=== PATIENT | female | born 1960 | race Caucasian/White ===

== ENCOUNTER 2018-04-10 08:56 | Outpatient (REF) | payer BC, SELFPAY ==
--- NOTE | 2018-04-10 08:45 | PAPFT_PTH ---
PATIENT: Maritza Matute LOC: [facility] U#:[id number] AGE/SX: 58/F ROOM: RE04/10/[address]: BACILIO Jackson : 1960 BED: DIS: 04/10/2018 SPEC #: [id number] RECD: 04/10/18 13:15 STATUS: MAGDY REQ #: [id number] SHARI: 04/10/18 08:[address]: Anat Lerner DEPT: [facility] Cytology RECD BY: Madelyn Dumont ENTERED: 04/10/18 13:16 SP TYPE: PAPFT OTHR DR: Diana Haas APRN Tissues: 1 - CX/ENDOCX FOR PAP SMEARS Procedures: PAP THIN PREP/UVM Screening HPV DNA PROBE Comments: [id number]
== END 2018-04-10 09:16 ==
LOC: LBN 08:56
PROVIDERS: Visit Provider Nurse Practitioner Family
DX: Z12.4 Encounter for screening for malignant neoplasm of cervix (principal); Z11.51 Encounter for screening for human papillomavirus (HPV)
CPT/HCPCS: 88142; 87624

== ENCOUNTER 2018-04-29 00:15 | Outpatient (CLI) | payer BC, SELFPAY ==
--- NOTE | 2018-04-29 16:30 | DI.MAMMO_ITS ---
SYMPTOM/DIAGNOSIS: SCREENING, Z12.31 MAMMOGRAMS: Mammograms were interpreted according to the usual protocol including computer analysis with CAD system, tomosynthesis and C view imaging. Comparison is made with prior examinations. Breast density, Category C. No suspicious masses or microcalcifications are seen. There is no definite evidence of malignancy. IMPRESSION: Negative mammogram. Routine screening is recommended. Category 1C. MQSA ASSESSMENT OF FINDINGS: Negative. Category 1. Patient will receive a letter notifying them of these results. Bi-RADS category C. The breasts are heterogeneously dense, which may obscure small masses.
== END 2018-04-29 00:35 ==
PROVIDERS: Visit Provider Nurse Practitioner Family
DX: Z12.31 Encounter for screening mammogram for malignant neoplasm of breast (principal)
CPT/HCPCS: 77063; 77067

== ENCOUNTER 2018-06-24 02:01 | Outpatient (CLI) | payer BC, SELFPAY ==
--- NOTE | 2018-06-24 07:22 | DI.US_ITS ---
SYMPTOM/DIAGNOSIS: CHRONIC PHLEBITIS, ? DVT RLL, I80.9 RIGHT LOWER EXTREMITY ULTRASOUND: There is no evidence of DVT. Note is made of varicosities in the mid and lower calf where color flow is identified with partial compression. The possibility of superficial thrombophlebitis could not be entirely excluded in this patient.
== END 2018-06-24 02:21 ==
DX: I80.3 Phlebitis and thrombophlebitis of lower extremities, unspecified (principal); I83.91 Asymptomatic varicose veins of right lower extremity
CPT/HCPCS: 93971

== ENCOUNTER 2018-11-19 02:10 | Outpatient (CLI) | payer BC, SELFPAY ==
[2018-11-19 08:53] LABS: ALT 25 U/L (12-78); AST 20 U/L (15-37); Albumin 3.1 g/dL (3.4-5.0); Alkaline Phosphatase 87 U/L (46-116); Anion Gap 8.9 mmol/L (3-11); BUN 20 mg/dL (7-18); Bilirubin, Total 0.6 mg/dL (0.2-1.0); CO2 27.1 mmol/L (21.0-32.0); CREATININE 0.66 mg/dL (0.55-1.02); Calcium 8.8 mg/dL (8.5-10.1); Chloride 106 mmol/L (98-107); Glucose 50 mg/dL (70-100); Potassium 4.1 mmol/L (3.5-5.1); Sodium 142 mmol/L (136-145); TSH (W/Ref FT4) 5.18 uIU/mL (0.36-3.74); Total Protein 6.2 g/dL (6.4-8.2)
== END 2018-11-19 02:30 ==
PROVIDERS: PCP Nurse Practitioner
DX: I10 Essential (primary) hypertension (principal); R79.89 Other specified abnormal findings of blood chemistry; G47.00 Insomnia, unspecified
CPT/HCPCS: 36415; 80053; 84439; 84443

== ENCOUNTER 2020-07-04 01:47 | Outpatient (CLI) | payer BC, SELFPAY ==
--- NOTE | 2020-07-04 08:25 | DI.MAMMO_ITS ---
EXAM: MG MAMMO SCREENING CLINICAL HISTORY: screening,z12.39 TECHNIQUE: Bilateral full field digital CC and MLO mammographic images were obtained with 3D tomosyn thesis and utilizing computer aided detection (CAD). COMPARISON: Available for comparison. FINDINGS: Masses/Architectural Distortion: There is an asymmetry in the inferior right breast seen on the MLO v iew. Microcalcifications: No suspicious pleomorphic-type are seen. Skin Thickening/Nipple Retraction: None. IMPRESSION: 1. Asymmetry in the inferior right breast on the MLO view 3 cm from the nipple. 2. This area should be further evaluated with spot compression view. Ultrasound may be indicated at that time. BI-RADS Category 0 - Assessment Incomplete: Need additional imaging evaluation Breast Density - Category C - Heterogeneously dense Breast density category C or D implies that the patient has dense breast tissue. Dense breast tissue is very common and is not abnormal but dense breast tissue can make it harder to find cancer on a ma mmogram. Also, dense breast tissue may increase their breast cancer risk. This information about the result of the mammogram report was provided to the patient to raise their awareness. Use this report when you speak with the patient about their risks for breast cancer, which includes their family hist ory. At that time, you may recommend for more screening tests (Ultrasound or MRI) as they might be us eful based on their risk. A negative radiographic report should not delay biopsy if a dominant or clinically suspicious mass is present. Up to ten percent of cancers are not identified on mammography. A negative report may reinforce clinical impression. Adenosis and dense breasts may obscure an underlying neoplasm. False positive reports average 6 to 10%. Patient will receive a letter notifying them of these results.
== END 2020-07-04 02:07 ==
PROVIDERS: PCP Nurse Practitioner; Visit Provider Nurse Practitioner
DX: Z12.31 Encounter for screening mammogram for malignant neoplasm of breast (principal); R92.8 Other abnormal and inconclusive findings on diagnostic imaging of breast
CPT/HCPCS: 77063; 77067

== ENCOUNTER 2020-07-04 03:42 | Outpatient (CLI) | payer BC, SELFPAY ==
[2020-07-04 09:11] LABS: Hemoglobin A1C 5.9 % (<5.7)
[2020-07-04 09:53] LABS: CREATININE 0.6 mg/dL (0.55-1.02); Calculated LDL 120 mg/dL (<100); Cholesterol 196 mg/dL (<200); HDL Cholesterol 62 mg/dL (40-60); Potassium 4.2 mmol/L (3.5-5.1); TSH (W/Ref FT4) 2.91 uIU/mL (0.36-3.74); Triglyceride 71 mg/dL (<150)
== END 2020-07-04 03:43 | disposition home or self-care (01) ==
LOC: LBO 03:42
PROVIDERS: PCP Nurse Practitioner; Visit Provider Nurse Practitioner
DX: I10 Essential (primary) hypertension (principal); R94.6 Abnormal results of thyroid function studies; R79.89 Other specified abnormal findings of blood chemistry; Z13.1 Encounter for screening for diabetes mellitus; Z13.6 Encounter for screening for cardiovascular disorders
CPT/HCPCS: 36415; 80061; 82565; 83036; 84132; 84443

== ENCOUNTER 2020-07-07 04:19 | Outpatient (CLI) | payer BC, SELFPAY ==
--- NOTE | 2020-07-07 | DI.US_ITS ---
EXAM: MG MAMMO SCREEN CALL BACK UNI CLINICAL HISTORY: F/U MAMMO, ASYMMETRY INFERIOR T BREAST TECHNIQUE: Mammograms were interpreted according to the usual protocol including computer analysis w ith CAD system, tomosynthesis and C-view imaging. COMPARISON: FINDINGS: Additional mammographic views of the right breast and right breast ultrasound are interpreted in conj unction. These examinations were obtained to evaluate questionable area of asymmetric density in the lower outer quadrant of the right breast seen on recent mammogram. Additional mammographic views fa il to show a discrete mass. Breast ultrasound shows no evidence of a mass or cyst. IMPRESSION: No specific evidence of malignancy at this time. Follow-up unilateral right breast mammogram recomme nded in 6 months. BI-RADS Category 3 - 6 month - Probably Benign Finding: Recommend follow-up mammography in 6 months Breast Density - Category C - Heterogeneously dense
== END 2020-07-07 04:39 ==
PROVIDERS: PCP Nurse Practitioner; Visit Provider Nurse Practitioner
DX: Z12.31 Encounter for screening mammogram for malignant neoplasm of breast (principal); R92.8 Other abnormal and inconclusive findings on diagnostic imaging of breast; N64.59 Other signs and symptoms in breast
CPT/HCPCS: 76642; 77063; 77067

== ENCOUNTER 2021-01-09 01:57 | Outpatient (CLI) | payer BC, SELFPAY ==
--- NOTE | 2021-01-09 13:41 | DI.MAMMO_ITS ---
Exam(s) MAMMO DIAGNOSTIC UNI EXAM: MAMMO DIAGNOSTIC UNI CLINICAL HISTORY: 3-6 MO F/U, ABNL MAMMO OF RIGHT BREAST, Z09, R92.8. TECHNIQUE: Craniocaudal and mediolateral oblique Full Field Digital Mammography views of the right b reast with Computer Aided Diagnosis followed by Tomosynthesis. COMPARISON: Comparison is made with prior examinations. FINDINGS: Mammography/Tomosynthesis: Masses/Architectural Distortion: None seen. Microcalcifictions: No suspicious pleomorphic-type are seen. Skin Thickening/Nipple Retraction: None. IMPRESSION: 1. No evidence of malignancy is noted. 2. Unless there is more urgent need, follow-up screening mammography is recommended, as per [place] [employer] guidelines. 3. The findings were discussed with the patient on the date of the examination. BI-RADS Category 1 - Negative Breast Density - Category C - Heterogeneously dense Breast density Category C or D implies that the patient has dense breast tissue. Dense breast tissue can make it harder to find cancer on a mammogram. Dense breast tissue is also associated with an incr eased risk of breast cancer. This information about the result of the mammogram report was provided to the patient to raise their awareness. Use this report when you speak with the patient about their risks for breast cancer, which includes their family history. At that time, you may recommend additional screening tests (Ultrasoun d or MRI) as these tests may add significant information. A negative radiographic report should not delay biopsy if a dominant or clinically suspicious mass is present. Up to ten percent of cancers are not identified on mammography. A negative report may reinforce clinical impression. Adenosis and dense breasts may obscure an underlying neoplasm. False positive reports average 6 to 10%. Patient will receive a letter notifying them of these results.
== END 2021-01-09 02:17 ==
PROVIDERS: PCP Nurse Practitioner; Visit Provider Nurse Practitioner
DX: R92.8 Other abnormal and inconclusive findings on diagnostic imaging of breast (principal); Z09 Encounter for follow-up examination after completed treatment for conditions other than malignant neoplasm
CPT/HCPCS: 77061; 77065; G0279

== ENCOUNTER → 2021-07-12 08:11 | Outpatient (CLI) | payer BC, SELFPAY ==
--- NOTE | 2021-07-12 09:28 | DI.MAMMO_ITS ---
Exam(s) MAMMO SCREENING EXAM: MAMMO SCREENING CLINICAL HISTORY: screening,Z12.39 TECHNIQUE: Mammograms were interpreted according to the usual protocol including computer analysis w [employer] CAD system, tomosynthesis and C-view imaging. COMPARISON: 2012 through 2020 FINDINGS: The breasts are composed of heterogeneously dense fibroglandular densities, Breast Density category C . No suspicious masses or suspicious microcalcifications are seen. No skin thickening or abnormal axillary lymph nodes are seen. There has been no significant change from prior exams. IMPRESSION: BI-RADS Category 1, Negative mammogram. Yearly screening mammography is recommended. Breast Density Category C, heterogeneously Dense. The mammogram demonstrates the patient's breast tissue is dense. Dense breast tissue is very common a nd is not abnormal but dense breast tissue can make it harder to find cancer on a mammogram. Also, de nse breast tissue may increase breast cancer risk. This information about the result of the mammogram report was provided to the patient to raise their awareness. Use this report when you speak with the patient about their risks for breast cancer, which includes their family history. At that time, you may recommend additional screening tests (Ultrasound or MRI) as they might be useful based on their r isk. A negative radiographic report should not delay biopsy if a dominant or clinically suspicious mass is present. Up to ten percent of cancers are not identified on mammography. A negative report may reinforce clinical impression. Adenosis and dense breasts may obscure an underlying neoplasm. False positive reports average 6 to 10%.
== END ==
PROVIDERS: PCP Nurse Practitioner; Visit Provider Nurse Practitioner
DX: Z12.31 Encounter for screening mammogram for malignant neoplasm of breast (principal); R92.8 Other abnormal and inconclusive findings on diagnostic imaging of breast
CPT/HCPCS: 77063; 77067

== ENCOUNTER 2021-10-25 02:37 | Outpatient (CLI) | payer BC, SELFPAY ==
[2021-10-25 12:37] LABS: Hemoglobin A1C 5.6 % (<5.7)
[2021-10-25 12:44] LABS: Anion Gap 7.3 mmol/L (3-11); BUN 19 mg/dL (7-18); CO2 28.7 mmol/L (21.0-32.0); CREATININE 0.6 mg/dL (0.55-1.02); Chloride 106 mmol/L (98-107); Glucose 81 mg/dL (74-106); Potassium 3.9 mmol/L (3.5-5.1); Sodium 142 mmol/L (136-145)
== END 2021-10-25 02:38 | disposition home or self-care (01) ==
LOC: LOS 02:37
PROVIDERS: PCP Nurse Practitioner; Visit Provider Nurse Practitioner
DX: I10 Essential (primary) hypertension (principal); Z13.1 Encounter for screening for diabetes mellitus
CPT/HCPCS: 36415; 80048; 83036

== ENCOUNTER 2022-10-02 01:45 | Outpatient (CLI) | payer BC, SELFPAY ==
--- NOTE | 2022-10-02 08:45 | DI.MAMMO_ITS ---
Exam(s) MAMMO SCREENING EXAM: MAMMO SCREENING CLINICAL HISTORY: screening, Z12.39 TECHNIQUE: Bilateral full field digital CC and MLO mammographic images were obtained with 3D tomosyn thesis and utilizing computer aided detection (CAD). COMPARISON: Available for comparison. FINDINGS: Masses/Architectural Distortion: None seen. Microcalcifications: No suspicious pleomorphic-type are seen. Skin Thickening/Nipple Retraction: None. IMPRESSION: 1. No significant interval change with no specific features of malignancy noted. 2. Unless there is more urgent need, screening mammography is recommended, as per [place] [employer] guidelines. BI-RADS Category 1 - Negative Breast Density - Category C - Heterogeneously dense Breast density category C or D implies that the patient has dense breast tissue. Dense breast tissue is very common and is not abnormal but dense breast tissue can make it harder to find cancer on a ma mmogram. Also, dense breast tissue may increase their breast cancer risk. This information about the result of the mammogram report was provided to the patient to raise their awareness. Use this report when you speak with the patient about their risks for breast cancer, which includes their family hist ory. At that time, you may recommend for more screening tests (Ultrasound or MRI) as they might be us eful based on their risk. A negative radiographic report should not delay biopsy if a dominant or clinically suspicious mass is present. Up to ten percent of cancers are not identified on mammography. A negative report may reinforce clinical impression. Adenosis and dense breasts may obscure an underlying neoplasm. False positive reports average 6 to 10%. Patient will receive a letter notifying them of these results.
== END 2022-10-02 02:05 ==
PROVIDERS: PCP Nurse Practitioner Family; Visit Provider Nurse Practitioner Family
DX: Z12.31 Encounter for screening mammogram for malignant neoplasm of breast (principal)
CPT/HCPCS: 77063; 77067

== ENCOUNTER 2023-07-08 05:16 | Outpatient (CLI) | payer BC, SELFPAY ==
[2023-07-08 12:15] LABS: HCT 36.7 % (36.0-46.0); HGB 11.6 g/dL (11.2-15.7); MCH 28.9 pg (27.0-33.0); MCHC 31.6 % (32.0-36.0); MCV 92 fL (80-95); MPV 9.7 fL (8.0-11.0); Platelet Count 291 10^3/uL (130-400); RBC 4.01 10^6/uL (3.93-5.22); RDW 14.2 % (11.7-14.6); RDW-SD 47.9 fL; WBC 5.14 10^3/uL (4.4-10.8)
[2023-07-08 12:38] LABS: ALT 21 U/L (14-59); AST 16 U/L (15-37); Albumin 3.4 g/dL (3.4-5.0); Alkaline Phosphatase 77 U/L (46-116); Anion Gap 8.7 mmol/L (3-11); BUN 19 mg/dL (7-18); Bilirubin, Total 0.9 mg/dL (0.2-1.0); CO2 27.3 mmol/L (21.0-32.0); CREATININE 0.7 mg/dL (0.55-1.02); Calcium 9.1 mg/dL (8.5-10.1); Calculated LDL 129 mg/dL (<100); Chloride 103 mmol/L (98-107); Cholesterol 204 mg/dL (<200); Estimated GFR 98.34 (mL/min/1.73m2); Glucose 78 mg/dL (74-106); HDL Cholesterol 61 mg/dL (40-60); Potassium 3.9 mmol/L (3.5-5.1); Sodium 139 mmol/L (136-145); Total Protein 6.9 g/dL (6.4-8.2); Triglyceride 71 mg/dL (<150)
[2023-07-08 13:13] LABS: Hemoglobin A1C 5.8 % (<5.7)
== END 2023-07-08 05:17 | disposition home or self-care (01) ==
LOC: LOS 05:16
PROVIDERS: PCP Nurse Practitioner Family; Visit Provider Nurse Practitioner Family
DX: Z00.00 Encounter for general adult medical examination without abnormal findings (principal); R73.03 Prediabetes; I10 Essential (primary) hypertension; I83.91 Asymptomatic varicose veins of right lower extremity
CPT/HCPCS: 36415; 80053; 80061; 85027; 83036; 84443

== ENCOUNTER → 2023-10-08 00:46 | Outpatient (CLI) | payer BC, SELFPAY ==
--- NOTE | 2023-10-08 07:45 | DI.MAMMO_ITS ---
Exam(s) MAMMO SCREENING EXAM: MAMMO SCREENING CLINICAL HISTORY: screening,z12.39 TECHNIQUE: Mammograms were interpreted according to the usual protocol including computer analysis w [employer] CAD system, tomosynthesis and C-view imaging. COMPARISON: 2014 through 2022 FINDINGS: The breasts are composed of heterogeneously dense fibroglandular densities, Breast Density category C . No suspicious masses or suspicious microcalcifications are seen. No skin thickening or abnormal axillary lymph nodes are seen. There has been no significant change from prior exams. IMPRESSION: BI-RADS Category 1, Negative mammogram. Yearly screening mammography is recommended. Breast Density Category C, heterogeneously Dense. The mammogram demonstrates the patient's breast tissue is dense. Dense breast tissue is very common a nd is not abnormal but dense breast tissue can make it harder to find cancer on a mammogram. Also, de nse breast tissue may increase breast cancer risk. This information about the result of the mammogram report was provided to the patient to raise their awareness. Use this report when you speak with the patient about their risks for breast cancer, which includes their family history. At that time, you may recommend additional screening tests (Ultrasound or MRI) as they might be useful based on their r isk. A negative radiographic report should not delay biopsy if a dominant or clinically suspicious mass is present. Up to ten percent of cancers are not identified on mammography. A negative report may reinforce clinical impression. Adenosis and dense breasts may obscure an underlying neoplasm. False positive reports average 6 to 10%.
== END ==
PROVIDERS: PCP Nurse Practitioner Family; Visit Provider Nurse Practitioner Family
DX: Z12.39 Encounter for other screening for malignant neoplasm of breast (principal)
CPT/HCPCS: 77063; 77067

== ENCOUNTER 2023-10-08 09:39 | Outpatient (REF) | payer BC, SELFPAY ==
--- NOTE | 2023-10-08 08:50 | PAPFT_PTH ---
PATIENT: Maritza Matute LOC: [facility] U#:[id number] AGE/SX: 63/F ROOM: RE10/08/[address]: Tracy Pickard NP : 1960 BED: DIS: 10/08/2023 SPEC #: [id number] RECD: 10/08/23 13:11 STATUS: FRANCISCODanette RELon #: [id number] SHARI: 10/08/23 08:[address]: Tracy Pickard NP DEPT: [facility] Cytology RECD BY: Madelyn Dumont ENTERED: 10/08/23 13:11 SP TYPE: PAPFT OTHR DR: Kelsey Gregory NP Tissues: 1 - CX/ENDOCX FOR PAP SMEARS Procedures: PAP THIN PREP/UVM Screening HPV DNA PROBE Comments: [id number] (HPV 16 & 18/45)
== END 2023-10-08 09:40 | disposition home or self-care (01) ==
LOC: LBN 09:39
PROVIDERS: PCP Nurse Practitioner Family; Visit Provider Nurse Practitioner Women's Health
DX: Z01.419 Encounter for gynecological examination (general) (routine) without abnormal findings (principal); Z78.0 Asymptomatic menopausal state; Z12.4 Encounter for screening for malignant neoplasm of cervix
CPT/HCPCS: 88142; 87624

== ENCOUNTER 2024-04-05 17:24 | Outpatient (CLI) | payer BC, SELFPAY ==
--- OUTSIDE RECORDS SUMMARY | 2024-04-05 17:28 | XMS_ITS | Encounter Summary ---
Author Organization [facility] Address [address] [place] [address] Care Team Providers Care Data Base Administrator Name Role Phone Unknown, Provider Primary Care Provider Unava ilable Encounter Details Date Type Department Care Team (Late st Contact Info) Description 03/12/2010 Results Only [facility] ([facility]) [address], [place] [id number] Karrie Lerner, [facility] [address] [place] [address] [place] [phone] Social History Tobacco Use Types Packs/Day Years Used Date Smoking Tobacco: Never Assessed Comments Unknown Sex and Gender Information Value Date Recorded Sex Assigned at Not on file Legal Sex Female 18:22 EST Gender Identity Not on file Sexual Orientation Not on file documented as of this encounter Plan of Treatment Not on file documented as of this encounter Procedures Procedure Name Priority Date/Time Associated Diagnosis Comments CYTOPATHOLOGY Routine 03/12/2010 0:00 EST documented in this encounter Results * CYTOPATHOLOGY (03/12/2010 0:00 EST) Pathology Report: CYTOPATHOLOGY REPORT ? Reports generated via electronic interface contain original data; ? however they are lacking the format of the original report. ? Caution should be taken when reading/interpreti ng unformatted reports. ? Name: ? YAMILA SCHROEDER ? Accession #: ? [id number] ? : ? 1960 (Age: 49) ??F ?Collect Date: ? 03/12/2010 ? Location: ? [facility] ? Receive Date: ? 03/13/2010 ? Provider: ?KARRIE JULIANO RECREATIONAL DIRECTOR ? Copy to: ? Specimen/Source: ?Pap Test, Cervix/Endocervix, ThinPrep Imaging System ? with manual evaluation ? Last Menstrual Period: ? 11/25/10 ? Previous Gynecologic Pathology: ? ASC-US: 2004 and 2008 both with -HPV ? Other: ? Additional clinical information: alst pap 11/27/09 negative ? SPECIMEN ADEQUACY ? Satisfactory for Evaluation ? - transformation zone component present ? GENERAL CATEGORIZATION ? Other, see interpretation ? INTERPRETATION ? Endometrial cells present in a woman equal to or greater than age 40. ? Negative for Intraepithelial Lesion. ? EDUCATIONAL NOTES/RECOMMENDATI ONS ? Benign appearing endometrial cells on Pap tests are usually a normal ? finding in women with regular menstrual cycles, especially if the Pap test was ?? collected during the first half of the menstrual cycle. ? There is data showing that endometrial cells on Pap tests may be associated with endometrial/uterin e abnormalities in post menopausal women or in perimenopausal women with abnormal bleeding. ? There is limited data on the significance of benign endometrial cells in post ?? menopausal women on HRT. ??Clinical correlation is recommended. ? Note: ??The Pap test is not an accurate test for the screening of endometrial ? lesions and should not be used as a follow up in patients with clinical ? suspicion of endometrial pathology. ? Document reviewed and electronically signed by: ? Bianka Keiko, CT(ASCP) ? Report Date: ??2010 14:33 ? End of Report ? [facility] 03/12/2010 03/13/2010 us Karrie Lerner RECREATIONAL DIRECTOR PATHOLOGY ORDERABLES Final R esult [facility] [address] [place] [address] documented in this encounter Visit Diagnoses Not on filedocumented in this encounter Care Teams Data Base Administrator Relationship Specialty Start Date End Date Unknown, Provider, PCP - General 03/12/10 documented as of this encounter
--- OUTSIDE RECORDS SUMMARY | 2024-04-05 17:28 | XMS_ITS | Encounter Summary ---
Author Organization [facility] Address [address] [place] [address] Care Team Providers Care Carpenter Cradle And Dolly Name Role Phone Unknown, Provider Primary Care Provider Unava ilable Encounter Details Date Type Department Care Team (Late st Contact Info) Description 06/21/2005 Results Only [facility] [address] [place] [address] Karrie Lerner, [facility] [address] [place] [address] [place] [phone] Social History Tobacco Use Types Packs/Day Years [...] Priority Date/Time Associated Diagnosis Comments CYTOPATHOLOGY Routine 06/21/2005 0:00 EST documented in this encounter Results * CYTOPATHOLOGY (06/21/2005 0:00 EST) Pathology Report: CYTOPATHOLOGY REPORT Reports generated via electronic interface contain original data; however they are lacking the format of the original report. Caution should be taken when reading/interpreti ng unformatted reports. Name: ? YAMILA SCHROEDER ? Accession #: ? [id number] : ? 1960 (Age: 45) ??F ?Collect Date: ? 06/21/2005 Location: ? [facility] ? Receive Date: ? 06/24/2005 Provider: ?KARRIE LERNER USER EXPERIENCE LEAD Copy to: ? Specimen/Source: ?ThinPrep Pap Test, Cervix/Endocervix, processed on [employer] ThinPrep Imaging System, with manual evaluation Last Menstrual Period: ? 06/15/05 Other: ? HPVA - HPV testing requested if ASC-US on the current ThinPrep Pap test. ? SPECIMEN ADEQUACY ? Satisfactory for Evaluation - transformation zone component present GENERAL CATEGORIZATION ? Negative for Intraepithelial Lesion or Malignancy INTERPRETATION ? Reactive cellular changes associated with inflammation present (includes repair). ? Document reviewed and electronically signed by: ? RUBA CARBONE MD ? Report Date: ??06/27/2005 09:12 End of Report [facility] 06/21/2005 06/24/2005 us Karrie Lerner USER EXPERIENCE LEAD PATHOLOGY ORDERABLES Final R esult [facility] [address] [place] [address] documented in this encounter Visit Diagnoses Not on filedocumented in this encounter Care Teams Carpenter Cradle And Dolly Relationship Specialty Start Date End Date Unknown, Provider, PCP - General 03/12/10 documented as of this encounter
--- OUTSIDE RECORDS SUMMARY | 2024-04-05 17:28 | XMS_ITS | Encounter Summary ---
Author Organization [facility] Address [address] [place] [address] Care Team Providers Care Building Mechanic Name Role Phone Unknown, Provider Primary Care Provider Unava ilable Encounter Details Date Type Department Care Team (Late st Contact Info) Description 04/10/2018 Results Only [facility] [phone] Karrie Lerner, [facility] [address] [place] [address] [place] [phone] Social History Tobacco Use Types Packs/Day Years [...] Procedure Name Priority Date/Time Associated Diagnosis Comments PAP TEST- RESULT ONLY Routine 04/10/2018 0:00 EST documented in this encounter Results * PAP TEST- RESULT ONLY (04/10/2018 0:00 EST) Pathology Report: CYTOPATHOLOGY REPORT Reports generated via electronic interface contain original data; however they are lacking the format of the original report. Caution should be taken when reading/interpreti ng unformatted reports. Name: ? YAMILA SCHROEDER ? Accession #: ? [id number] ? : ? 1960 (Age: 58) ??F ?Collect Date: ? 04/10/2018 ? Location: ? [facility] ? Receive Date: ? 04/13/2018 ? Provider: KARRIE LERNER ROADWAY TECHNICIAN Copy to: MAREK TARANGO ROADWAY TECHNICIAN-BC ? Final Report SPECIMEN ADEQUACY ? Satisfactory for Evaluation - transformation zone component present GENERAL CATEGORIZATION ? Negative for Intraepithelial Lesion or Malignancy ?? Last Menstrual Period: 2011 Specimen/Source: ??Pap Test, Cervix, ThinPrep Imaging System with manual evaluation Document reviewed and electronically signed by: ? Bianka Aden, CT(ASCP) ? Report ??Date: 04/16/2018 13:06 HPV with Pap Test ? Date Ordered: ? 04/16/2018 ? Status: ?? Signed Out ?Date Complete: ? 04/17/2018 ? By: ??System Interface ? Date Reported: ? 04/17/2018 ? Interpretation RESULT: Negative for HPV. No E6 or E7 mRNA is detected from HPV types 16,18,31,33,35, 39,45,51,52,56,58, 59,66, and 68 by booking officer mediated amplification. Comments Document reviewed and electronically signed by: ? System Interface ? Report date: 04/17/2018 By the signature above, the attending physician certifies that he/she has personally conducted a gross and/or microscopic examination of the described specimens and rendered or confirmed the above diagnosis. End of Report [facility] 04/10/2018 04/13/2018 us Kar[address]ner [address]ADWAY TECHNICIAN PATHOLOGY ORDERABLES Final R esult [facility] [address] [place] [address] documented in this encounter Visit Diagnoses Not on filedocumented in this encounter Care Teams Building Mechanic Relationship Specialty Start Date End Date Unknown, Provider, PCP - General 03/12/10 documented as of this encounter
--- OUTSIDE RECORDS SUMMARY | 2024-04-05 17:28 | XMS_ITS | Referral Summary ---
Author Organization [facility] Address [address] [place] [address] Care Team Providers Care Audience Coordinator Name Role Phone Unknown, Provider Primary Care Provider Unava ilable Social History Tobacco Use Types Packs/Day Years Used Date Smoking Tobacco: Never Assessed Comments Unknown Sex and Gender Information Value Date Recorded Sex Assigned at Not on file Legal Sex Female 18:22 EST Gender Identity Not on file Sexual Orientation Not on file Plan of Treatment Not on file Care Teams Audience Coordinator Relationship Specialty Start Date End Date Unknown, Provider, PCP - General 03/12/10
--- OUTSIDE RECORDS SUMMARY | 2024-04-05 17:28 | XMS_ITS | Encounter Summary ---
Author Organization [facility] Address [address] [place] [address] Care Team Providers Care Vp Public Relations Name Role Phone Unavailable Primary Care Provider Unavailabl e Encounter Details Date Type Department Care Team (Latest Contact Info) Description 01/23/2007 14:36 EDT Hospital Encounter [facility] - Other [address] [place] [address] Karrie Lerner, [facility] [address] [place] [address] [place] [phone] Discharge Disposition: Auto Discharge Social History Tobacco Use Types Packs/Day Years Used Date Smoking Tobacco: Never Assessed Comments Unknown Sex and Gender Information Value Date Recorded Sex Assigned at Not on file Legal Sex Female 18:22 EST Gender Identity Not on file Sexual Orientation Not on file documented as of this encounter Discharge Disposition Disposition Code Departure Means Destination Auto Discharge documented in this encounter Plan of Treatment Pending Results Name Type Priority Associated Diagnoses Date /Time CYTOPATHOLOGY Pathology Routine 03/10/2009 0:00 EST CYTOPATHOLOGY Pathology Routine 03/10/2009 0:00 EST Scheduled Orders Name Type Priority Associated Diagnoses Orde r Schedule CYTOPATHOLOGY Pathology Routine For medicat ions that can be administered at any time during the hospitalization for visit such as immunizations. for 1 Occurrences starting 03/13/2009 CYTOPATHOLOGY Pathology Routine For medicat ions that can be administered at any time during the hospitalization for visit such as immunizations. for 1 Occurrences starting 03/13/2009 documented as of this encounter Procedures Procedure Name Priority Date/Time Associated Diagnosis Comments CYTOPATHOLOGY Routine 03/10/2009 0:00 EST HPV DETECTION, HIGH RISK TYPES Routine 03/01/2008 15:00 EST CYTOPATHOLOGY Routine 03/01/2008 0:00 EST documented in this encounter Results * CYTOPATHOLOGY (03/10/2009 0:00 EST) Pathology Report: CYTOPATHOLOGY REPORT ? Reports generated via electronic interface contain original data; ? however they are lacking the format of the original report. ? Caution should be taken when reading/interpreti ng unformatted reports. ? Name: ? YAMILA LARA ? Accession #: ? [id number] ? : ? 1960 (Age: 48) ??F ?Collect Date: ? 03/10/2009 ? Location: ? [facility] ? Receive Date: ? 03/13/2009 ? Provider: ?KARRIE JULIANO REACTOR TECHNICIAN ? Copy to: ? Specimen/Source: ?Pap Test, Cervix/Endocervix, ThinPrep Imaging System ? with manual evaluation ? Last Menstrual Period: ? 11/18/09 ? Previous Gynecologic Pathology: ? ASC-US: 2004 & 2008 ? HPV: + 2004 & 2008 ? Other: ? HPVA - HPV testing requested if ASC-US on the current ThinPrep Pap test. ? SPECIMEN ADEQUACY ? Satisfactory for Evaluation ? - transformation zone component present ? - scant squamous epithelial component secondary to excessive blood ? GENERAL CATEGORIZATION ? Negative for Intraepithelial Lesion or Malignancy ? INTERPRETATION ? Reactive cellular changes associated with inflammation present (includes ?? repair). ? Shift in aleks present suggestive of bacterial vaginosis. ? Document reviewed and electronically signed by: ? Tha Noah Arthur, MD ? Report Date: ??03/20/2009 10:25 ? End of Report ? [facility] 03/10/2009 03/13/2009 us Karrie Lerner REACTOR TECHNICIAN PATHOLOGY ORDERABLES Final R esult Performing Organization Address [facility] de Phone Number [facility] [address] [place] [address] * HUMAN PAPILLOMA VIRUS DNA TEST (03/01/2008 15:00 EST) Specimen Description Cervix, ThinPrep vial [facility] Result Negative for HPV types 16, 18, 31, 33, 35, 39, 45, 51, 52, 56, 58, 59, and 68. [facility] Report Status Final 03/17/2008 [facility] 03/01/2008 15:0 0 EST 03/09/2008 8:43 EST Karrie NEWELLP MICROBIOLOGY - GENERAL ORDER ADRIANNA Final Result Performing Organization Address [facility] de Phone Number [facility] [address] [place] [address] * CYTOPATHOLOGY (03/01/2008 0:00 EST) Pathology Report: CYTOPATHOLOGY REPORT ? Reports generated via electronic interface contain original data; ? however they are lacking the format of the original report. ? Caution should be taken when reading/interpreti ng unformatted reports. ? Name: ? YAMILA LARA ? Accession #: ? [id number] ? : ? 1960 (Age: 47) ??F ?Collect Date: ? 03/01/2008 ? Location: ? [facility] ? Receive Date: ? 03/02/2008 ? Provider: ?KARRIE JULIANO REACTOR TECHNICIAN ? Copy to: ? Specimen/Source: ?Pap Test, Cervix/Endocervix, ThinPrep Imaging System ? with manual evaluation ? Last Menstrual Period: ? 10/25/08 ? Previous Gynecologic Pathology: ? ASC-US: 10/12/07 HPV neg ? Other: ? HPVA - HPV testing requested if ASC-US on the current ThinPrep Pap test. ? SPECIMEN ADEQUACY ? Satisfactory for Evaluation ? - transformation zone component present ? - scant squamous epithelial component secondary to excessive mucus ? GENERAL CATEGORIZATION ? Epithelial Cell Abnormality ? INTERPRETATION ? Squamous Cell Abnormality - Atypical squamous cells, undetermined ? significance (ASC-US). ? Shift in aleks present suggestive of bacterial vaginosis. ? EDUCATIONAL NOTES/RECOMMENDATI ONS ? [facility] recommends following the 2006 Consensus Guidelines for the Management of Women with Abnormal Cervical Cancer Screening Tests (JLGTD, ? 2007;11(4):201-222 ). ??Consensus guidelines are available online at ? www.ASCCP.org. ? Document reviewed and electronically signed by: ? Chris B. Ambaye, MD ? Report Date: ??03/08/2008 16:27 ? End of Report ? [facility] 03/01/2008 03/02/2008 us Karrie Lerner REACTOR TECHNICIAN PATHOLOGY ORDERABLES Final R esult [facility] [address] [place] [address] documented in this encounter Visit Diagnoses Not on filedocumented in this encounter
--- OUTSIDE RECORDS SUMMARY | 2024-04-05 17:28 | XMS_ITS | Encounter Summary ---
Author Organization [facility] Address [address] [place] [address] Care Team Providers Care Decorator Mannequin Name Role Phone Unknown, Provider Primary Care Provider Unava ilable Encounter Details Date Type Department Care Team (Late st Contact Info) Description 07/01/2013 Results Only [facility] Laboratory Services - [facility] ([facility] [place] [facility] [address] [place], [place] [address] Anat Lerner, [facility] [address] [place] [address] [place] [phone] Social History Tobacco Use Types Packs/Day Years [...] Diagnosis Comments PAP TEST- RESULT ONLY Routine 07/01/2013 0:00 EDT documented in this encounter Results * PAP TEST- RESULT ONLY (07/01/2013 0:00 EDT) Pathology Report: CYTOPATHOLOGY REPORT Reports generated via electronic interface contain original data; however they are lacking the format of the original report. Caution should be taken when reading/interpreti ng unformatted reports. Name: ? YAMILA SCHROEDER ? Accession #: ? [id number] ? : ? 1960 (Age: 53) ??F ?Collect Date: ? 07/01/2013 ? Location: ? [facility] ? Receive Date: ? 07/05/2013 ? Provider: ANAT LERNER PROTEIN SPECIALIST Copy to: JERSEY ARMENDARIZ ? Final Report SPECIMEN ADEQUACY ? Satisfactory for Evaluation - transformation zone component present GENERAL CATEGORIZATION ? Negative for Intraepithelial Lesion or Malignancy ?? Last Menstrual Period: 07/2011 Specimen/Source: ??Pap Test, Cervix/Endocervix, ThinPrep Imaging System with manual evaluation Document reviewed and electronically signed by: ? Jerrell Sanchez, [place](ASCP) ? Report ??Date: 07/06/2013 13:53 HPV with Pap Test ? Date Ordered: ? 07/06/2013 ? Status: ?? Signed Out ?Date Complete: ? 07/08/2013 ? By: ??System Interface ? Date Reported: ? 07/08/2013 ? Interpretation RESULT: Negative for HPV. No E6 or E7 mRNA is detected from HPV types 16,18,31,33,35, 39,45,51,52,56,58, 59,66, and 68 by customer consulting manager mediated amplification. Comments Document reviewed and electronically signed by: ? System Interface ? Report date: 07/08/2013 By the signature above, the attending physician certifies that he/she has personally conducted a gross and/or microscopic examination of the described specimens and rendered or confirmed the above diagnosis. End of Report [facility] 07/01/2013 07/05/2013 Anat Lerner PROTEIN SPECIALIST PATHOLOGY ORDERABLES Final R esult Performing Organization Address City/State[facility] Co de Phone Number [facility] [address] [place] [address] documented in this encounter Visit Diagnoses Not on filedocumented in this encounter Care Teams Decorator Mannequin Relationship Specialty Start Date End Date Unknown, Provider, PCP - General 03/12/10 documented as of this encounter
--- OUTSIDE RECORDS SUMMARY | 2024-04-05 17:28 | XMS_ITS | Encounter Summary ---
Author Organization [facility] Address [address] [place] [address] Care Team Providers Care Boiler Setter Name Role Phone Unavailable Primary Care Provider Unavailabl e Encounter Details Date Type Department Care Team (Late st Contact Info) Description 01/23/2007 Results Only [facility] - [facility] [address] [place] [address] Anat Lerner, [address] [place] [phone] Social History Tobacco Use Types Packs/Day Years [...] Procedure Name Priority Date/Time Associated Diagnosis Comments HPV DETECTION, HIGH RISK TYPES Routine 01/23/2007 14:20 EDT CYTOPATHOLOGY Routine 01/23/2007 0:00 EDT documented in this encounter Results * HUMAN PAPILLOMA VIRUS DNA TEST (01/23/2007 14:20 EDT) Specimen Description Cervix, ThinPrep vial [facility] Result Negative for HPV types 16, 18, 31, 33, 35, 39, 45, 51, 52, 56, 58, 59, and 68. [facility] Report Status Final [id number] [facility] 01/23/2007 14:2 0 EDT 02/04/2007 17:56 EDT us Anat Lerner WATER QUALITY SPECIALIST MICROBIOLOGY - GENERAL ORDER ADRIANNA Final Result [facility] [address] [place] [address] * CYTOPATHOLOGY (01/23/2007 0:00 EDT) Pathology Report: CYTOPATHOLOGY REPORT Reports generated via electronic interface contain original data; however they are lacking the format of the original report. Caution should be taken when reading/interpreti ng unformatted reports. Name: ? YAMILA LARA ? Accession #: ? [id number] : ? 1960 (Age: 46) ??F ?Collect Date: ? 01/23/2007 Location: ? [facility] ? Receive Date: ? 01/26/2007 Provider: ?ANAT LERNER WATER QUALITY SPECIALIST Copy to: ? Specimen/Source: ?ThinPrep Pap Test, Cervix/Endocervix, processed on [employer] ThinPrep Imaging System, with manual evaluation Last Menstrual Period: ? 01/02/07 Other: ? HPVA - HPV testing requested if ASC-US on the current ThinPrep Pap test. ? SPECIMEN ADEQUACY ? Satisfactory for Evaluation - transformation zone component present GENERAL CATEGORIZATION ? Epithelial Cell Abnormality INTERPRETATION ? Squamous Cell Abnormality - Atypical squamous cells, undetermined significance (ASC-US). Shift in aleks present suggestive of bacterial vaginosis. EDUCATIONAL NOTES/RECOMMENDATI ONS ? [facility] recommends following the 2001 Consensus Guidelines for the Management of Women with Cervical Cytological Abnormalities (NICKO,2002;287:212 0-9). Management algorithms have been distributed by [facility] and are available online at www.ASCCP.org. ? Document reviewed and electronically signed by: ? Meneu Arellano MD PhD ? Report Date: ??02/04/2007 13:40 End of Report [facility] 01/23/2007 01/26/2007 us Anat Lerner WATER QUALITY SPECIALIST PATHOLOGY ORDERABLES Final R esult [facility] [address] [place] [address] documented in this encounter Visit Diagnoses Not on filedocumented in this encounter
--- OUTSIDE RECORDS SUMMARY | 2024-04-05 17:28 | XMS_ITS | Clinical Summary ---
Author Organization [facility] Address [address] [place] [address] Care Team Providers Care Inventory Associate Name Role Phone Unknown, Provider Primary Care Provider Unava ilable Social History Tobacco Use Types Packs/Day Years Used Date Smoking Tobacco: Never Assessed Comments Unknown Sex and Gender Information Value Date Recorded Sex Assigned at Not on file Legal Sex Female 18:22 EST Gender Identity Not on file Sexual Orientation Not on file Plan of Treatment Health Maintenance Due Date Last Done Comments Hepatitis C Screen 1960 COVID-19 Vaccine (2023-25 season) 2023 RSV Immunization ( o r 60+ Years) (1 - 1-dose 75+ series) 2037 Care Teams Inventory Associate Relationship Specialty Start Date End Date Unknown, Provider, PCP - General 03/12/10
--- OUTSIDE RECORDS SUMMARY | 2024-04-05 17:28 | XMS_ITS | Encounter Summary ---
Author Organization [facility] Address [address] [place] [address] Care Team Providers Care Rope Walker Name Role Phone Unknown, Provider Primary Care Provider Unava ilable Encounter Details Date Type Department Care Team (Late st Contact Info) Description 06/18/2012 Results Only [facility] Laboratory Services - [facility] ([facility]) [address] [place], [place] [address] Karrie Lerner, [facility] [address] [place] [address] [place] [phone] Social History Tobacco Use Types Packs/Day Years [...] Diagnosis Comments PAP TEST- RESULT ONLY Routine 06/18/2012 0:00 EST documented in this encounter Results * PAP TEST- RESULT ONLY (06/18/2012 0:00 EST) Pathology Report: CYTOPATHOLOGY REPORT Reports generated via electronic interface contain original data; however they are lacking the format of the original report. Caution should be taken when reading/interpreti ng unformatted reports. Name: ? YAMILA SCHROEDER ? Accession #: ? [id number] : ? 1960 (Age: 52) ??F ?Collect Date: ? 06/18/2012 Location: ? [facility] ? Receive Date: ? 06/22/2012 Provider: ?KARRIE LERNER TRUST ACCOUNTS SUPERVISOR Copy to: ?JERSEY ARMENDARIZ ? Specimen/Source: ?Pap Test, Cervix/Endocervix, ThinPrep Imaging System with manual evaluation Last Menstrual Period: ? 07/2011 ? SPECIMEN ADEQUACY ? Satisfactory for Evaluation - transformation zone component present GENERAL CATEGORIZATION ? Negative for Intraepithelial Lesion or Malignancy ? Document reviewed and electronically signed by: ? Arlet Armenta, CT(ASCP)(IAC) ? Report Date: ??06/23/2012 16:24 End of Report [facility] 06/18/2012 06/22/2012 Karrie Lerner TRUST ACCOUNTS SUPERVISOR PATHOLOGY ORDERABLES Final R esult [facility] [address] [place] [address] documented in this encounter Visit Diagnoses Not on filedocumented in this encounter Care Teams Rope Walker Relationship Specialty Start Date End Date Unknown, Provider, PCP - General 03/12/10 documented as of this encounter
--- OUTSIDE RECORDS SUMMARY | 2024-04-05 17:28 | XMS_ITS | Encounter Summary ---
Author Organization [facility] Address [address] [place] [address] Care Team Providers Care Lace Burn Out Tender Name Role Phone Unknown, Provider Primary Care Provider Unava ilable Encounter Details Date Type Department Care Team (Late st Contact Info) Description 03/28/2011 Results Only [facility] Laboratory Services - [facility] ([facility]) [address] [place], [place] [phone] Karrie Lerner, [facility] [address] [place] [address] [place] [phone] Social History Tobacco Use Types Packs/Day Years [...] Diagnosis Comments PAP TEST- RESULT ONLY Routine 03/28/2011 0:00 EST documented in this encounter Results * PAP TEST- RESULT ONLY (03/28/2011 0:00 EST) Pathology Report: CYTOPATHOLOGY REPORT Reports generated via electronic interface contain original data; however they are lacking the format of the original report. Caution should be taken when reading/interpreti ng unformatted reports. Name: ? YAMILA SCHROEDER ? Accession #: ? [id number] : ? 1960 (Age: 51) ??F ?Collect Date: ? 03/28/2011 Location: ? [facility] ? Receive Date: ? 03/29/2011 Provider: ?KARRIE LERNER ASSISTANT PROFESSOR OF RELIGION Copy to: ? Specimen/Source: ?Pap Test, Cervix/Endocervix, ThinPrep Imaging System with manual evaluation Last Menstrual Period: ? 11/17/10 Previous Gynecologic Pathology: ? ASC-US: neg HPV 2007 & 2008 ? SPECIMEN ADEQUACY ? Satisfactory for Evaluation - transformation zone component present GENERAL CATEGORIZATION ? Negative for Intraepithelial Lesion or Malignancy ? Document reviewed and electronically signed by: ? RENUKA Stewart(ASCP) ? Report Date: ??04/03/2011 09:19 End of Report [facility] 03/28/2011 03/29/2011 us Karrie Lerner ASSISTANT PROFESSOR OF RELIGION PATHOLOGY ORDERABLES Final R esult [facility] [address] [place] [address] documented in this encounter Visit Diagnoses Not on filedocumented in this encounter Care Teams Lace Burn Out Tender Relationship Specialty Start Date End Date Unknown, Provider, PCP - General 03/12/10 documented as of this encounter
--- OUTSIDE RECORDS SUMMARY | 2024-04-05 17:28 | XMS_ITS | Encounter Summary ---
Author Organization [facility] Address [address] [place] [address] Care Team Providers Care Gauge Inspector Name Role Phone Unknown, Provider Primary Care Provider Paxton kingston Encounter Details Date Type Department Care Team (Late st Contact Info) Description 10/09/2023 Lab Requisition [facility] Pathology & Laboratory Medicine - [place] [address] [place] [address] Tracy Pickard, REVENUE STAMPER [address] [place] [phone] Encounter for other general examination Social History Tobacco Use Types Packs/Day Years [...] Name Priority Date/Time Associated Diagnosis Comments PAP TEST Today 10/08/2023 8:50 EDT Encounter for other general examination HPV DNA DETECTION WITH GENOTYPING, PCR Today 10/08/2023 8:50 EDT Encounter for other general examination documented in this encounter Results * HPV DNA DETECTION WITH GENOTYPING, PCR (10/08/2023 8:50 EDT) HPV High Risk type 16, PCR Negative Negative 10/15/2023 15:31 EDT [facility] HPV High Risk type 18, PCR Negative Negative [facility] HPV other High Risk types, PCR Negative Negative 10/15/2023 15:31 [facility] Comment: The following Other High Risk HPV types were not detected: ??31,33, 35, 39, 45, 51, 52, 56, 58, 59, 66 and 68. Pap Test CERVIX UTERI STRUCTURE / Unknown 10/08/2023 8:50 EDT 10/14/2023 9:55 EDT us Tracy Pickard APRN MICROBIOLOGY - GENERAL OR DERABLES Final Result [facility] [address] [place] [address] * PAP TEST (10/08/2023 8:50 EDT) Specimens A. Cervix and/or Endocervix , ThinPrep Imaging System with Manual Evaluation 10/15/2023 15:31 [facility] Specimen Adequacy Satisfactory for Evaluation - assessment of transformation zone component not applicable ( e.g. atrophy, vaginal sample, hysterectomy) Scant squamous epithelial component due to contaminant, possibly lubricant or other vaginal contaminant. 10/15/2023 15:31 [facility] General Categorization Negative for intraepithelial lesion or malignancy 10/15/2023 15:31 [facility] Attestation . 10/15/2023 15:31 [facility] at 1531 Clinical History SEE BELOW 10/15/19 15:31 [facility] Performing Lab [facility] 10/15/2023 15:31 [facility] Scanned Images 10/15/2023 15:31 [facility] HPV High Risk type 16, PCR Negative 10/15/2023 15:31 [facility] HPV High Risk type 18, PCR Negative 10/15/2023 15:31 [facility] HPV Other High Risk Types, PCR Negative The following Other High Risk HPV types were not detected: 31,33, 35, 39, 45, 51, 52, 56, 58, 59, 66 and 68. 10/15/2023 15:31 EDT [facility] Pap Test CERVIX UTERI STRUCTURE / Unknown 10/08/2023 8:50 EDT 10/09/2023 11:20 EDT us Tracy Pickard REVENUE STAMPER PATHOLOGY ORDERABLES Sandra l Result [facility] [address] [place], [place] [id number] documented in this encounter Visit Diagnoses Diagnosis Encounter for other general examination documented in this encounter Care Teams Gauge Inspector Relationship Specialty Start Date End Date Unknown, Provider, PCP - General 03/12/10 documented as of this encounter
--- OUTSIDE RECORDS SUMMARY | 2024-04-05 17:29 | XMS_ITS | Encounter Summary ---
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,SUBFASCIAL,OPEN, INCL US GUIDE,WHN PERFORM,1 LEG PRO PHLEB VEINS - EXTREM - TO 20 PRO PHLEB VEINS - EXTREM 20+ PRO REVISE SECONDARY VARICOSITY ENDOVENOUS ABLATION THERAPY OF INCOMPETENT VEIN, EXTREMITY, FIRST VEIN (WRVU 5.3) Allen Sanchez III, MD [address] [place] [address] [place] [address] [facility] Referral ID Status Reason Start Date Expiration Date Visits Re quested Visits Authorized [id number] 1 1 Encounter Details Date Type Department Care Team ([facility] st Contact Info) Description 10/16/2022 1:51 PM EDT - 10/16/2022 3:09 PM EDT Surgery [place] [id number] Allen Sanchez III, MD [address] [place] [address] [place] [address] ENDOVENOUS ABLATION THERAPY OF INCOMPETENT VEIN, EXTREMITY, FIRST VEIN (WRVU 5.3) Social History Tobacco Use Types Packs/Day Years Used Date Smoking Tobacco: Former Cigarettes 0 09/06/1981 - 09/06/1993 Smokeless Tobacco: Never Alcohol Use Standard Drinks/Week Comments No 0 (1 standard drink = 0.6 oz pur e alcohol) DH IPV Inpatient Questions Answer Date Recorded Does Anyone Try to Keep You From Having Contact with Others or Doing Things Outside Your Home? unable to answer (comment required) 10/16/2022 Feels Threatened by Someone unable to an swer (comment required) 10/16/2022 Feels Unsafe at Home or Work/School unab le to answer (comment required) 10/16/2022 Physical Signs of Abuse Present no 10/16/2022 Sex and Gender Information Value Date Recorded Sex Assigned at Not on file Gender Identity Not on file Sexual Orientation Not on file documented as of this encounter Last Filed Vital Signs Vital Sign Reading Time Taken Comments Blood Pressure 132/81 10/16/2022 2:40 PM EDT Pulse 82 10/16/2022 2:40 PM EDT Temperature 36.3 ??C (97.3 ??F) 10/16/2022 2:25 PM ED T Respiratory Rate 15 10/16/2022 2:25 PM EDT Oxygen Saturation 99% 10/16/2022 2:40 PM EDT Inhaled Oxygen Concentration - - Weight 52.6 kg (116 lb) 10/16/2022 12:58 PM EDT Height 157.5 cm (5' 2) 10/16/2022 12:58 PM EDT Body Mass Index 21.22 10/16/2022 12:58 PM EDT documented in this encounter Discharge Instructions * Discharge Instructions* Julia Saab RN - 10/16/2022 1:05 PM EDT General Anesthesia Discharge Instructions Go home and rest. You may be sleepy for several hours. Take it easy as sudden position changes may cause nausea and/or dizziness. Use caution on stairs. Do not smoke if you are alone. Follow a light to regular diet as tolerated today. If nausea occurs, start with clear liquids, and progress slowly to a regular diet. Do not drive, operate machinery, drink alcoholic beverages or make any legal decisions after havinggeneral anesthesia. The medications given change your reaction time and alter your judgement. IV site -- slight redness is normal, you can use warm compresses. If tenderness and redness increases or foul drainage occurs, please contact your M.D. Patients who have had endotracheal tubes/LMA (tubes used by the anesthesia staff to ensure a safe airway during your operation) may have a sore throat. This is normal and cold liquids or soothing lozenges will help ease this discomfort. Narcotic pain medications can cause constipation, please ask the surgeons office what they recommend for prevention of this. Some non-pharmaceutical means of constipation prevention include increasing intake of fluids, eating more fruits and vegetables as well as fruit juices. If you are uncomfortable and/or unable to urinate within 8 hours of discharge and it is before 5 pm, call your physician. If it is after 5pm go to the closest emergency room or call the hospital hand spray operator at [phone] and ask for physician validation software facilitator covering for your physician. Questions or problems after 5pm or on a weekend: Call the [facility] hand spray operator at and ask for the physician validation software facilitator covering for your doctor. At 1 pm you received 1000 mg of acetaminophen- Your next dose should not be taken before 8 hours have passed. Next dose not before- 9 pm You should not take more than a total of 3000 mg of acetaminophen in a 24 hour period. * Patient Instructions* Milad Serna PA - 10/16/2022 2:22 PM EDT Instructions Following Vein Ablation Wound care: Keep RITU wraps on your leg for the next 48 hours. At that point you can remove all dressings and shower. Activity: You should start walking the day after surgery. When sitting, try to elevate and prop your leg up on pillows as much as possible. No vigorous activity (such as jogging, running, biking) forat least 1 week or until cleared to do so at your follow-up visit. Pain Medication: You may take acetaminophen (Tylenol) and ibuprofen (Advil, Motrin) for pain. Call Doctor for: Please call if you notice worsening redness in the leg, if your pain is not controlled by pain medication or for fevers greater than 101.3F. Follow-up: You will have an ultrasound in 1-3 days after your procedure. If you do not receive the ultrasound appointment at the time of discharge, you will be called with a date and time. You will be seen by your surgeon (or associate provider) in the Vascular Clinic in approximately 2 weeks. Thisclinic appointment will be mailed to you. Please call our office ([phone]) if you do not receive the ultrasound appointment within 2 days or the clinic appointment within 10 days. For any questions or concerns please call [phone] documented in this encounter Medications at Time of Discharge Medication Sig Dispensed Refills Start Date End Date losartan (COZAAR) 50 mg Tablet Take 50 mg by mouth daily. 0 01/15/2019 hydroCHLOROthiazide (HYDRODIURIL) 25 mg Tablet Take 25 mg by mouth daily. 0 09/21/2018 aspirin 81 mg Tablet, Delayed Release (E.C.) Take 81 mg by mouth daily. naproxen sodium (ALEVE) 220 mg Capsule Take 220 mg by mouth every 12 hours as needed. Pt states every 15 hours she takes it to help with R Lower Leg pain 10/29/2022 interferon beta-1a, albumin, (Rebif, with albumin,) 44 mcg/0.5 mL Syringe Inject 0.5 mLs subcutaneously three times a week (Mon, Weds, Fri). 6 mL 3 07/24/2022 11/14/2022 documented as of this encounter H&P Notes * Milad Serna PA - 10/16/2022 7:29 AM EDT Vascular Surgery History and Physical HPI: Per patient's last office visit with Dr. Sanchez on 09/17/22: Reason for Visit: Right lower extremity symptomatic varicose veins, venous insufficiency, superficial phlebitis, stasis dermatitis. History of Present Illness: Maritza ParishckettCalin is a 62 y.o. female seen in consultation at the request of Kelsey Gregory, APRNregarding right lower extremity venous problems listed above. She was last seen in our practice in 2018, when she had phlebitis in varicose veins of the right medial calf. Right lower extremity venous duplex with reflux testing was performed today and is reviewed below, along with prior imaging studies. She has not had recurrent phlebitis since 2018. She developed varicose veins of the right leg more than a decade ago. She has had progressive aching discomfort of the right lower leg, localized to her significant varicose veins there. These varicosities have progressively enlarged, and now are quite symptomatic. She uses 20-30 mm Hg knee-high compression stockings routinely but symptoms are now limiting. She takes NSAID's for the leg pain at times. In addition to aching when standing or sitting, she describes pain to touch or pressure of the right lower leg. She has had progressive skin changes of the right lower leg, she has not had lower extremity ulceration. She has some superficial varicose veins of the left lower extremity, these appear asymptomatic. She denies lower extremity surgery, or significant trauma. She ambulates without claudication. She has some right ankle swelling. She was diagnosed with multiple sclerosis in 1996, but has done quite well neurologically. She denies any history of heart problems, and denies chest pain, or syncope. She denies dyspnea or sleep apnea. She quit smoking in 1993, smoked up to 1 PPD prior. She denies abdominal problems. Patient Active Problem List Diagnosis Code MS (multiple sclerosis) G35 Varicose veins of leg with swelling I83.899 Varicose veins of right lower extremity with inflammation I83.11 Venous insufficiency of right lower extremity I87.2 Phlebitis of superficial vein of right lower extremity I80.01 History of tobacco use Z87.891 Current Outpatient Medications: interferon beta-1a, albumin, (Rebif, with albumin,) 44 mcg/0.5 mL Syringe, Inject 0.5 mLs subcutaneously three times a week (Mon, Weds, Fri)., Disp: 6 mL, Rfl: 3 losartan (COZAAR) 50 mg Tablet, Take 50 mg by mouth daily., Disp: , Rfl: 0 hydroCHLOROthiazide (HYDRODIURIL) 25 mg Tablet, Take 25 mg by mouth daily., Disp: , Rfl: 0 aspirin 81 mg Tablet, Delayed Release (E.C.), Take 81 mg by mouth daily., Disp: , Rfl: naproxen sodium (ALEVE) 220 mg Capsule, Take 220 mg by mouth every 12 hours as needed. Pt states every 15 hours she takes it to help with R Lower Leg pain, Disp: , Rfl: No Known Allergies Review of Systems: Constitutional (weight change, fever) - Denies Neuro (dizziness, seizures, numbness, tingling) - Denies Eyes (vision) - Denies Ears, nose, throat (hearing) - Denies Cardiovascular (CP) - Denies Respiratory (SOB) - Denies GI (abd pain, nausea, emesis, blood in stool) - Denies (hematuria, dysuria, frequency) - Denies Muscoloskeletal (extremity pain, weakness) - see HPI Skin (ulcers, rashes) - see HPI Functional Status/Social Hx: Quit smoking in 1993, smoked about one pack per day prior. Works in the [employer]. . Family Hx: No history of DVT or thrombophilia, grandmother may have had varicose veins. Physical Exam: Vital Signs: Temp: [36.4 ??C (97.5 ??F)] Heart Rate: [78] Resp: [16] BP: (148)/(85) SpO2: [100 %] Heart Rate from SpO2: -- BMI: Weight: 52.6 kg (116 lb) BMI (Calculated): 21.21 BMI Classification: Normal Weight General - NAD, seen alone Neuro - Alert and Oriented, Motor Sensory grossly intact Skin - See lower extremity examination below No carotid bruits Cardiac - RRR, no murmurs Lungs - Clear, equal Abd - Soft, NT, ND, No palpable pulsatile masses Extremities - Right lower extremity: There are significant varicose veins from the medial mid-distal thigh, throughout the medial as well as mid to lateral lower leg. There is medial and posterior lower leg skin change, with brown and red discoloration and tissue atrophy/lipodermatosclerosis consistent with stasis dermatitis. There isno open ulceration. There is mild edema. DP and PT pulses are readily palpable. Left lower extremity: There are superficial, 4-5 mm varicose veins of the lateral mid to distal thigh, and anterior to the knee. There is no stasis dermatitis, ulcer, or edema. DP and PT pulses are readily palpable. Vascular Exam: R L Carotid 2/2 bruit (-) 2/2 bruit (-) Radial 2/2 2/2 Femoral 2/2 2/2 Popliteal DP 2/2 2/2 PT 2/2 2/2 Labs: October 2021: BUN 19, creatinine 0.6. 08/22/22: Hgb 11, platelets 268. Studies: Right lower extremity venous duplex November 2017: Right- There is acute appearing non-occlusive superficial thrombus in varicose veins at the site of pain and redness. Patent common femoral vein and popliteal vein with spontaneous, respirophasic Doppler waveforms that respond normally to augmentation maneuvers. The common femoral vein, saphenofemoral junction, femoral vein through the thigh and popliteal vein are fully compressible. Patent posterior tibial and peroneal veins with no evidence of thrombus. Interpretation: Right- There is acute appearing non-occlusive superficial thrombus in varicose veins at the site of pain and redness. No evidence of lower extremity deep venous thrombosis. Comparison: No previous study in our vascular lab database for comparison. Right lower extremity venous duplex 09/17/22: Findings: Segment Right Reflux? Diameter (mm) Common Femoral Vein Competent Femoral Vein Competent Popliteal Competent Posterior Tibial Vein Competent GSV, Near SFJ Reflux 9.9 GSV, Proximal Thigh Reflux 11.7 GSV, Mid Thigh Reflux 5.2 GSV, Distal Thigh Reflux 8.9 GSV, Knee Reflux 8.8 GSV Prox Calf Reflux 11.9 GSV, Mid Calf Reflux 5.0 GSV, Distal Calf Competent 2.3 SSV Reflux 3.9 Interpretation: RIGHT: There is reflux in the great saphenous vein (GSV) from the saphenofemoral junction to the mid calf and in the small saphenous vein (SSV) in the distal calf consistent with superficial venous valvular incompetence. The GSV exits the fascia in the mid thigh and reenters in the mid calf. The GSV is tortuous in the proximal calf. A varicose vein is associated with GSV in the mid calf at the lev el at which it repenters the fascia. The varicose vein courses along the medial and posteromedial calf and communicates with the SSV in the mid / distal calf. No significant reflux noted in the common femoral, femoral or popliteal veins. No evidence of common femoral, femoral, or popliteal DVT. Comparison: No previous study in our vascular lab database from comparison. Assessment and Plan: Maritza Leiva presents with right lower extremity symptomatic varicose veins, venous insufficiency, superficial phlebitis in 2018, and lipodermatosclerosis/stasis dermatitis without ulceration. Right lower extremity varicose veins are quite symptomatic despite routine compression stocking therapy. She has also had significant progression of stasis dermatitis and lipodermatosclerosis, which places her at risk for ulceration. Right lower extremity venous duplex findings are as follows: There is no deep vein incompetence. The great saphenous vein is incompetent from the saphenofemoral junction to the mid calf, enlarged to as much as 11.7 mm in the thigh. It exits the fascia in the mid thigh and devolves into varicose veins at the knee. The short saphenous vein is incompetent only in the distal calf. I recommended compression stockings regardless of any other treatment. I discussed treatment of theright great saphenous vein, to eliminate superficial venous incompetence, decompress the varicosities, and reduce the risk of varicose vein recurrence and of progressive stasis and ulceration. Treatment of the great saphenous vein is predicted to have the most significant effect on her stasis and risk of progression, given that all of her venous incompetence is based on this enlarged great saphenous vein. I discussed varicose vein excision, which will eliminate her current symptoms; sclerotherapy is not indicated for varicosities of this size. I discussed radiofrequency ablation or open stripping of the right great saphenous vein. Regarding ablation, I reviewed the risks of failure to ablate (2%), DVT (1-2 %), skin burn, nerve injury, and bleeding. Regarding open stripping as well as varicose vein excision, I reviewed the risks of bleeding, infection, wound problems, hematoma, pain, scarring, nerve injury, and DVT. Vein recurrence or progression of venous disease are possible. I discussed the typical recovery from these procedures, estimated 1-2 weeks out of work or with limited activities, except for radiofrequency ablation alone which tends to have a shorter recovery. She elects to proceed with right great saphenous vein radiofrequency ablation. This will be performed on an outpatient basis under moderate to deep anesthesia or general anesthesia, and is quite a low risk procedure. She has multiple sclerosis that has been fairly quiescent, is otherwise healthy and active. She appears to be a reasonable candidate for any of the several sites where we perform venous procedures. Patient has been consented and is agreeable to proceed as planned. KALA Fuentes 10/16/2022 Pager: [phone] documented in this encounter Miscellaneous Notes * Op Note - Allen Sanchez III, MD - 10/16/2022 1:46 PM EDT [facility] Operative [place] Patient Name: Maritza Leiva : [id number] MR#: [id number] Case Date: 10/16/2022 Surgeon: Surgeon(s) and Role: * Allen Sanchez III, MD - Primary * Milad Serna PA - Physician Soldering Machine Operator Preoperative diagnosis: symptomatic varicose veins, stasis dermatitis, phlebitis Postoperative diagnosis: symptomatic varicose veins, stasis dermatitis, phlebitis Procedure(s) (LRB): ENDOVENOUS ABLATION THERAPY OF INCOMPETENT VEIN, EXTREMITY, FIRST VEIN (WRVU 5.3) (Right) Right great saphenous vein radiofrequency ablation Anesthesia: General Estimated Blood Loss: 1 mL Specimens removed during surgery: None. Disposition: to postoperative recovery, extubated, for planned home discharge. Condition: Stable. (Please see the Surgical Encounter Summary for any Implant and Specimen details pertinent to this patient.) Findings: The right great saphenous vein was enlarged from the saphenofemoral junction to the proximal calf, where it gave off her significant varicose veins. The great saphenous exited its fascia at mid-thigh, and was very superficial from mid- distal thigh to medial knee, where it became tortuous/varicosed.It was accessed at the distal thigh, and radiofrequency ablation performed from mid-thigh to near the saphenofemoral junction, with 3 radiofrequency ablation cycles. Care was taken to adequately tumesce at the mid to distal thigh, to avoid skin injury. Following ablation, the great saphenous vein was hyperechoic and thickened, there was no immediate common femoral vein/saphenofemoral junction DVT/phlebitis. HPI/Surgical Indications: Maritza Leiva presents with right lower extremity symptomatic varicose veins, venous insufficiency, superficial phlebitis in 2018, and lipodermatosclerosis/stasis dermatitis without ulceration.Right lower extremity varicose veins are quite symptomatic despite routine compression stocking ther apy. She has also had significant progression of stasis dermatitis and lipodermatosclerosis, which places her at risk for ulceration. Right lower extremity venous duplex findings are as follows: There is no deep vein incompetence. The great saphenous vein is incompetent from the saphenofemoral junction to the mid calf, enlarged to as much as 11.7 mm in the thigh. It exits the fascia in the mid thigh and devolves into varicose veins at the knee. The short saphenous vein is incompetent only in the distal calf. I recommended compression stockings regardless of any other treatment. I discussed treatment of theright great saphenous vein, to eliminate superficial venous incompetence, decompress the varicosities, and reduce the risk of varicose vein recurrence and of progressive stasis and ulceration. Treatment of the great saphenous vein is predicted to have the most significant effect on her stasis and risk of progression, given that all of her venous incompetence is based on this enlarged great saphenous vein. I discussed varicose vein excision, which will eliminate her current symptoms; sclerotherapy is not indicated for varicosities of this size. She elects to proceed with right great saphenous vein radiofrequency ablation. Procedure Description: Maritza Leiva was met in the preoperative area at the [facility] at [facility], and all relevant consents were signed. The right leg was marked as the operative site. She was then brought to the operating room and placed supine. After induction of general anesthesia, the right lower extremity from the toes to the abdominal wall was circumferentially prepped with chlorhexidine and sterilely draped. The foot was excluded in an impermeable bag. After a standard timeout during which patient, site, and procedure were identified, the right great saphenous vein was mapped from the saphenofemoral junction to the lower leg, with findings as above. The great saphenousvein at the distal thigh, just above the knee, was accessed with ultrasound guidance with a micropuncture needle without difficulty. The wire was confirmed to be intravenous, and a 7 [place]i sheath was placed. The radiofrequency catheter was advanced up to the level of the saphenofemoral junction, then pulled down to approximately 4 cm from the SFJ. This was confirmed in a vertical and horizontal view. It was marked at this location. Then the standard tumescent mixture consisting of saline, epinephrine and lidocaine was instilled circumferentially creating a good halo around the great saphenous vein throughout the planned ablation segment. Catheter position was reconfirmed, and ablation performed with 2 cycles at the first station, then 1 at each station back to the level of the sheath. Ultrasound was performed with findings as above. The sheath was removed and pressure held for hemostasis. A single 4-0 nylon suture was used to close the skin incision site. Mastisol and Steri-Strip wasapplied to the incision site. Telfa was applied, and the leg was wrapped from the toes to the proximal thigh with Kerlix roll gauze and Coban wrap. The patient was then awakened, extubated, brought to recovery in stable condition. All sponge needle and instrument counts were reported as correct at t he end of the case. I was present scrubbed and participated in the entirety of this operation, along with supervision of Bryant Serna PA-C. Attestation: Case Date: 10/16/2022 I was present and I participated during the critical and pollard portions of this procedure; and I was immediately available during the remainder of the procedure. I interpret the critical and pollard portions of this procedure to have been: The entire procedure. ALLEN SANCHEZ III, MD 10/16/2022 documented in this encounter Plan of Treatment Upcoming Encounters Date Type Department Care Team (Late st Contact Info) Description 09/14/2024 8:00 AM EDT [place] [address] Alie Arshad PA [facility] [place] [address] documented as of this encounter Goals Goal Patient Goal Type Associated Problems Recent Progress Patient-Stated? Author Prevention of ms relapse Patient Facing Action Plan On track( 024 2:11 PM EDT) Rock Desir, [facility] Note: Delay disease progression as measured by radiographic finding as well as clinical presentation to be measured every 6 months and ongoing. documented as of this encounter Procedures Procedure Name Priority Date/Time Associated Diagnosis Comments Endovenous Ablation Incompetent Vein Radiofrequency 1St Vein (31979) 10/16/2022 1:23 PM EDT Varicose veins of right lower extremity with edema Venous stasis dermatitis of right lower extremity Phlebitis ENDOVENOUS ABLATION THERAPY OF INCOMPETENT VEIN, EXTREMITY, FIRST VEIN Routine 10/16/2022 12:41 PM EDT Varicose veins of right lower extremity with edema Venous stasis dermatitis of right lower extremity Phlebitis documented in this encounter Results * Duplex for DVT, Leg, Unilat (10/22/2022 10:57 AM EDT) VB Text Report Department: Vascular Surgery Lab Patient: [id number] (MARITZA LEIVA) CPT: 48573 Referring Physician: ALLEN SANCHEZ III, MD ?? Phone: Indications: S/p right VNUS, ? EHIT Findings: RIGHT: The great saphenous vein is ablated to the saphenofemoral junction but does not extend into the common femoral vein (approximately 0.3 cm away from the deep system). Patent inferior epigastric vein. Patent common femoral vein with spontaneous, respirophasic Doppler waveforms that respond normally to augmentation maneuvers. The common femoral vein, saphenofemoral junction and femoral vein through the proximal thigh are fully compressible. Interpretation: RIGHT: Successful ablation of the great saphenous vein. No evidence of lower extremity deep venous thrombosis through the proximal thigh. 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 When ordered for pain, acetaminophen should be given even when other ordered pain medications are indicated. , Routine Given 10/16/2022 1:08 PM EDT 1,000 mg lactated ringers infusion 1,000 mL, at 100 mL/hr, Intravenous, CONTINUOUS, Starting on Fri10/16/22 at 1300, Until Fri10/16/22 at 1449, Day of Surgery (Day of Procedure) Restarted 10/16/2022 2:07 PM EDT New Bag 10/16/2022 1:18 PM EDT 1,000 mLs 100 mL/hr lidocaine-EPINEPHrine (1% - 1:100,000) injection PRN, Starting on Fri10/16/22 at 1349, Until Fri10/16/22 at 1650, Intra-Operative (Intra-Procedure), Routine Given 10/16/2022 1:49 PM EDT 25 mLs 19- Surgical Site sodium chloride 0.9% infusion CONTINUOUS PRN, Starting on Fri10/16/22 at 1350, Until Fri10/16/22 at 1449, Intra-Operative (Intra-Procedure) New Bag 10/16/2022 1:49 PM EDT 500 mLs 19- Surgical Site documented in this encounter Active and Recently Administered Medications Times are shown in EDT. Scheduled Medication Order 10/14/2022 10/15/2022 10/16/2022 acetaminophen (Tylenol) tablet 1,000 mg (COMPLETED) 1,000 mg, Oral, ONCE, 1 dose, On Fri10/16/22 at 0745, Maximum dose of acetaminophen is 4000 mg from all sources in 24 hours. When ordered for pain, acetaminophen should be given even when other ordered pain medications are indicated. , Routine 1308 (Given - Provid er: Julia Saab RN) ceFAZolin (Ancef) 2 g vial attach to sodium chloride 0.9% 100 mL Mini-Bag Plus (COMPLETED) 2 g, Intravenous, GANDY DANCER TO O.R., 1 dose, On Fri10/16/22 at 1300, Administer over 30 Minutes, Redose after 4 hours., Day of Surgery (Day of Procedure), Indication for (Active or Suspected): Prophylaxis 1341 (New Bag - Prov ider: Arabella Corona CRNA) Continuous Medication Order 10/14/2022 10/15/2022 10/16/2022 lactated ringers infusion (CANCELED) 1,000 mL, at 100 mL/hr, Intravenous, CONTINUOUS, Starting on Fri10/16/22 at 1300, Until Fri10/16/22 at 1449, Day of Surgery (Day of Procedure) 1318 (New Bag - Prov ider: Julia Saab RN)1406 (Paused - Provider: Arabella Corona CRNA - Comment: Switch to gravity)1407 (Restarted - Provider: Arabella Corona CRNA) PRN Medication Order 10/14/2022 10/15/2022 10/16/2022 lidocaine-EPINEPHrine (1% - 1:100,000) injection (CANCELED) PRN, Starting on Fri10/16/22 at 1349, Until Fri10/16/22 at 1650, Intra-Operative (Intra-Procedure), Routine 1349 (Given - Provid er: Allen Sanchez III, MD - Comment: USED TUMESCENT WITH 500ML NACL) sodium chloride 0.9% infusion (CANCELED) CONTINUOUS PRN, Starting on Fri10/16/22 at 1350, Until Fri10/16/22 at 1449, Intra-Operative (Intra-Procedure) 1349 (New Bag - Prov ider: Allen Sanchez III, MD - Comment: USED TUMESCENT WITH 25ML LIDOCAINE 1% WITH EPI 1:100,000) documented in this encounter Care Teams Radio Board Operator Relationship Specialty Start Date End Date Kevan Angel DO [address] [place] [address] [address] [place] [address] PCP - General 08/07/11 documented as of this encounter
--- OUTSIDE RECORDS SUMMARY | 2024-04-05 17:29 | XMS_ITS | Encounter Summary ---
[place] [address] Care Team Providers Care Web Master Name Role Phone Kevan Angel Primary Care Provider Reason for Visit * Reason Comments Specialty Refill Management Encounter Details Date Type Department Care Team (Late st Contact Info) Description 07/28/2023 Specialty [place] [address] Veronica Cunningham CPHT Social History Tobacco Use Types Packs/Day Years Used Date Smoking Tobacco: Former Cigarettes 0 09/06/1981 - 09/06/1993 Smokeless Tobacco: Never Alcohol Use Standard Drinks/Week Comments No 0 (1 standard drink = 0.6 oz pur e alcohol) [facility] Inpatient Questions Answer Date Recorded Does Anyone [...] on file documented as of this encounter Progress Notes * Veronica Cunningham CPHT - 07/28/2023 3:09 PM EDT Clinical Management Plan: Refill Specialty Pharmacy Consultation; Veronica Cunningham CPHT Comprehensive Medication Management (CMM) Maritza Leiva is a 63 y.o. (1960) female who was contacted in regard to a specialty medication refill reminder. The patient requested a refill of Rebif. A review of the medication therapy was performed. The medication was refilled as scheduled, and all medication related questions and concerns were addressed. The specialty pharmacy staff will follow up with the patient 5-7 days prior to next refill. Was a change made to the Care Plan: No Allergies and Drug intolerance: No Known Allergies Medication Reconciliation Discrepancies (compared to [facility] med list) No Specialty Pharmacy Refill Questionnaire More data exists 07/28/2023 Refill Questionnaire What is the name of the specialty medication you are refilling? Rebif Are you taking any new medications? No Any new medical condition? No Any new allergies? No Any new side effects that are bothersome? No What date will you need this fill by? 08/04/2023 Adherence: Any missed doses? No Patient understands no changes to current drug regimen were made. Veronica Cunningham CPHT 07/28/23 3:10 PM documented in this encounter Plan of Treatment Upcoming Encounters Date Type Department Care Team (Late st Contact Info) Description 09/14/2024 8:00 AM EDT [place] [address] Alie Arshad PA [facility] [place] [address] documented as of this encounter Goals Goal Patient Goal Type Associated Problems Recent Progress Patient-Stated? Author Prevention of ms relapse Patient Facing Action Plan On track( 024 2:11 PM EDT) Rock Desir, [facility] Note: Delay disease progression as measured by radiographic finding as well as clinical presentation to be measured every 6 months and ongoing. documented as of this encounter Visit Diagnoses Not on filedocumented in this encounter Care Teams Web Master Relationship Specialty Start Date End Date Kevan Angel DO [address] [place] [address] PCP - General 08/07/11 documented as of this encounter
--- OUTSIDE RECORDS SUMMARY | 2024-04-05 17:29 | XMS_ITS | Encounter Summary ---
[place] [address] Care Team Providers Care Watch Case Polisher Name Role Phone StanleyKevan bowen Primary Care Provider [phone] Encounter Details Date Type Department Care Team (Latest Contact Info) Description 01/07/2024 Specialty [place] [phone] Russell Martinez [facility] Clinical Assessment - 10 month recurrence (interferon beta-1a/albumin) for Multiple Sclerosis Social History Tobacco Use Types Packs/Day Years Used Date Smoking Tobacco: Former Cigarettes 0 09/06/1981 - 09/06/1993 Smokeless Tobacco: Never Alcohol Use Standard Drinks/Week Comments No 0 (1 standard drink = 0.6 oz pur e alcohol) [facility] Inpatient Questions Answer Date Recorded Does Anyone [...] as of this encounter Progress Notes * Russell Martinez [facility] - 01/07/2024 2:04 PM EDT Specialty Pharmacy Ongoing Clinical Assessment Note Comprehensive Medication Management (CMM): Specialty Consult, Opt Out Maritza Leiva is a 63 y.o. (1960) female, who is being followed by [facility] for service of Interferon Beta-1a/Albumin. A review of the medication therapy was performed. Themedication was Refilled as scheduled, and all medication related questions and concerns were addressed. The specialty pharmacy staff will follow up with the patient 5-7 days prior to next refill. Problems Linked to Specialty Episode(s) MS (multiple sclerosis) Therapy Start Date: (07/2002) Other 07/2002 Is patient willing to proceed with Clinical Assessment?: No Summary and Recommendations: Today Maritza Leiva who was due for a refill and a follow up consultation for her rebif spoke with a retail pharmacy manager for the refill and declined the offer to speak to a pharmacist for theconsultation. She is hence being opted out of the consult and knows to reach us with any questions or concerns. Allergies and Drug intolerance: No Known Allergies Problem List: Patient Active Problem List Diagnosis Code MS (multiple sclerosis) G35 Varicose veins of leg with swelling I83.899 Varicose veins of right lower extremity with inflammation I83.11 Venous insufficiency of right lower extremity I87.2 Phlebitis of superficial vein of right lower extremity I80.01 History of tobacco use Z87.891 Medication List: Current Outpatient Medications Medication Sig Dispense Refill interferon beta-1a, albumin, (Rebif, with albumin,) 44 mcg/0.5 mL Syringe Inject 0.5 mLs subcutaneously three times a week (Mon, Weds, Fri). 6 mL 11 losartan (COZAAR) 50 mg Tablet Take 50 mg by mouth daily. 0 hydroCHLOROthiazide (HYDRODIURIL) 25 mg Tablet Take 25 mg by mouth daily. 0 aspirin 81 mg Tablet, Delayed Release (E.C.) Take 81 mg by mouth daily. No current facility-administered medications for this visit. Therapy Assessment and Recommendations: 01/07/2024 Clinical Assessment Review (Optional) If therapy start date is unknown, please indicate here Other Comment 07/2002 What date will you need this fill by? 01/12/2024 Appropriate Therapy Yes Additional equipment/supplies required No Care Plan reviewed and approved by pharmacist Yes Medication reconciliation discrepancies (compared to [facility] med list) No Pharmacist follow-up needed No Patient informed of specialty services: Yes Patient is aware a licensed pharmacist is available 24 hours a day, 7 days a week to discuss medication-related questions and concerns: Yes Patient verbalizes understanding of the common side effect profile of their medication(s).The patient is able to call 911 or seek urgent care if signs/symptoms of allergy or harmful adverse reactionsoccur: Yes Patient understands no change to current drug regimen were made at the appointment and that [facility] is providing recommendations (summary at top of note) for provider review and follow up: Yes Medication Therapy Recommendations No medication therapy recommendations to display Russell Martinez RPH 01/07/24 2:11 PM documented in this encounter Plan of Treatment Upcoming Encounters Date Type Department Care Team (Late st Contact Info) Description 09/14/2024 8:00 AM EDT Office [place] [address] Alie Arshad PA [facility] [place] [address] documented as of this encounter Goals Goal Patient Goal Type Associated Problems Recent Progress Patient-Stated? Author Prevention of ms relapse Patient Facing Action Plan On track( 024 2:11 PM EDT) No Rock Valenzuela, [facility] Note: Delay disease progression as measured by radiographic finding as well as clinical presentation to be measured every 6 months and ongoing. documented as of this encounter Visit Diagnoses Diagnosis MS (multiple sclerosis) Multiple sclerosis documented in this encounter Care Teams Watch Case Polisher Relationship Specialty Start Date End Date Kevan Angel DO [address] [facility] [address] [place] [address] PCP - General 08/07/11 documented as of this encounter
--- OUTSIDE RECORDS SUMMARY | 2024-04-05 17:29 | XMS_ITS | Encounter Summary ---
[place] [address] Care Team Providers Care Embossing Press Operator Apprentice Name Role Phone Kevan Angel Primary Care Provider Reason for Visit * Reason Comments Specialty Refill Management Encounter Details Date Type Department Care Team (Late st Contact Info) Description 11/14/2022 Specialty Pharmacy [place] [address] Veronica Cunningham CPHT Social History Tobacco Use Types Packs/Day Years Used Date Smoking Tobacco: Former Cigarettes 0 09/06/1981 - 09/06/1993 Smokeless Tobacco: Never Alcohol Use Standard Drinks/Week Comments No 0 (1 standard drink = 0.6 oz pur e alcohol) [facility] Inpatient Questions Answer Date Recorded Does [...] Progress Notes * Veronica Cunningham CPHT - 11/14/2022 9:31 AM EDT Clinical Management Plan: Refill Specialty Pharmacy Consultation; Veronica Cunningham CPHT Comprehensive Medication Management (CMM) Maritza Leiva is a 62 y.o. (1960) female who was contacted in regard to a specialty medication refill reminder. Contact made with patient regarding Rebif. A review of the medication therapy was performed. The medication was refilled as scheduled, and all medication related questions and concerns were addressed. The specialty pharmacy staff will follow up with the patient 5-7 daysprior to next refill. Was a change made to the Care Plan: No Allergies and Drug intolerance: No Known Allergies Medication Reconciliation Discrepancies (compared to [facility] med list) No Specialty Pharmacy Refill Questionnaire More data exists 11/14/2022 Refill Questionnaire What is the name of the specialty medication you are refilling? Rebif Are you taking any new medications? No Any new medical condition? No Any new allergies? No Any new side effects that are bothersome? No What date will you need this fill by? 11/20/2022 Adherence: Any missed doses? No Patient understands no changes to current drug regimen were made. Veronica Cunningham CPHT 11/14/22 9:31 AM documented in this encounter Plan of Treatment Upcoming Encounters Date Type Department Care Team (Late st Contact Info) Description 09/14/2024 8:00 AM EDT Office [place] [address] Alie Arshad PA [facility] [place] [address] documented as of this encounter Goals Goal Patient Goal Type Associated Problems Recent Progress Patient-Stated? Author Prevention of ms relapse Patient Facing Action Plan On track( 024 2:11 PM EDT) Rock Desir, [facility] Note: Delay disease progression as measured by radiographic finding as well as clinical presentation to be measured every 6 months and ongoing. documented as of this encounter Visit Diagnoses Not on filedocumented in this encounter Care Teams Embossing Press Operator Apprentice Relationship Specialty Start Date End Date Kevan Angel DO [address] [place] [address] PCP - General 08/07/11 documented as of this encounter
--- OUTSIDE RECORDS SUMMARY | 2024-04-05 17:29 | XMS_ITS | Encounter Summary ---
Author Organization [facility] [place] [address] Care Team Providers Care Judo Instructor Name Role Phone Kevan Angel Primary Care Provider [phone] Encounter Details Date Type Department Care Team (Latest Contact Info) Description 09/17/2022 Travel Social History Tobacco Use Types Packs/Day Years Used Date Smoking Tobacco: Former Cigarettes 0 09/06/1981 - 09/06/1993 Smokeless Tobacco: Never Alcohol Use Standard Drinks/Week Comments No 0 (1 standard drink = 0.6 oz pur e alcohol) Sex and Gender Information Value Date Recorded Sex Assigned at Not on file Gender Identity Not on file Sexual Orientation Not on file documented as of this encounter Plan of Treatment Upcoming Encounters Date Type Department Care Team (Late st Contact Info) Description 09/14/2024 8:00 AM EDT [place] [address] Alie Arshad PA [facility] [place] [address] documented as of this encounter Goals Goal Patient Goal Type Associated Problems Recent Progress Patient-Stated? Author Prevention of ms relapse Patient Facing Action Plan On track( 024 2:11 PM EDT) No Rock Valenzuela, [facility] Note: Delay disease progression as measured by radiographic finding as well as clinical presentation to be measured every 6 months and ongoing. documented as of this encounter Visit Diagnoses Not on filedocumented in this encounter Care Teams Judo Instructor Relationship Specialty Start Date End Date Kevan Angel DO [address] [place] [address] PCP - General 08/07/11 documented as of this encounter
--- OUTSIDE RECORDS SUMMARY | 2024-04-05 17:29 | XMS_ITS | Encounter Summary ---
Author Organization [facility] Address [facility] [place] [address] Care Team Providers Care Irrigation Technician Name Role Phone Kevan Angel Primary Care Provider Encounter Details Date Type Department Care Team (Late st Contact Info) Description 11/14/2022 [place] [address] Alie Arshad PA [facility] [place] [address] Social History Tobacco Use Types Packs/Day Years Used Date Smoking Tobacco: Former Cigarettes 0 09/06/1981 - 09/06/1993 Smokeless Tobacco: Never Alcohol Use Standard Drinks/Week Comments No 0 (1 standard drink = 0.6 oz pur e alcohol) [facility] Inpatient Questions Answer Date Recorded Does [...] 8:00 AM EDT [place] [address] Alie Arshad PA [facility] [place] [address] documented as of this encounter Goals Goal Patient Goal Type Associated Problems Recent Progress Patient-Stated? Author Prevention of ms relapse Patient Facing Action Plan On track( 024 2:11 PM EDT) Rock Desir, [facility] Note: Delay disease progression as measured by radiographic finding as well as clinical presentation to be measured every 6 months and ongoing. documented as of this encounter Visit Diagnoses Not on filedocumented in this encounter Care Teams Irrigation Technician Relationship Specialty Start Date End Date Kevan Angel DO [address] [place] [address] PCP - General 08/07/11 documented as of this encounter
--- OUTSIDE RECORDS SUMMARY | 2024-04-05 17:29 | XMS_ITS | Encounter Summary ---
Author Organization [facility] Address [facility] [place] [address] Care Team Providers Care Conservation Of Resources Commissioner Name Role Phone Kevan Angel Primary Care Provider [phone] Encounter Details Date Type Department Care Team (Late st Contact Info) Description 10/15/2023 Ref[place] [address] Alie Arshad PA [facility] [place] [place] [address] Social History Tobacco Use Types Packs/Day Years [...] 8:00 AM EDT Office [place] [address] Alie Arshad PA [facility] [place] [place] [address] documented as of this encounter Goals Goal Patient Goal Type Associated Problems Recent Progress Patient-Stated? Author Prevention of ms relapse Patient Facing Action Plan On track( 024 2:11 PM EDT) Rock Desir, [facility] Note: Delay disease progression as measured by radiographic finding as well as clinical presentation to be measured every 6 months and ongoing. documented as of this encounter Visit Diagnoses Not on filedocumented in this encounter Care Teams Conservation Of Resources Commissioner Relationship Specialty Start Date End Date Kevan Angel DO [address] [place] [address] PCP - General 08/07/11 documented as of this encounter
--- OUTSIDE RECORDS SUMMARY | 2024-04-05 17:29 | XMS_ITS | Clinical Summary ---
[place] [address] Care Team Providers Care Senior Accounting Manager Name Role Phone Kevan Angel Primary Care Provider [phone] Allergies No known active allergies Medications Medication Sig Dispensed Refills Start Date End Date Status aspirin 81 mg Tablet, Delayed Release (E.C.) Take 81 mg by mouth daily. Active hydroCHLOROthiazid e (HYDRODIURIL) 25 mg Tablet Take 25 mg by mouth daily. 0 09/21/2018 Active losartan (COZAAR) 50 mg Tablet Take 50 mg by mouth daily. 0 01/15/2019 Active interferon beta-1a, albumin, (Rebif, with albumin,) 44 mcg/0.5 mL Syringe Inject 0.5 mLs subcutaneously three times a week (Mon, Weds, Fri). 6 mL 11 10/20/2023 Active Active Problems Problem Noted Date Diagnosed Date Varicose veins of right lower extremity with inf lammation 09/20/2022 Venous insufficiency of right lower extremity Phlebitis of superficial vein of right lower ext remity 09/20/2022 History of tobacco use 09/20/2022 Varicose veins of leg with swelling 10/09/2017 MS (multiple sclerosis) 08/07/2011 Encounters Date Type Department Care Team Description 03/23/2024 Specialty [place] [address] Leanna Robertson, CROP FARM HELPER Refill Coordination - 28 day recurrence (interferon beta-1a/albumin) for Multiple Sclerosis 02/24/2024 Specialty [place] [address] Vielka Muñoz, CR[employer] F[employer] HELPER Refill Coordination - 28 day recurrence (interferon beta-1a/albumin) for Multiple Sclerosis 01/30/2024 Specialty [place] [address] Carter Bowling, [employer] FARM HELPER Refill Coordination - 28 day recurrence (interferon beta-1a/albumin) for Multiple Sclerosis 01/07/2024 Specialty [place] [address] Russell Martinez, [facility] Clinical Assessment - 10 month recurrence (interferon beta-1a/albumin) for Multiple Sclerosis 01/07/2024 Specialty [place] [address] Devon Castellano, CR[employer] FARM HELPER Refill Coordination - 28 day recurrence (interferon beta-1a/albumin) for Multiple Sclerosis from Last 3 Months Immunizations Name Administration Dates Next Due Td Adult (not absorbed) 10/03/2004 Social History Tobacco Use Types Packs/Day Years Used Date Smoking Tobacco: Former Cigarettes 0 09/06/1981 - 09/06/1993 Smokeless Tobacco: Never Alcohol Use Standard Drinks/Week Comments No 0 (1 standard drink = 0.6 oz pur e alcohol) [facility] Inpatient Questions Answer Date Recorded Does [...] on file Sexual Orientation Not on file Last Filed Vital Signs Vital Sign Reading Time Taken Comments Blood Pressure 156/96 09/11/2023 7:51 AM EDT Pulse 78 10/29/2022 9:28 AM EDT Temperature 36.3 ??C (97.3 ??F) 10/16/2022 2:25 PM ED T Respiratory Rate 15 10/16/2022 2:25 PM EDT Oxygen Saturation 99% 10/16/2022 2:40 PM EDT Inhaled Oxygen Concentration - - Weight 54 kg (119 lb) 09/11/2023 7:51 AM EDT ptr Height 154.9 cm (5' 1) 09/11/2023 7:51 AM EDT Body Mass Index 22.48 09/11/2023 7:51 AM EDT Plan of Treatment Upcoming Encounters Date Type Department Care Team (Late st Contact Info) Description 09/14/2024 8:00 AM EDT [place] [address] Alie Arshad PA [facility] [place] [address] Health Maintenance Due Date Last Done Comments CT Colonography 1962 Colonoscopy 1962 Colorectal Cancer Screening 1962 FIT DNA 1962 FIT 1962 Sigmoidoscopy (10 year) with FIT yearly 1962 Sigmoidoscopy 1960 HIV screen 1980 Hepatitis C Screening 1980 HPV test 1992 PAP Smear 1992 Breast Cancer Share Decision Needed 2002 Breast Cancer screening 2002 Tetanus/Diphtheria/Pertussis Vaccines (1 - Tdap) 10/0410/03/2004 Zoster vaccine (1 of 2) 2012 Advance Directive 2017 Covid-19 Vaccine (1 - season) 2023 Influenza (Flu) vaccine (1 o f 1 - Influenza standard series) 12/14/2023 Goals Goal Patient Goal Type Associated Problems Recent Progress Patient-Stated? Author Prevention of ms relapse Patient Facing Action Plan On track( 024 2:11 PM EDT) Rock Desir, [facility] Note: Delay disease progression as measured by radiographic finding as well as clinical presentation to be measured every 6 months and ongoing. Care Teams Senior Accounting Manager Relationship Specialty Start Date End Date Kevan Angel DO [address] [place] [address] PCP - General 08/07/11
--- OUTSIDE RECORDS SUMMARY | 2024-04-05 17:29 | XMS_ITS | Encounter Summary ---
[place] [address] Care Team Providers Care Tobacco Stemmer Machine Name Role Phone StanleyKevan bowen Primary Care Provider Reason for Visit * Reason Comments Specialty Refill Management rebif Encounter Details Date Type Department Care Team (Late st Contact Info) Description 09/20/2022 Specialty [place] [address] Serena Stokes, [facility] Social History Tobacco Use Types Packs/Day Years [...] as of this encounter Progress Notes * Serena Stokes - 09/20/2022 9:46 AM EDT Clinical Management Plan: Refill Specialty Pharmacy Consultation; Serena Stokes Comprehensive Medication Management (CMM) Maritza Chan Cali Ms. Maritza ParishckGustabo is a 62 y.o. (1960) female who [...] Known Allergies Medication Reconciliation Discrepancies (compared to [facility] med list) No Specialty Pharmacy Refill Questionnaire 09/20/2022 Refill Questionnaire What is the name of the specialty medication you are refilling? rebif Are you taking any new medications? No Any new medical condition? No Any new allergies? No Any new side effects that are bothersome? No What date will you need this fill by? 09/25/2022 Adherence: Any missed doses? No Patient understands no changes to current drug regimen were made. Serena Stokes 09/20/22 9:46 AM documented in this encounter Plan of Treatment Upcoming Encounters Date Type Department Care Team (Late st Contact Info) Description 09/14/2024 8:00 AM EDT [place] [address] Alie Arshad PA [facility] [place] [address] documented as of this encounter Goals Goal Patient Goal Type Associated Problems Recent Progress Patient-Stated? Author Prevention of ms relapse Patient Facing Action Plan On track( 024 2:11 PM EDT) No Rock Valenzuela, [facility] Note: Delay disease progression as measured by radiographic finding as well as clinical presentation to be measured every 6 months and ongoing. documented as of this encounter Visit Diagnoses Not on filedocumented in this encounter Care Teams Tobacco Stemmer Machine Relationship Specialty Start Date End Date Kevan Angel DO [address] [place] [address] [address] [place] [address] PCP - General 08/07/11 documented as of this encounter
--- OUTSIDE RECORDS SUMMARY | 2024-04-05 17:29 | XMS_ITS | Encounter Summary ---
[place] [address] Care Team Providers Care Head Correction Officer Name Role Phone Kevan Angel DO Primary Care Provider [phone] Encounter Details Date Type Department Care Team (Late st Contact Info) Description 08/26/2023 Specialty [place] [phone] Carter Bowling, FLUE LINING DIPPER Social History Tobacco Use Types Packs/Day Years Used Date Smoking Tobacco: Former Cigarettes 0 09/06/1981 - 09/06/1993 Smokeless Tobacco: Never Alcohol Use Standard Drinks/Week Comments No 0 (1 standard drink = 0.6 oz pur e alcohol) [facility] Inpatient Questions Answer Date Recorded Does [...] as of this encounter Progress Notes * Carter Bowling - 08/26/2023 12:04 PM EDT Clinical Management Plan: Refill Specialty Pharmacy Consultation; Carter Bowling Comprehensive Medication Management (CMM) Maritza L Cali Leiva is a 63 y.o. (1960) female [...] Known Allergies Medication Reconciliation Discrepancies (compared to [facility] med list) No Specialty Pharmacy Refill Questionnaire More data exists 08/26/2023 Refill Questionnaire What is the name of the specialty medication you are refilling? REBIF 44MCG/0.5ML SOSY Are you taking any new medications? No Any new allergies? No Any new side effects that are bothersome? No What date will you need this fill by? 09/02/2023 Adherence: Any missed doses? No Patient understands no changes to current drug regimen were made. Carter Bowling 08/26/23 12:05 PM documented in this encounter Plan of Treatment Upcoming Encounters Date Type Department Care Team (Late st Contact Info) Description 09/14/2024 8:00 AM EDT [place] [address] Alie Arshad PA [facility] [place] [address] documented as of this encounter Goals Goal Patient Goal Type Associated Problems Recent Progress Patient-Stated? Author Prevention of ms relapse Patient Facing Action Plan On track( 024 2:11 PM EDT) Rock Desir, [facility] Note: Delay disease progression as measured by radiographic finding as well as clinical presentation to be measured every 6 months and ongoing. documented as of this encounter Visit Diagnoses Not on filedocumented in this encounter Care Teams Head Correction Officer Relationship Specialty Start Date End Date Kevan Angel DO [address] [place] [address] [facility] [place] [address] PCP - General 08/07/11 documented as of this encounter
--- OUTSIDE RECORDS SUMMARY | 2024-04-05 17:29 | XMS_ITS | Encounter Summary ---
[place] [address] Care Team Providers Care Psychodramatist Name Role Phone Kevan Angel DO Primary Care Provider Encounter Details Date Type Department Care Team (Latest Contact Info) Description 12/08/2023 Specialty [place] [phone] Devon Castellano, PROGRAM DEVELOPMENT MANAGER Refill Coordination - 28 day recurrence (interferon beta-1a/albumin) for Multiple Sclerosis Social History Tobacco Use Types Packs/Day Years Used Date Smoking Tobacco: Former Cigarettes 0 09/06/1981 - 09/06/1993 Smokeless Tobacco: Never Alcohol Use Standard Drinks/Week Comments No 0 (1 standard drink = 0.6 oz pur e alcohol) [facility] Inpatient Questions Answer Date Recorded Does [...] as of this encounter Progress Notes * Devon Castellano CPHT - 12/08/2023 1:46 PM EDT Clinical Management Plan: Refill Specialty Pharmacy Consultation; Devon Castellano CPHT Comprehensive Medication Management (CMM) Ms. Maritza Leiva is a 63 y.o. (1960) female who was contacted in regard to a specialty medication refill reminder. The patient requested a refill of Interferon Beta-1a/Albumin. A reviewof the medication therapy was performed. The medication was refilled as scheduled, and all medication related questions and concerns were addressed. The specialty pharmacy staff will follow up with th e patient 5-7 days prior to next refill. Was a change made to the Care Plan: No Medication Therapy Recommendations No medication therapy recommendations to display Allergies and Drug intolerance: No Known Allergies Medication Reconciliation [facility]crep[facility] No Review Flowsheet 12/08/2023 1:47 PM Assessment What is the name of the specialty medication you are refilling? Rebif Are you taking any new medications? No Any new medical conditions? No Any new allergies? No Any new side effects that are bothersome? No Any missed doses since your last fill? 0 Would you like a pharmacist to reach out to you to answer any questions? No What date will you need this fill by? 12/17/2023 Adherence: Any missed doses? No Patient understands no changes to current drug regimen were made. Devon Castellano CPHT 12/08/23 1:48 PM documented in this encounter Plan of Treatment Upcoming Encounters Date Type Department Care Team (Late st Contact Info) Description 09/14/2024 8:00 AM EDT [place] [address] Alie Arshad PA [facility] [place] [address] documented as of this encounter Goals Goal Patient Goal Type Associated Problems Recent Progress Patient-Stated? Author Prevention of ms relapse Patient Facing Action Plan On track( 024 2:11 PM EDT) No Rock Valenzuela, [facility] Note: Delay disease progression as measured by radiographic finding as well as clinical presentation to be measured every 6 months and ongoing. documented as of this encounter Visit Diagnoses Not on filedocumented in this encounter Care Teams Psychodramatist Relationship Specialty Start Date End Date Kevan Angel DO [address] [place] [address] PCP - General 08/07/11 documented as of this encounter
--- OUTSIDE RECORDS SUMMARY | 2024-04-05 17:29 | XMS_ITS | Encounter Summary ---
Author Organization [facility] [place] [address] Care Team Providers Care Doctor Of Radiology Name Role Phone Kevan Angel Primary Care Provider Reason for Visit * Reason Onset Date Comments Medication Problem 08/11/2023 Encounter Details Date Type Department Care Team (Late st Contact Info) Description 08/11/2023 [place] [address] Alie Arshad PA [facility] [place] [place] [address] Medication Problem Social History Tobacco Use Types Packs/Day Years Used Date Smoking Tobacco: Former Cigarettes 0 09/06/1981 - 09/06/1993 Smokeless Tobacco: Never Alcohol Use Standard Drinks/Week Comments No 0 (1 standard drink = 0.6 oz pur e alcohol) [facility] Inpatient Questions Answer Date Recorded Does [...] on file documented as of this encounter Miscellaneous Notes * Telephone Encounter - Isela Gibson RN - 08/11/2023 2:07 PM EDT Copied from CRM #[id number]. Topic: Specialty Dept CRMs - Medication Issues >> Aug 11, 2023 1:52 PM Brenda Wynne wrote: Medication Issues Specialist Alie ARMENDARIZ Relationship (if other than patient-full name): Naty- Clinical Pharmacist with [employer] Reason for call: Medication Issue (if symptom based used Triage Subtopic) Message/information for the nurse: Naty calling in states that the interferon beta-1a, albumin, (Rebif, with albumin,) 44 mcg/0.5 mL Syringe is not on formulary and is wondering if Alie would consider switching to avonex. Naty also said that the prior authorization for the rebif is set to in September. Please either have Alie reach out to Naty or one of the nurses to discuss. Name of Medication: interferon beta-1a, albumin, (Rebif, with albumin,) 44 mcg/0.5 mL Syringe Issue with the medication: Not on formulary documented in this encounter Plan of Treatment Upcoming Encounters Date Type Department Care Team (Late st Contact Info) Description 09/14/2024 8:00 AM EDT [place] [address] Alie Arshad PA [facility] [place] [place] [address] documented as of this encounter Goals Goal Patient Goal Type Associated Problems Recent Progress Patient-Stated? Author Prevention of ms relapse Patient Facing Action Plan On track( 024 2:11 PM EDT) Rock Desir, [facility] Note: Delay disease progression as measured by radiographic finding as well as clinical presentation to be measured every 6 months and ongoing. documented as of this encounter Visit Diagnoses Not on filedocumented in this encounter Care Teams Doctor Of Radiology Relationship Specialty Start Date End Date Kevan Angel DO [address] [place] [address] [address] [place] [address] PCP - General 08/07/11 documented as of this encounter
--- OUTSIDE RECORDS SUMMARY | 2024-04-05 17:29 | XMS_ITS | Encounter Summary ---
[place] [address] Care Team Providers Care Rope Silica Machine Operator Name Role Phone Kevan Angel Primary Care Provider Encounter Details Date Type Department Care Team (Latest Contact Info) Description 01/30/2024 Specialty [place]acy [place] [address] Carter Bowling, JHONNY Refill Coordination - 28 day recurrence (interferon beta-1a/albumin) for Multiple Sclerosis Social History Tobacco Use Types Packs/Day Years Used Date Smoking Tobacco: Former Cigarettes 0 09/06/1981 - 09/06/1993 Smokeless Tobacco: Never Alcohol Use Standard Drinks/Week Comments No 0 (1 standard drink = 0.6 oz pur e alcohol) [facility] Inpatient Questions Answer Date Recorded Does Anyone [...] this encounter Progress Notes * Carter Bowling CPHT - 01/30/2024 11:34 AM EDT Clinical Management Plan: Refill Specialty Pharmacy Consultation; Carter Bowling CPHT Comprehensive Medication Management (CMM) Ms. Maritza Leiva is a 63 y.o. (1960) female who was contacted in regard to a specialty medication refill reminder. The patient requested a refill of . A review of the medication therapywas performed. The medication was refilled as scheduled, and all medication related questions and concerns were addressed. The specialty pharmacy staff will follow up with the patient 5-7 days prior to next refill. Was a change made to the Care Plan: No Medication Therapy Recommendations No medication therapy recommendations to display Allergies and Drug intolerance: No Known Allergies Medication Reconciliation Discrepancies (compared to [facility] med list) No Review Flowsheet 01/30/2024 11:34 AM Assessment What is the name of the specialty medication you are refilling? Rebif Are you taking any new medications? No Any new medical conditions? No Any new allergies? No Any new side effects that are bothersome? No How many doses do you have remaining on hand? 2 Would you like a pharmacist to reach out to you to answer any questions? No What date will you need this fill by? 02/04/2024 Adherence: Any missed doses? No Patient understands no changes to current drug regimen were made. Carter Bowling CPHT 01/30/24 11:37 AM documented in this encounter Plan of Treatment Upcoming Encounters Date Type Department Care Team (Late st Contact Info) Description 09/14/2024 8:00 AM EDT Office [place] [address] Alie Arshad PA [facility] [address] documented as of this encounter Goals Goal Patient Goal Type Associated Problems Recent Progress Patient-Stated? Author Prevention of ms relapse Patient Facing Action Plan On track( 024 2:11 PM EDT) Rock Desir, [facility] Note: Delay disease progression as measured by radiographic finding as well as clinical presentation to be measured every 6 months and ongoing. documented as of this encounter Visit Diagnoses Not on filedocumented in this encounter Care Teams Rope Silica Machine Operator Relationship Specialty Start Date End Date Kevan Angel DO [address] [place] [address] PCP - General 08/07/11 documented as of this encounter
--- OUTSIDE RECORDS SUMMARY | 2024-04-05 17:29 | XMS_ITS | Encounter Summary ---
[place] [address] Care Team Providers Care Asset Management Lead Name Role Phone StanleyKevan bowen Primary Care Provider Reason for Visit * Reason Comments Specialty Refill Management Encounter Details Date Type Department Care Team (Late st Contact Info) Description 03/20/2023 Specialty [place] [phone] Karla Carter, [facility] Social History Tobacco Use Types Packs/Day Years Used Date Smoking Tobacco: Former Cigarettes 0 09/06/1981 - 09/06/1993 Smokeless Tobacco: Never Alcohol Use Standard Drinks/Week Comments No 0 (1 standard drink = 0.6 oz pur e alcohol) [facility] Inpatient Questions Answer Date Recorded Does [...] as of this encounter Progress Notes * Karla Carter - 03/20/2023 9:02 AM EST Clinical Management Plan: Refill Specialty Pharmacy Consultation; Karla Carter Comprehensive Medication Management (CMM) Maritza Leiva is [...] Known Allergies Medication Reconciliation Discrepancies (compared to [facility] med list) No Specialty Pharmacy Refill Questionnaire More data exists 03/20/2023 Refill Questionnaire What is the name of the specialty medication you are refilling? Rebif Are you taking any new medications? No Any new medical condition? No Any new allergies? No Any new side effects that are bothersome? No What date will you need this fill by? 03/26/2023 Adherence: Any missed doses? No Patient understands no changes to current drug regimen were made. Karla Carter 03/20/23 9:03 AM documented in this encounter Plan of Treatment Upcoming Encounters Date Type Department Care Team (Late st Contact Info) Description 09/14/2024 8:00 AM EDT [place] [address] Alie Arshad PA [facility] [place] [address] documented as of this encounter Goals Goal Patient Goal Type Associated Problems Recent Progress Patient-Stated? Author Prevention of ms relapse Patient Facing Action Plan On track( 024 2:11 PM EDT) Rock Desir, [facility] Note: Delay disease progression as measured by radiographic finding as well as clinical presentation to be measured every 6 months and ongoing. documented as of this encounter Visit Diagnoses Not on filedocumented in this encounter Care Teams Asset Management Lead Relationship Specialty Start Date End Date Kevan Angel DO [address] [place] [address] PCP - General 08/07/11 documented as of this encounter
--- OUTSIDE RECORDS SUMMARY | 2024-04-05 17:29 | XMS_ITS | Encounter Summary ---
Author Organization [facility] Address [address] [place] [address] Care Team Providers Care Crown Pouncer Name Role Phone Unavailable Primary Care Provider Unavailabl e Encounter Details Date Type Department Care Team (Late st Contact Info) Description 01/14/2003 10:34 EDT Hospital Encounter [facility] - Other [address] [place] [address] Evangelista Valladares MD [address] [facility] [place] [address] Social History Tobacco Use Types Packs/Day Years Used Date Smoking Tobacco: Never Assessed Comments Unknown Sex and Gender Information Value Date Recorded Sex Assigned at Not on file Legal Sex Female 18:22 EST Gender Identity Not on file Sexual Orientation Not on file documented as of this encounter Plan of Treatment Not on file documented as of this encounter Visit Diagnoses Not on filedocumented in this encounter
--- OUTSIDE RECORDS SUMMARY | 2024-04-05 17:29 | XMS_ITS | Encounter Summary ---
[place] [address] Care Team Providers Care Recovery Collector Name Role Phone StanleyKevan bowen Primary Care Provider [phone] Reason for Visit * Reason Comments Specialty Refill Management Encounter Details Date Type Department Care Team (Late st Contact Info) Description 05/07/2023 Specialty [place] [phone] Karla Carter, [facility] Social History Tobacco Use Types Packs/Day Years Used Date Smoking Tobacco: Former Cigarettes 0 09/06/1981 - 09/06/1993 Smokeless Tobacco: Never Alcohol Use Standard Drinks/Week Comments No 0 (1 standard drink = 0.6 oz pur e alcohol) [facility] Inpatient Questions Answer Date Recorded Does [...] encounter Progress Notes * Karla Carter - 05/07/2023 9:30 AM EST Clinical Management Plan: Refill Specialty [...] Known Allergies Medication Reconciliation Discrepancies (compared to [facility] med list) No Specialty Pharmacy Refill Questionnaire More data exists 05/07/2023 Refill Questionnaire What is the name of the specialty medication you are refilling? Rebif Are you taking any new medications? No Any new medical condition? No Any new allergies? No Any new side effects that are bothersome? No What date will you need this fill by? 05/19/2023 Adherence: Any missed doses? No Patient understands no changes to current drug regimen were made. Karla Carter 05/07/23 9:31 AM documented in this encounter Plan of Treatment Upcoming Encounters Date Type Department Care Team (Late st Contact Info) Description 09/14/2024 8:00 AM EDT Office [place] [address] Alie Arshad PA [facility] [place] [address] documented as of this encounter Goals Goal Patient Goal Type Associated Problems Recent Progress Patient-Stated? Author Prevention of ms relapse Patient Facing Action Plan On track( 024 2:11 PM EDT) Rock Desir, [facility] Note: Delay disease progression as measured by radiographic finding as well as clinical presentation to be measured every 6 months and ongoing. documented as of this encounter Visit Diagnoses Not on filedocumented in this encounter Care Teams Recovery Collector Relationship Specialty Start Date End Date Kevan Angel DO [address] [place] [address] PCP - General 08/07/11 documented as of this encounter
--- OUTSIDE RECORDS SUMMARY | 2024-04-05 17:29 | XMS_ITS | Encounter Summary ---
[place] [address] Care Team Providers Care Arson Investigator Name Role Phone Kevan Angel DO Primary Care Provider Encounter Details Date Type Department Care Team (Latest Contact Info) Description 11/12/2023 Specialty [place]acy [place] [phone] Veronica Cunningham, [employer] Refill Coordination - 28 day recurrence (interferon beta-1a/albumin) for Multiple Sclerosis Social History Tobacco Use Types Packs/Day Years Used Date Smoking Tobacco: Former Cigarettes 0 09/06/1981 - 09/06/1993 Smokeless Tobacco: Never Alcohol Use Standard Drinks/Week Comments No 0 (1 standard drink = 0.6 oz pur e alcohol) [facility] Inpatient Questions Answer Date Recorded Does Anyone [...] Progress Notes * Veronica Cunningham CPHT - 11/12/2023 11:54 AM EDT Clinical Management Plan: Refill Specialty Pharmacy Consultation; Veronica Cunningham CPHT Comprehensive Medication Management (CMM) Ms. Maritza Leiva is a 63 y.o. (1960) female who was contacted in regard to a specialty medication refill reminder. The patient requested a refill of (P) Interferon Beta-1a/Albumin. A review of the medication [...] Known Allergies Medication Reconciliation Discrepancies (compared to [facility] med list) No Review Flowsheet 11/12/2023 11:54 AM Assessment What is the name of the specialty medication you are refilling? Rebif Are you taking any new medications? No Any new medical conditions? No Any new allergies? No Any new side effects that are bothersome? No Any missed doses since your last fill? 0 How many doses do you have remaining on hand? 2 Would you like a pharmacist to reach out to you to answer any questions? No What date will you need this fill by? 11/19/2023 Adherence: Any missed doses? No Patient understands no changes to current drug regimen were made. Veronica Cunningham CPHT 11/12/23 11:55 AM documented in this encounter Plan of Treatment Upcoming Encounters Date Type Department Care Team (Late st Contact Info) Description 09/14/2024 8:00 AM EDT Office [place] [address] Alie Arshad PA [facility] [place] [address] documented as of this encounter Goals Goal [...] on filedocumented in this encounter Care Teams Arson Investigator Relationship Specialty Start Date End Date Kevan Angel DO [address] [place] [address] PCP - General 08/07/11 documented as of this encounter
--- OUTSIDE RECORDS SUMMARY | 2024-04-05 17:29 | XMS_ITS | Encounter Summary ---
[place] [address] Care Team Providers Care Inspector Of Dredging Name Role Phone Kevan Angel DO Primary Care Provider [phone] Encounter Details Date Type Department Care Team (Latest Contact Info) Description 01/07/2024 Specialty Pharmacy [place] [phone] Devon Castellano, [employer] Refill Coordination - 28 day recurrence (interferon beta-1a/albumin) for Multiple Sclerosis Social History Tobacco Use Types Packs/Day Years Used Date Smoking Tobacco: Former Cigarettes 0 09/06/1981 - 09/06/1993 Smokeless Tobacco: Never Alcohol Use Standard Drinks/Week Comments No 0 (1 standard drink = 0.6 oz pur e alcohol) [facility] Inpatient Questions Answer Date Recorded [...] Progress Notes * Devon Castellano CPHT - 01/07/2024 12:13 PM EDT Clinical Management Plan: Refill Specialty [...] Known Allergies Medication Reconciliation Discrepancies (compared to [facility] med list) No Review Flowsheet 01/07/2024 12:13 PM Assessment What is the name of [...] will you need this fill by? 01/12/2024 Adherence: Any missed doses? No Patient understands no changes to current drug regimen were made. Devon Castellano CPHT 01/07/24 12:15 PM documented in this encounter Plan of Treatment Upcoming Encounters Date Type Department Care Team (Late st Contact Info) Description 09/14/2024 8:00 AM EDT Office [place] [address] Alie Arshad PA [facility] [place] [place] [address] documented as of this encounter Goals Goal [...] on filedocumented in this encounter Care Teams Inspector Of Dredging Relationship Specialty Start Date End Date Kevan Angel DO [address] [place] [address] PCP - General 08/07/11 documented as of this encounter
--- OUTSIDE RECORDS SUMMARY | 2024-04-05 17:29 | XMS_ITS | Encounter Summary ---
Author Organization [facility] [place] [address] Care Team Providers Care Relay Motorman Name Role Phone Kevan Angel Primary Care Provider Encounter Details Date Type Department Care Team (Latest Contact Info) Description 10/22/2022 Travel Social History Tobacco Use Types Packs/Day [...] 8:00 AM EDT [place] [address] Alie Arshad PA [facility] [place] [address] documented as of this encounter Goals Goal Patient Goal Type Associated Problems Recent Progress Patient-Stated? Author Prevention of ms relapse Patient Facing Action Plan On track( 024 2:11 PM EDT) Rock Desir, [facility] Note: Delay disease progression as measured by radiographic finding as well as clinical presentation to be measured every 6 months and ongoing. documented as of this encounter Visit Diagnoses Not on filedocumented in this encounter Care Teams Relay Motorman Relationship Specialty Start Date End Date Kevan Angel DO [address] [place] [address] PCP - General 08/07/11 documented as of this encounter
--- OUTSIDE RECORDS SUMMARY | 2024-04-05 17:29 | XMS_ITS | Encounter Summary ---
[place] [address] Care Team Providers Care Binder Operator Name Role Phone Kevan Angel DO Primary Care Provider Encounter Details Date Type Department Care Team (Latest Contact Info) Description 09/17/2023 Specialty Pharmacy [place] [phone] Leanna Robertson CPHT Refill Coordination - 28 day recurrence (interferon beta-1a/albumin) for Multiple Sclerosis Social History Tobacco Use Types Packs/Day Years Used Date Smoking Tobacco: Former Cigarettes 0 09/06/1981 - 09/06/1993 Smokeless Tobacco: Never Alcohol Use Standard Drinks/Week Comments No 0 (1 standard drink = 0.6 oz pur e alcohol) [facility] Inpatient Questions Answer Date Recorded [...] as of this encounter Progress Notes * Leanna Robertson CPHT - 09/17/2023 11:00 AM EDT Clinical Management Plan: Refill Specialty Pharmacy Consultation; Leanna Robertson CPHT Comprehensive Medication Management (CMM) Ms. Maritza [...] Known Allergies Medication Reconciliation Discrepancies (compared to [facility] med list) No Review Flowsheet 09/17/2023 11:01 AM Assessment What is the name of the specialty medication you are refilling? Rebif Are you taking any new medications? No Any new medical conditions? No Any new allergies? No Any missed doses since your last fill? 0 Any new side effects that are bothersome? No What date will you need this fill by? 09/26/2023 Adherence: Any missed doses? No Patient understands no changes to current drug regimen were made. Leanna Robertson CPHT 09/17/23 11:01 AM documented in this encounter Plan of Treatment Upcoming Encounters Date Type Department Care Team (Late st Contact Info) Description 09/14/2024 8:00 AM EDT Office Visit [place] [address] Alie Arshad PA [facility] [place] [address] documented as of this encounter Goals Goal Patient Goal Type Associated Problems Recent Progress Patient-Stated? Author Prevention of ms relapse Patient Facing Action Plan On track( 024 2:11 PM EDT) Rock Desir, [facility] Note: Delay disease progression as measured by radiographic finding as well as clinical presentation to be measured every 6 months and ongoing. documented as of this encounter Visit Diagnoses Not on filedocumented in this encounter Care Teams Binder Operator Relationship Specialty Start Date End Date Kevan Angel DO [address] [facility] [place] [address] PCP - General 08/07/11 documented as of this encounter
--- OUTSIDE RECORDS SUMMARY | 2024-04-05 17:29 | XMS_ITS | Encounter Summary ---
[place] [address] Care Team Providers Care Fly Worker Name Role Phone Kevan Angel Primary Care Provider [phone] Encounter Details Date Type Department Care Team ([facility] st Contact Info) Description 10/29/2022 9:45 AM EDT Office [place] [address] Dominic Sanchez III, MD [address] [facility] [place] [address] Venous insufficiency of right lower extremity; Varicose veins of right lower extremity with inflammation; Phlebitis of superficial vein of right lower extremity Social History Tobacco Use Types Packs/Day Years [...] Sign Reading Time Taken Comments Blood Pressure 146/87 10/29/2022 9:28 AM EDT Pulse 78 10/29/2022 9:28 AM EDT Temperature - - Respiratory Rate - - Oxygen Saturation - - Inhaled Oxygen Concentration - - Weight - - Height - - Body Mass Index - - documented in this encounter Progress Notes * Dominic Sanchez III, MD - 10/29/2022 9:45 AM EDT OUTPATIENT VASCULAR SURGERY CONSULTATION Reason for Visit: Status post right great saphenous vein radiofrequency ablation 10/16/2022, for right lower extremity symptomatic varicose veins, venous insufficiency, superficial phlebitis, stasis dermatitis. History of Present Illness: Maritza Leiva is a 62 y.o. female seen in follow-up after right great saphenous vein radiofrequency ablation October 16. Post procedure duplex demonstrated successful closure of the great saphenous, without DVT. She denies any pain or problems at the venous access site, has had no pain in the medial thigh related to the ablation. Her varicose vein symptoms are improved, particularly the lateralright lower leg where she had most of her symptoms previously. Prior history: She has not had recurrent phlebitis since [...] 1 PPD prior. She denies abdominal problems. ----Right great saphenous vein radiofrequency ablation 10/16/22 Patient Active Problem List Diagnosis Code MS [...] mg by mouth daily., Disp: , Rfl: No Known Allergies Review [...] pack per day prior. Works in the [employer] . Family Hx: No history of DVT or thrombophilia, grandmother may have had varicose veins. Physical Exam: BP 146/87 (BP Location (NBP): Right arm, Patient Position: Sitting) Pulse 78 General - NAD, seen alone Neuro - Alert and Oriented, Motor Sensory grossly intact Cardiac - RRR Extremities - Right lower extremity: The mid-distal medial thigh great saphenous access site is intact, I removed the suture; no hematoma or cellulitis. There are significant varicose veins from the medial mid-distal thigh, throughout the medial as well as mid to lateral lower leg--- these are somewhat decompressed compared with priorto ablation. There is medial and posterior lower leg skin change, with brown and red discoloration and tissue atrophy/lipodermatosclerosis consistent with stasis dermatitis--- this is unchanged. There is no open ulceration. There is mild edema. DP [...] 2/2 2/2 Femoral 2/2 2/2 Popliteal DP /2 2/2 PT 2/2 / Labs: October 2021: BUN 19, creatinine 0.6. [...] in our vascular lab database from comparison. Right lower extremity venous duplex 10/22/2022: Findings: RIGHT: The great saphenous vein is ablated to the saphenofemoral junction but does not extend into the common femoral vein (approximately 0.3 cm away from the deep system). Patent inferior epigastricvein. Patent common femoral vein with spontaneous, respirophasic Doppler waveforms that respond normally to augmentation maneuvers. The common femoral vein, saphenofemoral junction and femoral vein through the proximal thigh are fully compressible. Interpretation: RIGHT: Successful ablation of the great saphenous vein. No evidence of lower extremity deep venous thrombosis through the proximal thigh. Assessment and Plan: Maritza ParishFabien right great saphenous vein radiofrequency ablation 10/16/2022, performed for symptomatic varicose veins as well as significant lipodermatosclerosis and stasis dermatitis of the mid to distal lower leg. Postprocedure duplex demonstrated successful closure of the great saphenous vein without DVT. The access site is intact. She has had improvement of varicose vein symptoms already. Hopefully, this procedure will minimize the risk of ongoing progression of lipodermatosclerosis/stasis dermatitis as well. I did recommend that she use long-term compression stockings, and if varicosities remain symptomatic, or stasis progresses despite this procedure, we can then perform stab phlebectomy of the substantial varicosities of the right leg. There was no right deep venous incompetence. I currently plan to see her as needed but will be happy to reevaluate at any time. Thank you for the opportunity to participate her care. Please contact me with any questions. documented in this encounter Plan of Treatment Upcoming Encounters Date Type Department Care Team (Late st Contact Info) Description 09/14/2024 8:00 AM EDT [place] [address] Alie Arshad PA [facility] [place] [address] documented as of this encounter Goals Goal Patient Goal Type Associated Problems Recent Progress Patient-Stated? Author Prevention of ms relapse Patient Facing Action Plan On track( 024 2:11 PM EDT) Rock Desir, [facility] Note: Delay disease progression as measured by radiographic finding as well as clinical presentation to be measured every 6 months and ongoing. documented as of this encounter Visit Diagnoses Diagnosis Venous insufficiency of right lower extremity Varicose veins of right lower extremity with inflammation Varicose veins of lower extremities with inflammation Phlebitis of superficial vein of right lower extremity documented in this encounter Care Teams Fly Worker Relationship Specialty Start Date End Date Kevan Angel DO [address] [place] [address] PCP - General 08/07/11 documented as of this encounter
--- OUTSIDE RECORDS SUMMARY | 2024-04-05 17:29 | XMS_ITS | Encounter Summary ---
Author Organization [facility] Address [address] [place] [address] Care Team Providers Care Digital Imaging Specialist Name Role Phone Unavailable Primary Care Provider Unavailabl e Encounter Details Date Type Department Care Team (Late st Contact Info) Description 04/25/2004 Results Only [facility] [address] [place] [address] Karrie Lerner, [address] [place] [phone] Social History Tobacco Use Types Packs/Day Years [...] Priority Date/Time Associated Diagnosis Comments CYTOPATHOLOGY Routine 04/25/2004 0:00 EST documented in this encounter Results * CYTOPATHOLOGY (04/25/2004 0:00 EST) Pathology Report: CYTOPATHOLOGY REPORT Reports generated via electronic interface contain original data; however they are lacking the format of the original report. Caution should be taken when reading/interpreti ng unformatted reports. Name: ? YAMILA LARA ? Accession #: ? [id number] : ? 1960 (Age: 44) ??F ?Collect Date: ? 04/25/2004 Location: ? [facility] ? Receive Date: ? 04/27/2004 Provider: ?KARRIE LERNER DATA PROCESSOR Copy to: ? Specimen/Source: ?ThinPrep Pap Test, Cervix/Endocervix Last Menstrual Period: ? 04/16/04 Other: ? HPVA - HPV testing requested if ASC-US on the current ThinPrep Pap test. ? SPECIMEN ADEQUACY ? Satisfactory for Evaluation - transformation zone component present GENERAL CATEGORIZATION ? Negative for Intraepithelial Lesion or Malignancy INTERPRETATION ? Shift in aleks present suggestive of bacterial vaginosis. ? Document reviewed and electronically signed by: ? RENUKA Talbert(ASCP) ? Report Date: ??05/01/2004 07:47 End of Report BESSY ROBERTSON 04/25/2004 04/27/2004 us Karrie Lerner DATA PROCESSOR PATHOLOGY ORDERABLES Final R esult BESSY ROBERTSON [address] [place] [address] documented in this encounter Visit Diagnoses Not on filedocumented in this encounter
--- OUTSIDE RECORDS SUMMARY | 2024-04-05 17:29 | XMS_ITS | Encounter Summary ---
[place] [address] Care Team Providers Care Division Superintendent Name Role Phone StanleyKevan bowen Primary Care Provider [phone] Reason for Visit * Reason Comments Medication Management Medication Refill Encounter Details Date Type Department Care Team (Late st Contact Info) Description 02/20/2023 Specialty [place] [address] Russell Martinez RPH Social History Tobacco Use Types Packs/Day Years [...] this encounter Progress Notes * Russell Martinez RPH - 02/20/2023 1:37 PM EST Specialty Pharmacy Consultation; Russell Martinez RPH Comprehensive Medication Management (CMM): Specialty Consult, Opt Out Maritza Leiva Diagnosis: MS Therapy Start Date: 07/2022 Contact in person or via telephone: phone Ms. Maritza Leiva is a 62 y.o. (1960) female who was contacted in regard to specialty medication. Spoke with patient regarding rebif. A review of the medication therapy was performed. The medication was refilled as scheduled, and all medication related questions and concerns were addressed. The specialty pharmacy staff will follow up with the patient 5 - 7 days prior to next refill. Is the patient willing to proceed with the Clinical Assessment? No Summary and Recommendations: Today I spoke with Maritza Leiva who was due for a refill on rebif as well as a routine clinica follow up consultation. The medication was refilled but patient declined to participate in the full consultation. She said that there haven't been any changes in allergies, medications, or medical conditions since the last fill. The patient also did not miss any doses or have any side effects. The patient had no questions or concerns at this time and we encouraged her to reach out to us with any questions or concerns, our contact information was provided. We will continue to follow up with the patient monthly for refills and biannually for consults. Economic Assessment: Patient is agreeable to medication copay: Yes Copay Amount: $0 Day Supply: 28 Date Needed: 02/26/23 Therapy Assessment: Appropriate Therapy: Yes Current Medication Dosing/Route/Frequency: Rebif 44mcg three times a week Additional equipment/supplies required: no Care Plan Reviewed and Approved by Pharmacist : Yes Problem List: Patient Active Problem List Diagnosis Code MS (multiple sclerosis) G35 Varicose veins of leg with swelling I83.899 Varicose veins of right lower extremity with inflammation I83.11 Venous insufficiency of right lower extremity I87.2 Phlebitis of superficial vein of right lower extremity I80.01 History of tobacco use Z87.891 Medications Reviewed: Yes Medications reconciled: Yes Allergies Reviewed:Yes Allergies reconciled: Yes Pharmacist follow-up needed: Yes Informed patient of specialty pharmacy services: Yes (Optional) Patient unenrolls from routine specialty pharmacy services (Y/N): (Optional) If yes, services unenrolled from: Welcome Packet and Rights and Responsibilities: Patient provided welcome packet/rights and responsibilities: Yes Date Confirmed: 12/09/18 Confirmation: Verbal -Patient is aware a licensed pharmacist is available 24 hours a day, 7 days a week to discuss medication-related questions or concerns: Yes -Patient verbalizes understanding of the common side effect profile of their medication. The patient is able to call 911 or seek urgent care if signs/symptoms of allergy or harmful adverse reactions occur: Yes Patient understands no changes to current drug regimen were made at the appointment and that the pharmacist is providing recommendations (summary located at top of note) for provider review and follow up. Russell Martinez RPH 02/20/23 1:39 PM documented in this encounter Plan of Treatment Upcoming Encounters Date Type Department Care Team (Late st Contact Info) Description 09/14/2024 8:00 AM EDT Office [place] [address] Alie Arshad PA [facility] [place] [address] documented as of this encounter Goals Goal [...] on filedocumented in this encounter Care Teams Division Superintendent Relationship Specialty Start Date End Date Kevan Angel DO [address] [place] [address] PCP - General 08/07/11 documented as of this encounter
--- OUTSIDE RECORDS SUMMARY | 2024-04-05 17:29 | XMS_ITS | Encounter Summary ---
[place] [address] Care Team Providers Care Supervisor Real Estate Office Name Role Phone Kevan Angel Primary Care Provider Encounter Details Date Type Department Care Team (Late st Contact Info) Description 02/24/2024 Specialty [place] [address] Vielka Muñoz, LIME VAT TENDER Refill Coordination - 28 day recurrence (interferon beta-1a/albumin) for Multiple Sclerosis Social History Tobacco Use Types Packs/Day Years Used Date Smoking Tobacco: Former Cigarettes 0 09/06/1981 - 09/06/1993 Smokeless Tobacco: Never Alcohol Use Standard Drinks/Week Comments No 0 (1 standard drink = 0.6 oz pur e alcohol) [facility] Inpatient Questions Answer Date Recorded Does [...] 8:00 AM EDT [place] [address] Alie Arshad PA [facility] [place] [place] [address] documented as of this encounter Goals Goal [...] on filedocumented in this encounter Care Teams Supervisor Real Estate Office Relationship Specialty Start Date End Date Kevan Angel DO [address] [place] [address] PCP - General 08/07/11 documented as of this encounter
--- OUTSIDE RECORDS SUMMARY | 2024-04-05 17:29 | XMS_ITS | Encounter Summary ---
[place] [address] Care Team Providers Care Manager Food Name Role Phone Kevan Angel Primary Care Provider Reason for Visit * Reason Comments Prior Authorization Rebif 44 mcg/0.5 mL Syringe Encounter Details Date Type Department Care Team (Late st Contact Info) Description 09/18/2023 Specialty [place] [address] Devon Castellano, PLANNING TECHNICIAN Social History Tobacco Use Types Packs/Day Years Used Date Smoking Tobacco: Former Cigarettes 0 09/06/1981 - 09/06/1993 Smokeless Tobacco: Never Alcohol Use Standard Drinks/Week Comments No 0 (1 standard drink = 0.6 oz pur e alcohol) [facility] Inpatient Questions Answer Date Recorded Does [...] Progress Notes * Devon Castellano CPHT - 09/18/2023 4:18 PM EDT [facility], Medication Prior Authorization Submission Patient: Maritza Leiva Patient : 1960 Patient Address: [address] [address] Phone: [phone] (home) Medication Name: INTERFERON BETA-1A (ALBUMIN) 44 MCG/0.5 ML SUBCUTANEOUS SYRINGE Medication ID: [id number] Subscriber Insurance: [facility] Subscriber Insurance Comment: Fax: Physician: DEANN VU Physician Comment: Sent Via: [employer] Cr: [id number] Ref/Case/PA#: Medication Strength Frequency Requested: Inject one syringe's contents three times weekly Qty/Day Supply: 10/09 New Start: Renewal Diagnosis & ICD-10 Code: G35 - Multiple Sclerosis Patient Notified: No Submission Notes: - PA submitted via [facility] cr - [id number] Devon Castellano CPHT 09/18/23 4:21 PM * Leanna Robertson CPHT - 09/18/2023 4:18 PM EDT [facility], Prior Authorization Approval Medication Name: INTERFERON BETA-1A (ALBUMIN) 44 MCG/0.5 ML SUBCUTANEOUS SYRINGE Medication ID: [id number] Approval Dates: 09/17/2024 to 09/17/2024 Insurance requirements/notes: None Other Notes: None Case/Reference #: [id number] Approval notification Received via: [facility] Copay: Copay assistance: Copay Notes: Insurance mandated Pharmacy: [facility] at [facility]: Yes Patient Notified: No Pharmacy staff will be reaching out to the patient to inform them of their medication's approval bytheir insurance. If applicable, a pharmacist will speak with the patient to offer our specialty pharmacy services and to arrange delivery of their medication. Leanna Robertson CPHT 09/19/23 11:42 AM documented in this encounter Plan of Treatment Upcoming Encounters Date Type Department Care Team (Late st Contact Info) Description 09/14/2024 8:00 AM EDT [place] [address] Deann Vu PA [facility] [place] [address] documented as of this encounter Goals Goal Patient Goal Type Associated Problems Recent Progress Patient-Stated? Author Prevention of ms relapse Patient Facing Action Plan On track( 024 2:11 PM EDT) Rock Desir, [facility] Note: Delay disease progression as measured by radiographic finding as well as clinical presentation to be measured every 6 months and ongoing. documented as of this encounter Visit Diagnoses Not on filedocumented in this encounter Care Teams Manager Food Relationship Specialty Start Date End Date Kevan Angel DO [address] [place] [address] PCP - General 08/07/11 documented as of this encounter
--- OUTSIDE RECORDS SUMMARY | 2024-04-05 17:29 | XMS_ITS | Encounter Summary ---
[place] [address] Care Team Providers Care Automatic Seamer Name Role Phone StanleyKevan bowen Primary Care Provider Encounter Details Date Type Department Care Team (Late st Contact Info) Description 10/22/2022 11:00 AM EDT Tech Visit [place] [address] [place], [place] Varicose veins of right lower extremity with edema; Venous stasis dermatitis of right lower extremity Social History Tobacco Use Types Packs/Day Years Used Date Smoking Tobacco: Former Cigarettes 0 09/06/1981 - 09/06/1993 Smokeless Tobacco: Never Alcohol Use Standard Drinks/Week Comments No 0 (1 standard drink = 0.6 oz pur e alcohol) [facility] Inpatient Questions Answer Date Recorded Does Anyone [...] 8:00 AM [place] [address] Alie Arshad PA [facility] [place] [address] documented as of this encounter Goals Goal Patient Goal Type Associated Problems Recent Progress Patient-Stated? Author Prevention of ms relapse Patient Facing Action Plan On track( 2:11 PM EDT) Rock Desir, [facility] Note: Delay disease progression as measured by radiographic finding as well as clinical presentation to be measured every 6 months and ongoing. documented as of this encounter Procedures Procedure Name Priority Date/Time Associated Diagnosis Comments DUPLEX FOR DVT, LEG, UNILAT Routine 10/22/2022 10:57 AM EDT Varicose veins of right lower extremity with edema Venous stasis dermatitis of right lower extremity documented in this encounter Results * Duplex for DVT, Leg, Unilat (10/22/2022 10:57 AM EDT) VB Text Report Department: Vascular Surgery Lab Patient: [id number] (YAMILA REYNOLDS) CPT: [id number] Referring Physician: DOMINIC SANCHEZ III, MD ?? Phone: Indications: S/p [...] Report VASCUBASE 10/22/2022 10:5 7 AM EDT Dominic Sanchez III, MD [facility] VASCU[facility] documented in this encounter Visit Diagnoses Diagnosis Varicose veins of right lower extremity with edema Venous stasis dermatitis of right lower extremity documented in this encounter Care Teams Automatic Seamer Relationship Specialty Start Date End Date Kevan Angel DO [address] [place] [address] PCP - General 08/07/11 documented as of this encounter
--- OUTSIDE RECORDS SUMMARY | 2024-04-05 17:29 | XMS_ITS | Encounter Summary ---
Author Organization [facility] Address [facility] [place] [address] Care Team Providers Care Market President Name Role Phone Kevan Angel Primary Care Provider Encounter Details Date Type Department Care Team (Late st Contact Info) Description 04/11/2023 [place] [address] Alie Arshad PA [facility] [place] [address] Social History Tobacco Use Types Packs/Day Years [...] 8:00 AM EDT [place] [address] Alie Arshad PA [facility] [place] [address] documented as of this encounter Goals Goal [...] on filedocumented in this encounter Care Teams Market President Relationship Specialty Start Date End Date Kevan Angel DO [address] [place] [address] PCP - General 08/07/11 documented as of this encounter
--- OUTSIDE RECORDS SUMMARY | 2024-04-05 17:29 | XMS_ITS | Encounter Summary ---
[place] [address] Care Team Providers Care Education Program Manager Name Role Phone Kevan Angel Primary Care Provider [phone] Reason for Visit * Reason Comments Medication Refill Rebif 44 mcg/ 0.5ml SOSY Encounter Details Date Type Department Care Team (Late st Contact Info) Description 12/25/2022 Specialty Pharmacy [place] [address] Vielka Muñoz, ELECTRON MICROPROBE OPERATOR Social History Tobacco Use Types Packs/Day Years Used Date Smoking Tobacco: Former Cigarettes 0 09/06/1981 - 09/06/1993 Smokeless Tobacco: Never Alcohol Use Standard Drinks/Week Comments No 0 (1 standard drink = 0.6 oz pur e alcohol) [facility] Inpatient Questions Answer Date Recorded Does Anyone [...] as of this encounter Progress Notes * Vielka Muñoz - 12/25/2022 12:03 PM EDT Clinical Management Plan: Refill Specialty Pharmacy Consultation; Vielka Muñoz Comprehensive Medication Management (CMM) Maritza Leiva is a 62 y.o. (1960) female who was contacted in regard to a specialty medication refill reminder. Contact made with patient regarding Rebif 44 mcg/ 0.5ml SOSY . A review of the medication therapy was performed. The medication was refilled as scheduled, and all medication related questions and concerns were addressed. The specialty pharmacy staff will follow up with the patient 5-7 days prior to next refill. Was a change made to the Care Plan: No Allergies and Drug intolerance: No Known Allergies Medication Reconciliation Discrepancies (compared to [facility] med list) No Specialty Pharmacy Refill Questionnaire More data exists 12/25/2022 Refill Questionnaire What is the name of the specialty medication you are refilling? Rebif 44 mcg/ 0.5ml SOSY Are you taking any new medications? No Any new medical condition? No Any new allergies? No Any new side effects that are bothersome? No What date will you need this fill by? 01/01/2023 Adherence: Any missed doses? No Patient understands no changes to current drug regimen were made. Vielka Muñoz 12/25/22 12:08 PM documented in this encounter Plan of Treatment Upcoming Encounters Date Type Department Care Team (Late st Contact Info) Description 09/14/2024 8:00 AM EDT Office Visit [place] [address] Alie Arshad PA [facility] [place] [address] documented as of this encounter Goals Goal Patient Goal Type Associated Problems Recent Progress Patient-Stated? Author Prevention of ms relapse Patient Facing Action Plan On track( 024 2:11 PM EDT) Rock Desir, [facility] Note: Delay disease progression as measured by radiographic finding as well as clinical presentation to be measured every 6 months and ongoing. documented as of this encounter Visit Diagnoses Not on filedocumented in this encounter Care Teams Education Program Manager Relationship Specialty Start Date End Date Kevan Angel DO [address] [facility] [address] [facility] [address] [place] [address] PCP - General 08/07/11 documented as of this encounter
--- OUTSIDE RECORDS SUMMARY | 2024-04-05 17:29 | XMS_ITS | Encounter Summary ---
[place] [address] Care Team Providers Care Precision Machinist Name Role Phone Kevan Angel Primary Care Provider [phone] Reason for Visit * Reason Comments Specialty Refill Management Rebif 44mcg/ 0.5ml Sosy Encounter Details Date Type Department Care Team (Late st Contact Info) Description 10/18/2022 Specialty [place] [address] Jus Hill, REFERENCE SERVICES HEAD Social History Tobacco Use Types Packs/Day Years Used Date Smoking Tobacco: Former Cigarettes 0 09/06/1981 - 09/06/1993 Smokeless Tobacco: Never Alcohol Use Standard Drinks/Week Comments No 0 (1 standard drink = 0.6 oz pur e alcohol) [facility] Inpatient Questions Answer Date Recorded Does [...] as of this encounter Progress Notes * Jus Hill - 10/18/2022 9:20 AM EDT Clinical Management Plan: Refill Specialty Pharmacy Consultation; Jus Hill Comprehensive Medication Management (CMM) Maritza Leiva is a 62 y.o. (1960) female who was contacted in regard to a specialty medication refill reminder. Contact made with patient regarding rebif. A review of the medication therapy was performed. The medication was refilled as scheduled, and all medication related questions and concerns were addressed. The specialty pharmacy staff will follow up with the patient 5-7 daysprior to next refill. Was a change made to the Care Plan: No Allergies and Drug intolerance: No Known Allergies Medication Reconciliation Discrepancies (compared to [facility] med list) No Specialty Pharmacy Refill Questionnaire More data exists 10/18/2022 Refill Questionnaire What is the name of the specialty medication you are refilling? Rebif 44mcg/0.5ml Sosy Are you taking any new medications? No Any new medical condition? No Any new allergies? No Any new side effects that are bothersome? No What date will you need this fill by? 10/23/2022 Adherence: Any missed doses? No Patient understands no changes to current drug regimen were made. Jus Hill 10/18/22 9:20 AM documented in this encounter Plan of Treatment Upcoming Encounters Date Type Department Care Team (Late st Contact Info) Description 09/14/2024 8:00 AM EDT [place] [address] Alie Arshad PA [facility] [place] [address] documented as of this encounter Goals Goal [...] on filedocumented in this encounter Care Teams Precision Machinist Relationship Specialty Start Date End Date Kevan Angel DO [address] [place] [address] PCP - General 08/07/11 documented as of this encounter
--- OUTSIDE RECORDS SUMMARY | 2024-04-05 17:29 | XMS_ITS | Encounter Summary ---
[place] [address] Care Team Providers Care Cad Administrator Name Role Phone Kevan Angel Primary Care Provider Reason for Visit * Reason Comments Specialty Refill Management Encounter Details Date Type Department Care Team (Late st Contact Info) Description 07/01/2023 Specialty [place] [address] Karla Carter, [facility] Social History Tobacco Use Types Packs/Day Years Used Date Smoking Tobacco: Former Cigarettes 0 09/06/1981 - 09/06/1993 Smokeless Tobacco: Never Alcohol Use Standard Drinks/Week Comments No 0 (1 standard drink = 0.6 oz pur e alcohol) [facility] Inpatient Questions Answer Date Recorded Does [...] encounter Progress Notes * Karla Carter - 07/01/2023 12:31 PM EDT Clinical Management Plan: Refill Specialty [...] Known Allergies Medication Reconciliation Discrepancies (compared to [facility] med list) No Specialty Pharmacy Refill Questionnaire More data exists 07/01/2023 Refill Questionnaire What is the name of the specialty medication you are refilling? Rebif Are you taking any new medications? No Any new medical condition? No Any new allergies? No Any new side effects that are bothersome? No What date will you need this fill by? 07/09/2023 Adherence: Any missed doses? No Patient understands no changes to current drug regimen were made. Karla Carter 07/01/23 12:32 PM documented in this encounter Plan of Treatment Upcoming Encounters Date Type Department Care Team (Late st Contact Info) Description 09/14/2024 8:00 AM EDT [place] [address] Alie Arshad PA [facility] [place] [address] documented as of this encounter Goals Goal Patient Goal Type Associated Problems Recent Progress Patient-Stated? Author Prevention of ms relapse Patient Facing Action Plan On track( 024 2:11 PM EDT) Rock Desir, [facility] Note: Delay disease progression as measured by radiographic finding as well as clinical presentation to be measured every 6 months and ongoing. documented as of this encounter Visit Diagnoses Not on filedocumented in this encounter Care Teams Cad Administrator Relationship Specialty Start Date End Date Kevan Angel DO [address] [place] [address] PCP - General 08/07/11 documented as of this encounter
--- OUTSIDE RECORDS SUMMARY | 2024-04-05 17:29 | XMS_ITS | Encounter Summary ---
[place] [address] Care Team Providers Care Head Char Filter Tank Tender Name Role Phone Kevan Angel DO Primary Care Provider [phone] Reason for Visit * Reason Comments Prior Authorization Rebif 44MCG/0.5ML yg basilio Encounter Details Date Type Department Care Team (Late st Contact Info) Description 10/03/2022 Specialty [place] [address] Leanna Robertson, [facility] Social History Tobacco Use Types Packs/Day [...] this encounter Progress Notes * Leanna Robertson - 10/03/2022 2:46 PM EDT [facility], Medication Prior Authorization Submission Patient: Maritza Leiva Patient : 1960 Patient Address: [address] [address] Phone: [phone] (home) Medication Name: REBIF (WITH ALBUMIN) 44 MCG/0.5 ML SUBCUTANEOUS SYRINGE Medication ID: [id number] Subscriber Insurance: [facility] Subscriber Insurance Comment: Phone: Fax: Physician: DEANN VU Physician Comment: Sent Via: [facility] Cr: [id number] Ref/Case/PA#: [id number] Medication Strength Frequency Requested: Inject 0.5 mLs subcutaneously three times a week (Mon, Weds, Fri). 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 Patient Notified: No Submission Notes: None Leanna Robertson 10/03/22 2:48 PM * Leanna Robertson - 10/03/2022 2:46 PM EDT [facility], Prior Authorization Approval Medication Name: REBIF (WITH ALBUMIN) 44 MCG/0.5 ML SUBCUTANEOUS SYRINGE Medication ID: [id number] Approval Dates: 10/03/2022 to 10/04/2023 Insurance requirements/notes: None Other Notes: None Case/Reference #: [id number] Approval notification Received via: [facility] Copay: Copay assistance: None Copay Notes: Insurance mandated Pharmacy: Fillable at [facility] Specialty Pharmacy: Yes Patient Notified: No Pharmacy staff will be reaching out to the patient to inform them of their medication's approval byreplaced by [facility] insurance. If applicable, a pharmacist will speak with the patient to offer our specialty pharmacy services and to arrange delivery of their medication. Leanna Robertson 10/04/22 9:29 AM documented in this encounter Plan of Treatment Upcoming Encounters Date Type Department Care Team (Late st Contact Info) Description 09/14/2024 8:00 AM EDT [place] [address] Deann Vu PA [facility] [place] [address] documented as of this encounter Goals Goal [...] filedocumented in this encounter Care Teams Head Char Filter Tank Tender Relationship Specialty Start Date End Date Kevan Angel DO [address] [place] [address] [address] [facility] [address] [place] [address] PCP - General 08/07/11 documented as of this encounter
--- OUTSIDE RECORDS SUMMARY | 2024-04-05 17:29 | XMS_ITS | Encounter Summary ---
[place] [address] Care Team Providers Care Nursing Administrator Name Role Phone Kevan Angel DO Primary Care Provider Encounter Details Date Type Department Care Team (Late st Contact Info) Description 09/27/2022 Telephone [place] [address] Charisse Healy Social History Tobacco Use Types Packs/Day Years [...] encounter Miscellaneous Notes * Telephone Encounter - Charisse Healy - 09/27/2022 1:46 PM EDT I spoke with Maritza - we have scheduled her procedure with Dr. Sanchez for 10/16/22 at [facility] Letter sent. documented in this encounter Plan of Treatment Upcoming Encounters Date Type Department Care Team (Late st Contact Info) Description 09/14/2024 8:00 AM EDT Office [place] [address] Alie Arshad, PA [facility] [place] [address] documented as of this encounter Goals Goal Patient Goal Type Associated Problems Recent Progress Patient-Stated? Author Prevention of ms relapse Patient Facing Action Plan On track( 024 2:11 PM EDT) Rock Desir, [facility] Note: Delay disease progression as measured by radiographic finding as well as clinical presentation to be measured every 6 months and ongoing. documented as of this encounter Visit Diagnoses Not on filedocumented in this encounter Care Teams Nursing Administrator Relationship Specialty Start Date End Date Kevan Angel DO [address] [place] [address] [address] [facility] [address] [place] [address] PCP - General 08/07/11 documented as of this encounter
--- OUTSIDE RECORDS SUMMARY | 2024-04-05 17:29 | XMS_ITS | Encounter Summary ---
[place] [address] Care Team Providers Care Stewardess Supervisor Name Role Phone Kevan Angel DO Primary Care Provider Encounter Details Date Type Department Care Team (Latest Contact Info) Description 10/15/2023 Specialty [place] [address] Leanna Robertson CPHT Refill Coordination - 28 [...] Progress Notes * Leanna Robertson CPHT - 10/15/2023 9:29 AM EDT Clinical Management Plan: Refill Specialty [...] Known Allergies Medication Reconciliation Discrepancies (compared to [facility] med list) No Review Flowsheet 10/15/2023 9:29 AM Assessment What is the name of the specialty medication you are refilling? Rebif Are you taking any new medications? No Any new medical conditions? No Any new allergies? No Any new side effects that are bothersome? No Any missed doses since your last fill? 0 How many doses do you have remaining on hand? 4 Would you like a pharmacist to reach out to you to answer any questions? No What date will you need this fill by? 10/24/2023 Adherence: Any missed doses? No Patient understands no changes to current drug regimen were made. Leanna Robertson CPHT 10/15/23 9:29 AM documented in this encounter Plan of Treatment Upcoming Encounters Date Type Department Care Team (Late st Contact Info) Description 09/14/2024 8:00 AM EDT Office [place] [address] Alie Arshad PA [facility] [place] [address] documented as of this encounter Goals Goal Patient Goal Type Associated Problems Recent Progress Patient-Stated? Author Prevention of ms relapse Patient Facing Action Plan On track( 024 2:11 PM EDT) No Rock Valenzuela, [facility] Note: Delay disease progression as measured by radiographic finding as well as clinical presentation to be measured every 6 months and ongoing. documented as of this encounter Visit Diagnoses Not on filedocumented in this encounter Care Teams Stewardess Supervisor Relationship Specialty Start Date End Date Kevan Angel DO [address] [place] [address] PCP - General 08/07/11 documented as of this encounter
--- OUTSIDE RECORDS SUMMARY | 2024-04-05 17:29 | XMS_ITS | Encounter Summary ---
[place] [address] Care Team Providers Care Digital Service Engineer Name Role Phone StanleyKevan bowen Primary Care Provider [phone] Reason for Visit * Auth/Cert (Routine) Specialty Diagnoses / Procedures Referred By David nieves Referred To Contact Diagnoses Symptomatic varicose veins symptomatic varicose veins, stasis dermatitis, phlebitis Procedures PRO ENDOVENOUS RF, 1ST VEIN PRO ENDOVENOUS RF, VEIN ADD-ON PRO LIGATN LONG SAPHENOUS VEIN AT SEPH-FEM JUNC PRO LIGATE/STRIP LONG SAPH VEIN BELW SEP-FEM JUNC PRO LIGATION POSTPARTUM RN VEIN,SUBFASCIAL,OPEN, INCL US GUIDE,WHN PERFORM,1 LEG PRO PHLEB VEINS - EXTREM - TO 20 PRO PHLEB VEINS - EXTREM 20+ PRO REVISE SECONDARY VARICOSITY ENDOVENOUS ABLATION THERAPY OF INCOMPETENT VEIN, EXTREMITY, FIRST VEIN (WRVU 5.3) Dominic Sanchez III, MD [address] [place] [address] [place] [address] [facility] Referral ID Status Reason Start Date Expiration Date Visits Re quested Visits Authorized [id number] 1 1 Encounter Details Date Type Department Care Team ([facility] st Contact Info) Description 10/16/2022 1:25 PM EDT Anesthesia Event Outpatient [place] [phone] Arlet Laureano MD [facility] [place] [address] Kayode Marshall, [facility] [place] [address] Anesthesia Record Procedure Summary Procedure Name Responsible Anesthesiologist Anesthesia Start Time Anesthesia Stop Time ENDOVENOUS ABLATION THERAPY OF INCOMPETENT VEIN, EXTREMITY, FIRST VEIN (WRVU 5.3) (Right: Leg Upper) Arlet Laureano MD 10/16/22 1325 10/16/22 1418 Events Date Time Event Comment 10/16/2022 1304 1325 AN Verify 1325 Start 1325 An Start Data 1330 An Induction 1332 An Intubation 1334 Anesthesia Ready 1416 Extubation/LMA Out 1418 an stop data 1418 Recovery or ICU Handoff Ana ent care was transferred to the destination unit staff after review of the patient's medical history, current anesthetic/surgical status and plan, according to the Provider Handoff Checklist. 1418 Stop Meds Name Total fentaNYL 50 mcg IV Lidocaine 50 mg Propofol 200 mg Propofol INF 99.94 mg Dexamethasone 8 mg Ondansetron 8 mg PHENYLephrine 160 mcg ePHEDrine 20 mg ceFAZolin (Ancef) 2 g vial a ttach to sodium chloride 0.9% 100 mL Mini-Bag Plus 2 g lactated ringers infusion 800 mL * Agents Name O2 * Blood No blood administrations on file. Lines, Drains, and Airways Type Details Placement Removal Incision 10/16/22; 1348; Right, anterior; leg; MASTISOL; STERI STRIPS; TELFA; KERLIX; COBAN 10/16/22 1348 by Emely Power I, RN (RETIRED) Peripheral IV Line - Single Lumen 10/16/22; 1317; median cubital vein (antecubital fossa), left; [id number] catheter system; Anatomical Landmarks; 22 gauge; SJ; distraction, tolerated well, appears comfortable; no longer indicated; 10/16/22; 1447 10/16/22 1317 by Julia Coleman RN 10/16/22 1447 by Mary Simons RN Supraglottic Mask Ventilation: No t Attempted (0); LMA Type: iGel; LMA Size: 3; Inserted by: Noemi Corona CRNA; Removal Date: 10/16/22; Removal Time: 1416 10/16/22 1332 by Arabella Corona CRNA 10/16/22 1416 by Arabella Corona CRNA documented in this encounter Social History Tobacco Use Types Packs/Day Years [...] on file documented as of this encounter OR Notes * Anesthesia Postprocedure Evaluation - Arlet Laureano MD - 10/16/2022 2:26 PM EDT Department of Anesthesiology Post-procedure Note Patient: Maritza Leiva Procedure Summary Date: 10/16/22 Room / Location: [facility] [place] [facility] OR [address] [place] [address] Anesthesia Start: 1325 Anesthesia Stop: 1418 Procedure: ENDOVENOUS ABLATION THERAPY OF INCOMPETENT VEIN, EXTREMITY, FIRST VEIN (WRVU 5.3) (Right: Leg Upper) Diagnosis: Varicose veins of right lower extremity with edema Venous stasis dermatitis of right lower extremity Phlebitis (symptomatic varicose veins, stasis dermatitis, phlebitis) Surgeons: Dominic Sanchez III, MD Responsible Provider: Arlet Laureano MD Anesthesia Type: general ASA Status: 3 All Anesthesia Providers: Anesthesiologist: Arlet Laureano MD PASSENGER ELEVATOR OPERATOR: Arabella Corona CRNA Vitals Value Taken Time BP Temp Pulse 89 10/16/22 1426 Resp SpO2 99 % 10/16/22 1426 Pain Level Vitals shown include unvalidated device data. Patient Location: PACU/SDP Level of Consciousness: Awake and Alert Pain Management: Satisfactory Analgesia PONV: None Cardiovascular Status: At Baseline Respiratory Status: Stable Respiratory Status and Room Air Postoperative Fluid Status: Intravascular EUvolemia Possible Anesthetic Complications: NONE apparent at time of evaluation Final Primary Anesthesia Type: General (The anesthetic type performed was the same as planned.) Comments: Ms. Leiva tolerated the procedure well and without complication. VSS on RA. Pt denies any complaints or concerns. * Anesthesia Preprocedure Evaluation - Arlet Laureano MD - 10/16/2022 11:01 AM EDT Pre-Anesthesia Evaluation for: Maritza Leiva a 62 y.o. female. Procedure(s): ENDOVENOUS ABLATION THERAPY OF INCOMPETENT VEIN, EXTREMITY, FIRST VEIN (WRVU 5.3) Patient Active Problem List Diagnosis Date Noted Varicose veins of right lower extremity with inflammation 09/20/2022 Venous insufficiency of right lower extremity 09/20/2022 Phlebitis of superficial vein of right lower extremity 09/20/2022 History of tobacco use 09/20/2022 Varicose veins of leg with swelling 10/09/2017 MS (multiple sclerosis) 08/07/2011 Past Medical History: Diagnosis Date Multiple sclerosis History reviewed. No pertinent surgical history. Social History Tobacco Use Smoking status: Former Years: 12.00 Types: Cigarettes Quit date: 09/06/1993 Years since quittin.1 Smokeless tobacco: Never Substance Use Topics Alcohol use: No Social History Substance and Sexual Activity Drug Use No No Known Allergies Medications: MAR and/or home medications have been reviewed. Physical Exam: Preprocedure Vitals Current as of 10/16/22 1101 No BP, pulse, respiration, SpO2, or temperature recorded. Height: 157.5 cm (5' 2) (09/17/22) Weight: 54 kg (119 lb) (09/17/22) BMI: 21.76 IBW: 50.1 kg (110 lb 7.8 oz) Airway Assessment: Mallampati: I TM distance: >3 FB Neck ROM: full Cardiovascular Assessment: system normal Pulmonary Assessment: unlabored breathing Dental Assessment: (+) edentulous [facility] Assessment: Patient is wearing No contact(s). IV access: Peripheral line Last Filed Perioperative Cognitive Screening None Anesthesia Plan: ASA 3 general, with a(n) intravenous induction Ms. eLiva is a 62 year old female with PMHx of remote tobacco abuse (quit 30 years ago), MS(in remission), and symptomatic varicose veins scheduled for endovenous ablation. Pt has NKDA. Plan for preoperative Tylenol, GA/LMA. Risks were discussed at length, and all questions and concerns were addressed. Consent was obtained, and the appropriate paperwork was placed in the patient's chart. Region - Other Informed Consent: Anesthetic plan and risks discussed with patient. Plan discussed with PASSENGER ELEVATOR OPERATOR. Anesthesia Screening documented in this encounter Plan of Treatment Upcoming Encounters Date Type Department Care Team (Late st Contact Info) Description 09/14/2024 8:00 AM EDT [place] [address] lAie Arshad PA [facility] [place] [address] documented as of this encounter Goals Goal Patient Goal Type Associated Problems Recent Progress Patient-Stated? Author Prevention of ms relapse Patient Facing Action Plan On track( 024 2:11 PM EDT) Rock Desir, [facility] Note: Delay disease progression as measured by radiographic finding as well as clinical presentation to be measured every 6 months and ongoing. documented as of this encounter Visit Diagnoses Not on filedocumented in this encounter Administered Medications Inactive Administered Medications - up to 3 most recent administrations Medication Order MAR Action Action Date Dose Rate Site ceFAZolin (Ancef) 2 g vial attach to sodium chloride 0.9% 100 mL Mini-Bag Plus 2 g, Intravenous, BRASS PICKLER TO O.R., 1 dose, On Fri10/16/22 at 1300, Administer over 30 Minutes, Redose after 4 hours., Day of Surgery (Day of Procedure), Indication for (Active or Suspected): Prophylaxis New Bag 10/16/2022 1:41 PM EDT 2 g dexAMETHasone (Decadron) injection Intravenous, PRN, Starting on Fri10/16/22 at 1334, Until Fri10/16/22 at 1418, Anesthesia Intra-op, Routine Given 10/16/2022 1:34 PM EDT 8 mg ePHEDrine sulfate (5 mg/mL) multi-dose injection Intravenous, PRN, Starting on Fri10/16/22 at 1336, Until Fri10/16/22 at 1418, Anesthesia Intra-op, Routine Given 10/16/2022 1:49 PM EDT 5 mg Given 10/16/2022 1:38 PM EDT 5 mg Given 10/16/2022 1:36 PM EDT 10 mg fentaNYL (pf) (50 mcg/mL) multi-dose injection Intravenous, PRN, Starting on Fri10/16/22 at 1330, Until Fri10/16/22 at 1418, Anesthesia Intra-op, Routine Given 10/16/2022 1:30 PM EDT 25 mcg Given 10/16/2022 1:27 PM EDT 25 mcg lactated ringers infusion 1,000 mL, at 100 mL/hr, Intravenous, CONTINUOUS, Starting on Fri10/16/22 at 1300, Until Fri10/16/22 at 1449, Day of Surgery (Day of Procedure) Restarted 10/16/2022 2:07 PM EDT New Bag 10/16/2022 1:18 PM EDT 1,000 mLs 100 mL/hr lidocaine (pf) (Xylocaine) (20 mg/mL) 2% injection syringe Intravenous, PRN, Starting on Fri10/16/22 at 1330, Until Fri10/16/22 at 1418, Anesthesia Intra-op, Routine Given 10/16/2022 1:30 PM EDT 50 mg ondansetron (pf) (Zofran) (2 mg/mL) injection Intravenous, PRN, Starting on Fri10/16/22 at 1334, Until Fri10/16/22 at 1418, Anesthesia Intra-op, Routine Given 10/16/2022 2:09 PM EDT 4 mg Given 10/16/2022 1:34 PM EDT 4 mg PHENYLephrine in NS (PF) (GONZALEZ-SYNEPHRINE) 0.8 mg/10 mL (80 mcg/mL) multi-dose injection Syringe Intravenous, PRN, Starting on Fri10/16/22 at 1338, Until Fri10/16/22 at 1418, Anesthesia Intra-op, Routine Given 10/16/2022 2:02 PM EDT 40 mcg Given 10/16/2022 1:56 PM EDT 40 mcg Given 10/16/2022 1:38 PM EDT 80 mcg propofoL (Diprivan) (10 mg/mL) infusion Intravenous, CONTINUOUS PRN, Starting on Fri10/16/22 at 1330, Until Fri10/16/22 at 1418, Anesthesia Intra-op, Routine New Bag 10/16/2022 1:30 PM EDT 50 mcg/kg/min 15.78 mL/hr propofoL (Diprivan) 10 mg/mL bolus injection (Anesthesia) Intravenous, PRN, Starting on Fri10/16/22 at 1330, Until Fri10/16/22 at 1418, Anesthesia Intra-op Given 10/16/2022 1:31 PM EDT 50 mg Given 10/16/2022 1:30 PM EDT 150 mg documented in this encounter Care Teams Digital Service Engineer Relationship Specialty Start Date End Date Kevan Angel DO [address] [place] [address] PCP - General 08/07/11 documented as of this encounter
--- OUTSIDE RECORDS SUMMARY | 2024-04-05 17:29 | XMS_ITS | Encounter Summary ---
Author Organization [facility] Address [facility] [place] [address] Care Team Providers Care Excavator Operator Name Role Phone StanleyKevan bowen Primary Care Provider Encounter Details Date Type Department Care Team (Late st Contact Info) Description 09/11/2023 8:00 AM EDT Office Visit [place] [address] Alie Arshad PA [facility] [place] [address] Multiple sclerosis Social History Tobacco Use Types Packs/Day Years [...] Pressure 156/96 09/11/2023 7:51 AM EDT Pulse - - Temperature - - Respiratory Rate - - Oxygen Saturation - - Inhaled Oxygen Concentration - - Weight 54 kg (119 lb) 09/11/2023 7:51 AM EDT ptr Height 154.9 cm (5' 1) 09/11/2023 7:51 AM EDT Body Mass Index 22.48 09/11/2023 7:51 AM EDT documented in this encounter Progress Notes * Alie Arshad PA - 09/11/2023 8:00 AM EDT MULTIPLE SCLEROSIS CLINIC [facility] [place] [address] Patient name: Maritza Leiva Date of : 1960 Address: [address] Time since first symptom of MS: 1996 (officially diagnosis) EDSS: MSSS: LP: no OCBs DMD: Rebif 2002 - present Last MRI: 10/09/20 Brain - stable 12/2018 Brain:Stable 2010 Brain - stable Other Diagnostics: NAbs: 08/27/12 Negative MS History: 1996: B/L LE numbness 06/1997: T6-T7 numbness on the right 11/1997: Right arm numbness 2001: Gait ataxia, Left Optic Neuritis. MRI showed C-spine lesion 2003: Initiated on Rebif 2002 - 2019: Stable Last Relapse: 2001? Ongoing MS Symptoms: Strength, Gait/Balance: Denies weakness, balance or gait problems. Sensory: Denies numbness, tingling, pins/needles, burning sensations; denies MS hug. Spasticity: Denies muscle spasms, stiffness, cramping. Urinary/Bowel: Denies urinary incontinence, retention, frequency/urgency. No bowel incontinence or constipation. Vision: +H/o Left Optic Neuritis. 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 Denies h/o diplopia or current complaints aside from aforementioned. Cognition: No cognitive complaints. Fatigue: No Fatigue - states she is very active and has no issues. Swallowing, Speech: Denies speech or swallowing difficulties. Other: Sleep problems occasionally - had been on Trazodone PRN (about once monthly) but no longer on this. HPI: 63 y.o. female with PMHx MS presents via telehealth visit for MS follow-up. Interval History: Doing well. MS is fine - no relapses, no change in baseline symptoms - reviewed above. Had vein surgery last October - went well. Still on Rebif and not ready to come off. Last MRI was in 2020 = stable. ScHx Home & Family: , 2 sons (youngest son has CF but very mild form). Job status: Works in [employer]. Alcohol: No Tobacco: Former, quit at age 32yo Drug use: No Diet: Good, healthy diet Exercise: Enjoys walking when she can. Social History Social History Narrative Not on file Past Medical History: Diagnosis Date Multiple sclerosis No family history on file. Outpatient Encounter Medications as of 09/11/2023 Medication Sig Dispense Refill interferon beta-1a, albumin, (Rebif, with albumin,) 44 mcg/0.5 mL Syringe Inject 0.5 mLs subcutaneously three times a week (Mon, Weds, Fri). 6 mL 5 losartan (COZAAR) 50 mg Tablet Take 50 mg by mouth daily. 0 hydroCHLOROthiazide (HYDRODIURIL) 25 mg Tablet Take 25 mg by mouth daily. 0 aspirin 81 mg Tablet, Delayed Release (E.C.) Take 81 mg by mouth daily. No facility-administered encounter medications on file as of 09/11/2023. No Known Allergies Review of systems: Refer to HPI Objective: Vitals: BP (!) 156/96 (BP Location (NBP): Left arm, Patient Position: Sitting, BP Cuff Sizes: Adult(25-34 cm)) Ht 154.9 cm (5' 1) Wt 54 kg (119 lb) Comment: ptr BMI 22.48 kg/m?? Constitutional: 63 y.o. female appears stated age, well nourished, well developed, in no acute distress HEENT: Head atraumatic, normocephalic. Sclera non-icteric. Oropharynx normal. Neuro: MS: Alert and oriented. Language is clear and fluent. No dysarthria. CN: Pupils round and reactive with +LAPD, EOMI, visual lopez full. VA not tested but has very little residual central vision in the left eye 2/2 JAMES. Facial sensation intact throughout. No facial asymmetry, movement intact Hearing intact to finger rub Palate elevates symmetrically, tongue protrudes midline SCM and trap strength intact. Motor: Normal bulk and tone. No clonus. No pronator drift. Upper extremity strength 5/5. Lower extremity strength 5/5. Sensation: Intact to light touch throughout. Negative romberg. Reflexes: 1-2+ symmetric. Coordination: Finger to nose, SP, Heel to romero intact. Gait: Stable, steady. No difficulty with tandem gait. Timed 25ft walks: 5.14s Diagnostic Tests and Images: BRAIN MRI 10/09/20 Pending, but per my review, appears largely stable. Assessment & Plan 63 y.o. female with MS on Rebif: Stable over the last 1yr. No MS relapses or disability progression. No treatment changes, stable exam. Continue Rbif - obtain recent labs by PCP. F/u in 1yr. Alie Arshad PA-C Dept. Of Neurology [facility] (MS nurse) or [phone](general attendance secretary line) Time spent today 01/23/2023 with this patient and in preparation for this visit: 20 min Including: Preparing to see the patient, Obtaining and/or reviewing separately obtained history , Performing a medically appropriate examination and/or evaluation , Counseling and educating the patient/family/caregiver, and Documenting clinical information in the electronic or other health record documented in this encounter Plan of Treatment Upcoming Encounters Date Type Department Care Team (Late st Contact Info) Description 09/14/2024 8:00 AM EDT Office Visit [place] [phone] Alie Arshad PA [facility] [address] documented as of this encounter Goals Goal Patient Goal Type Associated Problems Recent Progress Patient-Stated? Author Prevention of ms relapse Patient Facing Action Plan On track( 024 2:11 PM EDT) No Valenzuela, Rock D, [facility] Note: Delay disease progression as measured by radiographic finding as well as clinical presentation to be measured every 6 months and ongoing. documented as of this encounter Visit Diagnoses Diagnosis Multiple sclerosis documented in this encounter Care Teams Excavator Operator Relationship Specialty Start Date End Date Kevan Angel DO [address] [place] [address] PCP - General 08/07/11 documented as of this encounter
--- OUTSIDE RECORDS SUMMARY | 2024-04-05 17:29 | XMS_ITS | Encounter Summary ---
Author Organization [facility] [place] [address] Care Team Providers Care Dynamotor Repairer Name Role Phone Stanley, Kevan PHELPS Primary Care Provider [phone] Reason for Referral * Diagnostic Test (Routine) - Closed Specialty Diagnoses / Procedures Referred By David t Referred To Contact Diagnoses Varicose veins of right lower extremity with edema Venous stasis dermatitis of right lower extremity Procedures Duplex for DVT, Leg, Unilat Milad Serna PA [facility] [place] [address] [facility] [address] [address] Referral ID Status Reason Start Date Expiration Date V isits Requested Visits Authorized [id number] Closed Specialty Service Requested 10/16/2022 10/16/2023 1 1 Reason for Visit * Auth/Cert (Routine) Specialty Diagnoses / Procedures Referred By Contac t Referred To Contact Diagnoses Symptomatic varicose veins symptomatic varicose veins, stasis dermatitis, phlebitis Procedures PRO ENDOVENOUS RF, 1ST VEIN PRO ENDOVENOUS RF, VEIN ADD-ON PRO LIGATN LONG SAPHENOUS VEIN AT SEPH-FEM JUNC PRO LIGATE/STRIP LONG SAPH VEIN BELW SEP-FEM JUNC PRO LIGATION BLENDING MACHINE FEEDER VEIN,SUBFASCIAL,OPEN, INCL US GUIDE,WHN PERFORM,1 LEG PRO PHLEB VEINS - EXTREM - TO 20 PRO PHLEB VEINS - EXTREM 20+ PRO REVISE SECONDARY VARICOSITY ENDOVENOUS ABLATION THERAPY OF INCOMPETENT VEIN, EXTREMITY, FIRST VEIN (WRVU 5.3) Allen Prado III, MD [address] [place] [address] [place] [address] [facility] Referral ID Status Reason Start Date Expiration Date Visits Re quested Visits Authorized [id number] 1 1 Encounter Details Date Type Department Care Team (Latest Contact Info) Description 10/16/2022 12:37 PM EDT - 10/16/2022 2:49 PM EDT Hospital Encounter Outpatient [place] [address] Allen Prado III, MD [address] [place] [address] [place] [address] Varicose veins of right lower extremity with edema; Venous stasis dermatitis of right lower extremity; Phlebitis Discharge Disposition: Home Social History Tobacco Use Types Packs/Day Years [...] closest emergency room or call the hospital metal shaping machine operator at [phone] and ask for physician containers sales representative covering for your physician. Questions or problems after 5pm or on a weekend: Call the [facility] metal shaping machine operator at and ask for the physician containers sales representative covering for your doctor. At 1 pm [...] mailed to you. Please call our office ([phone]) if you do not receive the ultrasound appointment within 2 days or the clinic appointment within 10 days. For any questions or concerns please call [phone] documented in this encounter Medications at Time [...] Per patient's last office visit with Dr. Prado on 09/17/22: Reason for Visit: Right lower extremity symptomatic varicose veins, venous insufficiency, superficial phlebitis, stasis dermatitis. History of Present Illness: Maritza Reynolds is a 62 y.o. female seen in [...] pack per day prior. Works in the [employer]. . Family Hx: No history of DVT [...] database from comparison. Assessment and Plan: Maritza Reynolds presents with right lower extremity symptomatic varicose [...] proceed as planned. KALA Fuentes 10/16/2022 Pager: [phone] documented in this encounter Miscellaneous Notes * Op Note - Allen Prado III, MD - 10/16/2022 1:46 PM EDT [facility] Operative Note Patient Name: Maritza Reynolds : [id number] MR#: [id number] Case Date: 10/16/2022 Surgeon: Surgeon(s) and Role: * Allen Prado III, MD - Primary * Milad Serna PA - Physician Railroad Construction Director Preoperative diagnosis: symptomatic varicose veins, stasis dermatitis, [...] femoral vein/saphenofemoral junction DVT/phlebitis. HPI/Surgical Indications: Maritza Reynolds presents with right lower extremity symptomatic varicose [...] saphenous vein radiofrequency ablation. Procedure Description: Maritza Reynolds was met in the preoperative area at the [facility] at [facility], and all relevant consents were signed. The [...] confirmed to be intravenous, and a 7 Guinean sheath was placed. The radiofrequency catheter was [...] to have been: The entire procedure. ALLEN PRADO III, MD 10/16/2022 documented in this encounter Plan of Treatment Upcoming Encounters Date Type Department Care Team (Late st Contact Info) Description 09/14/2024 8:00 AM EDT [place] [address] Alie Arshad PA [facility] [place] [address] documented as of this encounter Goals Goal [...] Endovenous Ablation Incompetent Vein Radiofrequency 1St Vein (39464) 10/16/2022 1:23 PM EDT Varicose veins of [...] Text Report Department: Vascular Surgery Lab Patient: [id number] (MARITZA REYNOLDS) CPT: 15873 Referring Physician: ALLEN PRADO III, MD ?? Phone: Indications: S/p right [...] VASCUBASE 10/22/2022 10:5 7 AM EDT Allen Prado III, MD [facility]ASC[facility]CU[facility] documented [...] 1:18 PM EDT 1,000 mLs 100 mL/hr documented in this encounter Active and Recently [...] mL Mini-Bag Plus (COMPLETED) 2 g, Intravenous, INSIDE WIREMAN TO O.R., 1 dose, On Fri10/16/22 at [...] Routine 1349 (Given - Provid er: Allen Prado III, MD - Comment: USED TUMESCENT WITH 500ML NACL) sodium chloride 0.9% infusion (CANCELED) CONTINUOUS PRN, Starting on Fri10/16/22 at 1350, Until Fri10/16/22 at 1449, Intra-Operative (Intra-Procedure) 1349 (New Bag - Prov ider: Allen Prado III, MD - Comment: USED TUMESCENT WITH 25ML LIDOCAINE 1% WITH EPI 1:100,000) documented in this encounter Care Teams Dynamotor Repairer Relationship Specialty Start Date End Date Stanley DO Kevan [address] [place] [address] PCP - General 08/07/11 documented as of this encounter
--- OUTSIDE RECORDS SUMMARY | 2024-04-05 17:29 | XMS_ITS | Encounter Summary ---
Author Organization [facility] [address] Care Team Providers Care Relay Tester Name Role Phone Kevan Angel Primary Care Provider Encounter Details Date Type Department Care Team (Latest Contact Info) Description 10/29/2022 Travel Social History Tobacco Use Types Packs/Day [...] 8:00 AM EDT [place] [address] Alie Arshad PA [facility] [place] [address] documented as of this encounter Goals Goal Patient Goal Type Associated Problems Recent Progress Patient-Stated? Author Prevention of ms relapse Patient Facing Action Plan On track( 024 2:11 PM EDT) Rock Desir, [facility] Note: Delay disease progression as measured by radiographic finding as well as clinical presentation to be measured every 6 months and ongoing. documented as of this encounter Visit Diagnoses Not on filedocumented in this encounter Care Teams Relay Tester Relationship Specialty Start Date End Date Kevan Angel DO [address] [place] [address] PCP - General 08/07/11 documented as of this encounter
--- OUTSIDE RECORDS SUMMARY | 2024-04-05 17:29 | XMS_ITS | Encounter Summary ---
[place] [address] Care Team Providers Care Engraver Apprentice Decorative Name Role Phone Kevan Angel DO Primary Care Provider Encounter Details Date Type Department Care Team (Latest Contact Info) Description 03/23/2024 Specialty [place] [phone] Leanna Robertson CPHT Refill Coordination - 28 [...] Progress Notes * Leanna Robertson CPHT - 03/23/2024 10:01 AM EST Clinical Management Plan: Refill Specialty Pharmacy Consultation; Leanna oRbertson CPHT Comprehensive Medication Management (CMM) Ms. Maritza Leiva is a 64 y.o. (1960) female who was contacted in [...] Known Allergies Medication Reconciliation Discrepancies (compared to [facility] med list) No Review Flowsheet 03/23/2024 10:01 AM Assessment What is the name of [...] date will you need this fill by? 04/02/2024 Adherence: Any missed doses? No Patient understands no changes to current drug regimen were made. Leanna Robertson CPHT 03/23/24 10:01 AM documented in this encounter Plan of Treatment Upcoming Encounters Date Type Department Care Team (Late st Contact Info) Description 09/14/2024 8:00 AM EDT [place] [address] Alie Arshad PA [facility] [place] [address] documented as of this encounter Goals Goal Patient Goal Type Associated Problems Recent Progress Patient-Stated? Author Prevention of ms relapse Patient Facing Action Plan On track( 024 2:11 PM EDT) No Rock Valenzuela, [facility] Note: Delay disease progression as measured by radiographic finding as well as clinical presentation to be measured every 6 months and ongoing. documented as of this encounter Visit Diagnoses Not on filedocumented in this encounter Care Teams Engraver Apprentice Decorative Relationship Specialty Start Date End Date Kevan Angel DO [address] [place] [address] PCP - General 08/07/11 documented as of this encounter
--- OUTSIDE RECORDS SUMMARY | 2024-04-05 17:29 | XMS_ITS | Encounter Summary ---
[place] [address] Care Team Providers Care Director Of Finance Name Role Phone Kevan Angel DO Primary Care Provider [phone] Reason for Visit * Reason Comments Specialty Pharmacy Review Rebif Encounter Details Date Type Department Care Team (Late st Contact Info) Description 10/03/2022 Specialty [place] [address] Rock Valenzuela, [facility] Social History Tobacco Use Types Packs/Day Years Used Date Smoking Tobacco: Former Cigarettes 0 09/06/1981 - 09/06/1993 Smokeless Tobacco: Never Alcohol Use Standard Drinks/Week Comments No 0 (1 standard drink = 0.6 oz pur e alcohol) [facility] Inpatient Questions Answer Date Recorded Does [...] as of this encounter Progress Notes * Rock Valenzuela [facility] - 10/03/2022 11:59 PM EDT [facility] has completed a benefits investigation for Maritza LukeNayany to review their eligibility to fill at [facility]. Per patient's medication list they are prescribed Rebif and the medication is able to be filled at the [facility]. Pt fills Rebif with Specialty documented in this encounter Plan of Treatment Upcoming Encounters Date Type Department Care Team (Late st Contact Info) Description 09/14/2024 8:00 AM EDT [place] [address] Alie Arshad PA [facility] [place] [address] documented as of this encounter Goals Goal Patient Goal Type Associated Problems Recent Progress Patient-Stated? Author Prevention of ms relapse Patient Facing Action Plan On track( 024 2:11 PM EDT) No Rock Valenzuela RPH Note: Delay disease progression as measured by radiographic finding as well as clinical presentation to be measured every 6 months and ongoing. documented as of this encounter Visit Diagnoses Not on filedocumented in this encounter Care Teams Director Of Finance Relationship Specialty Start Date End Date Kevan Angel DO [address] [place] [address] PCP - General 08/07/11 documented as of this encounter
--- OUTSIDE RECORDS SUMMARY | 2024-04-05 17:29 | XMS_ITS | Encounter Summary ---
Author Organization [facility] Address [place] [address] Care Team Providers Care Assembler Movement Name Role Phone Kevan Angel Primary Care Provider Reason for Visit * Reason Onset Date Comments Other 09/19/2023 Encounter Details Date Type Department Care Team (Late st Contact Info) Description 09/19/2023 [place]phone [place] [address] Alie Arshad PA [facility] [place] [address] Other Social History Tobacco Use Types Packs/Day Years [...] Telephone Encounter - Isela Gibson RN - 09/19/2023 3:39 PM EDT Copied from [facility] #[id number]. Topic: Specialty Dept CRMs - Generic Call >> Sep 19, 2023 3:31 PM Vani Chan wrote: Specialist: Dr Arshad Relationship (if other than patient-full name): [facility] Reason for Call: [facility] called to give a heads up that the prior auth for REBIS has been approved. They will send a fax to the office documented in this encounter Plan of Treatment Upcoming Encounters Date Type Department Care Team (Late st Contact Info) Description 09/14/2024 8:00 AM EDT Office [place] [address] Alie Arshad PA [facility] [place] [address] documented as of this encounter Goals Goal [...] on filedocumented in this encounter Care Teams Assembler Movement Relationship Specialty Start Date End Date Kevan Angel DO [address] [place] [address] [address] [place] [address] PCP - General 08/07/11 documented as of this encounter
--- OUTSIDE RECORDS SUMMARY | 2024-04-05 17:29 | XMS_ITS | Encounter Summary ---
Author Organization [facility] Address [address] [place] [address] Care Team Providers Care Wheel Molder Name Role Phone Unavailable Primary Care Provider Unavailabl e Encounter Details Date Type Department Care Team (Late st Contact Info) Description 01/14/2003 Results Only [facility] [address] [place], [place] [id number] Evangelista Valladares MD [address] [facility] [address] Social History Tobacco Use Types Packs/Day Years [...] Procedure Name Priority Date/Time Associated Diagnosis Comments COMPLETE BLOOD COUNT AND DIFFERENTIAL Routine 01/14/2003 10:42 EDT VITAMIN B12 Routine 01/14/2003 10:42 EDT HEPATIC FUNCTION PANEL (ALB,ALK PHOS,ALT,AST,DBIL,TOT AMY,TOT PROT) Routine 01/14/2003 10:42 EDT BASIC METABOLIC PANEL (BMP) Routine 01/14/2003 10:42 EDT documented in this encounter Results * LIVER FUNCTION TESTS (01/14/2003 10:42 EDT) Albumin 4.1 3.0 - 5.5 g/dl [facility] Total Protein 7.7 6.0 - 8.5 g/dl [facility] Total Alkaline Phosphatase 86 38 - 126 U/L [facility] ALT 51 15 - 75 U/L [facility] AST 38 8 - 50 U/L [facility] Unconjugated Bilirubin 0.6 0.1 - 1.1 mg/dl [facility] Conjugated Bilirubin 0.0 0.0 - 0.3 mg/dl [facility] Bilirubin, Total 0.5 0.2 - 1.3 mg/dl [facility] 01/14/2003 10:4 2 EDT 01/14/2003 10:53 EDT us Evangelista Valladares MD CHEMISTRY & BLOOD GAS ORDERA BLES Final Result [facility] [address] [place] [address] * HEMAGRAM AND DIFFERENTIAL (01/14/2003 10:42 EDT) WBC 6.35 4.0 - 12.4 K/cmm [facility] RBC 4.31 3.86 - 5.04 M/cmm [facility] Hemoglobin 12.8 11.6 - 15.2 gm/dl [facility] HCT 37.2 34.9 - 44.4 % [facility] MCV 86 81 - 98 fl [facility] MCH 29.6 26.7 - 33.3 pg [facility] MCHC 34.2 32.1 - 35.9 gm/dl [facility] PLT 216 141 - 320 K/cmm [facility] RDW-CV 13.6 11.7 - 14.6 % [facility] % Neutrophils 68.7 45.5 - 79.7 % [facility] % Lymphocytes 17.8 15.0 - 46.8 % [facility] % Monocytes 7.3 1.8 - 12.0 % [facility] % Eosinophils 5.8 0.6 - 6.9 % [facility] % Basophils 0.4 0.2 - 1.4 % [facility] ABS Neutrophils 4.36 2.20 - 8.85 K/cmm [facility] ABS Lymphs 1.13 1.09 - 3.30 K/cmm [facility] ABS Monocytes 0.46 0.1 - 0.8 K/cmm [facility] ABS Eosinophils 0.37 0.03 - 0.61 K/cmm [facility] ABS Basophils 0.03 0.01 - 0.11 K/cmm [facility] Type of Diff: Automated [facility] 01/14/2003 10:4 2 EDT 01/14/2003 10:53 EDT us Evangelista Valladares MD PACKAGES & DNA PROBE ORDERAB LES Final Result Performing Organization Address [facility] Co de Phone Number [facility] [address] [place] [address] * (ABNORMAL) BASIC METABOLIC PANEL (01/14/2003 10:42 EDT) [facility] Sodium 142 136 - 145 mEq/L [facility] Potassium 4.4 3.5 - 5.0 mEq/L [facility] Chloride 104 96 - 110 mEq/L [facility] CO2 27 24 - 30 mEq/L [facility] BUN 9(L) 10 - 26 mg/dl [facility] Creatinine 0.7 0.7 - 1.5 mg/dl [facility] Calcium 9.2 8.5 - 10.5 mg/dl [facility] Calculated Calcium 9.5 8.5 - 10.5 mg/dl [facility] Glucose, Serum 83 70 - 110 mg/dl [facility] 01/14/2003 10:4 2 EDT 01/14/2003 10:53 EDT us Evangelista Valladares MD CHEMISTRY & BLOOD GAS ORDERA BLES Final Result Performing Organization Address [facility] Co de Phone Number [facility] [address] [place] [address] * VITAMIN B12 (01/14/2003 10:42 EDT) Vitamin B-12 563 250 - 1100 pg/ml [facility] 01/14/2003 10:4 2 EDT 01/14/2003 10:53 EDT us Evangelista Valladares MD CHEMISTRY & BLOOD GAS ORDERA BLES Final Result Performing Organization Address City/State/[facility] Co de Phone Number [facility] [address] [place] [address] documented in this encounter Visit Diagnoses Not on filedocumented in this encounter
--- OUTSIDE RECORDS SUMMARY | 2024-04-05 17:29 | XMS_ITS | Encounter Summary ---
[place] [address] Care Team Providers Care Bible Worker Name Role Phone StanleyKevan bowen Primary Care Provider [phone] Reason for Visit * Reason Comments Specialty Refill Management Encounter Details Date Type Department Care Team (Late st Contact Info) Description 01/24/2023 Specialty [place] [phone] Karla Carter, [facility] Social History Tobacco Use Types Packs/Day Years Used Date Smoking Tobacco: Former Cigarettes 0 09/06/1981 - 09/06/1993 Smokeless Tobacco: Never Alcohol Use Standard Drinks/Week Comments No 0 (1 standard drink = 0.6 oz pur e alcohol) [facility] Inpatient Questions Answer Date Recorded Does Anyone [...] encounter Progress Notes * Karla Carter - 01/24/2023 9:31 AM EDT Clinical Management Plan: Refill [...] Allergies Medication Reconciliation Discrepancies (compared to [facility] med list) No Specialty Pharmacy Refill Questionnaire More data exists 01/24/2023 Refill Questionnaire What is the name of the specialty medication you are refilling? Rebif Are you taking any new medications? No Any new medical condition? No Any new allergies? No Any new side effects that are bothersome? No What date will you need this fill by? 01/29/2023 Adherence: Any missed doses? No Patient understands no changes to current drug regimen were made. Karla Carter 01/24/23 9:31 AM documented in this encounter Plan of Treatment Upcoming Encounters Date Type Department Care Team (Late st Contact Info) Description 09/14/2024 8:00 AM EDT [place] [address] Alie Arshad PA [facility] [place] [address] documented as of this encounter Goals Goal Patient Goal Type Associated Problems Recent Progress Patient-Stated? Author Prevention of ms relapse Patient Facing Action Plan On track( 024 2:11 PM EDT) Rock Desir, [facility] Note: Delay disease progression as measured by radiographic finding as well as clinical presentation to be measured every 6 months and ongoing. documented as of this encounter Visit Diagnoses Not on filedocumented in this encounter Care Teams Bible Worker Relationship Specialty Start Date End Date Kevan Angel DO [address] [place] [address] PCP - General 08/07/11 documented as of this encounter
--- OUTSIDE RECORDS SUMMARY | 2024-04-05 17:29 | XMS_ITS | Encounter Summary ---
Author Organization [facility] [place] [address] Care Team Providers Care Company Dancer Name Role Phone Kevan Angel Primary Care Provider Encounter Details Date Type Department Care Team (Latest Contact Info) Description 09/11/2023 Travel Social History Tobacco Use Types Packs/Day [...] 8:00 AM EDT [place] [address] Alie Arshad PA [facility] [place] [address] documented as of this encounter Goals Goal Patient Goal Type Associated Problems Recent Progress Patient-Stated? Author Prevention of ms relapse Patient Facing Action Plan On track( 024 2:11 PM EDT) Rock Desir, [facility] Note: Delay disease progression as measured by radiographic finding as well as clinical presentation to be measured every 6 months and ongoing. documented as of this encounter Visit Diagnoses Not on filedocumented in this encounter Care Teams Company Dancer Relationship Specialty Start Date End Date Kevan Angel DO [address] [place] [address] PCP - General 08/07/11 documented as of this encounter
--- OUTSIDE RECORDS SUMMARY | 2024-04-05 17:29 | XMS_ITS | Encounter Summary ---
[place] [address] Care Team Providers Care Motorcycle Tester Name Role Phone StanleyKevan bowen Primary Care Provider Reason for Visit * Reason Comments Specialty Refill Management Encounter Details Date Type Department Care Team (Late st Contact Info) Description 06/09/2023 Specialty [place] [phone] Karla Carter, [facility] Social History Tobacco Use Types Packs/Day Years Used Date Smoking Tobacco: Former Cigarettes 0 09/06/1981 - 09/06/1993 Smokeless Tobacco: Never Alcohol Use Standard Drinks/Week Comments No 0 (1 standard drink = 0.6 oz pur e alcohol) [facility] Inpatient Questions Answer Date Recorded [...] encounter Progress Notes * Karla Carter - 06/09/2023 9:57 AM EST Clinical Management Plan: Refill Specialty [...] Known Allergies Medication Reconciliation Discrepancies (compared to [facility] med list) No Specialty Pharmacy Refill Questionnaire More data exists 06/09/2023 Refill Questionnaire What is the name of the specialty medication you are refilling? Rebif Are you taking any new medications? No Any new medical condition? No Any new allergies? No Any new side effects that are bothersome? No What date will you need this fill by? 06/16/2023 Adherence: Any missed doses? No Patient understands no changes to current drug regimen were made. Karla Carter 06/09/23 9:57 AM documented in this encounter Plan of Treatment Upcoming Encounters Date Type Department Care Team (Late st Contact Info) Description 09/14/2024 8:00 AM EDT [place] [address] Alie Arshad PA [facility] [place] [address] documented as of this encounter Goals Goal [...] on filedocumented in this encounter Care Teams Motorcycle Tester Relationship Specialty Start Date End Date Kevan Angel DO [address] [place] [address] PCP - General 08/07/11 documented as of this encounter
--- OUTSIDE RECORDS SUMMARY | 2024-04-05 17:29 | XMS_ITS | Encounter Summary ---
[place] [address] Care Team Providers Care Slitter Creaser Slotter Helper Name Role Phone Kevan Angel DO Primary Care Provider [phone] Encounter Details Date Type Department Care Team (Late st Contact Info) Description 04/10/2023 Specialty [place] [phone] Jayy Boucher, [employer] Social History Tobacco Use Types Packs/Day Years Used Date Smoking Tobacco: Former Cigarettes 0 09/06/1981 - 09/06/1993 Smokeless Tobacco: Never Alcohol Use Standard Drinks/Week Comments No 0 (1 standard drink = 0.6 oz pur e alcohol) [facility] Inpatient Questions Answer Date Recorded Does [...] as of this encounter Progress Notes * Jayy Boucher - 04/10/2023 1:30 PM EST Clinical Management Plan: Refill Specialty Pharmacy Consultation; Jayy Boucher Comprehensive Medication Management (CMM) Maritzaanthony Leiva is a 63 y.o. (1960) female who was contacted in regard to a specialty medication refill reminder. patient requested a refill of Rebif. A review of the medication therapy was performed. The medication was refilled as scheduled, and all medication related questions and concerns were addressed. The specialty pharmacy staff will follow up with the patient 5-7 days priorto next refill. Was a change made to the Care Plan: No Allergies and Drug intolerance: No Known Allergies Medication Reconciliation Discrepancies (compared to [facility] med list) No Specialty Pharmacy Refill Questionnaire More data exists 04/10/2023 Refill Questionnaire What is the name of the specialty medication you are refilling? Rebif 44mcg/0.5mL Are you taking any new medications? No Any new medical condition? No Any new allergies? No Any new side effects that are bothersome? No What date will you need this fill by? 04/21/2023 Adherence: Any missed doses? No Patient understands no changes to current drug regimen were made. Jayy Boucher 04/10/23 1:33 PM documented in this encounter Plan of Treatment Upcoming Encounters Date Type Department Care Team (Late st Contact Info) Description 09/14/2024 8:00 AM EDT [place] [address] Alie Arshad PA [facility] [place] [address] documented as of this encounter Goals Goal Patient Goal Type Associated Problems Recent Progress Patient-Stated? Author Prevention of ms relapse Patient Facing Action Plan On track( 024 2:11 PM EDT) Rock Desir, [facility] Note: Delay disease progression as measured by radiographic finding as well as clinical presentation to be measured every 6 months and ongoing. documented as of this encounter Visit Diagnoses Not on filedocumented in this encounter Care Teams Slitter Creaser Slotter Helper Relationship Specialty Start Date End Date Kevan Angel DO [address] [place] [address] PCP - General 08/07/11 documented as of this encounter
--- OUTSIDE RECORDS SUMMARY | 2024-04-05 17:29 | XMS_ITS | Encounter Summary ---
[place] [address] Care Team Providers Care Research Asst Name Role Phone StanleyKevan bowen Primary Care Provider Reason for Visit * Consultation (Routine) - Closed Specialty Diagnoses / Procedures Referred By David nieves Referred To Contact Vascular Surgery Diagnoses Varicose veins of lower extremity, unspecified laterality, unspecified whether complicated ROUTINE, JOHAN/, RLE Colt, Kelsey M, MEDICAL APPARATUS MODEL MAKER [address] [place] [address] [facility] Vascular Surg [address] [place] [address] Referral ID Status Reason Start Date Expiration Date V isits Requested Visits Authorized [id number] Closed Consult, Test & Treat 08/21/2022 08/21/2023 1 1 Encounter Details Date Type Department Care Team ([facility] st Contact Info) Description 09/17/2022 3:30 PM EDT Office Visit [place] [address] Dominic Sanchez III, MD [address] [place] [address] [place] [address] Varicose veins of right lower extremity with edema; Venous stasis dermatitis of right lower extremity; Phlebitis; Varicose veins of right lower extremity with inflammation; Venous insufficiency of right lower extremity; Phlebitis of superficial vein of right lower [...] Sign Reading Time Taken Comments Blood Pressure 143/94 09/17/2022 3:28 PM EDT Pulse 72 09/17/2022 3:28 PM EDT Temperature - - Respiratory Rate - - Oxygen Saturation 100% 09/17/2022 3:26 PM EDT Inhaled Oxygen Concentration - - Weight 54 kg (119 lb) 09/17/2022 3:28 PM EDT Height 157.5 cm (5' 2) 09/17/2022 3:28 PM EDT Body Mass Index 21.77 09/17/2022 3:28 PM EDT documented in this encounter Progress Notes * Dominic Sanchez III, MD - 09/17/2022 3:30 PM EDT OUTPATIENT VASCULAR SURGERY CONSULTATION Reason for Visit: Right lower extremity symptomatic [...] pack per day prior. Works in the [employer] . Family Hx: No history of DVT or thrombophilia, grandmother may have had varicose veins. Physical Exam: BP (!) 143/94 (BP Location (NBP): Right arm, Patient Position: Sitting, BP Cuff Sizes: Adult (25-34cm)) Pulse 72 Ht 157.5 cm (5' 2) Wt 54 kg (119 lb) SpO2 100% BMI 21.77 kg/m?? General - NAD, seen alone Neuro - [...] several sites where we perform venous procedures. Thank you for the opportunity to participate her care. Please contact me with any questions. documented in this encounter Plan of Treatment Upcoming Encounters Date Type Department Care Team (Late st Contact Info) Description 09/14/2024 8:00 AM EDT [place] [phone] Alie Arshad PA [facility] [place] [address] documented as of this encounter Goals Goal Patient Goal Type Associated Problems Recent Progress Patient-Stated? Author Prevention of ms relapse Patient Facing Action Plan On track( 024 2:11 PM EDT) Rock Desir, [facility] Note: Delay disease progression as measured by radiographic finding as well as clinical presentation to be measured every 6 months and ongoing. documented as of this encounter Visit Diagnoses Diagnosis Varicose veins of right lower extremity with edema Venous stasis dermatitis of right lower extremity Phlebitis Phlebitis and thrombophlebitis of unspecified site Varicose veins of right lower extremity with inflammation Varicose veins of lower extremities with inflammation Venous insufficiency of right lower extremity Phlebitis of superficial vein of right lower extremity documented in this encounter Care Teams Research Asst Relationship Specialty Start Date End Date Kevan Angel DO [address] [place] [address] PCP - General 08/07/11 documented as of this encounter
--- OUTSIDE RECORDS SUMMARY | 2024-04-05 17:29 | XMS_ITS | Encounter Summary ---
Author Organization [facility] [place] [address] Care Team Providers Care Teaching Assistant Name Role Phone Kevan Angel Primary Care Provider Encounter Details Date Type Department Care Team (Late Contact Info) Description 09/17/2022 2:30 PM EDT Tech Visit [place] [phone] Jo-Ann Han Varicose veins of right lower extremity with edema Social History Tobacco Use Types Packs/Day Years [...] Encounters Date Type Department Care Team (Late Contact Info) Description 09/14/2024 8:00 AM EDT Office [place] [phone] Alie Arshad PA [facility] [place] [address] documented as of this encounter Goals Goal Patient Goal Type Associated Problems Recent Progress Patient-Stated? Author Prevention of ms relapse Patient Facing Action Plan On track(09/25/2 024 2:11 PM EDT) Rock Desir, [facility] Note: Delay disease progression as measured by radiographic finding as well as clinical presentation to be measured every 6 months and ongoing. documented as of this encounter Procedures Procedure Name Priority Date/Time Associated Diagnosis Comments UNLATERAL VALVULAR INCOMP Routine 09/17/2022 2:12 PM EDT Varicose veins of right lower extremity with edema documented in this encounter Results * LE Unilateral Valvular Incomp Study (09/17/2022 2:12 PM EDT) VB Text Report Department: Vascular Surgery Lab Patient: [id number] (YAMILA REYNOLDS) CPT: 00698 Referring Physician: TARIQ HOOD ?? Phone: Indications: RT LE varicose veins ? Valvular incompetence Patient Positioning: ??Reverse Trendelenburg Findings: Right ?Reflux?Diameter (mm) ?? Common Femoral Vein ?Competent ? Femoral Vein ? Competent ? Popliteal ?Competent ? Posterior Tibial Vein ??Competent ? GSV, Near SFJ ?Reflux ? 9.9 ?? GSV, Proximal Thigh ?Reflux ?11.7 ?? GSV, Mid Thigh ? Reflux ? 5.2 ?? GSV, Distal Thigh ?Reflux ? 8.9 ?? GSV, ??Knee ? Reflux ? 8.8 ?? GSV Prox Calf ?Reflux ?11.9 ?? GSV, Mid Calf ?Reflux ? 5.0 ?? GSV, Distal Calf ? Competent ?2.3 ?? SSV ?Reflux ? 3.9 ?? Interpretation: RIGHT: There is reflux in the [...] GSV in the mid calf at the level at which it repenters the fascia. The varicose vein courses along the medial and posteromedial calf and communicates with the SSV in the mid / distal calf. No significant reflux noted in the common femoral, femoral or popliteal veins. No evidence of common femoral, femoral, or popliteal DVT. Comparison: ??No previous study in our vascular lab database from comparison. Electronically Signed by: ALLEN PRADO III, MD on 2022-09-17 07:05:18 PM [facility] VB Text Report End of Report [facility] 09/17/2022 2:12 PM EDT Tariq Hood APRN VASCULAR ORDERABLES [facility] documented in this encounter Visit Diagnoses Diagnosis Varicose veins of right lower extremity with edema documented in this encounter Care Teams Teaching Assistant Relationship Specialty Start Date End Date Kevan Angel DO [address] [place] [address] PCP - General 08/07/11 documented as of this encounter
--- OUTSIDE RECORDS SUMMARY | 2024-04-05 17:30 | XMS_ITS | Encounter Summary ---
[place] [address] Care Team Providers Care Director Of Communications Name Role Phone StanleyKevan bowen Primary Care Provider Reason for Visit * Reason Comments Specialty Refill Management Encounter Details Date Type Department Care Team (Late st Contact Info) Description 08/17/2021 Specialty [place] [address] Tana Hall CPHT Social History Tobacco Use Types Packs/Day [...] as of this encounter Progress Notes * Tana Michelle CPHT - 08/17/2021 9:04 AM EDT Clinical Management Plan: Refill Specialty Pharmacy Consultation; Tana Michelle CPHT Comprehensive Medication Management (CMM) Maritza Chan Cali Ms. Maritza ParishckGustabo is a 61 y.o. (1960) female who was contacted in [...] Known Allergies Medication Reconciliation Discrepancies (compared to [facility] med list) No Specialty Pharmacy Refill Questionnaire Refill Questionnaire 08/17/2021 What is the name of the specialty medication you are refilling? Rebif Are you taking any new medications? No Any new medical condition? No Any new allergies? No Any new side effects that are bothersome? No What date will you need this fill by? 08/24/2021 Adherence: Any missed doses? No Patient understands no changes to current drug regimen were made. Tana Michelle CPHT 08/17/21 9:08 AM documented in this encounter Plan of Treatment Upcoming Encounters Date Type Department Care Team (Late st Contact Info) Description 09/14/2024 8:00 AM EDT Office [place] [address] Alie Arshad PA [facility] [place] [place] [address] documented as of this encounter Goals Goal Patient Goal Type Associated Problems Recent Progress Patient-Stated? Author Prevention of ms relapse Patient Facing Action Plan On track( 024 2:11 PM EDT) No Rock Valenzuela, [facility] Note: Delay disease progression as measured by radiographic finding as well as clinical presentation to be measured every 6 months and ongoing. documented as of this encounter Visit Diagnoses Not on filedocumented in this encounter Care Teams Director Of Communications Relationship Specialty Start Date End Date Kevan Angel DO [address] [place] [address] [address] [place] [address] PCP - General 08/07/11 documented as of this encounter
--- OUTSIDE RECORDS SUMMARY | 2024-04-05 17:30 | XMS_ITS | Encounter Summary ---
[place] [address] Care Team Providers Care Jumpbasting Machine Operator Name Role Phone StanleyKevan bowen Primary Care Provider [phone] Reason for Visit * Reason Comments Specialty Refill Management Encounter Details Date Type Department Care Team (Late st Contact Info) Description 03/06/2021 Specialty Pharmacy [place] [phone] Page Davis, [facility] Social History Tobacco Use Types Packs/Day Years [...] as of this encounter Progress Notes * Page Davis - 03/06/2021 8:35 AM EST Clinical Management Plan: Refill Specialty Pharmacy Consultation; Page Davis Comprehensive Medication Management (CMM) Maritza Rocio Leiva Ms. Maritza Chan Cali is a 60 y.o. (1960) female who was contacted in [...] Known Allergies Medication Reconciliation Discrepancies (compared to [facility] med list) No Specialty Pharmacy Refill Questionnaire Refill Questionnaire 03/06/2021 What is the name of the specialty medication you are refilling? Rebif 44MCG/0.5ML SOSY Are you taking any new medications? No Any new medical condition? No Any new allergies? No Any new side effects that are bothersome? No What date will you need this fill by? 03/13/2021 Adherence: Any missed doses? No Patient understands no changes to current drug regimen were made. Page Davis 03/06/21 8:36 AM documented in this encounter Plan of Treatment Upcoming Encounters Date Type Department Care Team (Late st Contact Info) Description 09/14/2024 8:00 AM EDT Office [place] [address] Alie Arshad PA [facility] [place] [address] documented as of this encounter Visit Diagnoses Not on filedocumented in this encounter Care Teams Jumpbasting Machine Operator Relationship Specialty Start Date End Date Kevan Angel DO [address] [facility] [place] [address] PCP - General 08/07/11 documented as of this encounter
--- OUTSIDE RECORDS SUMMARY | 2024-04-05 17:30 | XMS_ITS | Encounter Summary ---
[place] [address] Care Team Providers Care Journeyman Pipe Fitter Name Role Phone StanleyKevan bowen Primary Care Provider Reason for Visit * Reason Comments Specialty Pharmacy Review Encounter Details Date Type Department Care Team (Late st Contact Info) Description 10/09/2020 Specialty Pharm[place] [address] Artemio Hazel [facility] Social History Tobacco Use Types Packs/Day [...] as of this encounter Progress Notes * Artemio Hazel RPH - 10/09/2020 11:59 PM EDT The [facility] has completed a benefits investigation for Maritza Chan Cali to review their eligibility to fill at [facility]. Per patient's medication list they are prescribed glatiramer and the medication is able to be filled at the [facility]. documented in this encounter Plan of Treatment Upcoming Encounters Date Type Department Care Team (Late st Contact Info) Description 09/14/2024 8:00 AM EDT Office [place] [address] Alie Arshad PA [facility] [place] [address] documented as of this encounter Visit Diagnoses Not on filedocumented in this encounter Care Teams Journeyman Pipe Fitter Relationship Specialty Start Date End Date Kevan Angel DO [address] [facility] [address] [place] [address] PCP - General 08/07/11 documented as of this encounter
--- OUTSIDE RECORDS SUMMARY | 2024-04-05 17:30 | XMS_ITS | Encounter Summary ---
[place] [address] Care Team Providers Care Enforcement Safety Officer Name Role Phone StanleyKevan bowen Primary Care Provider Reason for Visit * Reason Comments Specialty Refill Management Encounter Details Date Type Department Care Team (Late st Contact Info) Description 12/14/2021 Specialty [place] [phone] Dannie Brooks [facility] Social History Tobacco Use Types Packs/Day [...] as of this encounter Progress Notes * Dannie Brooks RPH - 12/14/2021 11:39 AM EDT Clinical Management Plan: Refill Specialty Pharmacy Consultation; Dannie Brooks Jared Comprehensive Medication Management (CMM) Maritza Chan Cali Ms. Maritza ParishLeighy is a 61 y.o. (1960) female who [...] Known Allergies Medication Reconciliation Discrepancies (compared to [facility] med list) No Specialty Pharmacy Refill Questionnaire Refill Questionnaire 12/14/2021 What is the name of the specialty medication you are refilling? rebif Are you taking any new medications? No Any new medical condition? No Any new allergies? No Any new side effects that are bothersome? No What date will you need this fill by? 12/21/2021 Adherence: Any missed doses? No Patient understands no changes to current drug regimen were made. Dannie Brooks RPH 12/14/21 11:41 AM documented in this encounter Plan of Treatment Upcoming Encounters Date Type Department Care Team (Late st Contact Info) Description 09/14/2024 8:00 AM EDT [place] [address] Alie Arshad PA [facility] [place] [address] documented as of this encounter Goals Goal Patient Goal Type Associated Problems Recent Progress Patient-Stated? Author Prevention of ms relapse Patient Facing Action Plan On track( 024 2:11 PM EDT) No Rock Valenzuela [facility] Note: Delay disease progression as measured by radiographic finding as well as clinical presentation to be measured every 6 months and ongoing. documented as of this encounter Visit Diagnoses Not on filedocumented in this encounter Care Teams Enforcement Safety Officer Relationship Specialty Start Date End Date Kevan Angel DO [address] [place] [address] [address] [place] [address] PCP - General 08/07/11 documented as of this encounter
--- OUTSIDE RECORDS SUMMARY | 2024-04-05 17:30 | XMS_ITS | Encounter Summary ---
[place] [address] Care Team Providers Care Brand Planner Name Role Phone StanleyKevan bowen Primary Care Provider [phone] Encounter Details Date Type Department Care Team (Late st Contact Info) Description 10/19/2021 [place] [phone] lAie Arshad PA [facility] [place] [address] Social History Tobacco Use Types Packs/Day Years [...] 8:00 AM EDT [place] [address] Alie Arshad PA [facility] [place] [address] documented as of this encounter Goals Goal [...] on filedocumented in this encounter Care Teams Brand Planner Relationship Specialty Start Date End Date Kevan Angel DO [address] [place] [address] [address] [facility] 1 [place] [address] PCP - General 08/07/11 documented as of this encounter
--- OUTSIDE RECORDS SUMMARY | 2024-04-05 17:30 | XMS_ITS | Encounter Summary ---
[place] [address] Care Team Providers Care Nurse Chemical Dependency Name Role Phone StanleyKevan bowen Primary Care Provider [phone] Reason for Visit * Reason Comments Specialty Refill Management Encounter Details Date Type Department Care Team (Late st Contact Info) Description 09/19/2021 Specialty [place] [address] Tana Hall CPHT Social History Tobacco Use [...] Progress Notes * Tana Michelle CPHT - 09/19/2021 10:25 AM EDT Clinical Management Plan: Refill Specialty [...] Known Allergies Medication Reconciliation Discrepancies (compared to [facility] med list) No Specialty Pharmacy Refill Questionnaire Refill Questionnaire 09/19/2021 What is the name of the specialty medication you are refilling? Rebif Are you taking any new medications? No Any new medical condition? No Any new allergies? No Any new side effects that are bothersome? No What date will you need this fill by? 09/24/2021 Adherence: Any missed doses? No Patient understands no changes to current drug regimen were made. Tana Michelle CPHT 09/19/21 10:27 AM documented in this encounter Plan of Treatment Upcoming Encounters Date Type Department Care Team (Late st Contact Info) Description 09/14/2024 8:00 AM EDT Office [place] [address] Alie Arshad PA [facility] [place] [address] documented as of this encounter Goals Goal Patient Goal Type Associated Problems Recent Progress Patient-Stated? Author Prevention of ms relapse Patient Facing Action Plan On track( 024 2:11 PM EDT) No Rock Valenzuela, [facility] Note: Delay disease progression as measured by radiographic finding as well as clinical presentation to be measured every 6 months and ongoing. documented as of this encounter Visit Diagnoses Not on filedocumented in this encounter Care Teams Nurse Chemical Dependency Relationship Specialty Start Date End Date Kevan Angel DO [address] [place] [address] [address] [place] [address] PCP - General 08/07/11 documented as of this encounter
--- OUTSIDE RECORDS SUMMARY | 2024-04-05 17:30 | XMS_ITS | Encounter Summary ---
[place] [address] Care Team Providers Care Jig Mill Operator Name Role Phone StanleyKevan bowen Primary Care Provider [phone] Reason for Visit * Reason Comments Medication Management Encounter Details Date Type Department Care Team (Late st Contact Info) Description 07/18/2021 Specialty [place] [address] Amber Roblero V, [facility] Social History Tobacco Use Types Packs/Day Years [...] as of this encounter Progress Notes * Amber Roblero RPH - 07/18/2021 10:08 AM EDT Clinical Management Plan: Refill Specialty Pharmacy Consultation; Amber Roblero RPH Comprehensive Medication Management (CMM) Maritza L Cali Ms. Maritza Chan Oketo-Ben is a 61 y.o. (1960) female who [...] Known Allergies Medication Reconciliation Discrepancies (compared to [facility] med list) No Specialty Pharmacy Refill Questionnaire Refill Questionnaire 07/18/2021 What is the name of the specialty medication you are refilling? Rebif Are you taking any new medications? No Any new medical condition? No Any new allergies? No Any new side effects that are bothersome? No What date will you need this fill by? 07/23/2021 Adherence: Any missed doses? No Patient understands no changes to current drug regimen were made. Amber Roblero RPH 07/18/21 10:09 AM documented in this encounter Plan of Treatment Upcoming Encounters Date Type Department Care Team (Late st Contact Info) Description 09/14/2024 8:00 AM EDT Office [place] [address] Alie Arshad PA [facility] [place] [address] documented as of this encounter Goals Goal Patient Goal Type Associated Problems Recent Progress Patient-Stated? Author Prevention of ms relapse Patient Facing Action Plan On track( 024 2:11 PM EDT) No Rock Valenzuela [facility] Note: Delay disease progression as measured by radiographic finding as well as clinical presentation to be measured every 6 months and ongoing. documented as of this encounter Visit Diagnoses Not on filedocumented in this encounter Care Teams Jig Mill Operator Relationship Specialty Start Date End Date Kevan Angel DO [address] [place] [address] [address] [facility] 1 [place] [address] PCP - General 08/07/11 documented as of this encounter
--- OUTSIDE RECORDS SUMMARY | 2024-04-05 17:30 | XMS_ITS | Encounter Summary ---
[place] [address] Care Team Providers Care Deputy Chief Magistrate Name Role Phone StanleyKevan bowen Primary Care Provider Reason for Visit * Reason Comments Specialty Refill Management Encounter Details Date Type Department Care Team (Late st Contact Info) Description 01/04/2021 Specialty [place] [phone] Page Davis, [facility] Social History Tobacco Use Types [...] encounter Progress Notes * Page Davis - 01/04/2021 10:34 AM EDT Clinical Management Plan: Refill Specialty Pharmacy Consultation; Page Davis Comprehensive Medication Management (CMM) Maritza L Cali Ms. Maritza Chan MarlySoniBen is a 60 y.o. (1960) female who [...] Known Allergies Medication Reconciliation Discrepancies (compared to [facility] med list) No Specialty Pharmacy Refill Questionnaire Refill Questionnaire 01/04/2021 What is the name of the specialty medication you are refilling? Rebif 44MCG/0.5ML SOSY Are you taking any new medications? No Any new medical condition? No Any new allergies? No Any new side effects that are bothersome? No What date will you need this fill by? 01/12/2021 Adherence: Any missed doses? No Patient understands no changes to current drug regimen were made. Page Davis 01/04/21 10:35 AM documented in this encounter Plan of Treatment Upcoming Encounters Date Type Department Care Team (Late st Contact Info) Description 09/14/2024 8:00 AM EDT Office [place] [address] Alie Arshad PA [facility] [place] [address] documented as of this encounter Visit Diagnoses Not on filedocumented in this encounter Care Teams Deputy Chief Magistrate Relationship Specialty Start Date End Date Kevan Angel DO [address] [place] [address] [address] [facility] [place] [address] PCP - General 08/07/11 documented as of this encounter
--- OUTSIDE RECORDS SUMMARY | 2024-04-05 17:30 | XMS_ITS | Encounter Summary ---
Author Organization [facility] [place] [address] Care Team Providers Care Packing Tractor Machine Operator Name Role Phone StanleyKevan bowen Primary Care Provider Encounter Details Date Type Department Care Team (Late st Contact Info) Description 12/07/2020 Refill [place] [address] Alie Arshad PA [facility] [place] [address] Social History Tobacco Use Types Packs/Day Years [...] encounter Miscellaneous Notes * Telephone Encounter - Artemio Hazel RP - 12/07/2020 9:17 AM EDT Maritza is due for refill of Rebif, pended accordingly. Last OV 09/2020 documented in this encounter Plan of Treatment Upcoming Encounters Date Type Department Care Team (Late st Contact Info) Description 09/14/2024 8:00 AM EDT Office [place] [address] Alie Arshad PA [facility] [place] [place] [address] documented as of this encounter Visit Diagnoses Not on filedocumented in this encounter Care Teams Packing Tractor Machine Operator Relationship Specialty Start Date End Date Kevan Angel DO [address] [place] [address] [address] [place] [address] PCP - General 08/07/11 documented as of this encounter
--- OUTSIDE RECORDS SUMMARY | 2024-04-05 17:30 | XMS_ITS | Encounter Summary ---
[place] [address] Care Team Providers Care Systems Integration Analyst Name Role Phone Kevan Angel Primary Care Provider [phone] Reason for Visit * Reason Comments Specialty Refill Management Rebif Patient Education Encounter Details Date Type Department Care Team (Late st Contact Info) Description 11/19/2021 Specialty [place] [address] Sarkis Tamez CPHT Social History Tobacco Use Types Packs/Day [...] as of this encounter Progress Notes * Sarkis Tamez - 11/19/2021 10:54 AM EDT Clinical Management Plan: Refill Specialty Pharmacy Consultation; Sarkis Tamez Comprehensive Medication Management (CMM) Maritza Leiva Ms. Maritza Chan Cali is a 61 y.o. (1960) female who [...] Known Allergies Medication Reconciliation Discrepancies (compared to [facility] med list) No Specialty Pharmacy Refill Questionnaire Refill Questionnaire 11/19/2021 What is the name of the specialty medication you are refilling? Rebif 44mcg/0.5mL syringes Are you taking any new medications? No Any new medical condition? No Any new allergies? No Any new side effects that are bothersome? No What date will you need this fill by? 11/23/2021 Adherence: Any missed doses? No Patient understands no changes to current drug regimen were made. Sarkis Tamez 11/19/21 11:04 AM * Rock Valenzuela [facility] - 11/19/2021 10:54 AM EDT Specialty Pharmacy Consultation; Rock Valenzuela [facility] Comprehensive Medication Management (CMM): Specialty Consult, Opt Out Martiza Leiva ?? Diagnosis: MS ?? MS Diagnosis date (mm/yy): 11/1997 ?? Prior MS therapy: none ?? Therapy Start Date: 07/2002 ?? Contact in person or via telephone:phone Ms. Maritza Leiva is a 61 y.o. (1960) female who was contacted in regard to specialty medication. Spoke with patient regarding Rebif. A review of the medication therapy was performed. The medication was refilled as scheduled, and all medication related questions and concerns were addressed. The specialty pharmacy staff will follow up with the patient 7-10 days prior to next refill. Is the patient willing to proceed with the Clinical Assessment? No Summary and Recommendations: Maritza opted out of this 6 month pharmacy consult per her conversation with our behavioral technician. She has insect control aide stability on medication and knows to contact pharmacy with any new questions or concerns. Economic Assessment: Patient is agreeable to medication copay: Yes Copay Amount: $0 Day Supply: 28 Date Needed: 11/23/21 Therapy Assessment: Appropriate Therapy: Yes Current Medication Dosing/Route/Frequency: Rebif 44 mcg sq three times a week Additional equipment/supplies required: no Care Plan Reviewed and Approved by Pharmacist : Yes Problem List: Patient Active Problem List Diagnosis Code ??? MS (multiple sclerosis) G35 ??? 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 Rock Valenzuela RPH 11/20/21 8:55 AM documented in this encounter Plan of Treatment Upcoming Encounters Date Type Department Care Team (Late st Contact Info) Description 09/14/2024 8:00 AM EDT [place] [address] Alie Arshad PA [facility] [place] [address] documented as of this encounter Goals Goal [...] on filedocumented in this encounter Care Teams Systems Integration Analyst Relationship Specialty Start Date End Date Kevan Angel DO [address] [place] [address] PCP - General 08/07/11 documented as of this encounter
--- OUTSIDE RECORDS SUMMARY | 2024-04-05 17:30 | XMS_ITS | Encounter Summary ---
Author Organization [facility] [place] [address] Care Team Providers Care Portuguese Tutor Name Role Phone Stanley, Kevan PHELPS Primary Care Provider Encounter Details Date Type Department Care Team (Late st Contact Info) Description 10/09/2020 2:30 PM EDT Office [place] [address] Alie Arshad PA [facility] [place] [address] Multiple sclerosis Social History Tobacco Use Types [...] Sign Reading Time Taken Comments Blood Pressure 134/88 10/09/2020 2:05 PM EDT Pulse 97 10/09/2020 2:05 PM EDT Temperature - - Respiratory Rate - - Oxygen Saturation - - Inhaled Oxygen Concentration - - Weight 50.1 kg (110 lb 7.2 oz) 10/09/2020 2:05 P M EDT Height 157.5 cm (5' 2) 10/09/2020 2:05 PM EDT Body Mass Index 20.2 10/09/2020 2:05 PM EDT documented in this encounter Progress Notes * Alie Arshad PA - 10/09/2020 2:30 PM EDT MULTIPLE [facility] [address], [place] [address] Patient name: Maritza Leiva Date of : 1960 [place] [address], [facility] [place] Time since first symptom of MS: 1996 (officially diagnosis) ?? EDSS: ?? MSSS: ?? LP: no OCBs ?? DMD: Rebif 2002 - present ?? Last MRI: ?? 10/09/20 Brain - report pending ?? 12/2018 Brain:Stable ?? 2011 Brain - stable ?? Other Diagnostics: ?? NAbs: 08/27/12 Negative MS History: 1996: B/L LE numbness 06/1997: T6-T7 numbness on the right 11/1997: Right arm numbness 2001: Gait ataxia, Left Optic Neuritis. MRI showed C-spine lesion 2002: Initiated on Rebif 2002 - 2019: Stable Last Relapse: 2001? Ongoing MS Symptoms: ?? Strength, Gait/Balance: Denies weakness, balance or gait problems. ?? Sensory: Denies numbness, tingling, pins/needles, burning sensations; denies MS hug. ?? Spasticity: Denies muscle spasms, stiffness, cramping. ?? Urinary/Bowel: Denies urinary incontinence, retention, frequency/urgency. No bowel incontinence or constipation. ?? Vision: +H/o Left Optic Neuritis. 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 Denies h/odiplopia or current complaints aside from aforementioned. ?? Cognition: No cognitive complaints. ?? Fatigue: No Fatigue - states she is very active and has no issues. ?? Swallowing, Speech: Denies speech or swallowing difficulties. ?? Other: ?? Sleep problems occasionally - takes Trazodone PRN (about once monthly) HPI: 60 y.o. female with PMHx MS presents via telehealth visit for MS follow-up. Maritza was last seen here by me via telehealth in January - no treatment changes made; surveillance MRI brain ordered. Interval History: Maritza reports no changes to her MS disease - baseline symptoms are stable, and no obvious episodes concerning for a relapse. She is otherwise healthy and doing ok with the current pandemic - s/p Moderna vaccinations. She is still on Rebif - reports good toleration, with no major side effect complaints BUT has been told by her insurance company, [employer], that they will no longer cover it. [employer] is recommending switch to Avonex vs Betaseron. She is concerned about discontinuing Rebif and is hesitant to try another DMT. MRI brain was completed today just prior to appt - full report is pending. ScHx ?? Home & Family: , 2 sons (youngest son has CF but very mild form). ?? Job status: Works in [employer]. ?? Alcohol: No ?? Tobacco: Former, quit at age 32yo ?? Drug use: No ?? Diet: Good, healthy diet ?? Exercise: Enjoys walking when she can. Social History Social History Narrative ??? Not on file Past Medical History: Diagnosis Date ??? Multiple sclerosis History reviewed. No pertinent family history. Outpatient Encounter Medications as of 10/09/2020 Medication Sig Dispense Refill ??? interferon beta-1a, albumin, (Rebif, with albumin,) 44 mcg/0.5 mL Syringe Inject 0.5 mLs subcutaneously three times a week. 12 Syringe 11 ??? losartan (COZAAR) 50 mg Tablet Take 50 mg by mouth daily. 0 ??? hydroCHLOROthiazide (HYDRODIURIL) 25 mg Tablet Take 25 mg by mouth daily. 0 ??? aspirin 81 mg Tablet, Delayed Release (E.C.) Take 81 mg by mouth daily. ??? traZODone (DESYREL) 50 mg tablet Take 1 tablet by mouth nightly as needed for Sleep. (Patient not taking: Reported on 10/09/2020) 90 tablet 3 Facility-Administered Encounter Medications as of 10/09/2020 Medication Dose Route Frequency Provider Last Rate Last Admin ??? [COMPLETED] gadoterate meglumine (Dotarem) (0.5 mMol/mL) injection solution 0-100 mL 0-100 mL Intravenous Once PRN Ashwin Olmos MD 10 mL at 10/09/20 1325 No Known Allergies Review of systems: Refer to HPI Objective: Vitals: BP 134/88 Pulse 97 Ht 157.5 cm (5' 2) Wt 50.1 kg (110 lb 7.2 oz) BMI 20.20 kg/m?? Constitutional: 60 y.o. female appears stated age, well nourished, well developed, in no acute distress HEENT: Head atraumatic, normocephalic. Sclera non-icteric. Oropharynx normal. Neuro: ?? MS: Alert and oriented. Language is clear and fluent. No dysarthria. ?? CN: ?? Pupils round and reactive with +LAPD, EOMI, visual lopez full. ?? VA not tested but has very little residual central vision in the left eye 2/2 JAMES. ?? Facial sensation intact throughout. ?? No facial asymmetry, movement intact ?? Hearing intact to finger rub ?? Palate elevates symmetrically, tongue protrudes midline ?? SCM and trap strength intact. ?? Motor: Normal bulk and tone. No clonus. No pronator drift. ?? Upper extremity strength 5/5. ?? Lower extremity strength 5/5. ?? Sensation: Intact to light touch throughout. Negative romberg. ?? Reflexes: 1-2+ symmetric. ?? Coordination: Finger to nose, SP, Heel to romero intact. ?? Gait: Stable, steady. No difficulty with tandem gait. Diagnostic Tests and Images: BRAIN MRI 10/09/20 Pending, but per my review, appears largely stable. Assessment & Plan 60 y.o. female with MS on Rebif: Stable over the 6mo. No MS relapses or disability progression. Today we discussed possibility of discontinuing Rebif/DMDs given her disease course thus far and her insurance's denial of renewal starting in October. We discussed alternatives but patient is very hesitant. She is open to discontinuing the DMTs altogether if forced by insurance, but would prefer to st ay on Rebif if given the option. I advised she reach out to [employer] copay assistance services to see what they could offer, and in the meantime I will reach out to our pharmacist to investigate what options we have to appeal this with [employer]. If forced to d/c rebif - f/u in 3months followed by repeat MRI brain and follow- up at 6months. #MS: Continue Rebif #MRI brain done today and personally reviewed - full report pending. Alie Arshad PA-C Dept. Of Neurology [facility] (MS nurse) or [phone](general trade union secretary line) documented in this encounter Plan of Treatment Upcoming Encounters Date Type Department Care Team (Late st Contact Info) Description 09/14/2024 8:00 AM EDT Office [place] [address] Alie Arshad PA [facility] [place] [address] documented as of this encounter Visit Diagnoses Diagnosis Multiple sclerosis documented in this encounter Care Teams Portuguese Tutor Relationship Specialty Start Date End Date Kevan Angel DO [address] [place] [address] PCP - General 08/07/11 documented as of this encounter
--- OUTSIDE RECORDS SUMMARY | 2024-04-05 17:30 | XMS_ITS | Encounter Summary ---
[place] [address] Care Team Providers Care Asphalt Blender Name Role Phone StanleyKevan bowen Primary Care Provider Reason for Visit * Reason Comments Specialty Refill Management Encounter Details Date Type Department Care Team (Late st Contact Info) Description 08/21/2022 Specialty [place] [address] Veronica Cunningham CPHT Social History Tobacco Use [...] Progress Notes * Veronica Cunningham CPHT - 08/21/2022 9:10 AM EDT Clinical Management Plan: Refill Specialty Pharmacy Consultation; Veronica Cunningham CPHT Comprehensive Medication Management (CMM) Maritza Chan Cali Ms. Maritza Chan Donnyy is a 62 y.o. (1960) female who [...] Known Allergies Medication Reconciliation Discrepancies (compared to [facility] med list) No Specialty Pharmacy Refill Questionnaire 08/21/2022 Refill Questionnaire What is the name of the specialty medication you are refilling? Rebif Are you taking any new medications? No Any new medical condition? No Any new allergies? No Any new side effects that are bothersome? No What date will you need this fill by? 08/28/2022 Adherence: Any missed doses? No Patient understands no changes to current drug regimen were made. Veronica Cunningham CPHT 08/21/22 9:10 AM documented in this encounter Plan of Treatment Upcoming Encounters Date Type Department Care Team (Late st Contact Info) Description 09/14/2024 8:00 AM EDT Office [place] [address] Alie Arshad PA [facility] [place] [address] documented as of this encounter Goals Goal [...] on filedocumented in this encounter Care Teams Asphalt Blender Relationship Specialty Start Date End Date Kevan Angel DO [address] [place] [address] [address] [facility] [address] [place] [address] PCP - General 08/07/11 documented as of this encounter
--- OUTSIDE RECORDS SUMMARY | 2024-04-05 17:30 | XMS_ITS | Encounter Summary ---
Author Organization [facility] [place] [address] Care Team Providers Care Curriculum Manager Name Role Phone Kevan Angel Primary Care Provider Encounter Details Date Type Department Care Team (Late st Contact Info) Description 08/19/2022 Telephone [place] [address] Alie Arshad PA [facility] [place] [address] Social History Tobacco Use Types Packs/Day Years [...] encounter Miscellaneous Notes * Telephone Encounter - Pratibha Vera RN - 08/21/2022 1:46 PM EDT Per Alie Arshad PA: If she did not stop her DMT, then no MRI is needed. KG I attempted to phone Maritza. There was no answer. Detailed message per above left on named voice mail with instruction to call back [phone] if further questions. Plan: per above. * Telephone Encounter - Pratibha Vera RN - 08/19/2022 4:45 PM EDT Message forwarded to Alie ARMENDARIZ for review and recommendation. * Telephone Encounter - Pratibha Vera RN - 08/19/2022 4:45 PM EDT Copied from CRM #[id number]. Topic: Specialty Dept CRMs - Orders >> August 19, 2022 10:20 AM Angeles Ibarra wrote: Orders Request Specialist: KALA Mcintosh Relationship (if other than patient-full name): Maritza Leiva Type of Request: [x] Input orders Type/Name of Order: Imaging If Labs and Imaging list name of specific test(s): MRI Brain wwo Contrast Date of Lab/Imaging/Testing Appt: not scheduled yet Date of Provider Appt: 08/22/22 Appt Type with Provider: FUV Patient Requesting to Have Orders Sent to Facility Outside of [facility]: No Per last OV notes from 09/2020, patient was due for a 6 month FUV and repeat MRI. No MRI was orderedand patient states provider wanted MRI if patient was going to stop medication, which she did not. Patient wondering if repeat MRI is needed, would prefer not to at this time documented in this encounter Plan of Treatment Upcoming Encounters Date Type Department Care Team (Late st Contact Info) Description 09/14/2024 8:00 AM EDT Office [place] [address] Alie Arshad PA [facility] [place] [address] documented as of this encounter Goals Goal Patient Goal Type Associated Problems Recent Progress Patient-Stated? Author Prevention of ms relapse Patient Facing Action Plan On track( 024 2:11 PM EDT) Rock Desir, [facility] Note: Delay disease progression as measured by radiographic finding as well as clinical presentation to be measured every 6 months and ongoing. documented as of this encounter Visit Diagnoses Not on filedocumented in this encounter Care Teams Curriculum Manager Relationship Specialty Start Date End Date Kevan Angel DO [address] [place] [address] [address] [facility] [address] [place] [address] PCP - General 08/07/11 documented as of this encounter
--- OUTSIDE RECORDS SUMMARY | 2024-04-05 17:30 | XMS_ITS | Encounter Summary ---
[place] [address] Care Team Providers Care Teacher Selection Specialist Name Role Phone StanleyKevan bowen Primary Care Provider Reason for Visit * Reason Comments Medication Management Specialty Refill Management Encounter Details Date Type Department Care Team (Late st Contact Info) Description 09/29/2020 Specialty [place] [address] Klever Bright [facility] Social History Tobacco Use Types [...] as of this encounter Progress Notes * Klever Bright Jared - 09/29/2020 2:35 PM EDT Clinical Management Plan: Refill Specialty Pharmacy Consultation; Klever Bright [facility] Comprehensive Medication Management (CMM) Maritza Chan Cali Ms. Maritza Chan Donnyy is a 60 y.o. (1960) female who [...] Known Allergies Medication Reconciliation Discrepancies (compared to [facility] med list) No Specialty Pharmacy Refill Questionnaire Refill Questionnaire 09/29/2020 What is the name of the specialty medication you are refilling? Rebif Are you taking any new medications? No Any new medical condition? No Any new allergies? No Any new side effects that are bothersome? No What date will you need this fill by? 10/09/2020 Adherence: Any missed doses? No Patient understands no changes to current drug regimen were made.. Klever Bright RPH 09/29/20 2:38 PM documented in this encounter Plan of Treatment Upcoming Encounters Date Type Department Care Team (Late st Contact Info) Description 09/14/2024 8:00 AM EDT [place] [address] Alie Arshad PA [facility] [place] [address] documented as of this encounter Visit Diagnoses Not on filedocumented in this encounter Care Teams Teacher Selection Specialist Relationship Specialty Start Date End Date Kevan Angel DO [address] [place] [address] PCP - General 08/07/11 documented as of this encounter
--- OUTSIDE RECORDS SUMMARY | 2024-04-05 17:30 | XMS_ITS | Encounter Summary ---
[place] [address] Care Team Providers Care Crown Perforator Operator Name Role Phone Kevan Angel DO Primary Care Provider Encounter Details Date Type Department Care Team (Late st Contact Info) Description 04/27/2021 [place] [address] Alie Arshad PA [facility] [place] [address] Social History Tobacco Use Types Packs/Day Years [...] 8:00 AM EDT [place] [address] Alie Arshad PA [facility] [place] [address] documented as of this encounter Visit Diagnoses Not on filedocumented in this encounter Care Teams Crown Perforator Operator Relationship Specialty Start Date End Date Kevan Angel DO [address] [place] [address] PCP - General 08/07/11 documented as of this encounter
--- OUTSIDE RECORDS SUMMARY | 2024-04-05 17:30 | XMS_ITS | Encounter Summary ---
[place] [address] Care Team Providers Care Substation Electrician Name Role Phone Kevan Angel DO Primary Care Provider Reason for Visit * Reason Comments Prior Authorization Rebif 44mcg/0.5ml SO SY Encounter Details Date Type Department Care Team (Late st Contact Info) Description 08/15/2020 Specialty [place] [address] Lio Duran, CONSULTING SOLUTION MANAGER Social History Tobacco Use Types Packs/Day Years [...] as of this encounter Progress Notes * Lio Duran - 08/15/2020 9:27 AM EDT [facility], Medication Prior Authorization Patient: Maritza Leiva Patient : 1960 Patient Address: [place] [address] [address] (home) Medication Name: REBIF (WITH ALBUMIN) 44 MCG/0.5 ML SUBCUTANEOUS SYRINGE Medication ID: [id number] Patient [facility] Patient Location Comment: Subscriber Insurance: LAURA Subscriber Insurance Comment: Phone: Fax: Physician: DEANN VU Physician Comment: Sent Via: [facility] Cr: Cr: [id number] Ref/Case/KALA#: Medication Strength Frequency Requested: Rebif 44mcg/0.5ml SOSY Inject the contents of one syringe(44mcg) subcutaneously three times a week Qty/Day Supply: 10/09 New Start: Renewal Diagnosis & ICD-10 Code: Multiple sclerosis [G35] Patient Notified: Yes Submission Notes: None Lio Duran 08/15/20 9:35 AM * Lio Duran - 08/15/2020 9:27 AM EDT [facility], Prior Authorization Approval Medication Name: REBIF (WITH ALBUMIN) 44 MCG/0.5 ML SUBCUTANEOUS SYRINGE Medication ID: [id number] Approval Dates: 07/16/2020 to 08/15/2021 Insurance requirements/notes: None Other Notes: I spoke with the insurance and they informed me that this prior authorization will be honored untilthe original end date of 08/15/2021 and will require a new prior authorization when it expires. KALA REF# [id number] CALL REF# [id number] Case/Reference #: KALA Approval notification Received via: [facility] Copay: $50.00 Copay assistance: None Copay Notes: Insurance mandated Pharmacy: Fillable at [facility] Specialty Pharmacy: Yes Pharmacy staff will be reaching out to the patient to inform them of their medication's approval [facility]. If applicable, a pharmacist will speak with the patient to offer our specialty pharmacy services and to arrange delivery of their medication. Lio Duran 08/15/20 9:35 AM documented in this encounter Plan of Treatment Upcoming Encounters Date Type Department Care Team (Late st Contact Info) Description 09/14/2024 8:00 AM EDT Office [place] [address] Deann Vu PA [facility] [place] [address] documented as of this encounter Visit Diagnoses Not on filedocumented in this encounter Care Teams Substation Electrician Relationship Specialty Start Date End Date Kevan Angel DO [address] [place] [address] PCP - General 08/07/11 documented as of this encounter
--- OUTSIDE RECORDS SUMMARY | 2024-04-05 17:30 | XMS_ITS | Encounter Summary ---
[place] [address] Care Team Providers Care Audit Lead Name Role Phone Kevan Angel DO Primary Care Provider Reason for Visit * Reason Comments Specialty Pharmacy Review Encounter Details Date Type Department Care Team (Late st Contact Info) Description 10/19/2021 Specialty [place] [address] Rock Valenzuela [facility] Social History Tobacco Use Types Packs/Day Years [...] this encounter Progress Notes * Rock Valenzuela RPH - 10/19/2021 11:59 PM EDT The [facility] has completed a benefits investigation for Maritza Chan Cali to review their eligibility to fill at [facility]. Per patient's medication list they are prescribed Rebif and the medication is able to be filled at the [facility]. documented in this encounter Plan of Treatment Upcoming Encounters Date Type Department Care Team (Late st Contact Info) Description 09/14/2024 8:00 AM EDT [place] [address] Alie Arshad PA [facility] [place] [address] documented as of this encounter Goals Goal Patient Goal Type Associated Problems Recent Progress Patient-Stated? Author Prevention of ms relapse Patient Facing Action Plan On track( 024 2:11 PM EDT) Rock Desir, [facility] Note: Delay disease progression as measured by radiographic finding as well as clinical presentation to be measured every 6 months and ongoing. documented as of this encounter Visit Diagnoses Not on filedocumented in this encounter Care Teams Audit Lead Relationship Specialty Start Date End Date Kevan Angel DO [address] [place] [address] PCP - General 08/07/11 documented as of this encounter
--- OUTSIDE RECORDS SUMMARY | 2024-04-05 17:30 | XMS_ITS | Encounter Summary ---
[place] [address] Care Team Providers Care Deputy Sheriff Court Services Name Role Phone StanleyKevan bowen Primary Care Provider [phone] Reason for Visit * Reason Comments Specialty Refill Management Encounter Details Date Type Department Care Team (Late st Contact Info) Description 02/07/2022 Specialty [place] [address] Veronica Cunningham CPHT Social History Tobacco Use [...] as of this encounter Progress Notes * Veroinca Cunningham CPHT - 02/07/2022 11:59 AM EDT Clinical Management Plan: Refill Specialty Pharmacy Consultation; Veronica Cunningham CPHT Comprehensive Medication Management (CMM) Maritza Leiva Ms. [...] No Specialty Pharmacy Refill Questionnaire Refill Questionnaire 02/07/2022 What is the name of the specialty medication you are refilling? Rebif Are you taking any new medications? No Any new medical condition? No Any new allergies? No Any new side effects that are bothersome? No What date will you need this fill by? 02/14/2022 Adherence: Any missed doses? No Patient understands no changes to current drug regimen were made. Veronica Cunningham CPHT 02/07/22 12:00 PM documented in this encounter Plan of Treatment Upcoming Encounters Date Type Department Care Team (Late st Contact Info) Description 09/14/2024 8:00 AM EDT Office [place] [address] Alie Arshad PA [facility] [place] [address] documented as of this encounter Goals Goal Patient Goal Type Associated Problems Recent Progress Patient-Stated? Author Prevention of ms relapse Patient Facing Action Plan On track( 024 2:11 PM EDT) No Rock Valenzuela, [facility] Note: Delay disease progression as measured by radiographic finding as well as clinical presentation to be measured every 6 months and ongoing. documented as of this encounter Visit Diagnoses Not on filedocumented in this encounter Care Teams Deputy Sheriff Court Services Relationship Specialty Start Date End Date Kevan Angel DO [address] [place] [address] [address] [facility] [place] [address] PCP - General 08/07/11 documented as of this encounter
--- OUTSIDE RECORDS SUMMARY | 2024-04-05 17:30 | XMS_ITS | Encounter Summary ---
[place] [address] Care Team Providers Care Monument Erector Name Role Phone StanleyKevan bowen Primary Care Provider [phone] Reason for Visit * Reason Comments Specialty Refill Management Rebif 44mcg/ 0.5ml Sosy Encounter Details Date Type Department Care Team (Late st Contact Info) Description 05/01/2022 Specialty [place] [address] Jus Hill, [facility] Social History Tobacco Use Types Packs/Day Years [...] encounter Progress Notes * Jus Hill - 05/01/2022 11:53 AM EST Clinical Management Plan: Refill Specialty Pharmacy Consultation; Jus Hill Comprehensive Medication Management (CMM) Maritza Chan Cali Ms. Maritza Leiva is a 62 y.o. [...] Known Allergies Medication Reconciliation Discrepancies (compared to [facility] med list) No Specialty Pharmacy Refill Questionnaire Refill Questionnaire 05/01/2022 What is the name of the specialty medication you are refilling? Rebif 44mcg/0.5ml Sosy Are you taking any new medications? No Any new medical condition? No Any new allergies? No Any new side effects that are bothersome? No What date will you need this fill by? 05/08/2022 Adherence: Any missed doses? No Patient understands no changes to current drug regimen were made. Jus Hill 05/01/22 11:54 AM documented in this encounter Plan of Treatment Upcoming Encounters Date Type Department Care Team (Late st Contact Info) Description 09/14/2024 8:00 AM EDT [place] [address] Alie Arshad PA [facility] [place] [address] documented as of this encounter Goals Goal Patient Goal Type Associated Problems Recent Progress Patient-Stated? Author Prevention of ms relapse Patient Facing Action Plan On track( 024 2:11 PM EDT) Rock Desir, [facility] Note: Delay disease progression as measured by radiographic finding as well as clinical presentation to be measured every 6 months and ongoing. documented as of this encounter Visit Diagnoses Not on filedocumented in this encounter Care Teams Monument Erector Relationship Specialty Start Date End Date Kevan Angel DO [address] [place] [address] PCP - General 08/07/11 documented as of this encounter
--- OUTSIDE RECORDS SUMMARY | 2024-04-05 17:30 | XMS_ITS | Encounter Summary ---
Author Organization [facility] Address [facility] [place] [address] Care Team Providers Care Manual Lathe Operator Name Role Phone StanleyKevan bowen Primary Care Provider Encounter Details Date Type Department Care Team (Late st Contact Info) Description 08/22/2022 8:00 AM EDT Office [place] [address] Alie Arshad PA [facility] [place] [address] Multiple sclerosis Social History Tobacco Use Types [...] Sign Reading Time Taken Comments Blood Pressure 146/78 08/22/2022 7:55 AM EDT Pulse 69 08/22/2022 7:55 AM EDT Temperature - - Respiratory Rate - - Oxygen Saturation - - Inhaled Oxygen Concentration - - Weight 47.2 kg (104 lb) 08/22/2022 7:55 AM EDT Height 154.9 cm (5' 1) 08/22/2022 7:55 AM EDT r eported Body Mass Index 19.65 08/22/2022 7:55 AM EDT documented in this encounter Progress Notes * Alie Arshad PA - 08/22/2022 8:00 AM EDT MULTIPLE [facility]IS CL[facility] [place] [address] Patient name: Maritza Leiva Date of : 1960 Address: [place] [address], [facility] ?? Time since first symptom of MS: 1996 (officially diagnosis) ?? EDSS: ?? MSSS: ?? LP: no OCBs ?? DMD: Rebif 2002 - present ?? Last MRI: ?? 10/09/20 Brain - stable ?? 12/2018 Brain:Stable ?? 2010 Brain - stable ?? Other Diagnostics: ?? [...] takes Trazodone PRN (about once monthly) HPI: 62 y.o. female with PMHx MS presents via telehealth visit for MS follow-up. Interval History: Doing well. MS is fine - no relapses, no change in baseline symptoms. Dealing with varicose vein/phlebitis has been flaring up in her right leg. had open heart surgery last week. Still on Rebif and not ready to come off. ScHx ?? Home & Family: , 2 sons (youngest son has CF but very mild form). ?? Job status: Works in [employer]. ?? Alcohol: No ?? Tobacco: Former, quit at age 32yo ?? Drug use: No ?? Diet: Good, healthy diet ?? Exercise: Enjoys walking when she can. Social History Social History Narrative ??? Not on file Past Medical History: Diagnosis Date ??? Multiple sclerosis No family history on file. Outpatient Encounter Medications as of 08/22/2022 Medication Sig Dispense Refill ??? interferon beta-1a, albumin, (Rebif, with albumin,) 44 mcg/0.5 mL Syringe Inject 0.5 mLs subcutaneously three times a week (Mon, Weds, Fri). 6 mL 3 ??? losartan (COZAAR) 50 mg Tablet Take [...] taking: Reported on 10/09/2020) 90 tablet 3 No facility-administered encounter medications on file as of 08/22/2022. No Known Allergies Review of systems: Refer to HPI Objective: Vitals: BP 146/78 (BP Location (NBP): Right arm, Patient Position: Sitting) Pulse 69 Ht 154.9 cm (5' 1) Comment: reported Wt 47.2 kg (104 lb) BMI 19.65 kg/m?? Constitutional: 62 y.o. female appears stated age, well nourished, [...] Stable, steady. No difficulty with tandem gait. ?? Timed 25ft walks: 4.4s and 4.5s Diagnostic Tests and Images: BRAIN MRI 10/09/20 Pending, but per my review, appears largely stable. Assessment & Plan 62 y.o. female with MS on Rebif: Stable over the 6mo. No MS relapses or disability progression. No treatment changes, stable exam. Continue Rbif, obtain labs today: CBC, LFTs. Consider MRI brain for surveillance in 1-2yrs - will discuss at our next visit. F/u in 1yr, though if doing fine, could consider holding off for 2yrs. Alie Arshad PA-C Dept. Of Neurology [facility] (MS nurse) or [phone](general technology trainer line) documented in this encounter Plan of Treatment Upcoming Encounters Date Type Department Care Team (Late st Contact Info) Description 09/14/2024 8:00 AM EDT Office [place] [address] Alie Arshad PA [facility] [address] documented as of this encounter Goals Goal Patient Goal Type Associated Problems Recent Progress Patient-Stated? Author Prevention of ms relapse Patient Facing Action Plan On track( 024 2:11 PM EDT) Rock Desir, [facility] Note: Delay disease progression as measured by radiographic finding as well as clinical presentation to be measured every 6 months and ongoing. documented as of this encounter Procedures Procedure Name Priority Date/Time Associated Diagnosis Comments HEMOGRAM Routine 08/22/2022 8:39 AM EDT Multiple sclerosis HEPATIC FUNCTION PANEL Routine 08/22/2022 8:39 AM EDT Multiple sclerosis documented in this encounter Results * (ABNORMAL) Hemogram (08/22/2022 8:39 AM EDT) White Blood Cell 6.7 4.0 - 9.5 x10(3)/mc L [facility] Red Blood Cell 3.76(L) 4.00 - 5.21 x10(6)/mc L [facility] Hemoglobin 11.1(L) 11.7 - 15.5 g/dL [facility] Hematocrit 32.8(L) 35.7 - 45.8 % [facility] Mean Cell Volume 87.2 82.6 - 94.4 fL [facility] Mean Cell Hemoglobin 29.5 27.1 - 32.0 pg [facility] Mean Cell Hemoglobin Concentration 33.8 31.7 - 35.0 g/dL [facility] Platelet 268 145 - 357 x10(3)/mc L [facility] RDW Standard Deviation 45.1 37.0 - 46.0 fL [facility] RDW coefficient of variation 14.1 11.5 - 14.1 % [facility] Mean Platelet Volume 9.7 7.6 - 12.9 fL [facility] NRBC% auto 0.0 % [facility] NRBC Absolute 0.000 0.000 - 0.000 x10(3)/mc L [facility] Blood 08/22/2022 8:39 AM EDT 08/22/2022 8:52 AM EDT Narrative Resulting Agency Comment Spec In Lab Raimundo Cancino MD HEMATOLOGY ORDERABLE S Performing Organization Address [facility] Co de Phone Number [facility] [place] [address] * Hepatic Function Panel (08/22/2022 8:39 AM EDT) Protein, Total 6.9 6.1 - 8.0 g/dL [facility] Albumin 4.1 3.2 - 5.2 g/dL [facility] Aspartate Aminotransferase 26 0 - 30 unit/L [facility] Alanine Aminotransferase 19 0 - 30 unit/L [facility] Alkaline Phosphatase 81 35 - 105 unit/L [facility] Bilirubin, Total 0.7 0.2 - 1.3 mg/dL [facility] Bilirubin, Direct 0.1 0.0 - 0.3 mg/dL [facility] Blood 08/22/2022 8:39 AM EDT 08/22/2022 8:52 AM EDT Narrative Resulting Agency Comment Spec In Lab Raimundo Cancino MD CHEMISTRY ORDERABLES Performing Organization Address [facility] Co de Phone Number [facility] [place] [address] documented in this encounter Visit Diagnoses Diagnosis Multiple sclerosis documented in this encounter Care Teams Manual Lathe Operator Relationship Specialty Start Date End Date Kevan Angel DO [address] [place] [address] PCP - General 08/07/11 documented as of this encounter
--- OUTSIDE RECORDS SUMMARY | 2024-04-05 17:30 | XMS_ITS | Encounter Summary ---
Author Organization [facility] [place] [address] Care Team Providers Care Insights Analyst Name Role Phone StanleyKevan bowen Primary Care Provider [phone] Reason for Visit * Reason Onset Date Comments Prior Authorization 11/02/2020 Encounter Details Date Type Department Care Team (Late st Contact Info) Description 11/02/2020 [place] [address] Alie Arshad PA [facility] [place] [address] Prior Authorization Social History Tobacco Use Types Packs/Day Years [...] encounter Miscellaneous Notes * Telephone Encounter - Haylie Chavez - 11/15/2020 10:18 AM EDT Images from the original note were not included. * Telephone Encounter - Azeb Cervantes - 11/14/2020 1:36 PM EDT Call came from [place] Dept from [employer]. They stated this medication had been approved from October 17, 2020 to October 17, 2021. If the patient's out of pocket cost is still too high, she recommended calling member services - [phone] and asking to do a tier roberson cost reduction. * Telephone Encounter - Haylie Chavez - 11/13/2020 6:18 PM EDT ANSWERS TO QUESTIONS ON FORM: MULTIPLE SCLEROSIS ICD-10: G35 MEDS TRIED AND FAILED: N/A PT HAS BEEN ON WITH SUCCESS SINCE 04/2002. N/A - PT HAS BEEN ON WITH SUCCESS SINCE 04/2002. A CHANGE IN MEDICATION COULD CAUSE A RELAPSE FOR THIS PT. * Telephone Encounter - Haylie Chavez - 11/13/2020 6:13 PM EDT Images from the original note were not included. * Telephone Encounter - Toi Olguin - 11/09/2020 11:28 AM EDT Pt stated her prescription is now costing over $1000, she spoke with her insurance who stated they had faxed over a form that needed to be completed and returned. Pt stated the insurance stated the turn-around time is 24 hours or it will be denied. Pt stated she is wondering if someone can reach out to BS to see what it is they need so she can get her medication. * Telephone Encounter - Haylie Chavez - 11/08/2020 3:30 PM EDT Images from the original note were not included. * Telephone Encounter - Haylie Chavez - 11/08/2020 3:30 PM EDT Images from the original note were not included. * Telephone Encounter - Haylie Chavez Rocio - 11/08/2020 3:24 PM EDT Images from the original note were not included. * Telephone Encounter - Jennifer Atwood Rocio - 11/02/2020 2:37 PM EDT Call Center / [facility] Message - General Issue Call Provider patient sees in Clinic: Alie Arshad Caller and relationship (if other than patient-full name): self Call back number: [phone] until 4pm Ok to leave a message: n Reason for call: Patient is calling to advise that the code was not correct for the prior authorization, when submitted. Please correct code and resubmit. Please see encounter dated 10/18/19 for additional details. Please call with any questions. Disposition of Call (choose one and remove others): ??? Routine message sent to [facility]: y Nurse/Pega Developer contacted via: Message: y Call: y Pager: n documented in this encounter Plan of Treatment Upcoming Encounters Date Type Department Care Team (Late st Contact Info) Description 09/14/2024 8:00 AM EDT [place] [address] Alie Arshad PA [facility] [place] [address] documented as of this encounter Visit Diagnoses Not on filedocumented in this encounter Care Teams Insights Analyst Relationship Specialty Start Date End Date Kevan Angel DO [address] [place] [address] [address] [place] [address] PCP - General 08/07/11 documented as of this encounter
--- OUTSIDE RECORDS SUMMARY | 2024-04-05 17:30 | XMS_ITS | Encounter Summary ---
Author Organization [facility] [place] [address] Care Team Providers Care Scrap Drop Engineer Name Role Phone Kevan Angel DO Primary Care Provider Encounter Details Date Type Department Care Team (Late st Contact Info) Description 08/07/2022 Ancillary Procedure Radiology Library at [facility] [place] [address] Kevan Angel DO [address] [place], [place] [address] Social History Tobacco Use Types Packs/Day Years [...] 8:00 AM EDT Office Visit Neurology at [facility] [place] [address] Alie Arshad PA [facility] [place] [address] documented as of this encounter Goals Goal Patient Goal Type Associated Problems Recent Progress Patient-Stated? Author Prevention of ms relapse Patient Facing Action Plan On track( 024 2:11 PM EDT) Rock Desir, [facility] Note: Delay disease progression as measured by radiographic finding as well as clinical presentation to be measured every 6 months and ongoing. documented as of this encounter Procedures Procedure Name Priority Date/Time Associated Diagnosis Comments FILM LIBRARY STORAGE ONLY ULTRASOUND STUDY Routine 08/07/2022 12:00 AM EDT documented in this encounter Results * Film Library- Storage Only Ultrasound Study (08/07/2022 12:00 AM EDT) Narrative GENEVIEVE - 08/17/2022 1:43 AM EDT This exam is auto-finalizing. It's purpose is for storage only. Kevan CALLE FILM LIBRARY ORD ERABLES Performing Organization Address City/State/[facility] Co de Phone Number [place], [place] documented in this encounter Visit Diagnoses Not on filedocumented in this encounter Care Teams Scrap Drop Engineer Relationship Specialty Start Date End Date Kevan Angel DO [address] [place] [address] PCP - General 08/07/11 documented as of this encounter
--- OUTSIDE RECORDS SUMMARY | 2024-04-05 17:30 | XMS_ITS | Encounter Summary ---
[place] [address] Care Team Providers Care Core Analysis Operator Name Role Phone StanleyKevan bowen Primary Care Provider Reason for Visit * Reason Comments Specialty Refill Management Encounter Details Date Type Department Care Team (Late st Contact Info) Description 04/03/2022 Specialty [place] [address] Tana Hall CPHT Social History Tobacco Use [...] Progress Notes * Tana Michelle CPHT - 04/03/2022 1:19 PM EST Clinical Management Plan: Refill Specialty [...] Known Allergies Medication Reconciliation Discrepancies (compared to [facility] med list) No Specialty Pharmacy Refill Questionnaire Refill Questionnaire 04/03/2022 What is the name of the specialty medication you are refilling? Rebif Are you taking any new medications? No Any new medical condition? No Any new allergies? No Any new side effects that are bothersome? No What date will you need this fill by? 04/10/2022 Adherence: Any missed doses? No Patient understands no changes to current drug regimen were made. Tana Michelle CPHT 04/03/22 1:21 PM documented in this encounter Plan of Treatment Upcoming Encounters Date Type Department Care Team (Late st Contact Info) Description 09/14/2024 8:00 AM EDT [place] [address] Alie Arshad PA [facility] [place] [address] documented as of this encounter Goals Goal Patient Goal Type Associated Problems Recent Progress Patient-Stated? Author Prevention of ms relapse Patient Facing Action Plan On track( 024 2:11 PM EDT) No Rock Valenzuela, [facility] Note: Delay disease progression as measured by radiographic finding as well as clinical presentation to be measured every 6 months and ongoing. documented as of this encounter Visit Diagnoses Not on filedocumented in this encounter Care Teams Core Analysis Operator Relationship Specialty Start Date End Date Kevan Angel DO [address] [place] [address] [facility] [place] [address] PCP - General 08/07/11 documented as of this encounter
--- OUTSIDE RECORDS SUMMARY | 2024-04-05 17:30 | XMS_ITS | Encounter Summary ---
[place] [address] Care Team Providers Care Occupational Therapy Co Director Name Role Phone Stanley, Kevan PHELPS Primary Care Provider Reason for Referral * Consultation (Routine) - Closed Specialty Diagnoses / Procedures Referred By David nieves Referred To Contact Vascular Surgery Diagnoses Varicose veins of lower extremity, unspecified laterality, unspecified whether complicated ROUTINE, JOHAN/, RLE ColtKelsey, SPOT REMOVER [address] [place] [address] [facility] [address] [address] Referral ID Status Reason Start Date Expiration Date V isits Requested Visits Authorized [id number] Closed Consult, Test & Treat 08/21/2022 08/21/2023 1 1 Encounter Details Date Type Department Care Team (Late st Contact Info) Description 08/21/2022 Transcribe Orders eDH Incoming Referrals [phone] Kelsey Gregory APRN [address] [place], [place] [address] Varicose veins of lower extremity, unspecified laterality, unspecified whether complicated Social History Tobacco Use Types Packs/Day Years [...] 8:00 AM EDT [place] [address] Alie Arshad PA [facility] [place] [place] [address] Scheduled Referrals Name Type Priority Associated Diagnoses Orde r Schedule Referral to Vascular Surgery Outpatient Referral Routine Varicose veins of lower extremity, unspecified laterality, unspecified whether complicated Ordered: 08/21/2022 documented as of this encounter Goals Goal Patient Goal Type Associated Problems Recent Progress Patient-Stated? Author Prevention of ms relapse Patient Facing Action Plan On track( 024 2:11 PM EDT) Rock Desir, [facility] Note: Delay disease progression as measured by radiographic finding as well as clinical presentation to be measured every 6 months and ongoing. documented as of this encounter Visit Diagnoses Diagnosis Varicose veins of lower extremity, unspecified laterality, unspecified whether complicated documented in this encounter Care Teams Occupational Therapy Co Director Relationship Specialty Start Date End Date Kevan Angel DO [address] [place] [address] [address] [facility] [place] [address] PCP - General 08/07/11 documented as of this encounter
--- OUTSIDE RECORDS SUMMARY | 2024-04-05 17:30 | XMS_ITS | Encounter Summary ---
[place] [address] Care Team Providers Care Surgery Manager Name Role Phone StanleyKevan bowen Primary Care Provider Reason for Visit * Reason Comments Specialty Refill Management Encounter Details Date Type Department Care Team (Late st Contact Info) Description 04/02/2021 Specialty Pharmacy [place] [address] Tana Hall CPHT Social History Tobacco Use [...] Progress Notes * Tana Michelle CPHT - 04/02/2021 12:53 PM EST Clinical Management Plan: Refill Specialty Pharmacy Consultation; Tana Michelle CPHT Comprehensive Medication Management (CMM) Maritza Chan Cali Ms. Maritza Chan Donnyy is a 61 y.o. (1960) female who [...] Known Allergies Medication Reconciliation Discrepancies (compared to [facility] med list) No Specialty Pharmacy Refill Questionnaire Refill Questionnaire 04/02/2021 What is the name of the specialty medication you are refilling? Rebif Are you taking any new medications? No Any new medical condition? No Any new allergies? No Any new side effects that are bothersome? No What date will you need this fill by? 04/09/2021 Adherence: Any missed doses? No Patient understands no changes to current drug regimen were made. Tana Michelle CPHT 04/02/21 12:54 PM documented in this encounter Plan of Treatment Upcoming Encounters Date Type Department Care Team (Late st Contact Info) Description 09/14/2024 8:00 AM EDT Office [place] [address] Alie Arshad PA [facility] [place] [address] documented as of this encounter Visit Diagnoses Not on filedocumented in this encounter Care Teams Surgery Manager Relationship Specialty Start Date End Date Kevan Angel DO [address] [place] [address] PCP - General 08/07/11 documented as of this encounter
--- OUTSIDE RECORDS SUMMARY | 2024-04-05 17:30 | XMS_ITS | Encounter Summary ---
[place] [address] Care Team Providers Care Mix Mill Tender Name Role Phone Kevan Angel DO Primary Care Provider Reason for Visit * Reason Comments Prior Authorization Rebif 44MCG/0.5ML SO SY Encounter Details Date Type Department Care Team (Late st Contact Info) Description 10/17/2020 Specialty [place] [address] Lio Duran, [facility] Social History Tobacco Use Types Packs/Day Years [...] encounter Progress Notes * Lio Duran - 10/17/2020 8:57 AM EDT [facility], Medication Prior Authorization Patient: Martiza Leiva Patient : 1960 Patient Address: [place] [address] [address] (home) Medication Name: REBIF (WITH ALBUMIN) 44 MCG/0.5 ML SUBCUTANEOUS SYRINGE Medication ID: [id number] Patient Location[place] [facility] Patient Location Comment: Subscriber Insurance: Unable to find Subscriber Insurance Comment: [facility] (IR[facility]) Fax: Physician: DEANN VU Physician Comment: Sent Via: [facility] Cr: (Cr: [id number]) Ref/Case/PA#: Medication Strength Frequency Requested: Rebif 44MCG/0.5ML SOSY Inject the contents of one syringe(44MCG) three times a week Qty/Day Supply: 04/10 New Start: Renewal Diagnosis & ICD-10 Code: Multiple sclerosis [G35] Patient Notified: No Submission Notes: None Lio Duran 10/17/20 9:03 AM documented in this encounter Plan of Treatment Upcoming Encounters Date Type Department Care Team (Late st Contact Info) Description 09/14/2024 8:00 AM EDT Office [place] [address] Deann Vu PA [facility] [place] [address] documented as of this encounter Visit Diagnoses Not on filedocumented in this encounter Care Teams Mix Mill Tender Relationship Specialty Start Date End Date Kevan Angel DO [address] [place] [address] PCP - General 08/07/11 documented as of this encounter
--- OUTSIDE RECORDS SUMMARY | 2024-04-05 17:30 | XMS_ITS | Encounter Summary ---
[place] [address] Care Team Providers Care Womens Volleyball Coach Name Role Phone StanleyKevan bowen Primary Care Provider [phone] Reason for Visit * Reason Comments Specialty Refill Management Patient Education Medication Management Encounter Details Date Type Department Care Team (Late st Contact Info) Description 05/24/2021 Specialty [place] [address] Rock Valenzuela [facility] Social History Tobacco Use [...] Progress Notes * Rock Valenzuela RPH - 05/24/2021 2:39 PM EST Specialty Pharmacy Consultation; Rock Valenzuela RPH Comprehensive Medication Management (CMM) Maritza Chan Cali Diagnosis: MS MS Diagnosis date (mm/yy): 11/1997 Prior MS therapy: none Therapy Start Date: 07/2002 Contact in person or via telephone:phone Ms. Maritza Leiva is a 61 y.o. (1960) female who was contacted in regard to specialty medication. Spoke with patient regarding Rebif. A review of the medication therapy was performed. The medication was Refilled as scheduled, and all medication related questions and concerns were addressed. The specialty pharmacy staff will follow up with the patient 5-7 days prior to next refill. Is the patient willing to proceed with the Clinical Assessment? Yes Summary and Recommendations: ??? Comprehensive review of Rebif discussed with the patient. Topics covered include: warnings/precautions & contraindications, patient's dose and frequency of administration, personal indicationfor use, potential adverse effects, drug &/or food interactions, monitoring/safety parameters, drug MOA, proper storage/handling recommendations, and anticipated time to effect. ? ? Medication & allergy reconciliation completed ??? Patient has been established on therapy since 2002 and has no new issues or concerns to report. ??? Denies any side effects or missed doses. ??? She was pleased to know that her copay is back down to $0 Clinic follow-up needed: no Allergies and Drug intolerance: No Known Allergies Problem List: Patient Active Problem List Diagnosis Code ??? MS (multiple sclerosis) G35 ??? 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 interferon beta-1a, albumin, (Rebif, with albumin,) 44 mcg/0.5 mL Syringe Inject 0.5 mLs subcutaneously three times a week. 6 mL 5 ??? losartan (COZAAR) 50 mg Tablet Take [...] Reported on 10/09/2020) 90 tablet 3 No current facility-administered medications for this visit. Most Recent Vitals: Ht Readings from Last 1 Encounters: 10/09/20 157.5 cm (5' 2) Wt Readings from Last 3 Encounters: 10/09/20 50.1 kg (110 lb 7.2 oz) 03/25/19 49.7 kg (109 lb 9.6 oz) 11/12/18 53.5 kg (118 lb) Temp Readings from Last 3 Encounters: No data found for Temp BP Readings from Last 3 Encounters: 10/09/20 134/88 03/25/19 158/88 11/12/18 170/89 Pulse Readings from Last 3 Encounters: 10/09/20 97 03/25/19 79 11/12/18 80 There is no height or weight on file to calculate BMI. Pertinent Lab values: Lab Results Component Value Date NA 141 03/25/2019 K 4.3 03/25/2019 CL 103 03/25/2019 CO2 26 03/25/2019 BUN 15 03/25/2019 CREATININE 0.59 (L) 03/25/2019 GLUCOSE 95 03/25/2019 CALCIUM 9.7 03/25/2019 Lab Results Component Value Date ALT 17 03/25/2019 AST 20 03/25/2019 ALKPHOS 81 03/25/2019 BILITOT 0.7 03/25/2019 BILIDIR 0.1 09/09/2013 ALBUMIN 4.3 03/25/2019 PROT 7.3 03/25/2019 Lab Results Component Value Date WBC 6.1 03/25/2019 HGB 11.6 (L) 03/25/2019 HCT 36.6 03/25/2019 MCV 90.1 03/25/2019 PLATELET 319 03/25/2019 No results found for: HA1C Immunization History Administered Date(s) Administered ??? Td, adult 10/03/2004 Assessment and Recommendations: Patient Counseling Patient accepted offer to addictions counselor: cost of medications/cost implications, possible adverse side effects and management, possible drug/Rx drug interactions, therapeutic rationale, adherence/missed doses, doses and administration, pharmacy contact information, possible drug/OTC drug and food interactions, safe handling, storage, and disposal Medication Management Summary Topics discussed: reviewed medication changes since last visit, medication safety precautions education provided, drug interaction education provided to patient, safe handling, storage, and disposal discussed, possible adverse effects and management discussed, cost of medications and cost implications discussed, adherence and missed doses discussed, health goals discussed, over the counter products discussed, reminder to refill or sisal picker medication discussed, lifestyle modification education Time spent: 1-15 min Treatment Outcomes 05/24/2021 5927 Disease progression: Stable Effectiveness of therapy, reported improvements: No Change Treatment Goals: Have completely been met Treatment Failures: Sucessfull Treatment no Failures Patient Overall Status: Stable Reviewed in detail with patient: Dose appropriateness based on recommended standard dosing Current medication list including OTC medications Medication and disease problems Allergies Comorbid conditions/ Problem List Past adverse events if any Special needs of the patient including physical and cognitive limitations Goals of therapy and management strategies Warnings, precautions, and contraindications Side effects Drug-drug and drug-food interactions Administration instructions including dose, frequency and method Handling, storage, and disposal Verifying expiration dates on products before use Rotating medication inventory to use oldest product first Relevant lab data Treatments impact on disease Dose appropriateness based on recommended standard dosing schedule, including any variations from FDA approved dosing Patient verbalizes understanding and is able to read-back instructions on self-administration/injection, proper storage, drug stability, importance of adherence and management strategies, side effect avoidance and mitigation strategies, and interruptions in therapy: Yes Patient is aware a licensed pharmacist is available 24 hours a day, 7 days a week to discuss medication-related questions or concerns: Yes Patient verbalizes understanding of the common side effect profile of their medication. The patient is able to call 911 or seek urgent care if signs/symptoms of allergy or harmful adverse reactions occur: Yes Additional care/services needed: No Additional equipment/supplies required: No Patient satisfied with care/services provided: Yes Specialty Assessment: Physical and Cognitive Assessment: Functional limitations identified: No Cognitive limitations identified: No Concern regarding orientation/memory: No Concern with reasoning/judgement: No Is patient a fall risk: No Social Assessment: Does patient have a primary medication care manager: No Does patient have an emergency contact on file: Yes Does patient need referral to social services designee: No Does patient need referral to advocacy group: No Home Health Assessment: Is the patient in a safe home environment?: Yes Is the patient able to store their medication as directed?: Yes Does the patient have a support network at home?: Yes Reviewed potential home safety hazards with patient: Yes Economic Assessment: Patient is agreeable to medication copay: Yes Actual Copay: $: 0 Days Supply: 28 Welcome Packet and Rights and Responsibilities: Patient provided welcome packet/rights and responsibilities: Yes Date Confirmed: 12/09/18 Confirmation: Verbal Specialty Med Adherence Patient Demonstrates Understanding of Importance of Adherence: Yes Educational Information or Adherence Tools Provided: Yes Patient Reported X Missed Doses in the Last Month: 0 Provider-Estimated Medication Adherence Level: 90-100% Therapy Assessment: Current Medication Dosing/Route/Frequency: Rebif 44mcg subq three times a week Appropriate Therapy: Yes Effective: Yes Recent Relapses: 0 Number of Relapses in last 6 months: 0 Current pain rating (1-10): 0 Relapsing/Remitting Factors: none Unmanaged MS Symptoms Identified: none Patient-Reported Side Effects: no Occurrence of recent infections: no Patient Goals: Patient's specific desired goal: prevention of relapse Measured by: clinical symptomas and MRI Time-frame to meet goal: 6 months Is the patient on track to achieve goals of therapy? Yes If no, what are the barriers and action plan to reach the goal: n/a Care Plan and Interventions: Care Plan Reviewed and Approved by both Pharmacist and Patient: Yes Did Care Plan Change? No Interventions (if applicable): no Patient experienced change in condition that affects treatment: no Patient Counseling: Administration issues identified: no Rotation of injection sites: Yes Medication room temperature prior to injection: Yes Patient Satisfied with Therapy: yes - very much Pharmacist follow-up needed: Yes Patient understands no changes to current drug regimen were made at the appointment and that [facility] (summary located at top of note) for provider review and follow up. Rock Valenzuela RPH 05/24/21 2:48 PM documented in this encounter Plan of Treatment Upcoming Encounters Date Type Department Care Team (Late st Contact Info) Description 09/14/2024 8:00 AM EDT [place] [address] Alie Arshad PA [facility] [place] [address] documented as of this encounter Goals Goal Patient Goal Type Associated Problems Recent Progress Patient-Stated? Author Prevention of ms relapse Patient Facing Action Plan On track( 024 2:11 PM EDT) Rock Desir, [facility] Note: Delay disease progression as measured by radiographic finding as well as clinical presentation to be measured every 6 months and ongoing. documented as of this encounter Visit Diagnoses Not on filedocumented in this encounter Care Teams Womens Volleyball Coach Relationship Specialty Start Date End Date Kevan Angel DO [address] [place] [address] [address] [place] [address] PCP - General 08/07/11 documented as of this encounter
--- OUTSIDE RECORDS SUMMARY | 2024-04-05 17:30 | XMS_ITS | Encounter Summary ---
[place] [address] Care Team Providers Care Keymodule Assembly Supervisor Name Role Phone StanleyKevan bowen Primary Care Provider [phone] Reason for Visit * Reason Comments Medication Refill Encounter Details Date Type Department Care Team (Late st Contact Info) Description 12/07/2020 Specialty [place] [address] Artemio Hazel [facility] Social History Tobacco Use Types Packs/Day Years [...] Progress Notes * Artemio Hazel RPH - 12/07/2020 9:23 AM EDT Clinical Management Plan: Refill Specialty Pharmacy Consultation; Artemio Hazel RPH Comprehensive Medication Management (CMM) Maritza Rocio Cali Ms. Maritza Chan Donnyy is a [...] Known Allergies Medication Reconciliation Discrepancies (compared to [facility] med list) No Specialty Pharmacy Refill Questionnaire Refill Questionnaire 12/07/2020 What is the name of the specialty medication you are refilling? Rebif Are you taking any new medications? No Any new medical condition? No Any new allergies? No Any new side effects that are bothersome? No What date will you need this fill by? 12/13/2020 Adherence: Any missed doses? No Patient understands no changes to current drug regimen were made.. Artemio Hazel RPH 12/07/20 9:25 AM documented in this encounter Plan of Treatment Upcoming Encounters Date Type Department Care Team (Late st Contact Info) Description 09/14/2024 8:00 AM EDT [place] [address] Alie Arshad PA [facility] [place] [address] documented as of this encounter Visit Diagnoses Not on filedocumented in this encounter Care Teams Keymodule Assembly Supervisor Relationship Specialty Start Date End Date Kevan Angel DO [address] [place] [address] [address] [facility] [place] [address] PCP - General 08/07/11 documented as of this encounter
--- OUTSIDE RECORDS SUMMARY | 2024-04-05 17:30 | XMS_ITS | Encounter Summary ---
[place] [address] Care Team Providers Care Home Coordinator Name Role Phone Kevan Angel Primary Care Provider Reason for Visit * Reason Comments Specialty Refill Management Encounter Details Date Type Department Care Team (Late st Contact Info) Description 07/24/2022 Specialty [place] [address] Lesli Kim, [facility] Social History Tobacco Use Types Packs/Day [...] as of this encounter Progress Notes * Lesli Mckeon [facility] - 07/24/2022 9:19 AM EDT Clinical Management Plan: Refill Specialty Pharmacy Consultation; Lesli Mckeon [facility] Comprehensive Medication Management (CMM) Maritza Rocio Cali Ms. Maritza Chan Donyny is a 62 y.o. (1960) female who [...] Known Allergies Medication Reconciliation Discrepancies (compared to [facility] med list) No Specialty Pharmacy Refill Questionnaire 07/24/2022 Refill Questionnaire What is the name of the specialty medication you are refilling? Rebif Are you taking any new medications? No Any new medical condition? No Any new allergies? No Any new side effects that are bothersome? No What date will you need this fill by? 07/31/2022 Adherence: Any missed doses? No Patient understands no changes to current drug regimen were made. Lesli Kim [facility] 07/24/22 9:21 AM documented in this encounter Plan of Treatment Upcoming Encounters Date Type Department Care Team (Late st Contact Info) Description 09/14/2024 8:00 AM EDT [place] [address] Alie Arshad PA [facility] [place] [address] documented as of this encounter Goals Goal Patient Goal Type Associated Problems Recent Progress Patient-Stated? Author Prevention of ms relapse Patient Facing Action Plan On track( 024 2:11 PM EDT) No Rock Valenzuela, [facility] Note: Delay disease progression as measured by radiographic finding as well as clinical presentation to be measured every 6 months and ongoing. documented as of this encounter Visit Diagnoses Not on filedocumented in this encounter Care Teams Home Coordinator Relationship Specialty Start Date End Date Kevan Angel DO [facility] [address] [place] [address] PCP - General 08/07/11 documented as of this encounter
--- OUTSIDE RECORDS SUMMARY | 2024-04-05 17:30 | XMS_ITS | Encounter Summary ---
[place] [address] Care Team Providers Care Cut Out Stitcher Name Role Phone StanleyKevan bowen Primary Care Provider Encounter Details Date Type Department Care Team (Late st Contact Info) Description 07/24/2022 [place] [address] Alie Arshad PA [facility] [place] [address] Social History Tobacco Use Types Packs/Day Years [...] 8:00 AM EDT [place] [address] Alie Arshad PA [facility] [place] [address] documented as of this encounter Goals Goal [...] on filedocumented in this encounter Care Teams Cut Out Stitcher Relationship Specialty Start Date End Date Kevan Angel DO [address] [place] [address] [address] [facility] [address] [place] [address] PCP - General 08/07/11 documented as of this encounter
--- OUTSIDE RECORDS SUMMARY | 2024-04-05 17:30 | XMS_ITS | Encounter Summary ---
[place] [address] Care Team Providers Care Geriatric Physician Name Role Phone StanleyKevan bowen Primary Care Provider [phone] Encounter Details Date Type Department Care Team (Late st Contact Info) Description 04/03/2022 Ref[place] [address] Alie Arshad PA [facility] [place] [address] Social History Tobacco Use Types Packs/Day Years [...] 8:00 AM EDT Office [place] [address] Alie Arshad PA [facility] [place] [address] documented as of this encounter Goals Goal Patient Goal Type Associated Problems Recent Progress Patient-Stated? Author Prevention of ms relapse Patient Facing Action Plan On track( 024 2:11 PM EDT) Rock Desir, [facility] Note: Delay disease progression as measured by radiographic finding as well as clinical presentation to be measured every 6 months and ongoing. documented as of this encounter Visit Diagnoses Not on filedocumented in this encounter Care Teams Geriatric Physician Relationship Specialty Start Date End Date Kevan Angel DO [address] [place] [address] [address] [facility] 1 [place] [address] PCP - General 08/07/11 documented as of this encounter
--- OUTSIDE RECORDS SUMMARY | 2024-04-05 17:30 | XMS_ITS | Encounter Summary ---
[place] [address] Care Team Providers Care Intermediate Teacher Name Role Phone StanleyKevan bowen Primary Care Provider Reason for Visit * Reason Comments Specialty Refill Management Encounter Details Date Type Department Care Team (Late st Contact Info) Description 10/19/2021 Specialty [place] [address] Karla Cartre, [facility] Social History Tobacco Use Types Packs/Day [...] encounter Progress Notes * Karla Carter - 10/19/2021 10:30 AM EDT Clinical Management Plan: Refill Specialty Pharmacy Consultation; Karla Carter Comprehensive Medication Management (CMM) Maritza Rocio Leiva Ms. Maritza Chan Donnyy is a 61 [...] Known Allergies Medication Reconciliation Discrepancies (compared to [facility] med list) No Specialty Pharmacy Refill Questionnaire Refill Questionnaire 10/19/2021 What is the name of the specialty medication you are refilling? Rebif 44 mcg / 0.5 mL Syr Are you taking any new medications? No Any new medical condition? No Any new allergies? No Any new side effects that are bothersome? No What date will you need this fill by? 10/26/2021 Adherence: Any missed doses? No Patient understands no changes to current drug regimen were made. Karla Carter 10/19/21 10:32 AM documented in this encounter Plan of Treatment Upcoming Encounters Date Type Department Care Team (Late st Contact Info) Description 09/14/2024 8:00 AM EDT [place] [address] Alie Arshad PA [facility] [place] [address] documented as of this encounter Goals Goal Patient Goal Type Associated Problems Recent Progress Patient-Stated? Author Prevention of ms relapse Patient Facing Action Plan On track( 024 2:11 PM EDT) No Rock Valenzuela, [facility] Note: Delay disease progression as measured by radiographic finding as well as clinical presentation to be measured every 6 months and ongoing. documented as of this encounter Visit Diagnoses Not on filedocumented in this encounter Care Teams Intermediate Teacher Relationship Specialty Start Date End Date Kevan Angel DO [address] [place] [address] [address] [place] [address] PCP - General 08/07/11 documented as of this encounter
--- OUTSIDE RECORDS SUMMARY | 2024-04-05 17:30 | XMS_ITS | Encounter Summary ---
[place] [address] Care Team Providers Care Fraud Representative Name Role Phone Stanley, Kevan PHELPS Primary Care Provider [phone] Reason for Visit * Reason Comments Medication Management Follow-up Medication Refill Encounter Details Date Type Department Care Team (Late st Contact Info) Description 11/17/2020 Specialty [place] [id number] Artemio Hazel RPH Social History Tobacco Use Types Packs/Day [...] Progress Notes * Artemio Hazel RPH - 11/17/2020 11:02 AM EDT Specialty Pharmacy Consultation; Artemio Hazel RPH Comprehensive Medication Management (CMM): Specialty Consult, Opt Out Maritza Chan Cali Diagnosis: MS Current Therapy Start Date: 07/2002 MS Diagnosis date (mm/yy): 11/1997 Prior MS therapy: none Contact in person or via telephone:telephone Ms. Maritza Chan MarlyGustabo is a 60 y.o. (1960) female who was contacted in regard to specialty medication. Spoke with patient regarding Rebif. A review of the medication therapy was performed. The medication was refilled as scheduled, and all medication related questions and concerns were addressed. The specialty pharmacy staff will follow up with the patient 10 days prior to next refill. Is the patient willing to proceed with the Clinical Assessment? No Summary and Recommendations: Maritza has been existing to therapy since 2002, no changes or clinical concerns. This discussion wasentirely focused on copay cost and copay assistance. Prior to 10/2020 Maritza had an insurance plan that covered Rebif with a $50 copay. [employer], an [employer], offered copay support in the form of reimbursement. Maritza was blocked from using her [employer] issued credit card to pay for her copay directly. As of 10/12/2020 her insurance, [employer], is now contracted with [employer] as a pharmacy biology manager. This changed copay structures andcoverages. Maritza's copay jumped to over $1000. This is likely due to how deductibles and out of pocket maximums are applied. A cost tier reduction as suggested by the insurance was also rejected. Maritza paid for her 10/2020 fill with expectation to be reimbursed but is unlikely to have enough in her FSA account to keep paying. We discussed a new approach that has worked for a few other patients. The [employer] credit card was put on file, this will be charged directly from pharmacy to the bank hired by [employer]. After the refill is issued and the medication is charged, Maritza will need to send a copy of the invoice to [employer] in order to prevent any filling delays at next refill. If this plan does not work, which will be tried after 11/19 when the insurance will let [facility] run the claim, then we will work on discovering a reasonable solution. Patient counseled that copay cost should not be an inhibiting factor to treatment and likely isn't, the correct steps have to be fo llowed in order to maintain care. Economic Assessment: Patient is agreeable to medication copay: Yes Copay Amount: TBD Day Supply: 28 Date Needed: 11/26 Therapy Assessment: Appropriate Therapy: Yes Current Medication Dosing/Route/Frequency: Rebif 44mcg subcutaneously every Friday, Friday, Friday Additional equipment/supplies required: no Care Plan Reviewed [...] welcome packet: Yes Date to be provided: 12/09/2018 Delivery Method: mail -Patient returned signed Rights & Responsibilities: No Date to be provided: 12/09/2018 Delivery Method: mail -Patient is aware a [...] note) for provider review and follow up. Artemio Hazel RPH 11/17/20 11:03 AM documented in this encounter Plan of Treatment Upcoming Encounters Date Type Department Care Team (Late st Contact Info) Description 09/14/2024 8:00 AM EDT [place] [address] Alie Arshad PA [facility] [address] [place] [address] documented as of this encounter Visit Diagnoses Not on filedocumented in this encounter Care Teams Fraud Representative Relationship Specialty Start Date End Date Kevan Angel DO [address] [place] [address] [address] [place] [address] PCP - General 08/07/11 documented as of this encounter
--- OUTSIDE RECORDS SUMMARY | 2024-04-05 17:30 | XMS_ITS | Encounter Summary ---
[place] [address] Care Team Providers Care Research Manufacturing Operator Name Role Phone StanleyKevan bowen Primary Care Provider Reason for Visit * Reason Comments Medication Refill Encounter Details Date Type Department Care Team (Late st Contact Info) Description 08/15/2020 Specialty [place] [address] Artemio Hazel [facility] Social History Tobacco Use Types [...] Progress Notes * Artemio Hazel RPH - 08/15/2020 8:34 AM EDT Clinical Management Plan: Refill Specialty [...] No Specialty Pharmacy Refill Questionnaire Refill Questionnaire 08/15/2020 What is the name of the specialty medication you are refilling? Rebif Are you taking any new medications? No Any new medical condition? No Any new allergies? No Any new side effects that are bothersome? No What date will you need this fill by? 08/21/2020 Adherence: Any missed doses? No Patient understands no changes to current drug regimen were made.. Artemio Hazel RPH 08/15/20 8:42 AM documented in this encounter Plan of Treatment Upcoming Encounters Date Type Department Care Team (Late st Contact Info) Description 09/14/2024 8:00 AM EDT Office [place] [address] Alie Arshad PA [facility] [place] [address] documented as of this encounter Visit Diagnoses Not on filedocumented in this encounter Care Teams Research Manufacturing Operator Relationship Specialty Start Date End Date Kevan Angel DO [address] [facility] [address] [facility] [address] [place] [address] PCP - General 08/07/11 documented as of this encounter
--- OUTSIDE RECORDS SUMMARY | 2024-04-05 17:30 | XMS_ITS | Encounter Summary ---
[place] [address] Care Team Providers Care Home Health Billing Specialist Name Role Phone StanleyKevan bowen Primary Care Provider Reason for Visit * Reason Comments Medication Management Encounter Details Date Type Department Care Team (Late st Contact Info) Description 07/22/2022 Specialty [place] [address] Rock George [facility] Social History Tobacco Use Types [...] of this encounter Progress Notes * Rock George [facility] - 07/22/2022 11:20 AM EDT Clinical Management Plan: Refill Specialty Pharmacy Consultation; Rock George [facility] Comprehensive Medication Management (CMM) Maritza L Cali Ms. Maritza Chan Donnyy is a 62 y.o. (1960) female who was contacted in regard to a specialty medication refill reminder. Contact made with patient regarding Rebif (THIS WAS FILLED 07/01/22). Areview of the medication therapy was performed. The medication was refilled as scheduled, and all medication related questions and concerns were addressed. The specialty pharmacy staff will follow upwith the patient 5-7 days prior to next refill. Was a change made to the Care Plan: No Allergies and Drug intolerance: No Known Allergies Medication Reconciliation Discrepancies (compared to [facility] med list) No Specialty Pharmacy Refill Questionnaire 07/22/2022 Refill Questionnaire What is the name of the specialty medication you are refilling? rebif Are you taking any new medications? No Any new medical condition? No Any new allergies? No Any new side effects that are bothersome? No What date will you need this fill by? 07/04/2022 Adherence: Any missed doses? No Patient understands no changes to current drug regimen were made. Rock George RPH 07/22/22 11:22 AM documented in this encounter Plan of Treatment Upcoming Encounters Date Type Department Care Team (Late st Contact Info) Description 09/14/2024 8:00 AM EDT [place] [address] Alie Arshad PA [facility] [place] [place] [address] documented as of this encounter Goals Goal Patient Goal Type Associated Problems Recent Progress Patient-Stated? Author Prevention of ms relapse Patient Facing Action Plan On track( 024 2:11 PM EDT) No Rock Valenzuela [facility] Note: Delay disease progression as measured by radiographic finding as well as clinical presentation to be measured every 6 months and ongoing. documented as of this encounter Visit Diagnoses Not on filedocumented in this encounter Care Teams Home Health Billing Specialist Relationship Specialty Start Date End Date Kevan Angel DO [address] [place] [address] [address] [place] [address] PCP - General 08/07/11 documented as of this encounter
--- OUTSIDE RECORDS SUMMARY | 2024-04-05 17:30 | XMS_ITS | Encounter Summary ---
[place] [address] Care Team Providers Care Enrollment Services Vice President Name Role Phone StanleyKevan bowen Primary Care Provider [phone] Encounter Details Date Type Department Care Team (Late st Contact Info) Description 12/25/2021 [place] [phone] Alie Arshad PA [facility] [place] [address] Social History Tobacco Use Types Packs/Day Years [...] 8:00 AM EDT [place] [phone] Alie Arshad PA [facility] [place] [address] documented as of this encounter Goals Goal Patient Goal Type Associated Problems Recent Progress Patient-Stated? Author Prevention of ms relapse Patient Facing Action Plan On track( 024 2:11 PM EDT) Rock Desir, [facility] Note: Delay disease progression as measured by radiographic finding as well as clinical presentation to be measured every 6 months and ongoing. documented as of this encounter Visit Diagnoses Not on filedocumented in this encounter Care Teams Enrollment Services Vice President Relationship Specialty Start Date End Date Kevan Angel DO [address] [place] [address] [address] [facility] [address] [place] [address] PCP - General 08/07/11 documented as of this encounter
--- OUTSIDE RECORDS SUMMARY | 2024-04-05 17:30 | XMS_ITS | Encounter Summary ---
Author Organization [place] [address] Care Team Providers Care Shoe Planner Name Role Phone Kevan Angel Primary Care Provider Encounter Details Date Type Department Care Team (Latest Contact Info) Description 08/22/2022 Travel Social History Tobacco Use Types Packs/Day [...] 8:00 AM EDT Office [place] [address] Alie Arshad PA [facility] [place] [address] documented as of this encounter Goals Goal Patient Goal Type Associated Problems Recent Progress Patient-Stated? Author Prevention of ms relapse Patient Facing Action Plan On track( 024 2:11 PM EDT) No Rock Valenzuela, [facility] Note: Delay disease progression as measured by radiographic finding as well as clinical presentation to be measured every 6 months and ongoing. documented as of this encounter Visit Diagnoses Not on filedocumented in this encounter Care Teams Shoe Planner Relationship Specialty Start Date End Date Kevan Angel DO [address] [facility] [address] [facility] [address] [place] [address] PCP - General 08/07/11 documented as of this encounter
--- OUTSIDE RECORDS SUMMARY | 2024-04-05 17:30 | XMS_ITS | Encounter Summary ---
[place] [address] Care Team Providers Care Physiological Chemist Name Role Phone StanleyKevan bowen Primary Care Provider Reason for Visit * Reason Comments Specialty Refill Management Encounter Details Date Type Department Care Team (Late st Contact Info) Description 09/06/2020 Specialty [place] [address] Jose Fournier [facility] Social History Tobacco Use Types Packs/Day [...] as of this encounter Progress Notes * Jose Souza RPH - 09/06/2020 10:45 AM EDT Clinical Management Plan: Refill Specialty Pharmacy Consultation; Jose Souza RPH Comprehensive Medication Management (CMM) Maritza Rocio Cali Ms. Maritza ParishckGustabo is a 60 y.o. (1960) female who [...] (compared to [facility] med list) No Specialty Pharmacy Refill Questionnaire Refill Questionnaire 09/06/2020 What is the name of the specialty medication you are refilling? Rebif Are you taking any new medications? No Any new medical condition? No Any new allergies? No Any new side effects that are bothersome? No What date will you need this fill by? 09/13/2020 Adherence: Any missed doses? No Patient understands no changes to current drug regimen were made.. Jose Souza RPH 09/06/20 10:46 AM documented in this encounter Plan of Treatment Upcoming Encounters Date Type Department Care Team (Late st Contact Info) Description 09/14/2024 8:00 AM EDT [place] [address] Alie Arshad PA [facility] [place] [address] documented as of this encounter Visit Diagnoses Not on filedocumented in this encounter Care Teams Physiological Chemist Relationship Specialty Start Date End Date Kevan Angel DO [address] [place] [address] [address] [facility] 1 [place] [address] PCP - General 08/07/11 documented as of this encounter
--- OUTSIDE RECORDS SUMMARY | 2024-04-05 17:30 | XMS_ITS | Encounter Summary ---
[place] [address] Care Team Providers Care Slot Machine Floor Person Name Role Phone StanleyKevan bowen Primary Care Provider [phone] Reason for Visit * Reason Comments Patient Education Encounter Details Date Type Department Care Team (Late st Contact Info) Description 05/01/2022 Specialty Pharm[place] [address] Rock Valenzuela [facility] Social History Tobacco Use Types Packs/Day [...] Progress Notes * Rock Valenzuela RPH - 05/01/2022 11:59 PM EST Specialty Pharmacy Consultation; Rock Valenzuela Jared Comprehensive Medication Management (CMM): Specialty Consult, Opt Out Maritza Hinesy Diagnosis: MS Therapy Start Date: 07/2002 Contact in person or via telephone: phone [...] pharmacy consult per her conversation with our hydraulic controls technician. She has usp stability on medication and knows to contact pharmacy with any new questions or concerns. Economic Assessment: Patient is agreeable to medication copay: Yes Copay Amount: $1400, paid by r. Actual payment = $0 Day Supply: 28 Date Needed: 05/08/22 Therapy Assessment: Appropriate Therapy: Yes Current Medication [...] Reviewed:Yes Allergies reconciled: No Pharmacist follow-up needed: No Informed patient of specialty pharmacy services: Yes Welcome Packet and Rights and Responsibilities: Patient [...] review and follow up. Rock Valenzuela RPH 05/02/22 3:08 PM documented in this encounter Plan of Treatment Upcoming Encounters Date Type Department Care Team (Late st Contact Info) Description 09/14/2024 8:00 AM EDT Office [place] [address] Alie Arshad PA [facility] [place] [address] documented as of this encounter Goals Goal Patient Goal Type Associated Problems Recent Progress Patient-Stated? Author Prevention of ms relapse Patient Facing Action Plan On track( 024 2:11 PM EDT) Rock Desir, [facility] Note: Delay disease progression as measured by radiographic finding as well as clinical presentation to be measured every 6 months and ongoing. documented as of this encounter Visit Diagnoses Not on filedocumented in this encounter Care Teams Slot Machine Floor Person Relationship Specialty Start Date End Date Kevan Angel DO [address] [place] [address] PCP - General 08/07/11 documented as of this encounter
--- OUTSIDE RECORDS SUMMARY | 2024-04-05 17:30 | XMS_ITS | Encounter Summary ---
[place] [address] Care Team Providers Care Kennel Keeper Name Role Phone StanleyKevan bowen Primary Care Provider [phone] Reason for Visit * Reason Comments Specialty Refill Management Encounter Details Date Type Department Care Team (Late st Contact Info) Description 02/06/2021 Specialty [place] [address] Sarkis Tamez CPHT Social History Tobacco Use [...] encounter Progress Notes * Sarkis Tamez - 02/06/2021 11:37 AM EDT Clinical Management Plan: Refill Specialty [...] Known Allergies Medication Reconciliation Discrepancies (compared to [facility] med list) No Specialty Pharmacy Refill Questionnaire Refill Questionnaire 02/06/2021 What is the name of the specialty medication you are refilling? - Are you taking any new medications? No Any new medical condition? No Any new allergies? No Any new side effects that are bothersome? No What date will you need this fill by? 02/16/2021 Adherence: Any missed doses? No Patient understands no changes to current drug regimen were made. Sarkis Tamez 02/06/21 11:38 AM documented in this encounter Plan of Treatment Upcoming Encounters Date Type Department Care Team (Late st Contact Info) Description 09/14/2024 8:00 AM EDT [place] [address] Alie Arshad PA [facility] [place] [address] documented as of this encounter Visit Diagnoses Not on filedocumented in this encounter Care Teams Kennel Keeper Relationship Specialty Start Date End Date Kevan Angel DO [address] [place] [address] PCP - General 08/07/11 documented as of this encounter
--- OUTSIDE RECORDS SUMMARY | 2024-04-05 17:30 | XMS_ITS | Encounter Summary ---
[place] [address] Care Team Providers Care Automotive General Sales Manager Name Role Phone StanleyKevan bowen Primary Care Provider [phone] Reason for Visit * Reason Comments Medication Management Encounter Details Date Type Department Care Team (Late st Contact Info) Description 06/20/2021 Specialty [place] [address] Amber Roblero V, [facility] Social History Tobacco Use Types [...] Progress Notes * Amber Roblero RPH - 06/20/2021 12:38 PM EST Clinical Management Plan: Refill Specialty Pharmacy Consultation; Amber Roblero RPH Comprehensive Medication Management (CMM) Maritza L Cali Ms. Maritza Chan MarlySoniBen is a 61 y.o. (1960) female who [...] Known Allergies Medication Reconciliation Discrepancies (compared to [facility] med list) No Specialty Pharmacy Refill Questionnaire Refill Questionnaire 06/20/2021 What is the name of the specialty medication you are refilling? Rebif Are you taking any new medications? No Any new medical condition? No Any new allergies? No Any new side effects that are bothersome? No What date will you need this fill by? 07/04/2021 Adherence: Any missed doses? No Patient understands no changes to current drug regimen were made. Amber Roblero RPH 06/20/21 12:39 PM documented in this encounter Plan of Treatment Upcoming Encounters Date Type Department Care Team (Late st Contact Info) Description 09/14/2024 8:00 AM EDT [place] [address] [facility] [place] [address] documented as of this encounter Goals Goal Patient Goal Type Associated Problems Recent Progress Patient-Stated? Author Prevention of ms relapse Patient Facing Action Plan On track( 024 2:11 PM EDT) No Rock Valenzuela [facility] Note: Delay disease progression as measured by radiographic finding as well as clinical presentation to be measured every 6 months and ongoing. documented as of this encounter Visit Diagnoses Not on filedocumented in this encounter Care Teams Automotive General Sales Manager Relationship Specialty Start Date End Date Kevan Angel DO [address] [place] [address] [address] [facility] 1 [place] [address] PCP - General 08/07/11 documented as of this encounter
--- OUTSIDE RECORDS SUMMARY | 2024-04-05 17:30 | XMS_ITS | Encounter Summary ---
[place] [address] Care Team Providers Care Register Of Deeds Name Role Phone Kevan Angel Primary Care Provider Reason for Visit * Reason Comments Specialty Pharmacy Review Encounter Details Date Type Department Care Team (Late st Contact Info) Description 06/11/2022 Specialty [place] [address] Rock Valenzuela [facility] Social History [...] Progress Notes * Rock Valenzuela RPH - 06/11/2022 11:59 PM EST The [facility] has completed a benefits investigation for Maritza Chan Cali to review their eligibility to fill at [facility]. Per patient's medication list they are prescribed Rebif and the medication is able to be filled at the [facility]. documented in this encounter Plan of Treatment Upcoming Encounters Date Type Department Care Team (Late st Contact Info) Description 09/14/2024 8:00 AM EDT [place] [address] Alie Arshad PA [facility] [place] [address] documented as of this encounter Goals Goal Patient Goal Type Associated Problems Recent Progress Patient-Stated? Author Prevention of ms relapse Patient Facing Action Plan On track( 024 2:11 PM EDT) Rock Desir, [facility] Note: Delay disease progression as measured by radiographic finding as well as clinical presentation to be measured every 6 months and ongoing. documented as of this encounter Visit Diagnoses Not on filedocumented in this encounter Care Teams Register Of Deeds Relationship Specialty Start Date End Date Kevan Angel DO [address] [place] [address] PCP - General 08/07/11 documented as of this encounter
--- OUTSIDE RECORDS SUMMARY | 2024-04-05 17:30 | XMS_ITS | Encounter Summary ---
[place] [address] Care Team Providers Care Ceramic Designer Name Role Phone Stanley, Kevan PHELPS Primary Care Provider Reason for Visit * Reason Comments Medication Management Encounter Details Date Type Department Care Team (Late st Contact Info) Description 08/06/2022 Specialty Pharmacy [place] [address] Rock Valenzuela [facility] Social History Tobacco Use Types Packs/Day [...] Progress Notes * Rock Valenzuela RPH - 08/06/2022 11:59 PM EDT Specialty Pharmacy Consultation; Rock Valenzuela RPH Comprehensive Medication Management (CMM): Specialty Consult, Intervention Maritza Leiva Diagnosis: MS Contact in person or via telephone: [facility] Ms. Maritza Leiva is a 62 y.o. (1960) female who was contacted in regard to specialty medication intervention. Spoke with patient regarding Rebif. Specialty Pharmacy Intervention: Intervention Category (Nature of Intervention): Lab or Immunization Recommendation, Other Lab/Immunization Recommendations: Pharmacist communicated with patient to coordinate collection of labs, Pharmacist placed order or coordinated placement of an order for a safety lab Other Interventions: Schedule or coordinate follow up (in clinic) Prescriber accepted response (Prescriber accept Intervention): Accepted Recommendation: Last labs were obtained in 2019 and last office visit was in 2020. Communicated need for follow to patient and provider. Outcome: Labs and appointment completed on 08/22/2022. Rock Valenzuela RPH 09/18/22 9:25 AM documented in this encounter Plan of Treatment Upcoming Encounters Date Type Department Care Team (Late st Contact Info) Description 09/14/2024 8:00 AM EDT Office [place] [address] Alie Arshad PA [facility] [place] [address] documented as of this encounter Goals Goal [...] sclerosis documented in this encounter Care Teams Ceramic Designer Relationship Specialty Start Date End Date eKvan Angel DO [address] [facility] [address] [place] [address] PCP - General 08/07/11 documented as of this encounter
--- OUTSIDE RECORDS SUMMARY | 2024-04-05 17:30 | XMS_ITS | Encounter Summary ---
Author Organization On License Of [place] [address] Care Team Providers Care Bonded Structures Repairer Name Role Phone StanleyKevan bowen Primary Care Provider Reason for Visit * Reason Onset Date Comments Appointment 05/24/2022 Encounter Details Date Type Department Care Team (Late st Contact Info) Description 05/24/2022 [place] [address] Alie Arshad PA [facility] [place] [address] Appointment Social History Tobacco Use Types Packs/Day Years [...] encounter Miscellaneous Notes * Telephone Encounter - Ruby Camacho - 05/24/2022 12:12 PM EST Scheduling Instructions Provider: Pavithra Visit Type (paste AUGUSTUS Instructions or manually enter): myDH (follow-up) or FUV If EMG Visit needed list diagnosis for the EMG to be used in Decision Tree: Appt Note: Follow-up - Multiple sclerosis Additional Info Needed: * Telephone Encounter - Ruby Camacho - 05/24/2022 12:11 PM EST ----- Message from KALA Paredes sent at 05/14/2022 4:15 PM EST ----- Regarding: RE: OV/labs Appears pt is overdue for a f/u. Can be inperson or tH (offer my Fridays first if she chooses TH). KG ----- Message ----- From: Rock Valenzuela RPH Sent: 05/14/2022 1:36 PM EST To: KALA Paredes Subject: OV/labs Rios Cervantes FYI: I was reviewing Maritza's chart and noticed her last OV was in September 2020 and last labs were March 2019. Rock Shi documented in this encounter Plan of Treatment Upcoming Encounters Date Type Department Care Team (Late st Contact Info) Description 09/14/2024 8:00 AM EDT [place] [address] Alie Arshad PA [facility] [place] [address] documented as of this encounter Goals Goal [...] on filedocumented in this encounter Care Teams Bonded Structures Repairer Relationship Specialty Start Date End Date Kevan Angel DO [address] [place] [address] [address] [place] [address] PCP - General 08/07/11 documented as of this encounter
--- OUTSIDE RECORDS SUMMARY | 2024-04-05 17:30 | XMS_ITS | Encounter Summary ---
[place] [address] Care Team Providers Care Chief Substation Operator Name Role Phone StanleyKevan bowen Primary Care Provider [phone] Reason for Visit * Reason Comments Specialty Refill Management Encounter Details Date Type Department Care Team (Late st Contact Info) Description 05/30/2022 Specialty [place] [address] Veronica Cunningham CPHT Social History Tobacco Use [...] Progress Notes * Veronica Cunningham CPHT - 05/30/2022 9:23 AM EST Clinical Management Plan: Refill Specialty Pharmacy Consultation; Veronica Cunningham CPHT Comprehensive Medication Management (CMM) Maritza Leiva Ms. Maritza Chan Cali is a 62 y.o. (1960) female who [...] Known Allergies Medication Reconciliation Discrepancies (compared to [facility] med list) No Specialty Pharmacy Refill Questionnaire Refill Questionnaire 05/30/2022 What is the name of the specialty medication you are refilling? Rebif Are you taking any new medications? No Any new medical condition? No Any new allergies? No Any new side effects that are bothersome? No What date will you need this fill by? 06/07/2022 Adherence: Any missed doses? No Patient understands no changes to current drug regimen were made. Veronica Cunningham CPHT 05/30/22 9:24 AM documented in this encounter Plan of Treatment Upcoming Encounters Date Type Department Care Team (Late st Contact Info) Description 09/14/2024 8:00 AM EDT Office [place] [address] Alie Arshad PA [facility] [place] [address] documented as of this encounter Goals Goal Patient Goal Type Associated Problems Recent Progress Patient-Stated? Author Prevention of ms relapse Patient Facing Action Plan On track( 024 2:11 PM EDT) No Rock Valenzuela, [facility] Note: Delay disease progression as measured by radiographic finding as well as clinical presentation to be measured every 6 months and ongoing. documented as of this encounter Visit Diagnoses Not on filedocumented in this encounter Care Teams Chief Substation Operator Relationship Specialty Start Date End Date Kevan Angel DO [address] [place] [address] [address] [place] [address] PCP - General 08/07/11 documented as of this encounter
--- OUTSIDE RECORDS SUMMARY | 2024-04-05 17:30 | XMS_ITS | Encounter Summary ---
[place] [address] Care Team Providers Care Counter Intelligence Agent Name Role Phone Kevan Angel DO Primary Care Provider [phone] Encounter Details Date Type Department Care Team (Late st Contact Info) Description 04/27/2021 Specialty Pharm[place] [phone] Devon Castellano, [facility] Social History Tobacco Use Types [...] this encounter Progress Notes * Devon Castellano - 04/27/2021 9:45 AM EST Clinical Management Plan: Refill Specialty Pharmacy Consultation; Devon Castellano Comprehensive Medication Management (CMM) Maritza Chan Cali Ms. Maritza Chan MarlySoniBen is a [...] Known Allergies Medication Reconciliation Discrepancies (compared to [facility] med list) No Specialty Pharmacy Refill Questionnaire Refill Questionnaire 04/27/2021 What is the name of the specialty medication you are refilling? Rebif Are you taking any new medications? No Any new medical condition? No Any new allergies? No Any new side effects that are bothersome? No What date will you need this fill by? 05/04/2021 Adherence: Any missed doses? No Patient understands no changes to current drug regimen were made. Devon Castellano 04/27/21 11:40 AM documented in this encounter Plan of Treatment Upcoming Encounters Date Type Department Care Team (Late st Contact Info) Description 09/14/2024 8:00 AM EDT Office [place] [address] Alie Arshad PA [facility] [place] [place] [address] documented as of this encounter Visit Diagnoses Not on filedocumented in this encounter Care Teams Counter Intelligence Agent Relationship Specialty Start Date End Date Kevan Angel DO [address] [place] [address] PCP - General 08/07/11 documented as of this encounter
--- OUTSIDE RECORDS SUMMARY | 2024-04-05 17:30 | XMS_ITS | Encounter Summary ---
[place] [address] Care Team Providers Care Insurance Examining Clerk Name Role Phone Stanley, Kevan PHELPS Primary Care Provider [phone] Reason for Referral * Diagnostic Test (Routine) - Closed Specialty Diagnoses / Procedures Referred By Contac t Referred To Contact Radiology Diagnoses Multiple sclerosis Procedures MRI Brain wwo Contrast (Generic) Alie Arshad PA [facility] [place] [address] [place] [address] Referral ID Status Reason Start Date Expiration Date V isits Requested Visits Authorized [id number] Closed Specialty Service Requested 09/29/2020 03/27/2021 1 1 Reason for Visit * Diagnostic Test (Routine) - Closed Specialty Diagnoses / Procedures Referred By Contac t Referred To Contact Radiology Diagnoses Multiple sclerosis Procedures MRI Brain wwo Contrast (Generic) Alie Arshad PA [facility] [place] [address] [place] [address] Referral ID Status Reason Start Date Expiration Date V isits Requested Visits Authorized [id number] Closed Specialty Service Requested 09/29/2020 03/27/2021 1 1 Encounter Details Date Type Department Care Team (Latest Contact Info) Description 10/09/2020 12:21 PM EDT - 10/09/2020 11:59 PM EDT Hospital [place] [address] Raimundo Cancino MD [facility] [place] [address] Multiple sclerosis Discharge Disposition: Home Social History Tobacco Use [...] on file documented as of this encounter Medications at Time of Discharge Medication Sig Dispensed Refills Start Date End Date losartan (COZAAR) 50 mg Tablet Take 50 mg by mouth daily. 0 01/15/2019 hydroCHLOROthiazide (HYDRODIURIL) 25 mg Tablet Take 25 mg by mouth daily. 0 09/21/2018 aspirin 81 mg Tablet, Delayed Release (E.C.) Take 81 mg by mouth daily. interferon beta-1a, albumin, (Rebif, with albumin,) 44 mcg/0.5 mL Syringe Inject 0.5 mLs subcutaneously three times a week. 12 Syringe 11 01/21/2020 12/07/2020 traZODone (DESYREL) 50 mg tablet Take 1 tablet by mouth nightly as needed for Sleep. 90 tablet 3 09/09/2013 09/17/2022 documented as of this encounter Plan of Treatment Upcoming Encounters Date Type Department Care Team (Late st Contact Info) Description 09/14/2024 8:00 AM EDT [place] [address] Alie Arshad PA [facility] [place] [place] [address] documented as of this encounter Procedures Procedure Name Priority Date/Time Associated Diagnosis Comments MRI BRAIN WWO CONTRAST (GENERIC) Routine 10/09/2020 1:24 PM EDT Multiple sclerosis documented in this encounter Results * MRI Brain wwo Contrast (Generic) (10/09/2020 1:24 PM EDT) Anatomical Region Laterality Modality Head Magnetic Resonan ce Impressions 10/09/2020 4:27 PM EDT Findings consistent with multiple sclerosis. No new lesion or abnormal enhancement. Thank you for letting us participate in the care of this patient. ??If you are a health care provider and have any questions regarding this report, please contact the number below. ??For patients who have questions please contact the health child day care provider that requested your imaging first. ? Narrative 10/09/2020 4:27 PM EDT EXAMINATION: MRI BRAIN WWO CONTRAST (GENERIC) CLINICAL HISTORY: Multiple sclerosis, monitor TECHNIQUE: MRI of the brain was performed before and after the intravenous administration of 10cc Dotarem. COMPARISON: 01/11/2020, 09/06/2010, 07/27/2009 FINDINGS: There are multiple areas of T2 signal abnormality in the white matter of both cerebral hemispheres predominantly involving periventricular white matter. No new white matter lesion identified. There is no abnormal enhancement. The degree of generalized parenchymal volume loss is similar. No new mass effect or shift. There is no restricted diffusion. Procedure Note Melecio Keyes MD - 10/09/2020 EXAMINATION: MRI BRAIN WWO CONTRAST (GENERIC) CLINICAL HISTORY: Multiple sclerosis, monitor TECHNIQUE: MRI of the brain was performed before and after the intravenousadministration of 10cc Dotarem. COMPARISON: 01/11/2020, 09/06/2010, 07/27/2009 FINDINGS: There are multiple areas of T2 signal abnormality in the white matter ofboth cerebral hemispheres predominantly involving periventricular white matter.No new white matter lesion identified. There is no abnormal enhancement. Thedegree of generalized parenchymal volume loss is similar. No new mass effect orshift. There is no restricted diffusion. IMPRESSION Findings consistent with multiple sclerosis. No new lesion or abnormal enhancement. Thank you for letting us participate in the care of this patient. If youare a health care provider and have any questions regarding this report,please contact the number below. For patients who have questions please contactthe health child day care provider that requested your imaging first. Raimundo Cancino MD IMG MRI ORDERABLES documented in this encounter Visit Diagnoses Diagnosis Multiple sclerosis documented in this encounter Administered Medications Inactive Administered Medications - up to 3 most recent administrations Medication Order MAR Action Action Date Dose Rate Site gadoterate meglumine (Dotarem) (0.5 mMol/mL) injection solution 0-100 mL 0-100 mL, Intravenous, ONCE PRN, 1 dose, Starting on Fri10/09/20 at 1324, Until Fri10/09/20 at 1325, Per Protocol, Radiology Contrast, Routine Given 10/09/2020 1:25 PM EDT 10 mLs documented in this encounter Care Teams Insurance Examining Clerk Relationship Specialty Start Date End Date Kevan Angel DO [address] [place] [address] [address] [place] [address] PCP - General 08/07/11 documented as of this encounter
--- OUTSIDE RECORDS SUMMARY | 2024-04-05 17:30 | XMS_ITS | Encounter Summary ---
Author Organization [facility] Address [facility] [place] [address] Care Team Providers Care Sight Mounter Name Role Phone StanleyKevan bowen Primary Care Provider Reason for Visit * Reason Onset Date Comments Other 11/17/2020 Encounter Details Date Type Department Care Team (Late st Contact Info) Description 11/17/2020 [place] [address] Alie Arshad PA [facility] [place] [address] Other Social History Tobacco Use Types Packs/Day [...] Telephone Encounter - Pratibha Vera RN - 11/17/2020 1:41 PM EDT I phoned [facility] [employer] and spoke with cost reduction staff. Request submitted over the phone for tier/cost reduction. I was informed it could take 24-48 hrs for answer. They hope by Tuesday 11/21 the latest we will have an answer. We will not know how much the cost will be reduced by if this request is approved. Plan: as above. Will wait for response. * Telephone Encounter - Neris Osborne - 11/17/2020 11:55 AM EDT Call Center / Canvas Marker Message - General Issue Call Provider patient sees in Clinic: Pavithra Caller and relationship (if other than patient-full name): Alan from [facility] Call back number: Ok to leave a message: Y Reason for call: Alan from [facility] calling about the Prior Authorization for Rebif Alan is callingabout a tier cost request and to approve the prior auth over the phone. Disposition of Call (choose one and remove others): ??? Red Arrow Message Reason red arrow Message: y Nurse/Canvas Marker contacted via: Message: y Call: y Pager: n documented in this encounter Plan of Treatment Upcoming Encounters Date Type Department Care Team (Late st Contact Info) Description 09/14/2024 8:00 AM EDT [place] [address] Alie Arshad PA [facility] [place] [place] [address] documented as of this encounter Visit Diagnoses Not on filedocumented in this encounter Care Teams Sight Mounter Relationship Specialty Start Date End Date Kevan Angel DO [address] [place] [address] PCP - General 08/07/11 documented as of this encounter
--- OUTSIDE RECORDS SUMMARY | 2024-04-05 17:30 | XMS_ITS | Encounter Summary ---
[place] [address] Care Team Providers Care Drink Waiter Name Role Phone Kevan Angel Primary Care Provider [phone] Reason for Visit * Reason Comments Prior Authorization Rebif 44MCG/0.5ML SO SY Encounter Details Date Type Department Care Team (Late st Contact Info) Description 10/19/2021 Specialty [place] [address] Page Davis, AUTO COLLISION REPAIR INSTRUCTOR Social History Tobacco Use Types Packs/Day Years Used Date Smoking Tobacco: Former Cigarettes 0 09/06/1981 - 09/06/1993 Smokeless Tobacco: Never Alcohol Use Standard Drinks/Week Comments No 0 (1 standard drink = 0.6 oz pur e alcohol) [facility] Inpatient Questions Answer Date Recorded Does Anyone [...] of this encounter Progress Notes * Page aDvis - 10/19/2021 12:34 PM EDT [facility], Medication Prior Authorization Submission Patient: Maritza Leiva Patient : 1960 Patient Address: [address] [address] (home) Medication Name: INTERFERON BETA-1A (ALBUMIN) 44 MCG/0.5 ML SUBCUTANEOUS SYRINGE Medication ID: [id number] Subscriber Insurance: Unable to find Subscriber Insurance Comment: [facility] Fax: Physician: DEANN VU Physician Comment: Sent Via: [facility] Cr: [id number] Ref/Case/PA#: [id number] Medication Strength Frequency Requested: Rebif 44Mcg/0.5Ml SOSY, Inject 0.5 Mls subcutaneously three times per week Qty/Day Supply: 04/10 New Start: Renewal Diagnosis & ICD-10 Code: Multiple Sclerosis G35 Patient Notified: Yes Submission Notes: [id number] PA RE-AUTH INITIATED VIA [facility], CR# [id number] - KALA . Page Davis 10/19/21 12:38 PM * Page Davis - 10/19/2021 12:34 PM EDT [facility], Prior Authorization Approval Medication Name: INTERFERON BETA-1A (ALBUMIN) 44 MCG/0.5 ML SUBCUTANEOUS SYRINGE Medication ID: [id number] Approval Dates: 10/19/2021 to 10/19/2022 Insurance requirements/notes: None Other Notes: None Case/Reference #: [id number] Approval notification Received via: [facility] Copay: $0.00 Copay assistance: Copay Notes: Insurance mandated Pharmacy: Fillable at [facility]: Yes Pharmacy staff will be reaching out to the patient to inform them of their medication's approval bytheir insurance. If applicable, a pharmacist will speak with the patient to offer our specialty pharmacy services and to arrange delivery of their medication. Page Davis 10/19/21 2:25 PM documented in this encounter Plan of Treatment Upcoming Encounters Date Type Department Care Team (Late st Contact Info) Description 09/14/2024 8:00 AM EDT [place] [address] Deann Vu PA [facility] [place] [address] documented as of this encounter Goals Goal [...] on filedocumented in this encounter Care Teams Drink Waiter Relationship Specialty Start Date End Date Kevan Angel DO [address] [place] [address] [address] [facility] [address] [place] [address] PCP - General 08/07/11 documented as of this encounter
--- OUTSIDE RECORDS SUMMARY | 2024-04-05 17:30 | XMS_ITS | Encounter Summary ---
[place] [address] Care Team Providers Care Compliance Field Technician Name Role Phone StanleyKvean bowen Primary Care Provider Reason for Visit * Reason Comments Specialty Refill Management Encounter Details Date Type Department Care Team (Late st Contact Info) Description 01/11/2022 Specialty [place] [address] Dannie Brooks [facility] Social History Tobacco Use [...] Progress Notes * Dannie Brooks RPH - 01/11/2022 10:35 AM EDT Clinical Management Plan: Refill Specialty Pharmacy Consultation; Dannie Brooks Jared Comprehensive Medication Management (CMM) Maritza Chan Cali Ms. Maritza ParishckdionteBen is a 61 y.o. (1960) female who [...] Reconciliation Discrepancies (compared to [facility] med list) No Specialty Pharmacy Refill Questionnaire Refill Questionnaire 01/11/2022 What is the name of the specialty medication you are refilling? rebif Are you taking any new medications? No Any new medical condition? No Any new allergies? No Any new side effects that are bothersome? No What date will you need this fill by? 01/18/2022 Adherence: Any missed doses? No Patient understands no changes to current drug regimen were made. Dannie Brooks RPH 01/11/22 10:36 AM documented in this encounter Plan of Treatment Upcoming Encounters Date Type Department Care Team (Late st Contact Info) Description 09/14/2024 8:00 AM EDT Office [place] [address] Alie Arshad PA [facility] [place] [address] documented as of this encounter Goals Goal [...] on filedocumented in this encounter Care Teams Compliance Field Technician Relationship Specialty Start Date End Date Kevan Angel DO [address] [place] [address] [address] [place] [address] PCP - General 08/07/11 documented as of this encounter
--- OUTSIDE RECORDS SUMMARY | 2024-04-05 17:30 | XMS_ITS | Encounter Summary ---
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 [address] [place] [phone] Referral ID Status Reason Start Date Expiration Date V isits Requested Visits Authorized [id number] Closed Specialty Service Requested 08/22/2022 08/22/2023 1 1 Encounter Details Date Type Department Care Team (Late st Contact Info) Description 08/22/2022 Orders Only Vascular Surgery at [address] [address] Tariq Hood APRN [facility] [place] [address] Varicose veins of right lower extremity with [...] 8:00 AM EDT [place] [address] Alie Arshad PA [facility] [place] [address] documented as of this encounter Goals Goal [...] and ongoing. documented as of this encounter Results * LE Unilateral Valvular Incomp Study (09/17/2022 2:12 PM EDT) VB Text Report Department: Vascular Surgery Lab Patient: [id number] (YAMILA REYNOLDS) CPT: 89341 Referring Physician: TARIQ HOOD ?? Phone: Indications: [...] edema documented in this encounter Care Teams Route Salesman Relationship Specialty Start Date End Date Kevan Angel DO [address] [place] [address] [address] [place] [address] PCP - General 08/07/11 documented as of this encounter
--- OUTSIDE RECORDS SUMMARY | 2024-04-05 17:30 | XMS_ITS | Encounter Summary ---
[place] [address] Care Team Providers Care Acting Instructor Name Role Phone StanleyKevan bowen Primary Care Provider Reason for Visit * Reason Comments Specialty Refill Management Encounter Details Date Type Department Care Team (Late st Contact Info) Description 03/06/2022 Specialty [place] [address] Veronica Cunningham CPHT Social History Tobacco Use [...] Progress Notes * Veronica Cunningham CPHT - 03/06/2022 10:49 AM EST Clinical Management Plan: Refill Specialty Pharmacy Consultation; Veronica Cunningham CPHT Comprehensive Medication Management (CMM) Maritzaanthony Leiva Ms. Maritza Chan Cali is a [...] Reconciliation Discrepancies (compared to [facility] med list) No Specialty Pharmacy Refill Questionnaire Refill Questionnaire 03/06/2022 What is the name of the specialty medication you are refilling? Rebif Are you taking any new medications? No Any new medical condition? No Any new allergies? No Any new side effects that are bothersome? No What date will you need this fill by? 03/14/2022 Adherence: Any missed doses? No Patient understands no changes to current drug regimen were made. Veronica Cunningham CPHT 03/06/22 10:50 AM documented in this encounter Plan of Treatment Upcoming Encounters Date Type Department Care Team (Late st Contact Info) Description 09/14/2024 8:00 AM EDT Office [place] [address] [facility] [place] [address] documented as of this encounter Goals Goal [...] on filedocumented in this encounter Care Teams Acting Instructor Relationship Specialty Start Date End Date Kevan Angel DO [address] [place] [address] [address] [place] [address] PCP - General 08/07/11 documented as of this encounter
--- OUTSIDE RECORDS SUMMARY | 2024-04-05 17:30 | XMS_ITS | Encounter Summary ---
[place] [address] Care Team Providers Care Clinical Reviewer Name Role Phone StanleyKevan bowen Primary Care Provider Reason for Visit * Reason Comments Specialty Refill Management Encounter Details Date Type Department Care Team (Late st Contact Info) Description 10/23/2020 Specialty [place] [address] Page Davis, [facility] Social History Tobacco Use Types Packs/Day Years [...] encounter Progress Notes * Page Davis - 10/23/2020 12:14 PM EDT Clinical Management Plan: Refill Specialty [...] Medication Reconciliation Discrepancies (compared to [facility] med list) No Specialty Pharmacy Refill Questionnaire Refill Questionnaire 10/23/2020 What is the name of the specialty medication you are refilling? Rebif 44MCG/0.5ML SOSY Are you taking any new medications? No Any new medical condition? No Any new allergies? No Any new side effects that are bothersome? No What date will you need this fill by? 10/30/2020 Adherence: Any missed doses? No Patient understands no changes to current drug regimen were made.. Page Davis 10/23/20 12:19 PM documented in this encounter Plan of Treatment Upcoming Encounters Date Type Department Care Team (Late st Contact Info) Description 09/14/2024 8:00 AM EDT [place] [address] Alie Arshad PA [facility] [place] [address] documented as of this encounter Visit Diagnoses Not on filedocumented in this encounter Care Teams Clinical Reviewer Relationship Specialty Start Date End Date Kevan Angel DO [address] [place] [address] [address] [place] [address] PCP - General 08/07/11 documented as of this encounter
--- OUTSIDE RECORDS SUMMARY | 2024-04-05 17:31 | XMS_ITS | Encounter Summary ---
[place] [address] Care Team Providers Care Assembly Mechanic Name Role Phone StanleyKevan bowen Primary Care Provider Encounter Details Date Type Department Care Team (Late st Contact Info) Description 06/16/2020 [place] [phone] Sarkis Tamez CPHT Social History Tobacco Use [...] encounter Miscellaneous Notes * Telephone Encounter - Sarkis Tamez - 06/16/2020 11:21 AM EST Clinical Management Plan: Refill Specialty Pharmacy Consultation; Sarkis Tamez Comprehensive Medication Management (CMM) Maritza Leiva Ms. Maritza Chan Cali is a 60 y.o. (1960) female who was contacted in regard to a specialty medication refill reminder. Spoke with patient regarding Rebif. A review of the medication therapywas performed. [...] [facility] med list) No New medications: No New medical conditions: No New allergies: No Adherence: Any missed doses? No Are you experiencing any side effects from your medications? No Patient understands no changes to current drug regimen were made.. Sarkis Tamez 06/16/20 11:21 AM documented in this encounter Plan of Treatment Upcoming Encounters Date Type Department Care Team (Late st Contact Info) Description 09/14/2024 8:00 AM EDT [place] [address] Alie Arshad PA [facility] [place] [address] documented as of this encounter Visit Diagnoses Not on filedocumented in this encounter Care Teams Assembly Mechanic Relationship Specialty Start Date End Date Kevan Angel DO [address] [facility] [facility] [address] [place] [address] PCP - General 08/07/11 documented as of this encounter
--- OUTSIDE RECORDS SUMMARY | 2024-04-05 17:31 | XMS_ITS | Encounter Summary ---
[place] [address] Care Team Providers Care Curtain Fitter Name Role Phone StanleyKevan bowen Primary Care Provider Reason for Visit * Reason Comments Patient Education Medication Management Follow-up Encounter Details Date Type Department Care Team (Late st Contact Info) Description 01/07/2019 Specialty [place] [address] Artemio Hazel [facility] Social History Tobacco Use Types Packs/Day Years [...] Progress Notes * Artemio Hazel RPH - 01/07/2019 11:59 PM EDT Specialty Pharmacy Consultation; Artemio Hazel RPH Comprehensive Medication Management (CMM) Maritza Chan Cali Diagnosis: MS Current Therapy Start Date: 07/2002 MS Diagnosis date (mm/yy): 11/1997 Prior MS therapy: none Contact in person or via telephone:telephone Ms. Maritza ParishckGustabo is a 59 y.o. (1960) female who was contacted in [...] the Clinical Assessment? Yes Summary and Recommendations: This discussion occurred on 01/04/19 but is not listed in chart. Reviewed and updated from pharmacy notes. Patient started Rebif in 2002. Patient has not had side effects related to injection nor has been on other therapies. Last relapse was 2001, prior to starting Rebif. Patient had no concerns; however, after trying Rebif Rebidose will likely be switching back to Rebif prefilled syringes in the near future. Patient may also be considering discontinuing therapy.The biggest concern today was thecopay assistance funding from press [employer] will need follow up as the card associated with the account is declining. This was resolved on 01/05 and shipped. Clinic follow-up needed: no Allergies and Drug intolerance: No Known Allergies Special Dietary or Hydration Requirements: no There is no height or weight on file to calculate BMI. Medication Reconciliation Discrepancies (compared to [facility] med list) no Medication Adherence Patient reported X missed doses in the last month: 0 Any gaps in refill history greater than 2 weeks in the last 3 months: no Demonstrates understanding of importance of adherence: yes Informant: patient Reliability of informant: reliable Provider-estimated medication adherence level: 90-100% Reasons for non-adherence: no problems identified Adherence tools used: directed education Support network for adherence: family member, healthcare provider Confirmed plan for next specialty medication refill: delivery by pharmacy Medication List: Current Outpatient Medications Medication Sig Dispense Refill ??? losartan (COZAAR) 50 mg Tablet Take 50 mg by mouth daily. 0 ??? interferon beta-1a, albumin, (REBIF, WITH ALBUMIN,) 44 mcg/0.5 mL Syringe Inject 0.5 mLs subcutaneously three times a week. 36 Syringe 1 ??? hydroCHLOROthiazide (HYDRODIURIL) 25 mg Tablet Take 25 mg by mouth daily. 0 ??? aspirin 81 mg Tablet, Delayed Release (E.C.) Take 81 mg by mouth daily. ??? traZODone (DESYREL) 50 mg tablet Take 1 tablet by mouth nightly as needed for Sleep. 90 tablet 3 No current facility-administered medications for this visit. Most Recent Vitals: Ht Readings from Last 1 Encounters: 03/25/19 154.9 cm (5' 1) Wt Readings from Last 3 Encounters: 03/25/19 49.7 kg (109 lb 9.6 oz) 11/12/18 53.5 kg (118 lb) 12/10/17 54 kg (119 lb) Temp Readings from Last 3 Encounters: No data found for Temp BP Readings from Last 3 Encounters: 03/25/19 158/88 11/12/18 170/89 12/10/17 169/90 Pulse Readings from Last 3 Encounters: 03/25/19 79 11/12/18 80 12/10/17 83 Pertinent Lab values: Lab Results Component Value [...] ??? Td, adult 10/03/2004 Assessment and Recommendations: Title Type of Medication Management: chronic disease management Referred By: provider Recipient: beneficiary Provider: plan sponsor pharmacist Visit Type: [facility] Follow-up Method of Contact: by telephone Cognitive Ability: good Cognitive Impairment Status Verified this Year: no Drug Interactions Provided the patient with educational material regarding drug interactions: yes Patient Counseling Counseled the patient on the following: medication safety precautions education provided, drug interaction education provided to patient, doses and administration discussed, safe handling, storage, and disposal discussed, possible adverse effects and management discussed, possible drug and prescription drug interactions discussed, possible drug and OTC drug and food interactions discussed, lab monitoring and follow-up discussed, therapeutic rationale discussed, cost of medications and cost implications discussed, adherence and missed doses discussed, pharmacy contact information discussed, monitoring medication discussed, preventative care discussed, reminder to refill or picker medication discussed, referral needs discussed Drug Medication Management Summary Topics discussed: medication safety precautions education provided, drug interaction education provided to patient, doses and administration discussed, safe handling, storage, and disposal discussed, possible adverse effects and management discussed, possible drug and prescription drug interactions discussed, possible drug and OTC drug and food interactions discussed, lab monitoring and follow-up discussed, therapeutic rationale discussed, cost of medications and cost implications discussed, adherence and missed doses discussed, pharmacy contact information discussed, monitoring medication discussed, preventative care discussed, reminder to refill or picker medication discussed, referral needs discussed Number of adverse drug events identified: 0 Time spent: 16-30 min Treatment Outcomes 06/23/2019 1138 Disease progression: Stable Patient Overall Status: Stable Reviewed in detail [...] use oldest product first Relevant lab data Patient verbalizes understanding and is able to read-back instructions on self-administration/injection, proper storage, drug stability, importance of adherence and management strategies, side effectavoidance and mitigation strategies, and interruptions in therapy: Yes Economic Assessment: Patient is agreeable to medication copay: yes Copay Amount: 50$ Day Supply: 28 Date Needed: 01/07/19 Copay assistance required: yes - on file, calling press [employer] to get approval Physical Assessment: Functional limitations identified: no Is patient a fall risk: no Cognitive limitations identified such as orientation, memory, reasoning or judgement: no Other: no Social Assessment: Does the patient have a primary clinical care leader? no Patient has emergency contact on file: Yes Does patient need referral to social work case manager: No Does patient need referral to advocacy group: No Physical and Home Health Assessment: Is the patient able to store their medication as directed? Yes Is the patient in a safe home environment? Yes Do you have a support network? Yes Reviewed potential home safety hazards: Yes Therapy Assessment: Appropriate Therapy: Yes Current Medication Dosing/Route/Frequency: Rebif Rebidose 44mcg three times weekly Effective: yes - no relapses in 17 years Recent Relapses: no Current pain rating (1-10): unreported Relapsing/Remitting Factors: optic neuritis, lower extremity numbness Patient experienced change in condition that affects treatment: no Patient experienced side effects from medication: no Occurrence of recent infections: no Administration issues identified: no Rotation of injection sites: Yes Medication room temperature prior to injection: Yes Patient Goals: Patient's specific desired goal: reduce risk for relapse and slow disease progression Measured by: MRI and symptom reports Time-frame to meet goal: ongoing Is the patient on track to achieve goals of therapy? yes Interventions (if applicable): No Additional care/services needed: no Educational information or adherence tools provided: Yes Additional equipment/supplies required: no Care Plan Reviewed and Approved by both Pharmacist and Patient: Yes Did Care Plan Change? No Informed patient of specialty pharmacy services: Yes -Patient received welcome packet: Yes Date Received: 12/11/18 Delivery Method: mail -Patient returned signed Rights & Responsibilities: No Date Received: 12/11/2018 Delivery Method: mail -Patient is aware a licensed pharmacist is available 24 hours a day, 7 days a week to discuss medication-related questions or concerns: Yes -Patient verbalizes understanding of education on the common side effect profile of the medication:Yes -The patient is able to call 911 or seek urgent care if signs/symptoms of allergy or harmful adverse reactions occur: Yes Patient Satisfaction with Therapy: yes - Patient understands no changes to current drug regimen were made at the appointment and that [facility] is[facility] (summary located at top of note) for provider review and follow up. Artemio Hazel RPH 06/23/19 11:39 AM documented in this encounter Plan of Treatment Upcoming Encounters Date Type Department Care Team (Late st Contact Info) Description 09/14/2024 8:00 AM EDT [place] [address] Alie Arshad PA [facility] [place] [address] documented as of this encounter Visit Diagnoses Not on filedocumented in this encounter Care Teams Curtain Fitter Relationship Specialty Start Date End Date Kevan Angel DO [address] [place] [address] [address] [place] [address] PCP - General 08/07/11 documented as of this encounter
--- OUTSIDE RECORDS SUMMARY | 2024-04-05 17:31 | XMS_ITS | Encounter Summary ---
Author Organization [facility] [place] [address] Care Team Providers Care Director Trial Name Role Phone Kevan Angel DO Primary Care Provider Encounter Details Date Type Department Care Team (Late st Contact Info) Description 12/03/2018 Specialty [place] [phone] Artemio Hazel, [facility] Social History Tobacco Use Types [...] 8:00 AM EDT [place] [address] Alie Arshad PA [facility] [place] [address] documented as of this encounter Visit Diagnoses Not on filedocumented in this encounter Care Teams Director Trial Relationship Specialty Start Date End Date Kevan Angel DO [address] [place] [address] PCP - General 08/07/11 documented as of this encounter
--- OUTSIDE RECORDS SUMMARY | 2024-04-05 17:31 | XMS_ITS | Encounter Summary ---
[place] [address] Care Team Providers Care Supervisor General Name Role Phone StanleyKevan bowen Primary Care Provider Encounter Details Date Type Department Care Team (Late st Contact Info) Description 11/13/2018 [place] [phone] Artemio Hazel [facility] Social History Tobacco Use Types [...] Notes * Telephone Encounter - Artemio Hazel RPH - 11/13/2018 12:55 PM EDT - Specialty Pharmacy, Prior Authorization Approval Medication Name: Stacey Monroe 44mcg FILLABLE AT [facility]? yes APPROVAL DATES: 10/14/18-11/13/19 SPECIFIC INS REQUIREMENT: 30 days CASE/REFERENCE # [id number] APPROVAL NOTIFICATION RECEIVED VIA: Covermymeds COPAY: $50 COPAY ASSISTANCE NEEDED?: yes, [place] life[employer]enn[employer] NOTES: Patient has copay credit card and is activating with [place] lif[employer] and Specialty for covering the $50 copay documented in this encounter Plan of Treatment Upcoming Encounters Date Type Department Care Team (Late st Contact Info) Description 09/14/2024 8:00 AM EDT [place] [address] Alie Arshad PA [facility] [place] [address] documented as of this encounter Visit Diagnoses Not on filedocumented in this encounter Care Teams Supervisor General Relationship Specialty Start Date End Date Kevan Angel DO [address] [place] [address] [address] [place] [address] PCP - General 08/07/11 documented as of this encounter
--- OUTSIDE RECORDS SUMMARY | 2024-04-05 17:31 | XMS_ITS | Encounter Summary ---
Author Organization [facility] [place] [address] Care Team Providers Care Baseball Scout Name Role Phone StanleyKevan bowen Primary Care Provider Reason for Visit * Reason Onset Date Comments Questions 05/26/2020 Encounter Details Date Type Department Care Team (Late st Contact Info) Description 05/26/2020 Telephone [place] [address] Alie Arshad PA [facility] [address] [place] [address] Questions Social History Tobacco Use Types Packs/Day Years [...] encounter Miscellaneous Notes * Telephone Encounter - Regina Contreras CMA - 05/29/2020 9:40 AM EST Spoke with patient, she is aware that she may get COVID vaccine while taking Rebif. * Telephone Encounter - Dolly Kendall - 05/26/2020 9:50 AM EST Call Center / Sanitary Aide Message - General Issue Call Provider patient sees in Clinic: Dr. Arshad Caller and relationship (if other than patient-full name): self Call back number: [phone] Ok to leave a message: yes Reason for call: Patient called in stating that she would like to know if it is ok for her to get the Covid vaccine? She states with her medication rebiff and Ms she is not sure. PLease call back to discuss Disposition of Call (choose one and remove others): ??? Routine Message sent to the Nurse: yes ??? Routine message sent to Sanitary Aide: yes documented in this encounter Plan of Treatment Upcoming Encounters Date Type Department Care Team (Late st Contact Info) Description 09/14/2024 8:00 AM EDT Office [place] [address] Alie Arshad PA [facility] [place] [address] documented as of this encounter Visit Diagnoses Not on filedocumented in this encounter Care Teams Baseball Scout Relationship Specialty Start Date End Date Kevan Angel DO [address] [place] [address] PCP - General 08/07/11 documented as of this encounter
--- OUTSIDE RECORDS SUMMARY | 2024-04-05 17:31 | XMS_ITS | Encounter Summary ---
Author Organization [place] [address] Care Team Providers Care Finished Garment Inspector Name Role Phone Stanley, Kevan PHELPS Primary Care Provider [phone] Reason for Referral * Diagnostic Test (Routine) - Closed Specialty Diagnoses / Procedures Referred By David nieves Referred To Contact Radiology Diagnoses Multiple sclerosis Procedures MRI Brain wwo Contrast (Generic) Alie Arshad PA [facility] [place] [address] [place] [address] Referral ID Status Reason Start Date Expiration Date V isits Requested Visits Authorized [id number] Closed Specialty Service Requested 01/07/2020 07/04/2020 1 1 Encounter Details Date Type Department Care Team (Late st Contact Info) Description 10/29/2019 3:00 PM EDT TH Visit (TeleHealth) [place] [address] Alie Arshad PA [facility] [place] [address] Multiple sclerosis Social History Tobacco Use Types [...] as of this encounter Progress Notes * Alie Arshad PA - 10/29/2019 3:00 PM EDT MULTIPLE SCLEROSIS CLIN[place] [address] [address] Patient name: Maritza Leiva Date of : 1960 Address: [place] [address], [facility] ?? Time since first symptom of MS: 1996 (officially diagnosis) ?? EDSS: ?? MSSS: ?? LP: no OCBs ?? DMD: Rebif 2002 - present ?? Last MRI: ?? 12/2018 Brain:Stable ?? 2011 Brain - [...] takes Trazodone PRN (about once monthly) HPI: 59 y.o. female with PMHx MS presents via telehealth visit for MS follow-up. Maritza was last seen here by me last summer, and was then seen by Dr. Simons on 03/25/2019. Interval History: At her last appt with in March - they discussed stable MRI brain done in December and he too recommended she consider discontinuing Rebif given stable disease course. She reports no new symptoms or concerns for a relaspe in the interim. She has been doing well - still working at the [employer] office but staying healthy during this pandemic. Review of baseline MS syptoms is described above - she has very mild disease. She is on Rebif as her DMD and has been since 2002; she has not tried any other DMDs. She is overall very happy with the drug and her lack of MS activity. She does endorse side effects of bruising atinjection sites and occasional flu like symptoms; but for now these are tolerable. She recalls a prior discussion about possibly coming off of Rebif given disease stability and is interested in re-vis iting this topic in the near future. No major social hx changes - sons live locally and are doing well. She helps take care of her mother, who has COPD requiring O2 as well as other health issues. Her last MRI brain was in 2011 as part of a research study. ScHx ?? Home & Family: , 2 sons (youngest son has CF but very mild form). ?? 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 ?? Alcohol: No ?? Tobacco: Former, quit at age 32yo ?? Drug use: No ?? Diet: Good, healthy diet ?? Exercise: Enjoys walking when she can. Social History Social History Narrative ??? Not on file Past Medical History: Diagnosis Date ??? Multiple sclerosis No family history on file. Outpatient Encounter Medications as of 10/29/2019 Medication Sig Dispense Refill ??? interferon beta-1a, albumin, (Rebif, with albumin,) 44 mcg/0.5 mL Syringe Inject 0.5 mLs subcutaneously three times a week. 12 Syringe 3 ??? losartan (COZAAR) 50 mg Tablet Take 50 mg by mouth daily. 0 ??? hydroCHLOROthiazide (HYDRODIURIL) 25 mg Tablet Take 25 mg by mouth daily. 0 ??? aspirin 81 mg Tablet, Delayed Release (E.C.) Take 81 mg by mouth daily. ??? traZODone (DESYREL) 50 mg tablet Take 1 tablet by mouth nightly as needed for Sleep. 90 tablet 3 No facility-administered encounter medications on file as of 10/29/2019. No Known Allergies Review of systems: Refer to HPI Objective: Vitals: There were no vitals taken for this visit. Constitutional: 59 y.o. female appears stated age, well nourished, well developed, in no acute distress HEENT: Head atraumatic, normocephalic. Sclera non-icteric. Oropharynx normal. Neuro: ?? MS: Alert and oriented. Language is clear and fluent. No dysarthria. ?? CN: ?? Pupils round and reactive - +LAPD, EOMI, visual lopez full. ?? VA [...] ?? Sensation: Intact to light touch throughout. ?? Reflexes: 1-2+ symmetric. ?? Coordination: Finger to nose, SP, Heel to romero intact. ?? Gait: Stable, steady. No difficulty with tandem gait. Some minor swaying with Romberg testing. Diagnostic Tests and Images: BRAIN MRI 12/2018 Stable Assessment & Plan 59 y.o. female with MS on Rebif: Stable over the 6mo. No MS relapses or disability progression. Today we discussed possibility of discontinuing Rebif/DMDs given her disease course thus far. I reassured her that should we decide to discontinue Rebif, some safe guards we would enact would be: 1. MRI brain before to confirm no change in MS disease burden. 2. Repeat imaging at 6mo, then 1yr after discontinuation. 3. Routine followups at 3mo and 6mo post-discontinuation, then q6mo afterwards if stable. She was understanding of the plan and felt more reassured with the option of discontinuing the drug. She has a 3mo refill currently and would like to schedule the baseline MRI brain at the end of that, then meet to discuss discontinuing DMDs. #MS: Continue Rebif #MRI brain for surveillance and to act as baseline imaging before discontinuing Rebif. #F/u after the MRI has been completed. Alie Arshad PA-C Dept. Of Neurology [facility] (MS nurse) or [phone](general corporate legal secretary line) documented in this encounter Plan of Treatment Upcoming Encounters Date Type Department Care Team (Late st Contact Info) Description 09/14/2024 8:00 AM EDT [place] [address] Alie Arshad PA [facility] [place] [address] documented as of this encounter Results * MRI Brain wwo Contrast (Generic) (01/11/2020 11:01 AM EDT) Anatomical Region Laterality Modality Head Magnetic Resonan ce Impressions 01/11/2020 12:20 PM EDT 1. ??Single new small T2 bright lesion in the periventricular white matter about the left frontal horn, since 2010, compatible with the clinical history of multiple sclerosis. Stable additional lesions with no abnormal enhancement or restricted diffusion to suggest active demyelination. 2. ??Stable 2.2 cm arachnoid cyst in anterior aspect of the right middle fossa. I have personally reviewed the image(s) and the resident's interpretation and agree with the findings, Max Joyce MD at 01/11/2020 12:20 PM Thank you for letting us participate in the care of this patient. For questions regarding this report, please contact the number below. ? Narrative 01/11/2020 12:20 PM EDT EXAMINATION: MRI BRAIN WWO CONTRAST (GENERIC) CLINICAL HISTORY: Multiple sclerosis, monitor TECHNIQUE: MRI of the brain was performed before and after the intravenous administration of 10cc Dotarem. COMPARISON: Several prior MR examinations of the brain, most recently 12/30/2018 FINDINGS: No abnormalities on diffusion-weighted images. No abnormal enhancement. There are foci of T2 signal prolongation within the periventricular white matter and centrum semiovale with a single new focus in adjacent to the left frontal horn. Otherwise no significant changes from prior accounting for differences in technique and slice selection. Mildly prominent perivascular space in the left basal ganglia. Stable 2.2 cm arachnoid cyst in the anterior aspect of the right middle fossa. Mild prominence of ventricles and sulci consistent with mild age-related volume loss is unchanged. Mucosal thickening within the ethmoid air cells, otherwise normal signal within the visualized paranasal sinuses. Mild benign-appearing fluid signal within the mastoid air cells. Proximal intracranial vascular flow voids are unremarkable. The orbits are grossly normal. Procedure Note Max Joyce MD - 01/11/2020 EXAMINATION: MRI BRAIN WWO CONTRAST (GENERIC) CLINICAL HISTORY: Multiple sclerosis, monitor TECHNIQUE: MRI of the brain was performed before and after the intravenousadministration of 10cc Dotarem. COMPARISON: Several prior MR examinations of the brain, most recently 12/30/2018 FINDINGS: No abnormalities on diffusion-weighted images. No abnormal enhancement. There are foci of T2 signal prolongation within the periventricular whitematter and centrum semiovale with a single new focus in adjacent to the leftfrontal horn. Otherwise no significant changes from prior accounting fordifferences in technique and slice selection. Mildly prominent perivascular space in theleft basal ganglia. Stable 2.2 cm arachnoid cyst in the anterior aspect of the right middlefossa. Mild prominence of ventricles and sulci consistent with mild age-relatedvolume loss is unchanged. Mucosal thickening within the ethmoid air cells,otherwise normal signal within the visualized paranasal sinuses. Mildbenign-appearing fluid signal within the mastoid air cells. Proximal intracranial vascular flow voids are unremarkable. The orbitsare grossly normal. IMPRESSION 1. Single new small T2 bright lesion in the periventricular white matterabout the left frontal horn, since 2010, compatible with the clinical historyof multiple sclerosis. Stable additional lesions with no abnormal enhancementor restricted diffusion to suggest active demyelination. 2. Stable 2.2 cm arachnoid cyst in anterior aspect of the right middlefossa. I have personally reviewed the image(s) and the resident's interpretationand agree with the findings, Max Joyce MD at 01/11/2020 12:20 PM Thank you for letting us participate in the care of this patient. Forquestions regarding this report, please contact the number below. Raimundo Cancino MD IMG MRI ORDERABLES documented in this encounter Visit Diagnoses Diagnosis Multiple sclerosis Multiple sclerosis documented in this encounter Care Teams Finished Garment Inspector Relationship Specialty Start Date End Date Kevan Angel DO [address] [place] [address] PCP - General 08/07/11 documented as of this encounter
--- OUTSIDE RECORDS SUMMARY | 2024-04-05 17:31 | XMS_ITS | Encounter Summary ---
[facility] [place] [address] Care Team Providers Care Mechanic Driver Name Role Phone StanleyKevan bowen Primary Care Provider Reason for Visit * Reason Comments Medication Refill Encounter Details Date Type Department Care Team (Late st Contact Info) Description 01/24/2019 [place] [phone] Smooth Jang MD [facility] [place] [address] Social History Tobacco Use Types Packs/Day Years [...] 8:00 AM EDT [place] [phone] Alie Arshad PA [facility] [place] [address] documented as of this encounter Goals Goal Patient Goal Type Associated Problems Recent Progress Patient-Stated? Author Prevention of ms relapse Patient Facing Action Plan On track( 024 2:11 PM EDT) [place], [facility] Note: Delay disease progression as measured by radiographic finding as well as clinical presentation to be measured every 6 months and ongoing. documented as of this encounter Visit Diagnoses Not on filedocumented in this encounter Care Teams Mechanic Driver Relationship Specialty Start Date End Date Kevan Angel DO [address] [place] [address] [address] [facility] [address] [place] [address] PCP - General 08/07/11 documented as of this encounter
--- OUTSIDE RECORDS SUMMARY | 2024-04-05 17:31 | XMS_ITS | Encounter Summary ---
Author Organization [facility] [place] [address] Care Team Providers Care Director Oracle Retail Name Role Phone StanleyKevan bowen Primary Care Provider Encounter Details Date Type Department Care Team (Late st Contact Info) Description 05/04/2019 [place] [phone] Sarkis Tamez CPHT Social History Tobacco Use [...] * Telephone Encounter - Sarkis Tamez - 05/04/2019 9:50 AM EST Clinical Management Plan: Refill Specialty Pharmacy Consultation; Sarkis Tamez Comprehensive Medication Management (CMM) Maritza Leiva Ms. Maritza Chan Cali is a 59 y.o. (1960) female who [...] Discrepancies (compared to [facility] med list) No New medications: No New medical conditions: No New allergies: No Adherence: Any missed doses? No Are you experiencing any side effects from your medications? No Patient understands no changes to current drug regimen were made.. Sarkis Tamez 05/04/19 9:50 AM documented in this encounter Plan of Treatment Upcoming Encounters Date Type Department Care Team (Late st Contact Info) Description 09/14/2024 8:00 AM EDT [place] [address] Alie Arshad PA [facility] [place] [address] documented as of this encounter Visit Diagnoses Not on filedocumented in this encounter Care Teams Director [employer] Retail Relationship Specialty Start Date End Date Kevan Angel DO [address] [place] [address] PCP - General 08/07/11 documented as of this encounter
--- OUTSIDE RECORDS SUMMARY | 2024-04-05 17:31 | XMS_ITS | Encounter Summary ---
Author Organization [facility] [place] [address] Care Team Providers Care Piece Goods Clerk Name Role Phone StanleyKevan bowen Primary Care Provider Reason for Visit * Reason Onset Date Comments TeleHealth 10/07/2019 Encounter Details Date Type Department Care Team (Late st Contact Info) Description 10/07/2019 [place] [address] Alie Arshad PA [facility] [place] [address] TeleHealth Social History Tobacco Use Types Packs/Day Years [...] encounter Miscellaneous Notes * Telephone Encounter - Chica Payne RN - 10/07/2019 11:11 AM EDT Unable to reach this patient by phone to review medications and allergies prior to upcoming tele-appointment scheduled with Neurology provider. No message left. documented in this encounter Plan of Treatment Upcoming Encounters Date Type Department Care Team (Late st Contact Info) Description 09/14/2024 8:00 AM EDT [place] [address] Alie Arshad PA [facility] [place] [address] documented as of this encounter Visit Diagnoses Not on filedocumented in this encounter Care Teams Piece Goods Clerk Relationship Specialty Start Date End Date Kevan Angel DO [address] [place] [address] [address] [place] [address] PCP - General 08/07/11 documented as of this encounter
--- OUTSIDE RECORDS SUMMARY | 2024-04-05 17:31 | XMS_ITS | Encounter Summary ---
Author Organization [facility] [place] [address] Care Team Providers Care Blending Operator Name Role Phone Kevan Angel DO Primary Care Provider Encounter Details Date Type Department Care Team (Late st Contact Info) Description 12/30/2018 Ancillary Procedure Radiology Library at [facility] [place] [address] Raimundo Simons III, MD [facility] [place] [address] Social History Tobacco Use Types Packs/Day Years [...] 8:00 AM EDT Office Visit Neurology at [facility] [place] [phone] Alie Arshad PA [facility] [place] [address] documented as of this encounter Procedures Procedure Name Priority Date/Time Associated Diagnosis Comments FILM LIBRARY STORAGE ONLY MR HEAD Routine 12/30/2018 12:00 AM EDT documented in this encounter Results * Film Library- Storage Only MR Head (12/30/2018 12:00 AM EDT) Narrative [facility] - 01/04/2019 11:58 AM EDT This exam is auto-finalizing. It's purpose is for storage only. Raimundo Simons III, MD IMG FILM LIBRARY ORDERABLES Performing Organization Address City/State/[facility] Co de Phone Number [place], [place] documented in this encounter Visit Diagnoses Not on filedocumented in this encounter Care Teams Blending Operator Relationship Specialty Start Date End Date Kevan Angel DO [address] [place] [address] PCP - General 08/07/11 documented as of this encounter
--- OUTSIDE RECORDS SUMMARY | 2024-04-05 17:31 | XMS_ITS | Encounter Summary ---
Author Organization [facility] Address [facility] [place] [address] Care Team Providers Care Online Tutor Name Role Phone StanleyKevan bowen Primary Care Provider Reason for Visit * Reason Onset Date Comments Medication Problem 07/20/2020 Encounter Details Date Type Department Care Team (Late st Contact Info) Description 07/20/2020 [place] [address] Alie Arshad PA [facility] [place] [address] Medication Problem Social History Tobacco Use Types [...] Telephone Encounter - Pratibha Vera RN - 07/20/2020 2:16 PM EDT Alie ARMENDARIZ reviewed and agrees with plan. * Telephone Encounter - Pratibha Vera RN - 07/20/2020 9:33 AM EDT I phoned pt back. Pt states she has been on this medication for a very long time and doing well on it. She states starting October 12 the insurance will no longer cover medication. I advised pt to call us back in September when she gets her shipment of rebif. I explained we should try to do [place]. If this is denied we will submit appeal. If appeal denied we will try to get her assistance through [employer]. Plan: as above and pt agrees with plan and verbalizes understanding. * Telephone Encounter - Adarsh Gillespie - 07/20/2020 8:56 AM EDT Call Center / [place] Message - Medication Issue (Not to be used for refill request or medication prior auth request) Provider patient sees in Clinic: Alie Arshad Caller and relationship (if other than patient-full name): Maritza Leiva Call Back Number: [phone] (Ask for Maritza) Ok to leave a message: Yes Reason for call: Medication Issue (if medication issue is a symptom do not use this phrase) Message/information for the nurse: patient is calling to let Alie [place] know that her insurance will no longer be covering the following medication. Patient would like to know if Alie want's herto start an alternative medication. Please call to assist. Name of Medication: interferon beta-1a, albumin, (Rebif, with albumin,) 44 mcg/0.5 mL Syringe Issue with the medication: Insurance will no longer cover this medication. Disposition of Call: ?? Routine Message sent to the Nurse documented in this encounter Plan of Treatment Upcoming Encounters Date Type Department Care Team (Late st Contact Info) Description 09/14/2024 8:00 AM EDT [place] [address] Alie Arshad PA [facility] [place] [address] documented as of this encounter Visit Diagnoses Not on filedocumented in this encounter Care Teams Online Tutor Relationship Specialty Start Date End Date Kevan Angel DO [address] [place] [address] PCP - General 08/07/11 documented as of this encounter
--- OUTSIDE RECORDS SUMMARY | 2024-04-05 17:31 | XMS_ITS | Encounter Summary ---
[place] [address] Care Team Providers Care Manager Data Name Role Phone Stanley, Kevan PHELPS Primary Care Provider Reason for Visit * Reason Comments Medication Management Patient Education Encounter Details Date Type Department Care Team (Late st Contact Info) Description 12/10/2019 Specialty [place] [address] Linda Sapp RPH Social History Tobacco Use Types Packs/Day [...] as of this encounter Progress Notes * Linda Sapp RPH - 12/10/2019 9:08 AM EDT Specialty Pharmacy Consultation; Linda Sapp RPH Comprehensive Medication Management (CMM): Specialty Consult, Opt Out Maritza Hinesy Diagnosis: MS Therapy Start Date: 07/2002 Contact in person or via telephone: Phone Ms. Maritza Leiva is a 59 y.o. (1960) female who [...] Clinical Assessment? No Summary and Recommendations: Maritza reported she had a recent doctor's appointment and went over everything she needed to go overregarding the medication at the appointment and had no further questions or concerns. She reports no changes in medications, medical conditions, or allergies and she's had no issues with adverse effects or adherence. Economic Assessment: Patient is agreeable to medication copay: Yes Copay Amount: 50.00 Day Supply: 28 Date Needed: 12/17/19 Therapy Assessment: Appropriate Therapy: Yes Current Medication Dosing/Route/Frequency: Rebif 44mcg/0.5ml SOSY inject 1 syringe subq 3 times a week Additional equipment/supplies required: no Care Plan Reviewed and Approved by Pharmacist : Yes Medications Reviewed: Yes Medications reconciled: No Allergies Reviewed:Yes Allergies reconciled: No Pharmacist follow-up needed: Yes Informed patient of specialty pharmacy services: Yes -Patient will be provided with welcome packet: Yes Date to be provided: 12/10/18 Delivery Method: Mail -Patient returned signed Rights & Responsibilities: Yes Date to be provided: 12/10/18 Delivery Method: Mail -Patient is aware a licensed pharmacist is [...] note) for provider review and follow up. Linda Sapp RPH 12/10/19 9:09 AM documented in this encounter Plan of Treatment Upcoming Encounters Date Type Department Care Team (Late st Contact Info) Description 09/14/2024 8:00 AM EDT [place] [address] Alie Arshad PA [facility] [place] [address] documented as of this encounter Visit Diagnoses Not on filedocumented in this encounter Care Teams Manager Data Relationship Specialty Start Date End Date Kevan Angel DO [address] [place] [address] PCP - General 08/07/11 documented as of this encounter
--- OUTSIDE RECORDS SUMMARY | 2024-04-05 17:31 | XMS_ITS | Encounter Summary ---
Author Organization [facility] [place] [address] Care Team Providers Care Gardening Manager Name Role Phone StanleyKevan bowen Primary Care Provider Encounter Details Date Type Department Care Team (Late st Contact Info) Description 09/21/2019 [place] [phone] Sarkis Tamez CPHT Social History Tobacco Use [...] * Telephone Encounter - Sarkis Tamez - 09/21/2019 1:54 PM EDT Clinical Management Plan: Refill Specialty [...] current drug regimen were made.. Sarkis Tamez 09/21/19 1:54 PM documented in this encounter Plan of Treatment Upcoming Encounters Date Type Department Care Team (Late st Contact Info) Description 09/14/2024 8:00 AM EDT [place] [address] Alie Arshad PA [facility] [place] [address] documented as of this encounter Visit Diagnoses Not on filedocumented in this encounter Care Teams Gardening Manager Relationship Specialty Start Date End Date Kevan Angel DO [address] [place] [address] PCP - General 08/07/11 documented as of this encounter
--- OUTSIDE RECORDS SUMMARY | 2024-04-05 17:31 | XMS_ITS | Encounter Summary ---
Author Organization [facility] [place] [address] Care Team Providers Care Bonding Molder Name Role Phone Kevan Angel DO Primary Care Provider [phone] Reason for Visit * Reason Onset Date Comments Medication Refill 11/13/2018 Encounter Details Date Type Department Care Team (Late st Contact Info) Description 11/13/2018 [place] [address] Alie Arshad PA [facility] [place] [place] [address] Social History Tobacco Use Types Packs/Day Years [...] Encounter - Artemio Hazel RPH - 11/13/2018 8:29 AM EDT Clinical Management Plan: Patient Request to fill with [facility] Specialty Pharmacy Consultation; Artemio Hazel RPH Comprehensive Medication Management (CMM) Maritza Leiva MsGabino Maritza Leiva is a 58 y.o. (1960) female who was contacted by [facility] to offer prescription services. Patient requested to fill with [facility]. Dosage form and strength was confirmed, patient wanted clarification of available options. The available options communicated to the patient was a prefilled syringe, prefilled syringe used in autoinjector called Rebiject, and an autoinjector pen. Patient had used the Rebiject product in the past but had injection site reactions. Patient would like to try one month of injections with Rebidose auto-pen. Prescription is pended for an 84 day supply with 1 refill; however, this is in anticipation of future fills and [facility] will adjust so that only one month will be dispensed at next refill date but would be available for 84 day supply if approved by both patient and insurance after first month trial. If patient does not like the Rebidose, the prescription will be discontinued and a prescription will be pended for Rebif prefilled syringes. Adherence: Gaps in fill history: none Was a change made to the Care Plan: yes - see above The specialty pharmacy staff will follow up with the patient 5-7 days prior to next refill for reminder if needed. Artemio Hazel RPH 11/13/18 8:32 AM documented in this encounter Plan of Treatment Upcoming Encounters Date Type Department Care Team (Late st Contact Info) Description 09/14/2024 8:00 AM EDT [place] [address] Alie Arshad PA [facility] [place] [address] documented as of this encounter Visit Diagnoses Not on filedocumented in this encounter Care Teams Bonding Molder Relationship Specialty Start Date End Date Kevan Angel DO [facility] [address] [place] [address] PCP - General 08/07/11 documented as of this encounter
--- OUTSIDE RECORDS SUMMARY | 2024-04-05 17:31 | XMS_ITS | Encounter Summary ---
Author Organization [facility] [place] [address] Care Team Providers Care Automatic Pad Making Machine Operator Name Role Phone Kevan Angel Primary Care Provider Reason for Visit * Reason Onset Date Comments Medication Refill 10/21/2019 Encounter Details Date Type Department Care Team (Late st Contact Info) Description 10/21/2019 [place] [address] Raimundo Simons III, MD [facility] [place] [address] Social History Tobacco Use Types Packs/Day Years [...] 8:00 AM EDT [place] [address] Alie Arshda PA [facility] [place] [address] documented as of this encounter Visit Diagnoses Not on filedocumented in this encounter Care Teams Automatic Pad Making Machine Operator Relationship Specialty Start Date End Date Kevan Angel DO [address] [facility] [address] [place] [address] PCP - General 08/07/11 documented as of this encounter
--- OUTSIDE RECORDS SUMMARY | 2024-04-05 17:31 | XMS_ITS | Encounter Summary ---
[place] [address] Care Team Providers Care Manager Women Name Role Phone Kevan Angel DO Primary Care Provider [phone] Reason for Visit * Reason Onset Date Comments Medication Refill 02/23/2018 Encounter Details Date Type Department Care Team (Late st Contact Info) Description 02/23/2018 [place] [address] Smooth Jang MD [facility] [place] [address] Social History Tobacco Use Types Packs/Day Years [...] 8:00 AM EDT [place] [address] Alie Arshad PA [facility] [place] [address] documented as of this encounter Visit Diagnoses Not on filedocumented in this encounter Care Teams Manager Women Relationship Specialty Start Date End Date Kevan Angel DO [address] [facility] [address] [place] [address] PCP - General 08/07/11 documented as of this encounter
--- OUTSIDE RECORDS SUMMARY | 2024-04-05 17:31 | XMS_ITS | Encounter Summary ---
Author Organization [facility] Address [facility] [place] [address] Care Team Providers Care Esthetician Makeup Artist Name Role Phone StanleyKevan bowen Primary Care Provider [phone] Reason for Visit * Reason Onset Date Comments Appointment 08/07/2020 Encounter Details Date Type Department Care Team (Late st Contact Info) Description 08/07/2020 Telephone [place] [address] Alie Arshad PA [facility] [place] [place] [address] Appointment Social History Tobacco Use Types Packs/Day [...] encounter Miscellaneous Notes * Telephone Encounter - Arabella Parks - 08/07/2020 12:08 PM EDT Patient to be scheduled for a MRI and follow up appointment with Alie Arshad, same day. * Telephone Encounter - Wilmer Baker - 08/07/2020 12:08 PM EDT Patient called in and this agent assisted in coordinating appointment. This agent was unsure if provider needed the extra two hours between appointments to have results read or if provider would be able to read them herself. Please call back if there are any issues with appointment scheduled. documented in this encounter Plan of Treatment Upcoming Encounters Date Type Department Care Team (Late st Contact Info) Description 09/14/2024 8:00 AM EDT Office [place] [address] Alie Arshad PA [facility] [place] [place] [address] documented as of this encounter Visit Diagnoses Not on filedocumented in this encounter Care Teams Esthetician Makeup Artist Relationship Specialty Start Date End Date Kevan Angel DO [address] [place] [address] [address] [place] [address] PCP - General 08/07/11 documented as of this encounter
--- OUTSIDE RECORDS SUMMARY | 2024-04-05 17:31 | XMS_ITS | Encounter Summary ---
[place] [address] Care Team Providers Care Hansard Reporter Name Role Phone StanleyKevan bowen Primary Care Provider [phone] Reason for Visit * Reason Comments Follow-up Patient Education Medication Management Encounter Details Date Type Department Care Team (Late st Contact Info) Description 04/05/2019 Specialty [place] [address] Artemio Hazel [facility] Social History Tobacco Use Types Packs/Day Years [...] Progress Notes * Artemio Hazel RPH - 04/05/2019 1:13 PM EST Clinical Management Plan: Refill Specialty Pharmacy Consultation; Artemio Hazel RPH Comprehensive Medication Management (CMM) Maritza Rocio Cali Ms. Maritza Chan Donnyy is a 59 y.o. (1960) female who was contacted in regard to a specialty medication refill reminder. Spoke with patient regarding Rebif. A review of the medication therapywas performed. The medication was Refilled as scheduled, and all medication related questions and concerns were addressed. The specialty pharmacy staff will follow up with the patient 5-7 days prior to next refill. Was a change made to the Care Plan: no Assessment and Recommendations: Title Type of Medication Management: chronic disease management Referred By: provider Recipient: beneficiary Provider: plan sponsor pharmacist Method of Contact: by telephone Cognitive Ability: good Cognitive Impairment Status Verified this Year: no Allergies and Drug intolerance: No Known Allergies Medication Reconciliation Discrepancies (compared to [facility] med list) -none New medications: no New medical conditions: no New allergies: no Adherence: Medication Adherence Patient reported X missed doses [...] next specialty medication refill: delivery by pharmacy Are you experiencing any side effects from your medications? no Pt understands no changes to current drug regimen were made at the appointment and that [facility] is providing recommendations (summary located at top of note) for provider review and follow up. Artemio Hazel RPH 04/05/19 1:16 PM documented in this encounter Plan of Treatment Upcoming Encounters Date Type Department Care Team (Late st Contact Info) Description 09/14/2024 8:00 AM EDT [place] [address] Alie Arshad PA [facility] [place] [address] documented as of this encounter Visit Diagnoses Not on filedocumented in this encounter Care Teams Hansard Reporter Relationship Specialty Start Date End Date Kevan Angel DO [address] [place] [address] PCP - General 08/07/11 documented as of this encounter
--- OUTSIDE RECORDS SUMMARY | 2024-04-05 17:31 | XMS_ITS | Encounter Summary ---
Author Organization [facility] Address [facility] [place] [place] [address] Care Team Providers Care Hoop Flaring Machine Operator Name Role Phone StanleyKevan bowen Primary Care Provider [phone] Encounter Details Date Type Department Care Team (Late st Contact Info) Description 11/12/2018 8:30 AM EDT Office [place] [address] Alie Arshad PA [facility] [place] [address] Multiple sclerosis Social History Tobacco Use Types [...] Sign Reading Time Taken Comments Blood Pressure 170/89 11/12/2018 8:32 AM EDT Pulse 80 11/12/2018 8:32 AM EDT Temperature - - Respiratory Rate - - Oxygen Saturation - - Inhaled Oxygen Concentration - - Weight 53.5 kg (118 lb) 11/12/2018 8:32 AM EDT Height 157.5 cm (5' 2) 11/12/2018 8:32 AM EDT Body Mass Index 21.58 11/12/2018 8:32 AM EDT documented in this encounter Progress Notes * Alie Arshad PA - 11/12/2018 8:30 AM EDT [facility] [place] [address] [address] Patient name: Maritza Leiva Date of : 1960 Address: [place] [address], [facility] ?? Time since first symptom of MS: 1996 (officially diagnosis) ?? EDSS: ?? MSSS: ?? LP: no OCBs ?? DMD: Rebif 2002 - present ?? Last MRI: ?? 2010 Brain - stable ?? Other Diagnostics: ?? NAbs: 08/27/12 Negative MS History: 1996: B/L LE numbness 06/1997: T6-T7 numbness on the right 11/1997: Right arm numbness 2001: Gait ataxia, Left Optic Neuritis. MRI showed C-spine lesion 2003: Initiated on Rebif 2002 - 2015: Stable Last Relapse: 2001? Ongoing MS Symptoms: [...] takes Trazodone PRN (about once monthly) HPI: 58 y.o. female with PMHx MS presents to clinic for yearly follow-up. Maritza was last seen here by me in 2017 - had a f/u with Dr. Jang last year. Interval History: At her last appt with Dr. Jang in 2018, she had no new MS complaints and endorsed stable MS disease. Today, she again endorses stable MS disease. She has not had any episodes concerning for a relapse and baseline symptoms, reviewed above, are minimal and stable - left vision loss is her only real MS related complaint. She is on Rebif as her DMD [...] mild form). ?? Job status: Works in [employer]. ?? Alcohol: No ?? Tobacco: Former, quit at age 32yo ?? Drug use: No ?? Diet: Good, healthy diet ?? Exercise: Enjoys walking when she can. Social History Social History Narrative ??? Not on file Past Medical History: Diagnosis Date ??? Multiple sclerosis No family history on file. Outpatient Encounter Medications as of 11/12/2018 Medication Sig Dispense Refill ??? hydroCHLOROthiazide (HYDRODIURIL) 25 mg Tablet Take 25 mg by mouth daily. 0 ??? interferon beta-1a, albumin, (REBIF, WITH ALBUMIN,) 44 mcg/0.5 mL Syringe INJECT 0.5MLS SUBCUTANEOUSLY 3 TIMES A WEEK. 36 Syringe 11 ??? aspirin 81 mg Tablet, Delayed Release (E.C.) Take 81 mg by mouth daily. ??? traZODone (DESYREL) 50 mg tablet Take 1 tablet by mouth nightly as needed for Sleep. 90 tablet 3 No facility-administered encounter medications on file as of 11/12/2018. No Known Allergies Review of systems: Refer to HPI Objective: Vitals: BP 170/89 (BP Location (NBP): Right arm, Patient Position: Sitting, BP Cuff Sizes: Adult (25-34 cm)) Pulse 80 Ht 157.5 cm (5' 2) Wt 53.5 kg (118 lb) BMI 21.58 kg/m?? Constitutional: 58 y.o. female appears stated age, well nourished, [...] testing. Diagnostic Tests and Images: BRAIN MRI 09/06/10 FINDINGS: There are a few scattered foci of T2 prolongation in the supratentorial white matter in the same distribution as previously. No change in size, appearance or number of lesions. Postgadolinium, there is no pathologic enhancement of any of these foci. There is mild brain atrophy without definite interval change. No acute intracranial hemorrhage or extraaxial fluid collection is present and there is no mass effect. There is fluid opacification of several mastoid air cells in similar distribution to the previous study. Normal intracranial flow voids are identified. Craniocervical junction is unremarkable. IMPRESSION: Stable examination with nonspecific foci of signal abnormality in the supratentorial white matter. Assessment & Plan 58 y.o. female with MS on Rebif: Stable over the past year. No MS relapses or disability progression. She had no complaints or concerns today to address. Physical exam was unchanged from last. #MS: Continue Rebif. Discussed pros and cons of coming off Rebif given length of MS disease, clinical course and minimaldisability. Recommended MRI brain to evaluate subclinical activity given it has been years since her last one. We will then reconvene to discuss findings and likelihood of relapse/disease activity if she decidedto discontinue Rebif use. She will have this done in January and f/u with Dr. Simons (I will be out on leave). Alie Arshad PA-C Dept. Of Neurology [facility] [phone] documented in this encounter Plan of Treatment Upcoming Encounters Date Type Department Care Team (Late st Contact Info) Description 09/14/2024 8:00 AM EDT Office [place] [address] Alie Arshad PA [facility] [place] [address] documented as of this encounter Visit Diagnoses Diagnosis Multiple sclerosis documented in this encounter Care Teams Hoop Flaring Machine Operator Relationship Specialty Start Date End Date Kevan Angel DO [address] [place] [address] PCP - General 08/07/11 documented as of this encounter
--- OUTSIDE RECORDS SUMMARY | 2024-04-05 17:31 | XMS_ITS | Encounter Summary ---
[place] [address] Care Team Providers Care Education Intern Name Role Phone StanleyKevan bowen Primary Care Provider Reason for Visit * Reason Comments Medication Management Encounter Details Date Type Department Care Team (Late st Contact Info) Description 11/15/2019 Specialty [place] [address] Linda Sapp Jared Social History Tobacco Use Types Packs/Day Years [...] Progress Notes * Linda Sapp RPH - 11/15/2019 11:05 AM EDT Clinical Management Plan: Refill Specialty Pharmacy Consultation; Linda Sapp RPH Comprehensive Medication Management (CMM) Maritza Leiva Ms. [...] Title Type of Medication Management: chronic disease management, targeted medication review Referred By: provider Recipient: beneficiary Provider: plan sponsor pharmacist Visit Type: [facility] Follow-up Method of Contact: by telephone Cognitive Ability: good Cognitive Impairment Status Verified this Year: no Allergies and Drug intolerance: No Known Allergies Medication Reconciliation Discrepancies (compared to [facility] med list) -no New medications: no New medical conditions: no New allergies: no Adherence: Medication Adherence Patient reported X missed doses in the last month: 1 Any gaps in refill history greater than 2 weeks in the last 3 months: no Demonstrates understanding of importance of adherence: yes Informant: patient Reliability of informant: reliable Provider-estimated medication adherence level: 90-100% Reasons for non-adherence: no problems identified Adherence tools used: alarm, directed education Support network for adherence: family member, healthcare provider Confirmed plan for next specialty medication refill: delivery by pharmacy Refills needed for supportive medications: not needed Are you experiencing any side effects from your medications? no Pt understands no changes to current drug regimen were made at the appointment and that [facility] is providing recommendations (summary located at top of note) for provider review and follow up. Linda Sapp RPH 11/15/19 11:06 AM documented in this encounter Plan of Treatment Upcoming Encounters Date Type Department Care Team (Late st Contact Info) Description 09/14/2024 8:00 AM EDT [place] [address] Alie Arshad PA [facility] [place] [address] documented as of this encounter Visit Diagnoses Not on filedocumented in this encounter Care Teams Education Intern Relationship Specialty Start Date End Date Kevan Angel DO [address] [place] [address] PCP - General 08/07/11 documented as of this encounter
--- OUTSIDE RECORDS SUMMARY | 2024-04-05 17:31 | XMS_ITS | Encounter Summary ---
[place] [address] Care Team Providers Care Analytical Lab Analyst Name Role Phone Stanley, Kevan PHELPS Primary Care Provider [phone] Reason for Referral * Diagnostic Test (Routine) - Closed Specialty Diagnoses / Procedures Referred By Contac t Referred To Contact Radiology Diagnoses Multiple sclerosis Procedures MRI Brain wwo Contrast (Generic) Alie Arshad PA [facility] [place] [address] [place] [address] Referral ID Status Reason Start Date Expiration Date V isits Requested Visits Authorized [id number] Closed Specialty Service Requested 01/07/2020 07/04/2020 1 1 Reason for Visit * Diagnostic Test (Routine) - Closed Specialty Diagnoses / Procedures Referred By Contac t Referred To Contact Radiology Diagnoses Multiple sclerosis Procedures MRI Brain wwo Contrast (Generic) Alie Arshad PA [facility] [place] [place] [address] [place] [address] Referral ID Status Reason Start Date Expiration Date V isits Requested Visits Authorized [id number] Closed Specialty Service Requested 01/07/2020 07/04/2020 1 1 Encounter Details Date Type Department Care Team (Latest Contact Info) Description 01/11/2020 10:16 AM EDT - 01/11/2020 11:59 PM EDT Hospital [place] [phone] Raimundo Cancino MD [facility] [place] [address] Multiple sclerosis Discharge Disposition: Home Social History [...] three times a week. 12 Syringe 3 10/22/2019 01/21/2020 traZODone (DESYREL) 50 mg tablet Take 1 tablet by mouth nightly as needed for Sleep. 90 tablet 3 09/09/2013 09/17/2022 documented as of this encounter Plan of Treatment Upcoming Encounters Date Type Department Care Team (Late st Contact Info) Description 09/14/2024 8:00 AM EDT Office [place] [address] Alie Arshad PA [facility] [place] [address] documented as of this encounter Procedures Procedure Name Priority Date/Time Associated Diagnosis Comments MRI BRAIN WWO CONTRAST (GENERIC) Routine 01/11/2020 11:01 AM EDT Multiple sclerosis documented in this [...] Action Date Dose Rate Site gadoterate meglumine (DOTAREM) 0.5 mmol/mL (376.9 mg/mL) injection 0.2 mL/kg/dose 0.2 mL/kg/dose, Intravenous, ONCE PRN, 1 dose, Starting on Fri01/11/20 at 1045, Until Fri01/11/20 at 1054, Per Protocol, Radiology Contrast, Routine Given 01/11/2020 10:54 AM EDT 10 mLs documented in this encounter Care Teams Analytical Lab Analyst Relationship Specialty Start Date End Date Kevan Angel DO [address] [place] [address] PCP - General 08/07/11 documented as of this encounter
--- OUTSIDE RECORDS SUMMARY | 2024-04-05 17:31 | XMS_ITS | Encounter Summary ---
[place] [address] Care Team Providers Care Office Machine Mechanic Name Role Phone StanleyKevan bowen Primary Care Provider [phone] Reason for Visit * Reason Comments Medication Management Encounter Details Date Type Department Care Team (Late st Contact Info) Description 03/05/2019 Specialty [place] [address] Jose Fournier [facility] Social History Tobacco Use Types Packs/Day Years [...] Progress Notes * Jose Souza RPH - 03/05/2019 9:58 AM EST Clinical Management Plan: Refill Specialty Pharmacy Consultation; Jose Souza RPH Comprehensive Medication Management (CMM) Maritza ParishckettNayany *Patient requested change from auto-injector back to syringes. Mason Hazel to follow-up with clinic to get new script.* Ms. Maritza Leiva is a 58 y.o. (1960) female who was contacted in [...] change made to the Care Plan: no If yes, should the medication be held: No Assessment and Recommendations: Title Type of Medication Management: chronic disease management, targeted medication review Referred By: provider Recipient: beneficiary Provider: plan sponsor pharmacist Visit Type: [facility] Follow-up Method of Contact: by telephone Cognitive Ability: good Cognitive Impairment Status Verified this Year: no Allergies and Drug intolerance: No Known Allergies Medication Reconciliation Discrepancies (compared to [facility] med list) -None New medications: no New medical conditions: no New allergies: no Adherence: Medication Adherence What concerns does the patient have in regards to their medications: Patient wants to switch back to syringes from auto-injector. Patient reported X missed doses in the [...] were made at the appointment and that [facility] is providing recommendations (summary located at top of note) for provider review and follow up. Jose Souza RPH 03/05/19 9:59 AM documented in this encounter Plan of Treatment Upcoming Encounters Date Type Department Care Team (Late st Contact Info) Description 09/14/2024 8:00 AM EDT [place] [address] Alie Arshad PA [facility] [address] documented as of this encounter Visit Diagnoses Not on filedocumented in this encounter Care Teams Office Machine Mechanic Relationship Specialty Start Date End Date Kevan Angel DO [address] [facility] [address] [place] [address] PCP - General 08/07/11 documented as of this encounter
--- OUTSIDE RECORDS SUMMARY | 2024-04-05 17:31 | XMS_ITS | Encounter Summary ---
[place] [address] Care Team Providers Care Provider Relations Advocate Name Role Phone StanleyKevan bowen Primary Care Provider Reason for Visit * Reason Comments Medication Management Encounter Details Date Type Department Care Team (Late st Contact Info) Description 10/14/2019 Specialty [place] [address] Klever Bright, [facility] Social History Tobacco Use Types [...] this encounter Progress Notes * Klever Bright [facility] - 10/14/2019 8:14 AM EDT Clinical Management Plan: Refill Specialty Pharmacy Consultation; Klever Bright [facility] Comprehensive Medication Management (CMM) Maritza L Cali Ms. Maritza Chan Donnyy is a 59 y.o. (1960) female who was contacted in regard to a specialty medication refill reminder. Spoke with patient regarding Rebif. A review of the medication therapywas performed. The medication will be Refilled as scheduled, and all medication related [...] beneficiary Provider: plan sponsor pharmacist Visit Type: [facility] Follow-up Method of Contact: by telephone Cognitive Ability: good Cognitive Impairment Status Verified this Year: no Allergies and Drug intolerance: No Known Allergies Medication Reconciliation Discrepancies (compared to [facility] med list) -none New medications: no New [...] by pharmacy Refills needed for supportive medications: yes, ordered or provider notified Are you experiencing any side effects from your medications? no Pt understands no changes to current drug regimen were made at the appointment and that [facility] is providing recommendations (summary located at top of note) for provider review and follow up. Klever Bright RPH 10/14/19 8:15 AM documented in this encounter Plan of Treatment Upcoming Encounters Date Type Department Care Team (Late st Contact Info) Description 09/14/2024 8:00 AM EDT [place] [address] Alie Arshad PA [facility] [place] [address] documented as of this encounter Visit Diagnoses Not on filedocumented in this encounter Care Teams Provider Relations Advocate Relationship Specialty Start Date End Date Kevan Angel DO [address] [place] [address] [address] [place] [address] PCP - General 08/07/11 documented as of this encounter
--- OUTSIDE RECORDS SUMMARY | 2024-04-05 17:31 | XMS_ITS | Encounter Summary ---
Author Organization [facility] Address [facility] [place] [address] Care Team Providers Care Lombardi Developer Name Role Phone Kevan Angel Primary Care Provider Encounter Details Date Type Department Care Team (Late st Contact Info) Description 06/23/2019 [place] [address] Alie Arshad PA [facility] [place] [address] Social History Tobacco Use Types Packs/Day Years [...] Telephone Encounter - Artemio Hazel RPH - 06/23/2019 2:28 PM EDT Pending rx. There has been some discussion regarding discontinuing Rebif in the future. Pended accordingly with only enough refills to make it to next scheduled office visit. documented in this encounter Plan of Treatment Upcoming Encounters Date Type Department Care Team (Late st Contact Info) Description 09/14/2024 8:00 AM EDT Office [place] [address] Alie Arshad PA [facility] [place] [address] documented as of this encounter Visit Diagnoses Not on filedocumented in this encounter Care Teams Lombardi Developer Relationship Specialty Start Date End Date Kevan Angel DO [address] [place] [address] [address] [place] [address] PCP - General 08/07/11 documented as of this encounter
--- OUTSIDE RECORDS SUMMARY | 2024-04-05 17:31 | XMS_ITS | Encounter Summary ---
Author [place] [address] Care Team Providers Care Mine Manager Name Role Phone StanleyKevan bowen Primary Care Provider [phone] Reason for Visit * Reason Comments Medication Management Encounter Details Date Type Department Care Team (Late st Contact Info) Description 07/23/2019 Specialty [place] [address] Linda Sapp RPH Social History Tobacco Use [...] Progress Notes * Linda Sapp RPH - 07/23/2019 1:56 PM EDT Clinical Management Plan: Refill Specialty [...] beneficiary Provider: plan sponsor pharmacist Visit Type: [facility] Follow-up Method of Contact: by telephone Cognitive Ability: good Cognitive Impairment Status Verified this Year: no Allergies and Drug intolerance: No Known Allergies Medication Reconciliation Discrepancies (compared to [facility] med list) -no New medications: no New [...] at the appointment and that [facility] is providing recommendations (summary located at top of note) for provider review and follow up. Linda Sapp RPH 07/23/19 1:56 PM documented in this encounter Plan of Treatment Upcoming Encounters Date Type Department Care Team (Late st Contact Info) Description 09/14/2024 8:00 AM EDT Office [place] [address] Alie Arshad PA [facility] [place] [address] documented as of this encounter Visit Diagnoses Not on filedocumented in this encounter Care Teams Mine Manager Relationship Specialty Start Date End Date Kevan Angel DO [address] [place] [address] PCP - General 08/07/11 documented as of this encounter
--- OUTSIDE RECORDS SUMMARY | 2024-04-05 17:31 | XMS_ITS | Encounter Summary ---
Author Organization [facility] [place] [address] Care Team Providers Care Hospice Manager Name Role Phone Kevan Angel Primary Care Provider Encounter Details Date Type Department Care Team (Latest Contact Info) Description 03/25/2019 9:25 AM EST Laboratory Appointment Lab [address] [place] [address] Multiple sclerosis Social History Tobacco Use Types [...] 8:00 AM EDT [place] [address] Alie Arshad PA [facility] [place] [address] documented as of this encounter Procedures Procedure Name Priority Date/Time Associated Diagnosis Comments HEMOGRAM Routine 03/25/2019 9:39 AM EST Multiple sclerosis DIFFERENTIAL, AUTOMATED Routine 03/25/2019 9:39 AM EST Multiple sclerosis HC CBC,PLT & AUTO DIFF Routine 03/25/2019 9:39 AM EST Multiple sclerosis HC VENIPUNCTURE Routine 03/25/2019 9:39 AM EST Multiple sclerosis documented in this encounter Results * (ABNORMAL) Differential, Automated (03/25/2019 9:39 AM EST) Neutrophil % 61.6 % [facility] Neutrophil Absolute 3.78 1.70 - 6.10 x10(3)/mc L [facility] Lymph % 17.5 % [facility] Lymphocytes Abs 1.1 0.9 - 3.2 x10(3)/ L [facility] Monocyte % 10.8 % [facility] Monocyte Abs 0.7 0.3 - 0.9 x10(3)/ L [facility] Eos % 9.1 % [facility] Eosinophils Abs 0.6(H) 0.0 - 0.4 x10(3)/ L [facility] Basophil % 0.8 % [facility] Baso Absolute 0.0 0.0 - 0.1 x10(3)/ L [facility] Immature Gran % 0.20 % [facility] Comment: Immature granulocytes(IG's)percentage and absolute count will include metamyelocytes, myelocytes, and promyelocytes. Blood smears from CBCs yielding IG's will be scanned manually for concordance. If this scan disagrees with the automated IG or if promyelocytes are noted, a manual differential will be performed. Immature Gran Absolute 0.01 0.00 - 0.04 x10(3)/ L [facility] Blood specimen (specimen) 03/25/2019 9:39 AM EST 03/25/2019 9:46 AM EST Narrative Resulting Agency Comment Spec In Lab Ariane Rey MD HEMATOLOGY ORDERABL ES [facility] [place] [address] * (ABNORMAL) Hemogram (03/25/2019 9:39 AM EST) [facility] White Blood Cell 6.1 4.0 - 9.5 x10(3)/[facility] Red Blood Cell 4.06 4.00 - 5.21 x10(6)/[facility] Hemoglobin 11.6(L) 11.7 - 15.5 gm/dL [facility] Hematocrit 36.6 35.7 - 45.8 % [facility] Mean Cell Volume 90.1 82.6 - 94.4 fL [facility] Mean Cell Hemoglobin 28.6 27.1 - 32.0 pg [facility] Mean Cell Hemoglobin Concentration 31.7 31.7 - 35.0 gm/dL [facility] Platelet 319 145 - 357 x10(3)/[facility] RDW Standard Deviation 45.8 37.0 - 46.0 fL [facility] RDW coefficient of variation 13.9 11.5 - 14.1 % [facility] Mean Platelet Volume 9.6 7.6 - 12.9 fL [facility] NRBC% auto 0.0 % [facility] NRBC Absolute 0.000 0.000 - 0.000 x10(3)/[facility] Blood specimen (specimen) 03/25/2019 9:39 AM EST 03/25/2019 9:46 AM EST Narrative Resulting Agency Comment Spec In Lab Ariane Rey MD HEMATOLOGY ORDERABL ES [facility] [place] [address] * (ABNORMAL) Comprehensive metabolic panel (non-fasting) (03/25/2019 9:39 AM EST) [facility] Glucose 95 65 - 199 mg/dL [facility] Comment:Diabetes: >=200 mg/d L plus symptoms Blood Urea Nitrogen 15 8 - 18 mg/dL [facility] Creatinine 0.59(L) 0.70 - 1.20 mg/dL [facility] Sodium 141 135 - 145 mmol/L [facility] Potassium 4.3 3.5 - 5.0 mmol/L [facility] Comment: Please note: ??Patients with WBC >100,000 may have falsely elevated Potassium levels. ??For accurate Potassium quantification in these patients send serum separator tube (gold top) for subsequent determinations. ??Contact the Clinical Chemistry Laboratory if there are any questions. Chloride 103 98 - 107 mmol/L [facility] Carbon Dioxide 26 22 - 31 mmol/L [facility] Anion Gap 12 5 - 15 mmol/L [facility] Calcium 9.7 8.5 - 10.5 mg/dL [facility] Protein, Total 7.3 6.1 - 8.0 gm/dL [facility] Albumin 4.3 3.2 - 5.2 gm/dL [facility] Aspartate Aminotransferase 20 0 - 30 unit/L [facility] Alanine Aminotransferase 17 0 - 30 unit/L [facility] Alkaline Phosphatase 81 35 - 105 unit/L [facility] Bilirubin, Total 0.7 0.2 - 1.3 mg/dL [facility] Est Glomerular Filtration Rate 102 >=60 mL/min/1. 73 m?? [facility] Comment: The eGFR was calculated using the CKD-EPI equation. As with all creatinine based estimates of kidney function, eGFR values calculated with the CKD-EPI equation are not accurate in patients with acute kidney failure, extremes of body mass or the acutely ill. [email or web address] eGFR 118 >=60 mL/min/1. 73 m?? [facility] Comment: The eGFR was calculated using the CKD-EPI equation. As with all creatinine based estimates of kidney function, eGFR values calculated with the CKD-EPI equation are not accurate in patients with acute kidney failure, extremes of body mass or the acutely ill. [email or web address] Blood specimen (specimen) 03/25/2019 9:39 AM EST 03/25/2019 9:46 AM EST Narrative Resulting Agency Comment Spec In Lab Raimundo Simons III, MD CHEMISTRY ORDERAB LES Performing Organization Address City/State/[facility] Co de Phone Number [facility] [place] [address] documented in this encounter Visit Diagnoses Diagnosis Multiple sclerosis documented in this encounter Care Teams Hospice Manager Relationship Specialty Start Date End Date Kevan Angel DO [address] [facility] [place] [address] PCP - General 08/07/11 documented as of this encounter
--- OUTSIDE RECORDS SUMMARY | 2024-04-05 17:31 | XMS_ITS | Encounter Summary ---
Author Organization [facility] [place] [address] Care Team Providers Care Embedded Developer Name Role Phone StanleyKevan bowen Primary Care Provider [phone] Encounter Details Date Type Department Care Team (Late st Contact Info) Description 03/27/2020 [place] [address] Tana Hall CPHT Social History Tobacco Use [...] encounter Miscellaneous Notes * Telephone Encounter - Tana Michelle CPHT - 03/27/2020 2:05 PM EST Clinical Management Plan: Refill Specialty Pharmacy Consultation; Tana Michelle CPHT Comprehensive Medication Management (CMM) Maritza L Cali [...] Medication Reconciliation Discrepancies (compared to [facility] med list) No New medications: No New medical conditions: No New allergies: No Adherence: Any missed doses? No Are you experiencing any side effects from your medications? No Patient understands no changes to current drug regimen were made.. Tana Michelle CPHT 03/27/20 2:05 PM documented in this encounter Plan of Treatment Upcoming Encounters Date Type Department Care Team (Late st Contact Info) Description 09/14/2024 8:00 AM EDT [place] [address] Alie Arshad PA [facility] [place] [address] documented as of this encounter Visit Diagnoses Not on filedocumented in this encounter Care Teams Embedded Developer Relationship Specialty Start Date End Date Kevan Angel DO [address] [place] [address] PCP - General 08/07/11 documented as of this encounter
--- OUTSIDE RECORDS SUMMARY | 2024-04-05 17:31 | XMS_ITS | Encounter Summary ---
[place] [address] Care Team Providers Care Rat Trapper Name Role Phone Kevan Angel Primary Care Provider [phone] Reason for Visit * Reason Onset Date Comments Prior Authorization 07/06/2018 REBIF APPROV ED 06/06/18-07/06/19 Encounter Details Date Type Department Care Team (Late st Contact Info) Description 07/06/2018 [place] [address] Smooth Jang MD [facility] [place] [address] Prior Authorization (REBIF APPROVED 06/06/18-07/06/19) Social History Tobacco Use Types Packs/Day Years [...] * Telephone Encounter - Haylie Chavez - 07/07/2018 12:59 PM EDT Images from the original note were not included. * Telephone Encounter - Haylie Chavez - 07/06/2018 3:38 PM EDT UGO FROM [employer] CALLED. ASKED CLINICAL QUESTIONS. THIS HAS BEEN APPROVED. 06/06/18-07/06/19. INFORMATION TO BE FAXED TO OFFICE AND MAILED TO PT. * Telephone Encounter - Haylie Chavez - 07/06/2018 2:46 PM EDT ASHLEE ARMENDARIZ FOR KRISTINA FAXED TO [employer]. [phone]. STARTED 04/2002. [facility]. * Telephone Encounter - Dania Barroso - 07/06/2018 1:19 PM EDT Clinical [place] Call Caller: self If not Pt / Relation to pt: Call back number: [phone] Medication requiring PA: Kristina Pharmacy Coverage Company: [employer] [facility] Coverage ID #: [id number] Pharmacy Coverage Company Pharmacy used by patient: [facility] BIN#: PCN# : Disposition of Call: documented in this encounter Plan of Treatment Upcoming Encounters Date Type Department Care Team (Late st Contact Info) Description 09/14/2024 8:00 AM EDT [place] [address] Alie Arshad PA [facility] [address] documented as of this encounter Visit Diagnoses Not on filedocumented in this encounter Care Teams Rat Trapper Relationship Specialty Start Date End Date Kevan Angel DO [address] [place] [address] [address] [place] [address] PCP - General 08/07/11 documented as of this encounter
--- OUTSIDE RECORDS SUMMARY | 2024-04-05 17:31 | XMS_ITS | Encounter Summary ---
[place] [address] Care Team Providers Care Separator Inserter Name Role Phone StanleyKevan bowen Primary Care Provider [phone] Encounter Details Date Type Department Care Team (Late st Contact Info) Description 06/01/2019 [place] [phone] Jus Blair Social History Tobacco Use Types Packs/Day Years [...] encounter Miscellaneous Notes * Telephone Encounter - Jus Blair - 06/01/2019 11:45 AM EST Clinical Management Plan: Refill Specialty Pharmacy Consultation; Jus Blair Comprehensive Medication Management (CMM) Maritza Rocio Cali Ms. Maritza Chan Cali is a 59 [...] Known Allergies Medication Reconciliation Discrepancies (compared to [facility] med list) No New medications: No New medical conditions: No New allergies: No Adherence: Any missed doses? No Are you experiencing any side effects from your medications? No Patient understands no changes to current drug regimen were made.. Jus Blair 06/01/19 11:45 AM documented in this encounter Plan of Treatment Upcoming Encounters Date Type Department Care Team (Late st Contact Info) Description 09/14/2024 8:00 AM EDT Office [place] [address] Alie Arshad PA [facility] [place] [place] [address] documented as of this encounter Visit Diagnoses Not on filedocumented in this encounter Care Teams Separator Inserter Relationship Specialty Start Date End Date Kevan Angel DO [address] [place] [address] PCP - General 08/07/11 documented as of this encounter
--- OUTSIDE RECORDS SUMMARY | 2024-04-05 17:31 | XMS_ITS | Encounter Summary ---
Author Organization [facility] Address [facility] [place] [address] Care Team Providers Care Pull Over Name Role Phone StanleyKevan bowen Primary Care Provider Encounter Details Date Type Department Care Team (Late st Contact Info) Description 03/05/2019 [place] [address] Alie Arshad PA [facility] [place] [address] Social History Tobacco Use Types Packs/Day Years [...] Telephone Encounter - Artemio Hazel RPH - 03/05/2019 3:18 PM EST Patient was contacted during routine refill reminder call. She would like to go back on the prefilled syringes. documented in this encounter Plan of Treatment Upcoming Encounters Date Type Department Care Team (Late st Contact Info) Description 09/14/2024 8:00 AM EDT [place] [address] Alie Arshad PA [facility] [place] [address] documented as of this encounter Visit Diagnoses Not on filedocumented in this encounter Care Teams Pull Over Relationship Specialty Start Date End Date Kevan Angel DO [address] [place] [address] [address] [facility] [place] [address] PCP - General 08/07/11 documented as of this encounter
--- OUTSIDE RECORDS SUMMARY | 2024-04-05 17:31 | XMS_ITS | Encounter Summary ---
[place] [address] Care Team Providers Care Maintenance Dispatcher Name Role Phone StanleyKevan bowen Primary Care Provider [phone] Reason for Visit * Reason Comments Medication Management Encounter Details Date Type Department Care Team (Late st Contact Info) Description 01/28/2020 Specialty [place] [address] Linda Sapp RPH Social History Tobacco Use [...] Progress Notes * Linda Sapp RPH - 01/28/2020 9:37 AM EDT Clinical Management Plan: Refill Specialty [...] beneficiary Provider: plan sponsor pharmacist Visit Type: [facility] Follow-up Method of Contact: by telephone Cognitive Ability: good Cognitive Impairment Status Verified this Year: no Allergies and Drug intolerance: No Known Allergies Medication Reconciliation Discrepancies (compared to [facility] med list) -no New medications: no New [...] were made at the appointment and that [facility] ED is providing recommendations (summary located at top of note) for provider review and follow up. Linda Sapp RPH 01/28/20 9:38 AM documented in this encounter Plan of Treatment Upcoming Encounters Date Type Department Care Team (Late st Contact Info) Description 09/14/2024 8:00 AM EDT [place] [address] Alie Arshad PA [facility] [place] [address] documented as of this encounter Visit Diagnoses Not on filedocumented in this encounter Care Teams Maintenance Dispatcher Relationship Specialty Start Date End Date Kevan Angel DO [address] [place] [address] PCP - General 4/25/12 documented as of this encounter
--- OUTSIDE RECORDS SUMMARY | 2024-04-05 17:31 | XMS_ITS | Encounter Summary ---
Author Organization [facility] Address [facility] [place] [address] Care Team Providers Care Electrical Tryout Person Name Role Phone StanleyKevan bowen Primary Care Provider [phone] Reason for Visit * Reason Comments TeleHealth Encounter Details Date Type Department Care Team (Late st Contact Info) Description 01/19/2020 [place] [address] Alie Arshad PA [facility] [place] [place] [address] TeleHealth Social History Tobacco Use Types Packs/Day [...] encounter Miscellaneous Notes * Telephone Encounter - Molly Ma CCMA - 01/19/2020 1:10 PM EDT Spoke with patient to review medications and allergies prior to upcoming tele- appointment scheduled with Neurology provider. documented in this encounter Plan of Treatment Upcoming Encounters Date Type Department Care Team (Late st Contact Info) Description 09/14/2024 8:00 AM EDT [place] [address] Alie Arshad PA [facility] [place] [address] documented as of this encounter Visit Diagnoses Not on filedocumented in this encounter Care Teams Electrical Tryout Person Relationship Specialty Start Date End Date Kevan Angel DO [address] [place] [address] [address] [place] [address] PCP - General 08/07/11 documented as of this encounter
--- OUTSIDE RECORDS SUMMARY | 2024-04-05 17:31 | XMS_ITS | Encounter Summary ---
[place] [address] Care Team Providers Care Manufacturing Operator Name Role Phone StanleyKevan bowen Primary Care Provider [phone] Reason for Visit * Reason Comments Medication Management Encounter Details Date Type Department Care Team (Late st Contact Info) Description 01/05/2020 Specialty [place] [address] Klveer Bright, [facility] Social History Tobacco Use Types Packs/Day Years [...] Progress Notes * Klever Bright [facility] - 01/05/2020 1:23 PM EDT Clinical Management Plan: Refill Specialty Pharmacy Consultation; Klever Bright [facility] Comprehensive Medication Management (CMM) Maritza L Cali Ms. Mairtza Chan Donnyy is a 59 y.o. (1960) [...] beneficiary Provider: plan sponsor pharmacist [place] [facility] [place] Method of Contact: by telephone Cognitive Ability: good Cognitive Impairment Status Verified this Year: no Allergies and Drug intolerance: No Known Allergies Medication Reconciliation Discrepancies (compared to [facility] med list) -none New medications: no New [...] review and follow up. Klever Bright RPH 01/05/20 1:24 PM documented in this encounter Plan of Treatment Upcoming Encounters Date Type Department Care Team (Late st Contact Info) Description 09/14/2024 8:00 AM EDT [place] [address] Alie Arshad PA [facility] [place] [address] documented as of this encounter Visit Diagnoses Not on filedocumented in this encounter Care Teams Manufacturing Operator Relationship Specialty Start Date End Date Kevan Angel DO [address] [place] [address] [address] [place] [address] PCP - General 08/07/11 documented as of this encounter
--- OUTSIDE RECORDS SUMMARY | 2024-04-05 17:31 | XMS_ITS | Encounter Summary ---
Author Organization [facility] Address [facility] [place] [address] Care Team Providers Care Mint Machine Operator Name Role Phone StanleyKevan bowen Primary Care Provider [phone] Encounter Details Date Type Department Care Team (Late st Contact Info) Description 09/13/2019 Telephone [place] [phone] Alie Arshad PA [facility] [place] [address] Social History Tobacco Use Types Packs/Day Years [...] * Telephone Encounter - Arabella Parks - 09/14/2019 12:16 PM EDT Pt scheduled for 09/30. * Telephone Encounter - Arabella Parks - 09/13/2019 12:32 PM EDT Alie Arshad has requested that the Last Cancelled 6/4 Neurology visit be rescheduled into a virtual visit. If patient agrees to this virtual visit after answering technology assessment questions, please addnote to this encounter documenting agreement and cancel and reschedule appointment as noted below. * Change Length of Visit to match currently scheduled visit length First Preference: THHF Second Preference: TOV If a Telephone Office Visit is scheduled, please advise patient that they should be hearing from someone in the Neurology department a day prior to their appointment to review some clinical information in preparation for their visit with the provider the following day and to remove any filter for receiving calls from blocked numbers. If patient declines Telehealth appointment: - Cancel appointment - Document patient declined in this encounter - Sign encounter and forward to Provider listed above documented in this encounter Plan of Treatment Upcoming Encounters Date Type Department Care Team (Late st Contact Info) Description 09/14/2024 8:00 AM EDT Office [place] [address] Alie Arshad PA [facility] [place] [address] documented as of this encounter Visit Diagnoses Not on filedocumented in this encounter Care Teams Mint Machine Operator Relationship Specialty Start Date End Date Kevan Angel DO [address] [place] [address] PCP - General 08/07/11 documented as of this encounter
--- OUTSIDE RECORDS SUMMARY | 2024-04-05 17:31 | XMS_ITS | Encounter Summary ---
Author Organization [facility] [address] Care Team Providers Care Analytics Specialist Name Role Phone Kevan Angel DO Primary Care Provider Encounter Details Date Type Department Care Team (Late st Contact Info) Description 10/29/2019 Specialty [place] [phone] Artemio Hazel, [facility] Social History Tobacco Use Types [...] 8:00 AM EDT [place] [address] Alie Arshad PA [facility] [place] [address] documented as of this encounter Visit Diagnoses Not on filedocumented in this encounter Care Teams Analytics Specialist Relationship Specialty Start Date End Date Kevan Angel DO [address] [place] [address] PCP - General 08/07/11 documented as of this encounter
--- OUTSIDE RECORDS SUMMARY | 2024-04-05 17:31 | XMS_ITS | Encounter Summary ---
[place] [address] Care Team Providers Care Explosive Operator Bomb Name Role Phone Kevan Angel DO Primary Care Provider [phone] Encounter Details Date Type Department Care Team (Late st Contact Info) Description 01/19/2020 [place] [phone] Alie rAshad PA [facility] [place] [place] [address] Social History Tobacco Use Types Packs/Day Years [...] 8:00 AM EDT Office [place] [phone] Alie Arshad PA [facility] [place] [address] documented as of this encounter Visit Diagnoses Not on filedocumented in this encounter Care Teams Explosive Operator Bomb Relationship Specialty Start Date End Date Kevan Angel DO [address] [place] [address] PCP - General 08/07/11 documented as of this encounter
--- OUTSIDE RECORDS SUMMARY | 2024-04-05 17:31 | XMS_ITS | Encounter Summary ---
Author Organization [facility] Address [facility] [place] [address] Care Team Providers Care Service Rig Operator Name Role Phone StanleyKevan bowen Primary Care Provider Encounter Details Date Type Department Care Team (Late st Contact Info) Description 03/25/2019 8:30 AM EST Office [place] [address] Raimundo Simons III, MD [facility] [place] [address] Multiple sclerosis Social History Tobacco Use Types [...] Sign Reading Time Taken Comments Blood Pressure 158/88 03/25/2019 8:34 AM EST Pulse 79 03/25/2019 8:34 AM EST Temperature - - Respiratory Rate - - Oxygen Saturation - - Inhaled Oxygen Concentration - - Weight 49.7 kg (109 lb 9.6 oz) 03/25/2019 8:34 A M EST Height 154.9 cm (5' 1) 03/25/2019 8:34 AM EST r eported Body Mass Index 20.71 03/25/2019 8:34 AM EST documented in this encounter Progress Notes * Raimundo Simons III, MD - 03/25/2019 8:30 AM EST [facility] Follow-up Visit Dear Kevan Angel DO, I saw Maritza Leiva in clinic today in follow-up for MS. Below is my progress note with impression and plan. Please do not hesitate to call with any questions. DISEASE SUMMARY: Principal neurologic diagnosis: MS Onset: 1990 Diagnosis of MS: 1997 CSF: 1997 - negative OCBs, slightly elevated IgG index of 0.7 Disease course at onset: relapsing Current disease course: relapsing, stable Relapses: 1990: B/L LE numbness 06/1997: T6-T7 numbness on the right 11/1997: Right arm numbness 2001: Gait ataxia, Left Optic Neuritis. MRI showed C-spine lesion MS Severity Score (EDSS and Disease Duration): myD-H Multiple Sclerosis 08/18/2014 09/19/2016 10/03/2017 10/06/2018 10/06/2018 10/06/2018 Audit Sub Scores - - - - - - Pain Typical 0 0 0 0 0 0 Pain Now 0 0 Incomplete 0 0 0 Pain at Rest 0 0 0 0 0 0 Pain with Activity 0 0 0 0 0 0 MSIS-29 31 31 30 33 33 33 Treatment History Previous disease therapies: none Current disease therapies: Rebif (started in 2002) Imaging History Most recent MRI brain: 12/2018 Most recent MRI cervical spine: 2005 Most recent MRI thoracic spine: ? HPI: Maritza Leiva is a 59 y.o. year old R-handed woman with relapsing multiple sclerosis who was diagnosed with MS in 1997 after presenting with T6-7 dermatome numbness, 7 years after first MS symptom of bilateral LE numbness. She then had subsequent relapses in 1997 (R arm numbness) and 2001 (gait ataxia, L optic neuritis) and was then started on Rebif. She has not had any further MS relapses and repeat MRI scans have been stable (including most recent in December 2018) Interval History: Maritza has been doing well since the last visit. She denies any new symptoms or periods of worsening. She is active in taking care of her mother who recently moved closer to where she lives. MS Symptom Review: Cognition: none Vision: none Fatigue: none Mood: no mood changes Sleep: mostly fine, 9:30-6AM, minimal nighttime awakenings Neuropathic symptoms: none Spasms/spasticity: none Falls: none in the past 6 months Bladder: none Bowel: none Lifestyle: Employment: working in [employer] Exercise: active Diet: healthy diet Sleep: consistent sleep schedules as above Stress: anticipates more stress with upcoming promotion Current Medications: reviewed and updated in EMR Review of Systems A ROS was obtained and reviewed with the patient. Pertinent positives and negatives were included in the HPI. Physical Examination Most Recent Vitals: 03/25/19 0834 BP: 158/88 Pulse: 79 Hair, skin, nails, and joints were normal. Neck was supple without Lhermitte???s phenomenon. Heart rate & rhythm were regular. No carotid bruits appreciated. Maritza was alert and oriented to person, place, and time with normal language, attention and concentration, recent and remote memory, praxis, and intellectual function. Mood was euthymic. Affect was congruent. Visual acuity grossly normal. Visual lopez were full to confrontation. Pupils were 4 mm and briskly reactive OU to 2 mm without a relative afferent pupillary defect. Funduscopic examination appearednormal. Ocular ductions were full without nystagmus. Facial sensation was normal. Muscles of facialexpression moved normally. Hearing was normal. Palatal movements were normal. Trapezius power and tongue movements were normal. There was no dysarthria. Motor tone was normal. Upper extremities (R/L) Director Of Technology 5/5 Finger abduction 5/5 Finger extension 5/5 Wrist extension 5/5 Elbow flexion 5/5 Elbow extension 5/5 Shoulder abduction 5/5 Lower extremities (R/L) Hip flexion 5-/5- Knee extension 5/5 Knee flexion 5/5 Ankle plantarflexion 5/5 Ankle dorsiflexion 5/5 Deep tendon reflexes (R/L): Biceps 2+/2+ Triceps 2+/2+ Knees 2+/2+ Ankles 2+/2+ Temperature sensation was intact and symmetric in all distal extremities. Vibratory sensation was intact at the toes. Negative Romberg. No dysmetria with [id number] testing bilaterally. Finger tapping was rapid and accurate bilaterally. Standard gait was normal. Timed 25-foot walk (sec): 4 seconds Assistive device: none. REVIEW OF IMAGING STUDIES: I reviewed the following studies: MRI brain: without and with contrast Date: 12/2018. Reviewed, stable. REVIEW OF LABORATORY STUDIES: none recent Assessment: ICD-10-CM 1. Multiple sclerosis G35 CBC (with Diff) Comprehensive metabolic panel (non-fasting) Maritza Leiva is a 59 y.o. woman without activity, without progression on Rebif. At this point she has not had a relapse since 2001. We had obtained a repeat MRI in December to assess for stability of disease and this was stable - no new lesions. She would prefer at this point to remain onRebif as she anticipates an increase in life stressors coming up, but is open to coming off of the mediation in the future. CBC, CMP today. Follow-Up: 6 months with Alie Arshad If you have questions or concerns please do not hesitate to call our clinic at [phone]. Ariane eRy MD PGY-4 Neurology resident Staffed by Dr. Raimundo Simons III [employer] Machine of Neurology [facility] Neurology Attending Attestation I saw and evaluated Maritza Leiva with Dr. Rey, neurology resident. I have reviewed themedical records and the patient's history during the visit and I agree with the details as written.My physical examination confirms the findings. ?? The assessment and plan were formulated in discussion with me at the time of the visit and I agree with them as documented. Maritza Leiva is a 59 y.o. woman with stable relapsing MS. We discussed the possibility of discontinuing Rebif given her disease stability (17 years since last relapse) and low future risk ofrelapse (though may not be zero). She is not quite ready to consider discontinuation at this time, which is reasonable. Raimundo Simons III, MD [employer] Multiple Sclerosis [place] Department of Neurology [facility] and [address] [address] Pager: [phone] 5:22 PM 03/25/2019 2:32 PM 03/25/2019 documented in this encounter Plan of Treatment Upcoming Encounters Date Type Department Care Team (Late st Contact Info) Description 09/14/2024 8:00 AM EDT Office [place] [phone] Alie Arshad PA [facility] [place] [address] documented as of this encounter Results * (ABNORMAL) Comprehensive metabolic panel (non-fasting) (03/25/2019 9:39 AM EST) Glucose 95 65 - 199 mg/dL [facility] Comment:Diabetes: >=200 mg/d L plus symptoms Blood Urea Nitrogen 15 8 - 18 mg/dL [facility] Creatinine 0.59(L) 0.70 - 1.20 mg/dL [facility] Sodium 141 135 - 145 mmol/L [facility] Potassium 4.3 3.5 - 5.0 mmol/L [facility] Comment: Please note: ??Patients with WBC >100,000 may have falsely elevated Potassium levels. ??For accurate Potassium quantification in these patients send serum separator tube (gold top) for subsequent determinations. ??Contact the Clinical Chemistry Laboratory if there are any questions. Chloride 103 98 - 107 mmol/L [facility] Carbon Dioxide 26 22 - 31 mmol/L [facility] Anion Gap 12 5 - 15 mmol/L [facility] Calcium 9.7 8.5 - 10.5 mg/dL [facility] Protein, Total 7.3 6.1 - 8.0 gm/dL [facility] Albumin 4.3 3.2 - 5.2 gm/dL [facility] Aspartate Aminotransferase 20 0 - 30 unit/L [facility] Alanine Aminotransferase 17 0 - 30 unit/L [facility] Alkaline Phosphatase 81 35 - 105 unit/L [facility] Bilirubin, Total 0.7 0.2 - 1.3 mg/dL [facility] Est Glomerular Filtration Rate 102 >=60 mL/min/1. 73 m?? [facility] Comment: The eGFR was calculated using the CKD-EPI equation. As with all creatinine based estimates of kidney function, eGFR values calculated with the CKD-EPI equation are not accurate in patients with acute kidney failure, extremes of body mass or the acutely ill. [email or web address].[email or web address] eGFR 118 >=60 mL/min/1. 73 m?? [facility] Comment: The eGFR was calculated using the CKD-EPI equation. As with all creatinine based estimates of kidney function, eGFR values calculated with the CKD-EPI equation are not accurate in patients with acute kidney failure, extremes of body mass or the acutely ill. http://Youca.st/[facility] Blood specimen (specimen) 03/25/2019 9:39 AM EST 03/25/2019 9:46 AM EST Narrative Resulting Agency Comment Spec In Lab Raimundo Simons III, MD CHEMISTRY ORDERAB LES [facility] [place] [address] documented in this encounter Visit Diagnoses Diagnosis Multiple sclerosis documented in this encounter Care Teams Service Rig Operator Relationship Specialty Start Date End Date Kevan Angel DO [address] [place] [address] PCP - General 08/07/11 documented as of this encounter
--- OUTSIDE RECORDS SUMMARY | 2024-04-05 17:31 | XMS_ITS | Encounter Summary ---
Author Organization [facility] [address] Care Team Providers Care J2Ee Architect Name Role Phone Kevan Angel DO Primary Care Provider [phone] Encounter Details Date Type Department Care Team (Late st Contact Info) Description 10/08/2019 Specialty Pharmacy [place] [phone] Artemio Hazel, [facility] Social History Tobacco Use Types [...] 8:00 AM EDT Office [place] [address] Alie Arshad PA [facility] [place] [address] documented as of this encounter Visit Diagnoses Not on filedocumented in this encounter Care Teams J2Ee Architect Relationship Specialty Start Date End Date Kevan Angel DO [address] [place] [address] PCP - General 08/07/11 documented as of this encounter
--- OUTSIDE RECORDS SUMMARY | 2024-04-05 17:31 | XMS_ITS | Encounter Summary ---
Author Organization [facility] Address [facility] [place] [address] Care Team Providers Care Contractor Broomcorn Threshing Name Role Phone Stanley, Kevan PHELPS Primary Care Provider [phone] Encounter Details Date Type Department Care Team (Late st Contact Info) Description 10/14/2019 [place] [address] Alie Arshad PA [facility] [place] [address] Social History Tobacco Use Types Packs/Day Years [...] Telephone Encounter - Artemio Hazel RPH - 10/21/2019 4:23 PM EDT Signed by alternate provider per patient clinic contact * Telephone Encounter - Artemio Hazel RPH - 10/14/2019 8:27 AM EDT Patient due for refill immediately following holiday. Last appointment was cancelled but needs refill for enough supply to make it to her next appointment date. documented in this encounter Plan of Treatment Upcoming Encounters Date Type Department Care Team (Late st Contact Info) Description 09/14/2024 8:00 AM EDT [place] [address] Alie Arshad PA [facility] [place] [address] documented as of this encounter Visit Diagnoses Not on filedocumented in this encounter Care Teams Contractor Broomcorn Threshing Relationship Specialty Start Date End Date Kevan Angel DO [address] [place] [address] PCP - General 08/07/11 documented as of this encounter
--- OUTSIDE RECORDS SUMMARY | 2024-04-05 17:31 | XMS_ITS | Encounter Summary ---
Author Organization [facility] Address [facility] [place] [address] Care Team Providers Care Lidar Technician Name Role Phone StanleyKevan bowen Primary Care Provider Reason for Visit * Reason Onset Date Comments Medication Refill 10/21/2019 Encounter Details Date Type Department Care Team (Late st Contact Info) Description 10/21/2019 [place] [address] Alie Arshad PA [facility] [place] [address] Medication Refill Social History Tobacco Use Types Packs/Day Years [...] Telephone Encounter - Pratibha Vera RN - 10/21/2019 1:40 PM EDT New rx generated for provider review and signature. * Telephone Encounter - Lora Cannon - 10/21/2019 12:41 PM EDT Call Center / [place] Message Prescription Refill Request Clinical [place] message Provider patient sees in Clinic: Pavithra Caller and relationship (if other than patient-full name): Maritza Monroy Call back Number: Ok to leave a message: Y Name of Med: interferon beta-1a, albumin(Rebif with albumin) Strength of Pills: 44 mdg/0.5 mL Syringe Dosing Directions: Inject 0.5mLs subcutaneously three times a week. 30 or 90 Day Supply: 28 day supply Pharmacy: [facility] Specialty, mailed to patient. Last Appointment: 03-25-19 Next Appointment: (IF CALL IS FROM PATIENT/FAMILY AND THERE IS NO FOLLOW UP SCHEDULED REVIEW CHART TO SEE WHEN APPOINTMENT IS NEEDED AND SCHEDULE BEFORE SENDING MESSAGE) 10/29/19 Is Patient out of Medication?: No documented in this encounter Plan of Treatment Upcoming Encounters Date Type Department Care Team (Late st Contact Info) Description 09/14/2024 8:00 AM EDT [place] [address] Alie Arshad PA [facility] [place] [address] documented as of this encounter Visit Diagnoses Not on filedocumented in this encounter Care Teams Lidar Technician Relationship Specialty Start Date End Date Kevan Angel DO [address] [place] [address] [address] [place] [address] PCP - General 08/07/11 documented as of this encounter
--- OUTSIDE RECORDS SUMMARY | 2024-04-05 17:31 | XMS_ITS | Encounter Summary ---
[place] [address] Care Team Providers Care Fermentologist Name Role Phone StanleyKevan bowen Primary Care Provider Reason for Visit * Reason Comments Follow-up Patient Education Medication Management Encounter Details Date Type Department Care Team (Late st Contact Info) Description 06/23/2019 Specialty [place] [address] Artemio Hazel Jared Social History Tobacco Use Types Packs/Day [...] Progress Notes * Artemio Hazel RPH - 06/23/2019 2:01 PM EDT Specialty Pharmacy Consultation; Artemio Hazel [...] the Clinical Assessment? Yes Summary and Recommendations: Maritza reported no changes in medications or side effects. Patient reports no new symptoms and cannot recall and relapses or flares within the last 17 years. Noted from previous office visit that there was discussion regarding stopping therapy. Maritza expresses some fear about stopping medication. Provided consultation that Rebif works on reducing or modifying the inflammatory response and while itis effective in reducing risk for relapse it does not have an effect unless MS inflammation is active. Also mentioned that accordingly to most recent office visit that the likelihood of a future MS attack is low but not zero. Advised patient to discuss further with provider and patient will do so at next office visit. Patient has two weeks of medication on hand and will continue refilling until that discussion occurs. Maritza also reported the recent passing of her mother. I expressed my condolences. 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 She expects the stressors in her lifeto be reduced by the time she is seen at next office visit but reports that she is managing well. Clinic follow-up needed: no Allergies and Drug intolerance: No Known Allergies Special Dietary or Hydration Requirements: no There is no height or weight on file to calculate BMI. Medication Reconciliation Discrepancies (compared to [facility] med list) no Medication Adherence Patient reported [...] beneficiary Provider: plan sponsor pharmacist Visit Type: [facility] Follow-[place] Method of Contact: by telephone Cognitive Ability: good Cognitive Impairment Status Verified this Year: no Patient Counseling Counseled the patient on the following: reviewed medication changes since last visit, medication safety precautions education provided, doses and administration discussed, safe handling, storage, and disposal discussed, possible adverse effects and management discussed, possible drug and prescription drug interactions discussed, possible drug and OTC drug and food interactions discussed, lab monitoring and follow-up discussed, therapeutic rationale discussed, cost of medications and cost implications discussed, adherence and missed doses discussed, pharmacy contact information discussed, health goals discussed, monitoring medication discussed, over the counter products discussed, preventative care discussed, lifestyle modification education, referral needs discussed Drug Medication Management Summary Topics discussed: reviewed medication changes since last visit, medication safety precautions education provided, doses and administration discussed, safe handling, storage, and disposal discussed, possible adverse effects and management discussed, possible drug and prescription drug interactions discussed, possible drug and OTC drug and food interactions discussed, lab monitoring and follow-up discussed, therapeutic rationale discussed, cost of medications and cost implications discussed, adherence and missed doses discussed, pharmacy contact information discussed, health goals discussed, monitoring medication discussed, over the counter products discussed, preventative care discussed, lifestyle modification education, referral needs discussed Number of adverse drug events identified: 0 Time spent: 16-30 min Treatment Outcomes 06/23/2019 1403 Disease progression: Stable Patient Overall Status: Stable [...] agreeable to medication copay: yes Copay Amount: $50 Day Supply: 28 Date Needed: 07/07/19 Copay assistance required: yes - covers copay through restaurant expeditor card Physical Assessment: Functional limitations identified: no Is patient a fall risk: no Cognitive limitations identified such as orientation, memory, reasoning or judgement: no Other: no Social Assessment: Does the patient have a primary aged or disabled carer? no Patient has emergency contact on file: Yes Does patient need referral to social service technician: No Does patient need referral to advocacy group: No Physical and Home Health Assessment: Is the patient able to store their medication as directed? Yes Is the patient in a safe home environment? Yes Do you have a support network? Yes Reviewed potential home safety hazards: Yes Therapy Assessment: Appropriate Therapy: Yes Current Medication Dosing/Route/Frequency: Rebif 44mcg three times weekly Effective: yes - no relapses Recent Relapses: no Current pain rating (1-10): unreported Relapsing/Remitting Factors: lower extremity numbness, optic neuritis Patient experienced change in condition that affects treatment: no Patient experienced side effects from medication: no Occurrence of recent infections: no Administration issues identified: no Rotation of injection sites: Yes Medication room temperature prior to injection: Yes Patient Goals: Patient's specific desired goal: reduce risk for relapse and slow diease progression Measured by: MRI and symptoms Time-frame to meet goal: ongoing Is the [...] -Patient received welcome packet: Yes Date Received: 12/11/19 Delivery Method: mail -Patient returned signed Rights & Responsibilities: No Date Received: 12/11/19 Delivery Method: mail -Patient is aware a [...] Yes Patient Satisfaction with Therapy: yes - considering discontinuation due to lack of activity Patient understands no changes to current drug regimen were made at the appointment and that [facility] is[facility] recommendations (summary located at top of note) for provider review and follow up. Artemio Hazel RPH 06/23/19 2:03 PM documented in this encounter Plan of Treatment Upcoming Encounters Date Type Department Care Team (Late st Contact Info) Description 09/14/2024 8:00 AM EDT Office [place] [address] Alie Arshad PA [facility] [place] [address] documented as of this encounter Visit Diagnoses Not on filedocumented in this encounter Care Teams Fermentologist Relationship Specialty Start Date End Date Kevan Angel DO [address] [place] [address] PCP - General 08/07/11 documented as of this encounter
--- OUTSIDE RECORDS SUMMARY | 2024-04-05 17:31 | XMS_ITS | Encounter Summary ---
[place] [address] Care Team Providers Care Computer Clerk Name Role Phone StanleyKevan bowen Primary Care Provider [phone] Reason for Visit * Reason Comments Patient Education Medication Management Follow-up Encounter Details Date Type Department Care Team (Late st Contact Info) Description 12/03/2018 Specialty [place] [address] Artemio Hazel Jared Social History Tobacco Use [...] Progress Notes * Artemio Hazel RPH - 12/03/2018 10:17 AM EDT Specialty Pharmacy Consultation; Artemio Hazel RPH Comprehensive Medication Management (CMM): Specialty Consult, Opt Out Maritza ParishFabien Diagnosis: MS Therapy Start Date: prior to 2002 Contact in person or via telephone:telephone Ms. Maritza Leiva is a 59 y.o. (1960) female who was contacted in regard to specialty medication. Spoke with patient regarding Rebif Rebidose. A review of the medication therapy was performed. The medication was filled as scheduled, and all medication related questions and concerns were addressed. The specialty pharmacy staff will follow up with the patient 5-7 days prior to next refill. Is the patient willing to proceed with the Clinical Assessment? No Summary and Recommendations: Originally entered 12/03/18, updated 05/04/19 to meet compliance Due to the patient existing to therapy since 2002, the patient will be opted out of this assessment with the pharmacist. Patient was informed of differences in storage and injection technique between her previous therapyof Rebif PFS vs the Rebif Rebidose auto pen injection. Patient is aware and will receive the new product in time for her next dose. Economic Assessment: Patient is agreeable to medication copay: Yes Copay Amount: $50 Day Supply:28 Date Needed: 12/11/18 ?? Therapy Assessment: ?? Appropriate Therapy: Yes Current Medication Dosing/Route/Frequency: Rebif Rebidose 44mcg three times weekly ?? Additional equipment/supplies required: no Care Plan Reviewed and Approved by Pharmacist : ? Yes ?? Medications Reviewed: Yes Medications reconciled: No Allergies Reviewed:Yes Allergies reconciled: Yes Informed patient of specialty pharmacy services: Yes -Patient will be provided with welcome packet: Yes Date to be provided: 12/11/18 Delivery Method: mail -Patient returned signed Rights & Responsibilities: Yes Date to be provided: 12/11/18 Delivery Method: mail -Patient is aware a [...] for provider review and follow up. Artemio Haezl RPH 05/04/19 8:05 AM Artemio Hazel RPH 12/03/18 10:18 AM documented in this encounter Plan of Treatment Upcoming Encounters Date Type Department Care Team (Donato de leon Contact Info) Description 09/14/2024 8:00 AM EDT Office [place] [address] Alie Arshad PA [facility] [place] [address] documented as of this encounter Visit Diagnoses Not on filedocumented in this encounter Care Teams Computer Clerk Relationship Specialty Start Date End Date Kevan Angel DO [address] [place] [address] PCP - General 08/07/11 documented as of this encounter
--- OUTSIDE RECORDS SUMMARY | 2024-04-05 17:31 | XMS_ITS | Encounter Summary ---
[place] [address] Care Team Providers Care Oleomargarine Maker Name Role Phone StanleyKevan bowen Primary Care Provider [phone] Encounter Details Date Type Department Care Team (Late st Contact Info) Description 08/25/2019 [place] [phone] Sarkis Tamez CPHT Social History Tobacco Use [...] * Telephone Encounter - Sarkis Tamez - 08/25/2019 1:39 PM EDT Clinical Management Plan: Refill Specialty [...] Known Allergies Medication Reconciliation Discrepancies (compared to [facility] med list) No New medications: No New medical conditions: No New allergies: No Adherence: Any missed doses? No Are you experiencing any side effects from your medications? No Patient understands no changes to current drug regimen were made.. Sarkis Tamez 08/25/19 1:39 PM documented in this encounter Plan of Treatment Upcoming Encounters Date Type Department Care Team (Late st Contact Info) Description 09/14/2024 8:00 AM EDT Office [place] [address] Alie Arshad PA [facility] [place] [address] documented as of this encounter Visit Diagnoses Not on filedocumented in this encounter Care Teams Oleomargarine Maker Relationship Specialty Start Date End Date Kevan Angel DO [address] [place] [address] PCP - General 08/07/11 documented as of this encounter
--- OUTSIDE RECORDS SUMMARY | 2024-04-05 17:31 | XMS_ITS | Encounter Summary ---
Author Organization [facility] [address] Care Team Providers Care Web Analyst Name Role Phone StanleyKevan bowen Primary Care Provider [phone] Encounter Details Date Type Department Care Team (Late st Contact Info) Description 02/28/2020 [place] [address] Sarkis Tamez CPHT Social History Tobacco Use [...] * Telephone Encounter - Sarkis Tamez - 02/28/2020 8:42 AM EST Clinical Management Plan: Refill Specialty [...] [facility] med list) No New medications: No New medical conditions: No New allergies: No Adherence: Any missed doses? No Are you experiencing any side effects from your medications? No Patient understands no changes to current drug regimen were made.. Sarkis Tamez 02/28/20 8:42 AM documented in this encounter Plan of Treatment Upcoming Encounters Date Type Department Care Team (Late st Contact Info) Description 09/14/2024 8:00 AM EDT [place] [address] Alie Arshad PA [facility] [place] [address] documented as of this encounter Visit Diagnoses Not on filedocumented in this encounter Care Teams Web Analyst Relationship Specialty Start Date End Date Kevan Angel DO [address] [place] [address] PCP - General 08/07/11 documented as of this encounter
--- OUTSIDE RECORDS SUMMARY | 2024-04-05 17:31 | XMS_ITS | Encounter Summary ---
Author Organization [facility] [place] [address] Care Team Providers Care Sleeve Sewer Name Role Phone Kevan Angel DO Primary Care Provider [phone] Encounter Details Date Type Department Care Team (Late st Contact Info) Description 01/21/2020 Specialty Pharm[place] [address] Artemio Hazel, [facility] Social [...] 8:00 AM EDT Office [place] [address] Alie Arshad PA [facility] [place] [address] documented as of this encounter Visit Diagnoses Not on filedocumented in this encounter Care Teams Sleeve Sewer Relationship Specialty Start Date End Date Kevan Angel DO [address] [place] [address] PCP - General 08/07/11 documented as of this encounter
--- OUTSIDE RECORDS SUMMARY | 2024-04-05 17:31 | XMS_ITS | Encounter Summary ---
[place] [address] Care Team Providers Care Chartered Accountant Name Role Phone StanleyKevan bowen Primary Care Provider [phone] Reason for Visit * Reason Comments Medication Management Encounter Details Date Type Department Care Team (Late st Contact Info) Description 04/21/2020 Specialty [place] [address] Klever Bright, [facility] Social History Tobacco Use Types Packs/Day Years [...] this encounter Progress Notes * Klever Bright RPH - 04/21/2020 12:04 PM EST Clinical Management Plan: Refill Specialty Pharmacy Consultation; Klever Bright [facility] Comprehensive Medication Management (CMM) Maritza L Cali [...] beneficiary Provider: plan sponsor pharmacist [place] [facility] [place] Method of Contact: by telephone Cognitive Ability: good Cognitive Impairment Status Verified this Year: no Allergies and Drug intolerance: No Known Allergies Medication Reconciliation Discrepancies (compared to [facility] med list) -none New medications: no [...] were made at the appointment and that [facility] is providing recommendations (summary located at top of note) for provider review and follow up. Klever Bright RPH 04/21/20 12:05 PM documented in this encounter Plan of Treatment Upcoming Encounters Date Type Department Care Team (Late st Contact Info) Description 09/14/2024 8:00 AM EDT [place] [address] Alie Arshad PA [facility] [place] [address] documented as of this encounter Visit Diagnoses Not on filedocumented in this encounter Care Teams Chartered Accountant Relationship Specialty Start Date End Date Kevan Angel DO [address] [place] [address] [address] [place] [address] PCP - General 08/07/11 documented as of this encounter
--- OUTSIDE RECORDS SUMMARY | 2024-04-05 17:31 | XMS_ITS | Encounter Summary ---
[place] [address] Care Team Providers Care Career Development Associate Name Role Phone StanleyKevan bowen Primary Care Provider [phone] Reason for Visit * Reason Comments Medication Management Patient Education Encounter Details Date Type Department Care Team (Late st Contact Info) Description 05/19/2020 Specialty [place] [id number] Artemio Hazel [facility] Social History Tobacco Use Types [...] Progress Notes * Artemio Hazel RPH - 05/19/2020 2:31 PM EST Specialty Pharmacy Consultation; Artemio Hazel RPH Comprehensive Medication Management (CMM) Maritza Chan Cali Diagnosis: MS Current Therapy Start Date: 07/2002 MS Diagnosis date (mm/yy): 11/1997 Prior MS therapy: none Contact in person or via telephone:telephone Ms. Maritza ParishckGustabo is a 60 y.o. [...] Clinical Assessment? Yes Summary and Recommendations: Maritza reports no changes in medications, symptoms, or side effects. Previous office visits indicated that Maritza may stop therapy at some point. Notes from a 12/2019 MRI were unresolved so the decisionwas to stay on therapy and reassess in the future. Maritza had no further concerns or questions, stable for the last 18 years. Clinic follow-up needed: no Allergies and Drug intolerance: No Known Allergies Problem List: Patient Active Problem List Diagnosis Code ??? MS (multiple sclerosis) G35 ??? 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 Medication Reconciliation Discrepancies (compared to [facility] med list) no Medication Adherence Patient [...] Refills needed for supportive medications: not needed Medication List: Current Outpatient Medications Medication Sig [...] Type of Medication Management: chronic disease management, comprehensive medication review Referred By: pharmacist Recipient: beneficiary Provider: plan sponsor pharmacist Visit Type: [facility] [place] Method of Contact: by telephone Cognitive Ability: good Cognitive Impairment Status Verified this Year: no Patient Counseling Counseled the patient on the following: doses and administration discussed, safe handling, storage, and disposal discussed, possible adverse effects and management discussed, possible drug and prescription drug interactions discussed, possible drug and OTC drug and food interactions discussed, lab monitoring and follow-up discussed, therapeutic rationale discussed, cost of medications and cost implications discussed, adherence and missed doses discussed, pharmacy contact information discussed Drug Medication Management Summary Topics discussed: doses and administration discussed, safe handling, storage, and disposal discussed, possible adverse effects and management discussed, possible drug and prescription drug interactions discussed, possible drug and OTC drug and food interactions discussed, lab monitoring and follow-up discussed, therapeutic rationale discussed, cost of medications and cost implications discussed, adherence and missed doses discussed, pharmacy contact information discussed Number of adverse drug events identified: 0 Time spent: 31-45 min Treatment Outcomes 05/19/2020 1432 Disease progression: Stable Patient Overall Status: Stable [...] mitigation strategies, and interruptions in therapy: Yes Physical and Cognitive Assessment: Functional limitations identified: no Cognitive limitations identified: no Concern regarding orientation/memory: no Concern with reasoning/judgement: no Is patient a fall risk: no Other needed information: no Social Assessment: Does the patient have a primary home visit field care manager? no Does the patient have an emergency contact on file: Yes Does patient need referral to healthcare social worker: No Does patient need referral to advocacy group: No Home Health Assessment: Is the patient in a safe home environment? Yes Is the patient able to store their medication as directed? Yes Does the patient have a support network at home? Yes Reviewed potential home safety hazards with patient: Yes Economic Assessment: Patient is agreeable to medication copay: yes Copay Amount: $50 Day Supply: 05/31/20 Date Needed: 28 Copay assistance required: yes - patient receives reimbursement Therapy Assessment: Current Medication Dosing/Route/Frequency: Rebif 44mcg subcutaneously three times weekly Appropriate Therapy: Yes Effective: yes - Recent Relapses: no Current pain rating (1-10): unreported Relapsing/Remitting Factors: lower extremity numbness, optic neuritis Patient-Reported Side Effects: no Occurrence of recent infections: no Patient Goals: Patient's specific desired goal: reduce risk for relapse and slow disease progression Measured by: MRI and symptoms Time-frame to meet goal: ongoing Is the patient on track to achieve goals of therapy? yes Care Plan and Interventions: Care Plan Reviewed and Approved by both Pharmacist and Patient: Yes Did Care Plan Change? No Interventions (if applicable): No Patient experienced change in condition that affects treatment: no Additional care/services needed: no Educational information or adherence tools provided: Yes Additional equipment/supplies required: no Patient Counseling: Administration issues identified: no Rotation of injection sites: Yes Medication room temperature prior to injection: Yes Pharmacist follow-up needed: no Patient Satisfaction with Care/Services Provided: Yes Informed patient of specialty pharmacy services: Yes -Patient received welcome packet: yes - Date Received: 12/10/18 Delivery Method: main -Patient returned signed Rights & Responsibilities: no Date Received: 12/10/18 Delivery Method: mail -Patient is aware a [...] were made at the appointment and that [facility] isproviding recommendations (summary located at top of note) for provider review and follow up. Artemio Hazel RPH 05/19/20 2:32 PM documented in this encounter Plan of Treatment Upcoming Encounters Date Type Department Care Team (Late st Contact Info) Description 09/14/2024 8:00 AM EDT Office [place] [address] Alie Arshad PA [facility] [place] [address] documented as of this encounter Visit Diagnoses Not on filedocumented in this encounter Care Teams Career Development Associate Relationship Specialty Start Date End Date Kevan Angel DO [address] [facility] [address] [place] [address] PCP - General 08/07/11 documented as of this encounter
--- OUTSIDE RECORDS SUMMARY | 2024-04-05 17:31 | XMS_ITS | Encounter Summary ---
Author Organization [place] [address] Care Team Providers Care Cover Stripper Name Role Phone StanleyKevan bowen Primary Care Provider [phone] Reason for Visit * Reason Onset Date Comments TeleHealth 10/28/2019 Appt 10/29/19 Encounter Details Date Type Department Care Team (Late st Contact Info) Description 10/28/2019 Telephone [place] [address] Alie Arshad PA [facility] [place] [address] TeleHealth (Appt 10/29/19) Social History Tobacco Use Types Packs/Day Years [...] encounter Miscellaneous Notes * Telephone Encounter - Dmitriy Villarreal - 10/28/2019 11:26 AM EDT The patient is calling the office back and states that her medication list has not changed and she has no new allergies. The patient states that if she needs to be reached again to please call in thenext few mins. [phone] * Telephone Encounter - Regina Contreras CMA - 10/28/2019 10:44 AM EDT Did not speak with patient to review medications and allergies prior to upcoming tele- appointment scheduled with Neurology provider. Could not reach patient. documented in this encounter Plan of Treatment Upcoming Encounters Date Type Department Care Team (Late st Contact Info) Description 09/14/2024 8:00 AM EDT Office [place] [address] Alie Arshad PA [facility] [place] [address] documented as of this encounter Visit Diagnoses Not on filedocumented in this encounter Care Teams Cover Stripper Relationship Specialty Start Date End Date Kevan Angel DO [address] [place] [address] PCP - General 08/07/11 documented as of this encounter
--- OUTSIDE RECORDS SUMMARY | 2024-04-05 17:31 | XMS_ITS | Encounter Summary ---
[place] [address] Care Team Providers Care In Store Demonstrator Name Role Phone StanleyKevan bowen Primary Care Provider Encounter Details Date Type Department Care Team (Late st Contact Info) Description 07/14/2020 [place] [address] Sarkis Tamez CPHT Social History Tobacco Use [...] * Telephone Encounter - Sarkis Tamez - 07/14/2020 9:28 AM EDT Clinical Management Plan: Refill Specialty [...] med list) No Specialty Pharmacy Refill Questionnaire There is no flowsheet data to display. Adherence: Any missed doses? No Patient understands no changes to current drug regimen were made.. Sarkis Tamez 07/14/20 9:28 AM documented in this encounter Plan of Treatment Upcoming Encounters Date Type Department Care Team (Late st Contact Info) Description 09/14/2024 8:00 AM EDT Office [place] [address] Alie Arshad PA [facility] [place] [address] documented as of this encounter Visit Diagnoses Not on filedocumented in this encounter Care Teams In Store Demonstrator Relationship Specialty Start Date End Date eKvan Angel DO [address] [place] [address] PCP - General 08/07/11 documented as of this encounter
--- OUTSIDE RECORDS SUMMARY | 2024-04-05 17:31 | XMS_ITS | Encounter Summary ---
Author Organization [facility] [place] [address] Care Team Providers Care Disc Inspector Name Role Phone Stanley, Kevan PHELPS Primary Care Provider Reason for Referral * Diagnostic Test (Routine) - Closed Specialty Diagnoses / Procedures Referred By David nieves Referred To Contact Radiology Diagnoses Multiple sclerosis Procedures MRI Brain wwo Contrast (Generic) Alie Arshad PA [facility] [place] [address] [place] [address] Referral ID Status Reason Start Date Expiration Date V isits Requested Visits Authorized [id number] Closed Specialty Service Requested 09/29/2020 03/27/2021 1 1 Encounter Details Date Type Department Care Team (Late st Contact Info) Description 01/21/2020 3:00 PM EDT TH Visit (TeleHealth) [place] [address] Alie Arshad PA [facility] [place] [address] Multiple sclerosis Social History Tobacco [...] Progress Notes * Alie Arshad PA - 01/21/2020 3:00 PM EDT M[facility]LE [facility] CL[facility] [place] [address] [address] Patient name: Maritza Leiva Date of : 1960 Address: [place] [address], [facility] ?? Time since first symptom of MS: [...] was last seen here by me in October - we discussed rebif discontinuation. She was apprehensive, so we decided to get an MRI brain for surveillance and evaluate afterwards. Interval History: Maritza reports no changes to her MS disease - baseline symptoms are stable, and no obvious episodes concerning for a relapse. She is otherwise healthy and doing ok with the current pandemic. She is still on Rebif - reports good toleration, with no major side effect complaints. MRI brain was done on 01/10 and showed 1 new PV lesion near the left frontal horn area. ScHx ?? Home & Family: , 2 sons (youngest son has CF but very mild form). ?? Job status: Works in [employer]. ?? Alcohol: No ?? Tobacco: Former, quit at age 32yo ?? Drug use: No ?? Diet: Good, healthy diet ?? Exercise: Enjoys walking when she can. Social History Social History Narrative ??? Not on file Past Medical History: Diagnosis Date ??? Multiple sclerosis No family history on file. Outpatient Encounter Medications as of 01/21/2020 Medication Sig Dispense Refill ??? interferon beta-1a, albumin, (Rebif, with albumin,) 44 mcg/0.5 mL Syringe Inject 0.5 mLs subcutaneously three times a week. 12 Syringe 11 ??? [DISCONTINUED] interferon beta-1a, albumin, (Rebif, with albumin,) 44 mcg/0.5 mL Syringe Inject0.5 mLs subcutaneously three times a week. 12 [...] facility-administered encounter medications on file as of 01/21/2020. No Known Allergies Review of systems: Refer [...] Rebif/DMDs given her disease course thus far. We discussed the recent MRI findings of 1 new lesion in the left frontal horn area compared to 2019. Given these results, and some continued apprehension to discontinue given the lack of relapses she has had while on the drug, we decided to hold off another year before discontinuing the drug. Before our next appt we will obtain a surveillance MRI and then re-evaluate the need for Rebif. #MS: Continue Rebif #MRI brain for surveillance in 1yr before our next appt. #F/u after the MRI has been completed. Alie Arshad PA-C Dept. Of Neurology [facility] (MS nurse) or [phone](general secretary administrative assistant line) documented in this encounter Plan of Treatment Upcoming Encounters Date Type Department Care Team (Late st Contact Info) Description 09/14/2024 8:00 AM EDT [place] [address] Alie Arshad PA [facility] [place] [address] documented as of this encounter Results * [...] who have questions please contact the health healthcare receptionist that requested your imaging first. ? Electronically signed by: Melecio Keyes MD, [facility] ([phone]), at 10/09/2020 4:27 PM Narrative 10/09/2020 4:27 PM EDT EXAMINATION: MRI [...] patients who have questions please contactthe health healthcare receptionist that requested your imaging first. Raimundo Cancino MD IMG MRI ORDERABLES documented in this encounter Visit Diagnoses Diagnosis Multiple sclerosis Multiple sclerosis documented in this encounter Care Teams Disc Inspector Relationship Specialty Start Date End Date Kevan Angel DO [address] [place] [address] PCP - General 08/07/11 documented as of this encounter
--- OUTSIDE RECORDS SUMMARY | 2024-04-05 17:31 | XMS_ITS | Encounter Summary ---
[place] [address] Care Team Providers Care Window Shade Cutter And Mounter Name Role Phone StanleyKevan bowen Primary Care Provider [phone] Reason for Visit * Reason Comments Medication Management Encounter Details Date Type Department Care Team (Late st Contact Info) Description 02/09/2019 Specialty [place] [address] Linda Sapp Jared Social History Tobacco Use [...] Progress Notes * Linda Sapp RPH - 02/09/2019 8:03 AM EDT Clinical Management Plan: Refill Specialty Pharmacy Consultation; Linda Sapp RPH Comprehensive Medication Management (CMM) Maritza Leiva Ms. Maritza Chan Cali is a 58 y.o. (1960) female who [...] beneficiary Provider: plan sponsor pharmacist Visit Type: [facility] Follow-up Method of Contact: by telephone Allergies and Drug intolerance: No Known Allergies Medication Reconciliation Discrepancies (compared to [facility] med list) -no New medications: no New [...] review and follow up. Linda Sapp RPH 02/09/19 8:04 AM documented in this encounter Plan of Treatment Upcoming Encounters Date Type Department Care Team (Late st Contact Info) Description 09/14/2024 8:00 AM EDT [place] [address] Alie Arshad PA [facility] [place] [place] [address] documented as of this encounter Visit Diagnoses Not on filedocumented in this encounter Care Teams Window Shade Cutter And Mounter Relationship Specialty Start Date End Date Kevan Angel DO [address] [place] [address] PCP - General 08/07/11 documented as of this encounter
--- OUTSIDE RECORDS SUMMARY | 2024-04-05 17:31 | XMS_ITS | Encounter Summary ---
[place] [address] Care Team Providers Care Ground Instructor Basic Name Role Phone StanleyKevan bowen Primary Care Provider [phone] Encounter Details Date Type Department Care Team (Late st Contact Info) Description 07/23/2019 [place] [phone] Artemio Hazel RPH Social History Tobacco Use [...] Telephone Encounter - Artemio Hazel RPH - 07/23/2019 3:11 PM EDT [facility], Prior Authorization Approval Medication Name: Rebif 44mcg syringes FILLABLE AT [facility]? yes APPROVAL DATES: 06/23/19-07/22/20 SPECIFIC INS REQUIREMENT: none CASE/REFERENCE # [id number] APPROVAL NOTIFICATION RECEIVED VIA: [employer], instant COPAY: $50 COPAY ASSISTANCE NEEDED?: patient managed, restricted access only to patient- now on reimbursement NOTES: none documented in this encounter Plan of Treatment Upcoming Encounters Date Type Department Care Team (Late st Contact Info) Description 09/14/2024 8:00 AM EDT [place] [address] Alie Arshad PA [facility] [place] [address] documented as of this encounter Visit Diagnoses Not on filedocumented in this encounter Care Teams Ground Instructor Basic Relationship Specialty Start Date End Date Kevan Angel DO [address] [place] [address] PCP - General 08/07/11 documented as of this encounter
--- OUTSIDE RECORDS SUMMARY | 2024-04-05 17:32 | XMS_ITS | Encounter Summary ---
Author Organization [facility] Address [facility] [place] [address] Care Team Providers Care Divorce Lawyer Name Role Phone Kevan Angel DO Primary Care Provider Reason for Visit * Reason Onset Date Comments Medication Refill 03/27/2012 Encounter Details Date Type Department Care Team (Late st Contact Info) Description 03/27/2012 Refill [place] [address] Smooth Jang MD [facility] [place] [address] Social History Tobacco Use Types Packs/Day Years Used Date Smoking Tobacco: Former Cigarettes 0 09/06/1981 - 09/06/1993 Smokeless Tobacco: Never Alcohol Use Standard Drinks/Week Comments Yes 0 (1 standard drink = 0.6 oz pur e alcohol) Occasionally Sex and Gender Information Value Date Recorded Sex Assigned at Not on file Gender Identity Not on file Sexual Orientation Not on file documented as of this encounter Miscellaneous Notes * Telephone Encounter - Марина Voss - 03/27/2012 9:52 AM EST Patient called for prescription refill for: Name of Med: rebif Strength of Pills:44 mg Dosing Directions: 3 times per week 30 or 90 Day: Pharmacy: [facility] [place], [place] Last Appointment:07/2011 Next Appointment:08/27/2012 documented in this encounter Plan of Treatment Upcoming Encounters Date Type Department Care Team (Late st Contact Info) Description 09/14/2024 8:00 AM EDT Office Visit [place] [address] Alie Arshad PA [facility] [place] [place] [address] documented as of this encounter Visit Diagnoses Not on filedocumented in this encounter Care Teams Divorce Lawyer Relationship Specialty Start Date End Date Kevan Angel DO [address] [place] [address] PCP - General 08/07/11 documented as of this encounter
--- OUTSIDE RECORDS SUMMARY | 2024-04-05 17:32 | XMS_ITS | Encounter Summary ---
Author Organization [facility] [place] [address] Care Team Providers Care Cat Dog Or Other Pet Groomer Name Role Phone Kevan Angel DO Primary Care Provider [phone] Reason for Visit * Reason Onset Date Comments Other 10/14/2017 Encounter Details Date Type Department Care Team (Late st Contact Info) Description 10/14/2017 [place] [address] Smooth Jang MD [facility] [place] [address] Other Social History Tobacco Use Types Packs/Day [...] encounter Miscellaneous Notes * Telephone Encounter - Malinad Wheeler RN - 10/14/2017 11:22 AM EDT Spoke with pt. Notified her lab reqs faxed to lab at [facility]. She will have labs done at her convenience. * Telephone Encounter - Elda Fabian - 10/14/2017 9:10 AM EDT Caller: Maritza If not Pt / Relation to pt: Best time to reach caller: anytime Before 2:30pm - Informed caller that nurse will call back by the end of the day Best number to reach caller: [phone] Reason for call: Patient called to find out what the labs are that Dr. Jang would like her to have. She states that she would like lab orders sent to [facility] lab when the orders areplaced and to please call her so that she can go there to have the blood draw done. Please call regarding the lab orders. documented in this encounter Plan of Treatment Upcoming Encounters Date Type Department Care Team (Late st Contact Info) Description 09/14/2024 8:00 AM EDT [place] [address] Alie Arshad PA [facility] [place] [place] [address] documented as of this encounter Visit Diagnoses Diagnosis Multiple sclerosis documented in this encounter Care Teams Cat Dog Or Other Pet Groomer Relationship Specialty Start Date End Date Kevan Angel DO [address] [place] [address] PCP - General 08/07/11 documented as of this encounter
--- OUTSIDE RECORDS SUMMARY | 2024-04-05 17:32 | XMS_ITS | Encounter Summary ---
Author Organization [facility] Address [facility] [place] [address] Care Team Providers Care Clinical Fellow Name Role Phone StanleyKevan bowen Primary Care Provider Reason for Visit * Reason Comments Multiple Sclerosis ms Encounter Details Date Type Department Care Team (Late st Contact Info) Description 08/07/2011 2:00 PM EDT [place] [address] Smooth Jang MD [facility] [place] [address] MS (multiple sclerosis) (Primary Dx) Discharge Disposition: Home Social History Tobacco Use [...] Sign Reading Time Taken Comments Blood Pressure 154/81 08/07/2011 2:03 PM EDT Pulse 96 08/07/2011 2:03 PM EDT Temperature - - Respiratory Rate 20 08/07/2011 2:03 PM EDT Oxygen Saturation - - Inhaled Oxygen Concentration - - Weight 56.2 kg (124 lb) 08/07/2011 2:03 PM EDT Height 157.5 cm (5' 2) 08/07/2011 2:03 PM EDT Body Mass Index 22.68 08/07/2011 2:03 PM EDT documented in this encounter Patient Instructions * Patient Instructions* Smooth Jang MD - 08/07/2011 4:03 PM EDT I think you are doing quite well. Multiple sclerosis appears to be stable. I understand that injection problems you're having. I suggest you gives arms and legs more of a break and instead use the abdomen for more of the injections. If you go to the line of your ribs and drop-down 2 inches, left and right, that gives you 2 injection sites, and then drop-down another 4 inches and that would give 2 more injection sites. You can also use the left and right hips. Your blood count is a little low. This is probably due to Rebif. However I think it is reasonable for you to take an iron supplement. Take any cchw-sze-gxvoimg ironpill, one a day, and we will see whether your blood count comes up when we next check it. documented in this encounter Progress Notes * Smooth Jang MD - 08/07/2011 3:38 PM EDT CC: Relapsing remitting multiple sclerosis History: She comes for follow-up of multiple sclerosis. Symptoms started in 1990 with bilateral lower extremity numbness she developed a numbness in the T6-T7 dermatomal distribution on the right June 1997 followed by numbness in the right arm in November of the same year. Initial MRI and spinal fluid studies were normal In 2001 she had gait ataxia and her MRI revealed a cervical spine lesion, she also had left optic neuritis Started Rebif in 2002 and has been stable The patient reports that she has been doing well over the past year since she was last seen. She denies any new symptoms and her only neurologic symptoms are related to a chronic bright spot in her left eye related to her bout of left optic neuritis in 2001. She has almost complete vision loss in the left eye. She has been injecting regularly with Rebif and has no significant side effects from the medication. She has developed some induration at various injection sites particularly of the right side. She has not had any new medical problems and only reports having a bout of sinusitis in January 2010. MEDICATIONS: Current outpatient prescriptions Medication Sig Dispense Refill ??? traZODone (DESYREL) 50 mg tablet Take 50 mg by mouth nightly as needed. ??? interferon beta-1a (REBIF) 44 mcg/0.5 mL injection Inject 44 mcg subcutaneously three times a week. 6 mL 11 ??? ferrous sulfate 325 mg (65 mg iron) EC tablet Take 1 tablet by mouth daily. 30 tablet 11 SOCIAL HISTORY: , works for the [employer]. PHYSICAL EXAM: BP 154/81 Pulse 96 Resp 20 Ht 157.5 cm (5' 2) Wt 56.246 kg (124 lb) BMI 22.68 kg/m2 General: The patient appears well, not in distress. HEENT: [place] palpebral conjunctivae, anicteric sclerae, no tonsillo-pharyngeal congestion, supple neck, no cervical adenopathy. Cardiovascular: Heart rate is regular. No murmur, rub or gallops appreciated. Respiratory: Clear to auscultation. Abdomen: Soft, nontender. Extremities: No significant abnormalities. Some induration Injection sites. Muscluskeletal/Spine: No abnormality noted. Skin: Warm and moist to touch Mental Status: The patient is alert and oriented x 3. Speech is fluent without paraphasic errors orperseveration. Attention, concentration, and recall are all normal. Cranial Nerves II-XII: Visual lopez are intact to confrontation. (+) Left afferent pupillary defect . Vision is 20/30 on the right using the 14 inch card, and essentially zero on the left, ocular movements are intact without nystagmus. Facial sensation is normal. Facial movements are symmetric. Gag reflex was not tested but uvula rises symmetrically. Sternocleidomastoid and trapezius muscle are 5/5 in strength. Tongue protrusion is midline. Motor: Patient has normal motor bulk and tone. Upper and lower extremity strength is 5/5 throughoutproximal and distal muscle groups. Sensation: Normal touch and vibratory sensation. Coordination: Finger to nose and heel to romero testing is normal. Gait: The patient has normal gait and able to tandem walk. ASSESSMENT AND PLAN: Maritza Contreras is a 50 y.o. year old female who has relapsing remitting multiple sclerosis. She has been clinically stable and there has been no evidence of progression on MRI or clinical relapse. She reports good compliance with the Rebif injections and has no problems tolerating this. I reviewed injections site strategies with her. I advised her to use her abdomen more and her thighs less. Screening lab studies including CBC chemistry and liver profile have been unremarkable. She is borderline anemic with a hematocrit of 35. This is likely due to Rebif. Vitamin B 12 level and folate level has been normal in the past. I advised her to start taking iron 325 mg daily I would request that her primary physician Dr. Angel please check a CBC chemistry and liver profile in 6 months. I will see her back in a year or sooner if necessary. Thank you for this consultation. Smooth Jang MD [place] [address] Pager: [phone], #[phone] Email: [email or web address] CC: Dr. Angel documented in this encounter Plan of Treatment Upcoming Encounters Date Type Department Care Team (Late st Contact Info) Description 09/14/2024 8:00 AM EDT [place] [address] Alie Arshad PA [facility] [place] [address] documented as of this encounter Visit Diagnoses Diagnosis MS (multiple sclerosis)- Primary Multiple sclerosis documented in this encounter Care Teams Clinical Fellow Relationship Specialty Start Date End Date Kevan Angel DO [address] [place] [address] PCP - General 08/07/11 documented as of this encounter
--- OUTSIDE RECORDS SUMMARY | 2024-04-05 17:32 | XMS_ITS | Encounter Summary ---
Author Organization [facility] Address [facility] [place] [address] Care Team Providers Care Combination Worker Name Role Phone StanleyKevan bowen Primary Care Provider [phone] Reason for Visit * Reason Onset Date Comments Other 10/30/2017 Encounter Details Date Type Department Care Team (Late st Contact Info) Description 10/30/2017 [place] [address] Alie Arshad PA [facility] [place] [address] Other Social History Tobacco Use Types Packs/Day [...] Telephone Encounter - Pratibha Vera RN - 10/30/2017 2:25 PM EDT Labs received and placed copy in Dr. Jang's mail box in clinic. * Telephone Encounter - Patsy Cobian - 10/30/2017 9:38 AM EDT Caller: Maritza If not Pt / Relation to pt: Best time to reach caller: anytime Before 2:30pm - Informed caller that nurse will call back by the end of the day Best number to reach caller: [phone] Reason for call: Lab/Test results: Results being requested: Blood Work Where were tab/test done: [facility] in [facility] When were lab/test done: 10/18/17 Disposition of Call: routine message to nurse documented in this encounter Plan of Treatment Upcoming Encounters Date Type Department Care Team (Late st Contact Info) Description 09/14/2024 8:00 AM EDT Office [place] [address] Alie Arshad PA [facility] [place] [address] documented as of this encounter Visit Diagnoses Not on filedocumented in this encounter Care Teams Combination Worker Relationship Specialty Start Date End Date Kevan Angel DO [address] [place] [address] [address] [place] [address] PCP - General 08/07/11 documented as of this encounter
--- OUTSIDE RECORDS SUMMARY | 2024-04-05 17:32 | XMS_ITS | Encounter Summary ---
Author Organization [facility] Address [facility] [address] Care Team Providers Care Acid Mixer Name Role Phone StanleyKevan bowen Primary Care Provider Encounter Details Date Type Department Care Team (Latest Contact Info) Description 01/10/2012 3:27 PM EDT - 01/10/2012 11:59 PM EDT Hospital [place] [address] CLINIC, Lupe Salvador, PhD [facility] [place] [address] [place] [address] Discharge Disposition: Home Social History Tobacco Use [...] Sig Dispensed Refills Start Date End Date traZODone (DESYREL) 50 mg tablet Take 50 mg by mouth nightly as needed. 09/03/2012 interferon beta-1a (REBIF) 44 mcg/0.5 mL injection Inject 44 mcg subcutaneously three times a week. 6 mL 11 03/20/2011 03/27/2012 documented as of this encounter Miscellaneous Notes * Miscellaneous - Provider, Scanning - 01/31/2012 11:22 AM EDT documented in this encounter Plan of Treatment Upcoming Encounters Date Type Department Care Team (Late st Contact Info) Description 09/14/2024 8:00 AM EDT [place] [address] Alie Arshad PA [facility] [place] [place] [address] documented as of this encounter Procedures Procedure Name Priority Date/Time Associated Diagnosis Comments RESEARCH MRI AIC 60 BRAIN WO CONTRAST Routine 01/10/2012 2:52 PM EDT documented in this encounter Results * RESEARCH- MRI AIC-60 BRAIN WO CONTRAST (01/10/2012 2:52 PM EDT) Anatomical Region Laterality Modality Head Other 01/10/2012 2:52 PM EDT Addenda Addendum on 02/03/2012 10:47 AM EDT Addendum Begins This study is not being read outside institution. Addendum Ends Addendum on 02/03/2012 10:47 AM EDT Addendum Begins This study is not being read outside institution. Addendum Ends Narrative 01/10/2012 3:35 PM EDT Examination RESEARCH AIC-60 MRI BRAIN W/O CONTRAST Clinical History RESEARCH MRI READ ONLY FOR INCIDENTAL FINDINGS Comparison None Technique 3 rom MRI performed for research purposes. Findings As part of a research study, the study will be interpreted at outside facility. ?? There are no worrisome findings. Impression Study for research purposes. Procedure Note Boby Wakefield MD - 02/03/2012 Examination RESEARCH AIC-60 MRI BRAIN W/O CONTRAST Clinical History RESEARCH MRI READ ONLY FOR INCIDENTAL FINDINGS Comparison None Technique 3 rom MRI performed for research purposes. Findings As part of a research study, the study will be interpreted at outsidefacility. There are no worrisome findings. Impression Study for research purposes. Lupe Rojas PhD IMG RESEARCH ORDERAB LES documented in this encounter Visit Diagnoses Not on filedocumented in this encounter Care Teams Acid Mixer Relationship Specialty Start Date End Date Kevan Angel DO [address] [place] [address] PCP - General 08/07/11 documented as of this encounter
--- OUTSIDE RECORDS SUMMARY | 2024-04-05 17:32 | XMS_ITS | Encounter Summary ---
[place] [address] Care Team Providers Care Quarry Supervisor Open Pit Name Role Phone StanleyKevan bowen Primary Care Provider Reason for Visit * Reason Onset Date Comments Prior Authorization 06/10/2016 PA FOR REBIF FAXED Encounter Details Date Type Department Care Team (Late st Contact Info) Description 06/10/2016 [place] [address] Alie Arshad PA [facility] [place] [address] Prior Authorization (PA FOR REBIF FAXED) Social History Tobacco Use Types Packs/Day Years [...] * Telephone Encounter - Haylie Chavez - 06/11/2016 2:05 PM EST FOR REQUESTING MORE INFORMATION, FILLED OUT AND FAXED BACK. * Telephone Encounter - Haylie Chavez - 06/11/2016 1:36 PM EST MID MORNING A REQUEST FOR MORE INFORMATION WAS REC'D BY THIS OFFICE FROM [facility]. THEY MUSTHAVE REC'D PA REQUEST IF THEY ARE REQUESTING MORE INFORMATION. FORM WILL BE FILLED OUT AND FAXED BACK ARTHUR. * Telephone Encounter - Kristina Childs - 06/11/2016 1:30 PM EST Patient called in stating that the Insurance company would like us to call [facility] to verify that they do have the PA. The patient states that the insurance company says they don't have the PA yet. Patient states she does not need a call back. Patient states she will call the Pharmacy in the morning to make sure that the PA was completed and sent to the pharmacy. * Telephone Encounter - Haylie Chavez - 06/10/2016 10:51 AM EST RENEWAL PA FOR REBIF FAXED TO [facility]. documented in this encounter Plan of Treatment Upcoming Encounters Date Type Department Care Team (Late st Contact Info) Description 09/14/2024 8:00 AM EDT [place] [address] Alie Arshad PA [facility] [place] [address] documented as of this encounter Visit Diagnoses Not on filedocumented in this encounter Care Teams Quarry Supervisor Open Pit Relationship Specialty Start Date End Date Kevan Angel DO [address] [place] [address] PCP - General 08/07/11 documented as of this encounter
--- OUTSIDE RECORDS SUMMARY | 2024-04-05 17:32 | XMS_ITS | Encounter Summary ---
Author Organization [facility] Address [facility] [place] [address] Care Team Providers Care Instructional Systems Designer Name Role Phone Kevan Angel Primary Care Provider Reason for Visit * Reason Onset Date Comments Other 11/07/2017 Encounter Details Date Type Department Care Team (Late st Contact Info) Description 11/07/2017 [place] [address] Smooth Jang MD [facility] [place] [address] Other Social History Tobacco Use Types Packs/Day [...] Miscellaneous Notes * Telephone Encounter - Pratibha Mayer RN - 11/07/2017 1:03 PM EDT Call placed to pt, per Dr Jang, labs ok. Pt should limit water intake to 2 liters/day (NA 135) and recheck TSH in about 3 months locally (4.74). Pt is going to check with PCP and see when TSH was last checked there for comparison. Ot comfortable with information * Telephone Encounter - Pratibha Mayer RN - 11/07/2017 9:54 AM EDT Will ask Dr Jang to review and contact pt * Telephone Encounter - Ariane Bedolla - 11/07/2017 9:33 AM EDT Caller: Maritza If not Pt / Relation to pt: Best time to reach caller: Anytime Before 2:30pm - Informed caller that nurse will call back by the end of the day Best number to reach caller: [phone] Reason for call: Patient states that she had labs done back in September and still has not heard anything about the tests and would like to know the results. Please call and discuss. documented in this encounter Plan of Treatment Upcoming Encounters Date Type Department Care Team (Late st Contact Info) Description 09/14/2024 8:00 AM EDT [place] [address] Alie Arshad PA [facility] [address] documented as of this encounter Visit Diagnoses Not on filedocumented in this encounter Care Teams Instructional Systems Designer Relationship Specialty Start Date End Date Kevan Angel DO [address] [place] [address] PCP - General 08/07/11 documented as of this encounter
--- OUTSIDE RECORDS SUMMARY | 2024-04-05 17:32 | XMS_ITS | Encounter Summary ---
[place] [address] Care Team Providers Care Sow Farm Technician Name Role Phone Fabrizio Rey MD Primary Care Provider [phone] Reason for Visit * Reason Comments Multiple Sclerosis Encounter Details Date Type Department Care Team (Late st Contact Info) Description 09/06/2010 11:30 AM EDT [place] [id number] CLINIC, Hang Arnold MD Multiple sclerosis (Primary Dx) Discharge Disposition: Home Social History [...] Sign Reading Time Taken Comments Blood Pressure 135/82 09/06/2010 6:19 AM EDT Pulse 85 09/06/2010 6:19 AM EDT Temperature - - Respiratory Rate - - Oxygen Saturation - - Inhaled Oxygen Concentration - - Weight 55.3 kg (122 lb) 09/06/2010 6:19 AM EDT Height 157.5 cm (5' 2) 09/06/2010 6:19 AM EDT Body Mass Index 22.31 09/06/2010 6:19 AM EDT documented in this encounter Progress Notes * Hang Mejia MD - 09/06/2010 12:13 PM EDT [facility] [place] [address] Facsimile: MULTIPLE SCLEROSIS FOLLOW-UP VISIT 09/06/2010 MS PROBLEM LIST; Relapsing remitting multiple sclerosis Symptoms started in 1990 with bilateral lower [...] Rebif in 2002 and has been stable I have reviewed the pertinent details of the problems noted above from the medical records. INTERIM HISTORY OF PRESENT ILLNESS: Maritza Contreras is a 50 y.o. year old female who comes for follow-up of multiple sclerosis. The patient reports that she has been doing well over the past year since she was last seen. She denies any new symptoms and her only neurologic symptoms are related to a chronic bright spot in her left eye related to her bout of left optic neuritis in 2001. She has been injecting regularly with Rebif and has no significant side effects from the medication. She does not like the injection very much but sheclaims very good compliance. She has not had any new medical problems and only reports having a bout of sinusitis in January 2010. MEDICATIONS: Outpatient encounter prescriptions as of 09/06/2010 Medication Sig Dispense Refill ??? interferon beta-1a (REBIF) 44 mcg/0.5 mL injection 44 mcg sc SQ three times per week. ??? traZODone (DESYREL) 50 mg tablet 50 mg, PO, qHS PRN Facility-administered encounter medications as of 09/06/2010 Medication Dose Route Frequency Provider Last Rate Last Dose ??? gadopentetate dimeglumine (MAGNEVIST) injection 11 mL 0.2 mL/kg Intravenous Once PRN Beau Mitchell MD Last Dose: 12 mL at 09/06/10 1124 INTERIM SOCIAL HISTORY: Changes in job, home situation, tobacco or alcohol use: None CHANGES IN RELEVANT FAMILY HISTORY: None GENERAL REVIEW OF SYSTEMS: System Constitutional No fatigue, headache, fever or dizziness Eyes There is a left eye blind spot that is chronic Ears, nose, throat No hearing loss, ear pain, rhinorrhea or sore throat Cardiovascular No chest pain Respiratory No cough or shortness of breath Gastrointestinal No abnormal pain, constipation or diarrhea Genitourinary No dysuria or frequency of urination Musculoskeletal No muscle or joint pain Psychiatric No depression or anxiety Skin/rashes/edema No rash All other systems reviewed Negative PHYSICAL EXAM: BP 135/82 Pulse 85 Ht 1.575 m (5' 2) Wt 55.339 kg (122 lb) BMI 22.31 kg/m2 General: The patient appears well, not in distress. HEENT: Radar Base palpebral conjunctivae, anicteric sclerae, no tonsillo-pharyngeal congestion, no carotid bruit, supple neck, no cervical adenopathy. Cardiovascular: Heart rate is regular. No murmur, rub or gallops appreciated. Respiratory: Clear to aus cultation. Abdomen: Soft, nontender. Extremities: No significant abnormalities. Muscluskeletal/Spine: No abnormality noted. Skin: Warm and moist to touch Mental Status: The patient is alert and oriented x 3. Speech is fluent without paraphasic errors orperseveration. Attention, concentration, and recall are all normal. Cranial Nerves II-XII: Visual lopez are intact to confrontation. (+) Left afferent pupillary defect. Extraocular movements are intact without nystagmus. Facial sensation is normal. Facial movements are symmetric. Gag reflex was not tested but uvula rises symmetrically. Sternocleidomastoid and trapezius muscle are 5/5 in strength. Tongue protrusion is midline. Motor: Patient has normal motor bulk and tone. Upper and lower extremity strength is 5/5 throughoutproximal and distal muscle groups. Sensation: Normal pain, touch and vibratory sensation. Coordination: Finger to nose finger testing is normal. Rapid alternating movements are normal. Gait: The patient has normal gait and able to tandem. Negative Romberg. RADIOLOGY STUDIES (scans are personally reviewed): MRI scan of the brain from 09/06/10 is reviewed and compared to MRI scans from July 2009. There area few periventricular and callosal white matter T2 hyperintensities that are stable. No abnormal post contrast enhancement is seen. ASSESSMENT AND PLAN: Maritza Contreras is a 50 y.o. year old female who has Relapsing remitting multiple sclerosis. She has been stable and there has been no evidence of progression or relapse. She reports good compliance with the Rebif injections and has no problems tolerating this. She states that she recently had a CBC and liver function testing at a local hospital and she will forward these results to me for evaluation. If all is well, she'll return for followup in one year with a new CBC and liver function testing. documented in this encounter Miscellaneous Notes * Miscellaneous - Iraj Production Support Engineer - 09/24/2010 8:34 AM EDT documented in this encounter Plan of Treatment Upcoming Encounters Date Type Department Care Team (Late st Contact Info) Description 09/14/2024 8:00 AM EDT [place] [address] Alie Arshad PA [facility] [place] [address] documented as of this encounter Visit Diagnoses Diagnosis Multiple sclerosis- Primary documented in this encounter Care Teams Sow Farm Technician Relationship Specialty Start Date End Date Fabrizio Rey MD [address] [place] [address] PCP - General 03/06/10 08/06/11 documented as of this encounter
--- OUTSIDE RECORDS SUMMARY | 2024-04-05 17:32 | XMS_ITS | Encounter Summary ---
[place] [address] Care Team Providers Care Apprenticeship Consultant Name Role Phone StanleyKevan bowen Primary Care Provider Reason for Visit * Reason Onset Date Comments Medication Refill 05/12/2017 Encounter Details Date Type Department Care Team (Late st Contact Info) Description 05/12/2017 [place] [address] Alie Arshad PA [facility] [place] [address] Social History Tobacco Use Types Packs/Day Years [...] 8:00 AM EDT [place] [address] Alie Arshad PA [facility] [place] [address] documented as of this encounter Visit Diagnoses Not on filedocumented in this encounter Care Teams Apprenticeship Consultant Relationship Specialty Start Date End Date Kevan Angel DO [address] [facility] [address] [place] [address] PCP - General 08/07/11 documented as of this encounter
--- OUTSIDE RECORDS SUMMARY | 2024-04-05 17:32 | XMS_ITS | Encounter Summary ---
Author Organization [facility] Address [facility] [place] [address] Care Team Providers Care Ethnographer Name Role Phone Kevan Angel Primary Care Provider Reason for Visit * Reason Onset Date Comments Medication Refill 08/07/2015 Encounter Details Date Type Department Care Team (Late st Contact Info) Description 08/07/2015 Telephone [place] [address] Alie Arshad PA [facility] [place] [address] Medication Refill Social History Tobacco Use Types [...] encounter Miscellaneous Notes * Telephone Encounter - June Osborne RN - 08/07/2015 10:19 AM EDT Filled on 08/07/2015. * Telephone Encounter - Elda Fabian - 08/07/2015 10:10 AM EDT Name of Med: rebif with albumin Strength of Pills:44 mcg/0.5 ml syringe Dosing Directions: inject 0.5 mls subcutaneously 3 times a week. 30 or 90 Day: 30 Pharmacy: [facility] [place] Last Appointment:08/18/2014 Next Appointment:08/24/2015 Is Patient out of Medication?: yes documented in this encounter Plan of Treatment Upcoming Encounters Date Type Department Care Team (Late st Contact Info) Description 09/14/2024 8:00 AM EDT Office [place] [address] Alie Arshad PA [facility] [place] [address] documented as of this encounter Visit Diagnoses Not on filedocumented in this encounter Care Teams Ethnographer Relationship Specialty Start Date End Date Kevan Angel DO [address] [place] [address] PCP - General 08/07/11 documented as of this encounter
--- OUTSIDE RECORDS SUMMARY | 2024-04-05 17:32 | XMS_ITS | Encounter Summary ---
Author Organization [facility] [place] [address] Care Team Providers Care Electric Locomotive Firer/Fireman Name Role Phone Kevan Angel Primary Care Provider Reason for Visit * Reason Onset Date Comments Medication Refill 03/17/2013 Encounter Details Date Type Department Care Team (Late st Contact Info) Description 03/17/2013 [place] [address] Raimundo Cancino MD [facility] [place] [address] Social History Tobacco Use Types Packs/Day Years Used Date Smoking Tobacco: Former Cigarettes 0 09/06/1981 - 09/06/1993 Smokeless Tobacco: Never Alcohol Use Standard Drinks/Week Comments Yes 0 (1 standard drink = 0.6 oz pur e alcohol) Occasional Sex and Gender Information Value Date Recorded Sex Assigned at Not on file Gender Identity Not on file Sexual Orientation Not on file documented as of this encounter Miscellaneous Notes * Telephone Encounter - Julita Tsang - 03/17/2013 4:33 PM EST Name of Med: Rebif Strength of Pills: 44 mg Dosing Directions: 1 injection 3 times a week 30 or 90 Day: 30 Pharmacy: [place] [place] Last Appointment:08/27/12 Next Appointment: (Reminder for 08/2013) documented in this encounter Plan of Treatment Upcoming Encounters Date Type Department Care Team (Late st Contact Info) Description 09/14/2024 8:00 AM EDT [place] [address] Alie Arshad PA [facility] [place] [address] documented as of this encounter Visit Diagnoses Not on filedocumented in this encounter Care Teams Electric Locomotive Firer/Fireman Relationship Specialty Start Date End Date Kevan Angel DO [address] [place] [address] PCP - General 08/07/11 documented as of this encounter
--- OUTSIDE RECORDS SUMMARY | 2024-04-05 17:32 | XMS_ITS | Encounter Summary ---
[place] [address] Care Team Providers Care Radon Inspector Name Role Phone Kevan Angel Primary Care Provider Reason for Visit * Reason Onset Date Comments Prior Authorization 05/02/2015 Stacey ARMENDARIZ Encounter Details Date Type Department Care Team (Late st Contact Info) Description 05/02/2015 [place] [address] Alie Arshad PA [facility] [place] [address] Prior Authorization (Stacey ARMENDARIZ) Social History Tobacco Use Types Packs/Day Years [...] Telephone Encounter - June Osborne RN - 05/15/2015 11:26 AM EST Medication: Stacey Prior Authorization: Start Date: 05/15/2015 End Date: 05/14/2016 Health Plan: [address] Bio Authorizing Rep: Authorization Number (if applicable): [id number] Notified: Patient ( x ) Pharmacy ( x ) * Telephone Encounter - Darlene Boucher - 05/15/2015 10:48 AM EST Patient called stating [facility] says [facility] still haven't received PA. Please call [facility]. * Telephone Encounter - June Osborne RN - 05/10/2015 9:33 AM EST Re-faxed Stacey ARMENDARIZ to [facility]. * Telephone Encounter - June Osborne RN - 05/02/2015 8:43 AM EST Faxed Stacey ARMENDARIZ to [facility] at [phone]. documented in this encounter Plan of Treatment Upcoming Encounters Date Type Department Care Team (Late st Contact Info) Description 09/14/2024 8:00 AM EDT [place] [address] Alie Arshad PA [facility] [place] [address] documented as of this encounter Visit Diagnoses Not on filedocumented in this encounter Care Teams Radon Inspector Relationship Specialty Start Date End Date Kevan Angel DO [address] [place] [address] [address] [place] [address] PCP - General 08/07/11 documented as of this encounter
--- OUTSIDE RECORDS SUMMARY | 2024-04-05 17:32 | XMS_ITS ---
[place] [address] Care Team Providers Care Real Estate Paralegal Name Role Phone Kevan Angel DO Primary Care Provider [phone] Multiple Sclerosis Status:Enrolled (Active) Start date:12/14/2020 Enrollment date:09/15/2023 Enrollment reason:Enrolled - Currently Fills with Specialty Current support & services provided:Clinical Management, Refill Management, Prior Authorization Management Linked medications:interferon beta-1a/albumin (Active) Linked problems:MS (multiple sclerosis) (Active) Continued Care and Services Coordination
--- OUTSIDE RECORDS SUMMARY | 2024-04-05 17:32 | XMS_ITS | Encounter Summary ---
Author Organization [facility] [place] [address] Care Team Providers Care Vacuum Kettle Cook Name Role Phone Kevan Angel DO Primary Care Provider Reason for Visit * Reason Onset Date Comments Medication Refill 09/14/2012 Encounter Details Date Type Department Care Team (Late st Contact Info) Description 09/14/2012 Ref[place] [address] Raimundo Cancino MD [facility] [place] [address] Social History Tobacco Use Types Packs/Day Years [...] Telephone Encounter - June Osborne RN - 09/14/2012 2:38 PM EDT Pt calls for refill of Rebif through [facility] in [place], [place]. Last Appointment: 08/27/2012 Next Appointment: * Telephone Encounter - Carol Estrada - 09/14/2012 2:25 PM EDT Name of Med: Rebiff Strength of Pills: 44mg Dosing Directions: INJECT 0.5 MLS SUBCUTANEOUSLY 3 TIMES WEEKLY 30 or 90 Day: 30 day supply Pharmacy: [facility] [place] Last Appointment:08/27/12 Next Appointment: 08/2013 documented in this encounter Plan of Treatment Upcoming Encounters Date Type Department Care Team (Late st Contact Info) Description 09/14/2024 8:00 AM EDT Office [place] [address] Alie Arshad PA [facility] [place] [address] documented as of this encounter Visit Diagnoses Not on filedocumented in this encounter Care Teams Vacuum Kettle Cook Relationship Specialty Start Date End Date Kevan Angel DO [address] [place] [address] PCP - General 08/07/11 documented as of this encounter
--- OUTSIDE RECORDS SUMMARY | 2024-04-05 17:32 | XMS_ITS | Encounter Summary ---
[place] [address] Care Team Providers Care Personal Carer Name Role Phone StanleyKevan bowen Primary Care Provider Reason for Visit * Reason Onset Date Comments Prior Authorization 03/22/2013 REBIF APPROV ED 02/20/13-03/22/14 Encounter Details Date Type Department Care Team (Late st Contact Info) Description 03/22/2013 [place] [address] Raimundo Cancino MD [facility] [place] [address] Prior Authorization (REBIF APPROVED 02/20/13-03/22/14) Social History Tobacco Use Types Packs/Day Years [...] Miscellaneous Notes * Telephone Encounter - Haylie Ruiz - 03/22/2013 9:15 AM EST OBTAINED [facility] * Telephone Encounter - Haylie Ruiz - 03/22/2013 9:14 AM EST REBIF APPROVED 02/20/13-03/22/14 documented in this encounter Plan of Treatment Upcoming Encounters Date Type Department Care Team (Late st Contact Info) Description 09/14/2024 8:00 AM EDT [place] [address] Alie Arshad PA [facility] [place] [address] documented as of this encounter Visit Diagnoses Not on filedocumented in this encounter Care Teams Personal Carer Relationship Specialty Start Date End Date Kevan Angel DO [address] [place] [address] PCP - General 08/07/11 documented as of this encounter
--- OUTSIDE RECORDS SUMMARY | 2024-04-05 17:32 | XMS_ITS | Encounter Summary ---
Author Organization [facility] [place] [address] Care Team Providers Care Post Anesthesia Room Nurse Name Role Phone StanleyKevan bowen Primary Care Provider Encounter Details Date Type Department Care Team (Late st Contact Info) Description 05/25/2015 Telephone [place] [phone] Alie Arshad PA [facility] [place] [address] Social History Tobacco Use Types Packs/Day Years [...] Telephone Encounter - June Osborne RN - 05/26/2015 8:27 AM EST Call placed to pt letting her know Alie ok'd her having the colonoscopy. * Telephone Encounter - June Osborne RN - 05/25/2015 11:39 AM EST Call received from pt stating that her PCP wants her to have a colonoscopy and she wants to make sure this is ok and won't trigger an MS relapse. documented in this encounter Plan of Treatment Upcoming Encounters Date Type Department Care Team (Late st Contact Info) Description 09/14/2024 8:00 AM EDT Office [place] [address] Alie Arshad PA [facility] [place] [address] documented as of this encounter Visit Diagnoses Not on filedocumented in this encounter Care Teams Post Anesthesia Room Nurse Relationship Specialty Start Date End Date Kevan Angel DO [address] [place] [address] PCP - General 08/07/11 documented as of this encounter
--- OUTSIDE RECORDS SUMMARY | 2024-04-05 17:32 | XMS_ITS | Encounter Summary ---
Author Organization [facility] [place] [address] Care Team Providers Care Awning Hanger Helper Name Role Phone Kevan Angel DO Primary Care Provider [phone] Reason for Visit * Reason Onset Date Comments Prior Authorization 04/15/2014 PA for Rebif 44 mcg faxed to [facility]. *APPROVED 04/18/14 - 04/18/15* Encounter Details Date Type Department Care Team (Late st Contact Info) Description 04/15/2014 [place] [address] Raimundo Cancino MD [facility] [place] [address] Prior Authorization (KALA payne Rebif 44 mcg faxed to [facility]. *APPROVED 04/18/14 - 04/18/15*) Social History Tobacco Use Types Packs/Day Years [...] encounter Miscellaneous Notes * Telephone Encounter - Senait Bartholomew, [facility] - 04/19/2014 8:54 AM EST Approval letter received by fax from [facility]. Copy sent to scan. * Telephone Encounter - Senait Bartholomew RMA - 04/18/2014 2:45 PM EST Received fax from [employer] stating Unable to locate patient with information provided. Called [employer] to inquire and was transferred to [facility]. PA started with [employer] with Joann for Rebif 44 mcg/0.5 mL, 6 mL per 30 days. Approved. Dates approved: 04/18/2014 - 04/18/2015 Reference #: [id number] Notification faxed to [employer] in [place], [place]. * Telephone Encounter - Senait Bartholomew RMA - 04/15/2014 11:29 AM EST Received fax and partially completed PA form from [employer] in [place], [place] requesting PA for Rebif 44 mcg/0.5 mL syringe (3 times/week). Faxed form to [facility] at [phone]. documented in this encounter Plan of Treatment Upcoming Encounters Date Type Department Care Team (Late st Contact Info) Description 09/14/2024 8:00 AM EDT [place] [address] Alie Arshad PA [facility] [place] [address] documented as of this encounter Visit Diagnoses Not on filedocumented in this encounter Care Teams Awning Hanger Helper Relationship Specialty Start Date End Date Kevan Angel DO [address] [place] [address] PCP - General 08/07/11 documented as of this encounter
--- OUTSIDE RECORDS SUMMARY | 2024-04-05 17:32 | XMS_ITS | Encounter Summary ---
Author Organization [facility] [place] [address] Care Team Providers Care Hospice Art Therapist Name Role Phone Kevan Angel Primary Care Provider Reason for Visit * Reason Onset Date Comments Medication Refill 09/15/2013 Med Refill Encounter Details Date Type Department Care Team (Late st Contact Info) Description 09/15/2013 [place] [address] Raimundo Cancino MD [facility] [place] [address] Social History Tobacco Use Types Packs/Day Years [...] encounter Miscellaneous Notes * Telephone Encounter - Kristina San - 09/15/2013 10:35 AM EDT Name of Med: Interferon Beta 1A Strength of Pills: 44 MC/0.5 ML Subcutaneous Syringe Dosing Directions: Inject 0.5 mLs subcutaneously three times a week 30 or 90 Day: 30 Day Pharmacy: [facility] Last Appointment: 09/09/13 Next Appointment: 1 YR F/U documented in this encounter Plan of Treatment Upcoming Encounters Date Type Department Care Team (Late st Contact Info) Description 09/14/2024 8:00 AM [place]T [place] [address] Alie Arshad PA [facility] [place] [address] documented as of this encounter Visit Diagnoses Not on filedocumented in this encounter Care Teams Hospice Art Therapist Relationship Specialty Start Date End Date Kevan Angel DO [address] [place] [address] [address] [facility] [address] [place] [address] PCP - General 08/07/11 documented as of this encounter
--- OUTSIDE RECORDS SUMMARY | 2024-04-05 17:32 | XMS_ITS | Encounter Summary ---
Author [place] [address] Care Team Providers Care Out Patient Therapist Name Role Phone Fabrizio Rey MD Primary Care Provider [phone] Reason for Visit * Reason Onset Date Comments Other 10/05/2010 outside lab resu lts Encounter Details Date Type Department Care Team (Late st Contact Info) Description 10/05/2010 [place] [phone] Hang Mejia MD Other (outside lab results) Social History Tobacco Use Types Packs/Day Years [...] Telephone Encounter - June Osborne RN - 10/05/2010 11:41 AM EDT Received lab results from [facility] dated 07/28/2010 as follows: calcium 8.5 glucose 59 BUN 11 creatinine 0.6 total protein 6.6 albumin 3.4 AST 14 ALT 24 TSH 2.20 WBC 4.65 RBC 4.06 HGB 11.5 HCT 35.1 Sent for scanning. documented in this encounter Plan of Treatment Upcoming Encounters Date Type Department Care Team (Late st Contact Info) Description 09/14/2024 8:00 AM EDT [place] [address] Alie Arshad PA [facility] [place] [address] documented as of this encounter Visit Diagnoses Not on filedocumented in this encounter Care Teams Out Patient Therapist Relationship Specialty Start Date End Date Fabrizio Rey MD [address] [place] [address] PCP - General 03/06/10 08/06/11 documented as of this encounter
--- OUTSIDE RECORDS SUMMARY | 2024-04-05 17:32 | XMS_ITS | Encounter Summary ---
[place] [address] Care Team Providers Care Medical Collector Name Role Phone Fabrizio Rey MD Primary Care Provider Encounter Details Date Type Department Care Team (Late st Contact Info) Description 03/19/2011 Orders Only [place] [phone] Smooth Jang MD [facility] [place] [address] Multiple sclerosis (Primary Dx) Social History Tobacco Use Types Packs/Day Years [...] 8:00 AM EDT Office Visit [place] [phone] Alie Arshad PA [facility] [place] [address] documented as of this encounter Visit Diagnoses Diagnosis Multiple sclerosis- Primary documented in this encounter Care Teams Medical Collector Relationship Specialty Start Date End Date Fabrizio Rey MD [address] [place] [address] PCP - General 03/06/10 08/06/11 documented as of this encounter
--- OUTSIDE RECORDS SUMMARY | 2024-04-05 17:32 | XMS_ITS | Encounter Summary ---
Author Organization [facility] Address [facility] [place] [address] Care Team Providers Care Key Bed Installer Name Role Phone Fabrizio Rey MD Primary Care Provider Encounter Details Date Type Department Care Team (Late st Contact Info) Description 04/18/2011 [place] [phone] Smooth Jang MD [facility] [place] [address] Social History Tobacco Use Types Packs/Day Years [...] Telephone Encounter - June Osborne RN - 04/18/2011 3:31 PM EST Call received from pt stating that the pharmacy still needed prior authorization information for her Rebif. Call placed to Maria Fernanda at [facility] ([phone]). She stated that the patient's insurance had changed to [employer] and this company needed a prior authorization. Call placed to Tommy Horne at [phone] for prior authorization. Approved for one year. Medication: Rebif Prior Authorization: Start Date: 04/18/2010 End Date: 04/18/2011 Health Plan: [employer] Notified: Patient ( x ) Pharmacy ( X ) documented in this encounter Plan of Treatment Upcoming Encounters Date Type Department Care Team (Late st Contact Info) Description 09/14/2024 8:00 AM EDT [place] [address] Alie Arshad PA [facility] [place] [address] documented as of this encounter Visit Diagnoses Not on filedocumented in this encounter Care Teams Key Bed Installer Relationship Specialty Start Date End Date Fabrizio Rey MD [address] [place] [address] PCP - General 03/06/10 08/06/11 documented as of this encounter
--- OUTSIDE RECORDS SUMMARY | 2024-04-05 17:32 | XMS_ITS | Encounter Summary ---
[place] [address] Care Team Providers Care Gear Shaper Name Role Phone StanleyKevan bowen Primary Care Provider Encounter Details Date Type Department Care Team (Latest Contact Info) Description 12/10/2017 9:37 AM EDT - 12/10/2017 11:59 PM EDT Hospital Encounter [place] [address] [place]if[place] Varicose veins with inflammation Discharge Disposition: Home Social History Tobacco Use [...] Sig Dispensed Refills Start Date End Date aspirin 81 mg Tablet, Delayed Release (E.C.) Take 81 mg by mouth daily. interferon beta-1a, albumin, (REBIF, WITH ALBUMIN,) 44 mcg/0.5 mL Syringe INJECT 0.5MLS SUBCUTANEOUSLY 3 TIMES A WEEK. 6 mL 11 05/12/2017 02/23/2018 traZODone (DESYREL) 50 mg tablet Take 1 tablet by mouth nightly as needed for Sleep. 90 tablet 3 09/09/2013 09/17/2022 documented as of this encounter Plan of Treatment Upcoming Encounters Date Type Department Care Team (Late st Contact Info) Description 09/14/2024 8:00 AM EDT Office [place] [address] Alie Arshad PA [facility] [place] [address] documented as of this encounter Procedures Procedure Name Priority Date/Time Associated Diagnosis Comments DUPLEX FOR DVT, LEG, UNILAT Routine 12/10/2017 9:45 AM EDT Varicose veins with inflammation documented in this encounter Results * Duplex for DVT, Leg, Unilat (12/10/2017 9:45 AM EDT) VB Text Report Department: Vascular Surgery Lab Patient: [id number] (YAMILA REYNOLDS) CPT: 88726 ICD10: I83.10 Referring Physician: IKER BRENNER, [place] ?? Indications: Painful R medial distal calf, phlebitis. ? DVT or superficial thrombus in varicose vein. ICD10 Diagnosis Code: I83.10 Right- There is acute appearing non-occlusive superficial [...] of lower extremity deep venous thrombosis. Comparison: ??No previous study in our vascular lab database for comparison. Patient being seen in clinic by Iker Brenner. Electronically Signed by: XOCHILT SANTOS on 2017-12-10 10:53:04 PM VASCUBASE VB Text Report End of Report V[facility] 12/10/2017 9:45 AM EDT Iker Brenner SPLICING TECHNICIAN VASCULAR ORDERABLE S [facility]ASCU[facility] documented in this encounter Visit Diagnoses Diagnosis Varicose veins with inflammation Varicose veins of lower extremities with inflammation documented in this encounter Care Teams Gear Shaper Relationship Specialty Start Date End Date Kevan Angel DO [address] [place] [address] PCP - General 08/07/11 documented as of this encounter
--- OUTSIDE RECORDS SUMMARY | 2024-04-05 17:32 | XMS_ITS | Encounter Summary ---
[place] [address] Care Team Providers Care Quarry Boss Name Role Phone Fabrizio Rey MD Primary Care Provider Reason for Visit * Reason Onset Date Comments Medication Refill 10/05/2010 Encounter Details Date Type Department Care Team (Late st Contact Info) Description 10/05/2010 [place] [phone] Hang Mejia MD Social History Tobacco Use Types Packs/Day Years [...] Encounter - June Osborne RN - 10/05/2010 11:50 AM EDT Last clinic appt: 09/06/2010 Next clinic appt: None scheduled Last refill: 12/21/2009 documented in this encounter Plan of Treatment Upcoming Encounters Date Type Department Care Team (Late st Contact Info) Description 09/14/2024 8:00 AM EDT Office [place] [address] lAie Arshad PA [facility] [place] [address] documented as of this encounter Visit Diagnoses Not on filedocumented in this encounter Care Teams Quarry Boss Relationship Specialty Start Date End Date Fabrizio Rey MD [address] [place] [address] PCP - General 03/06/10 08/06/11 documented as of this encounter
--- OUTSIDE RECORDS SUMMARY | 2024-04-05 17:32 | XMS_ITS | Encounter Summary ---
Author Organization [facility] Address [facility] [place] [address] Care Team Providers Care Millwright Instructor Name Role Phone StanleyKevan bowen Primary Care Provider Encounter Details Date Type Department Care Team (Late st Contact Info) Description 08/18/2014 10:30 AM EDT [place] [address] Alie Arshad PA [facility] [place] [address] Multiple sclerosis Discharge Disposition: Home Social History [...] Sign Reading Time Taken Comments Blood Pressure 146/98 08/18/2014 10:37 AM EDT Pulse 73 08/18/2014 10:37 AM EDT Temperature - - Respiratory Rate - - Oxygen Saturation - - Inhaled Oxygen Concentration - - Weight 54.4 kg (120 lb) 08/18/2014 10:37 AM EDT Height 157.5 cm (5' 2) 08/18/2014 10:37 AM EDT Body Mass Index 21.95 08/18/2014 10:37 AM EDT documented in this encounter Progress Notes * Alie Arshad PA - 08/18/2014 8:00 AM EDT MULTIPLE [facility]EROSIS CLINIC [facility] [place] [address] Patient name: Maritza Leiva Date of : 1960 Address: [place] [address], [facility] ?? Time since first symptom of MS: 1996 (officially diagnosis) ?? EDSS: left vision loss ?? MSSS: ?? LP: no OCBs ?? DMD: Rebif ?? Last MRI: ?? 2010 Brain - stable ?? Other Diagnostics: ?? NAbs: 08/27/12 Negative CC: Multiple Sclerosis f/u MS History: 1996: B/L LE numbness 06/1997: T6-T7 numbness on the right 11/1997: Right arm numbness 2001: Gait ataxia, Left Optic Neuritis. MRI showed C-spine lesion 2002: Initiated on Rebif Last Relapse: 2001? Ongoing MS Symptoms: ?? [...] takes Trazodone PRN (about once monthly) HPI: 54 y.o. female with PMHx MS presents to clinic for yearly follow-up. Maritza was last seen here by me 1yr ago (August 2013). Had been stable at this visit with no interval worsening of MS disease and thus no treatment changes were made. Interval History: Since last visit, Maritza has been doing well. She reports no new medical problems and with regards to her MS, nothing has changed. Baseline symptoms are minimal: residual deficits with left central vision s/p left ON in 2001 and occasional sleeping difficulties. She does not report any episodes of acute vision worsening or new neurologic symptoms over the past year. She continues to work full timeat the [employer] and additionally watches her grandchildren a few nights per week after work. She is on Rebif as her DMD and has been for a while now; she has not tried any other DMDs. She is overall very happy with the drug and her lack of MS activity. She does endorse side effects of bruising at injection sites and occasional flu like symptoms; but for now these are tolerable as she does not wish to inject intramuscularly and would not like to try a different type of drug such as the orals. ScHx ?? Home & Family: , 2 sons (one with CF). 2 grandchildren. ?? Job status: Works in [employer] and, on the weekends, helps out at the [employer]. ?? Alcohol: No ?? Tobacco: Former, quit at age 32yo ?? Drug use: No ?? Diet: Good, healthy diet ?? Exercise: Enjoys walking when she can. History Social History Narrative Past Medical History Diagnosis Date ??? Multiple sclerosis History reviewed. No pertinent family history. Outpatient Encounter Prescriptions as of 08/18/2014 Medication Sig Dispense Refill ??? [START ON 08/19/2014] interferon beta-1a, albumin, (REBIF, WITH ALBUMIN,) 44 mcg/0.5 mL Syringe Inject 0.5 mLs subcutaneously three times a week. 6 mL 11 ??? [DISCONTINUED] interferon beta-1a (REBIF, WITH ALBUMIN,) 44 mcg/0.5 mL injection Inject 0.5 mLssubcutaneously three times a week. 6 mL 5 ??? traZODone (DESYREL) 50 mg tablet Take 1 tablet by mouth nightly as needed for Sleep. 90 tablet 3 ??? [DISCONTINUED] ferrous sulfate 325 mg (65 mg iron) EC tablet Take 1 tablet by mouth daily. 30 tablet 11 No facility-administered encounter medications on file as of 08/18/2014. No Known Allergies Review of systems: Constitutional: (-)fevers, (-)chills/sweats (-)recent infections, (-) weight loss/gain. Eyes: refer to HPI ENT: (-)hearing loss, (-) sore throat, (-)runny nose/congestion CV: (-)chest pain, (-)palpitations Resp: (-)cough, (-)shortness of breath GI: (-)nausea/vomiting, (-)abdominal pain : Refer to HPI Psych: (-)depression, (-)anxiety Extremities: (-)tick bites, (-)rashes Neuro ROS: Refer to HPI Objective: Vitals: BP 146/98 Pulse 73 Ht 157.5 cm (5' 2) Wt 54.432 kg (120 lb) BMI 21.94 kg/m2 Repeat BP in office: 148/90 Constitutional: 54 y.o. female appears stated age, well nourished, well developed, in no acute distress HEENT: Head atraumatic, normocephalic. Sclera non-icteric. Oropharynx normal. Neck supple, no meningismus, no carotid bruit Neuro: ?? MS: Alert and oriented. Language is clear and fluent. No dysarthria. ?? CN: ?? Eyes: ?? PERRL ?? Left ADP ?? Visual lopez full. ?? Facial sensation intact throughout. ?? No facial asymmetry, movement intact ?? Hearing intact to finger rub ?? Palate elevates symmetrically, tongue protrudes midline ?? SCM and trap strength intact. ?? Motor: Normal bulk and tone. No clonus. No pronator drift. ?? Upper extremity strength 5/5. ?? Lower extremity strength 5/5. ?? Sensation: Intact to light touch, temperature and vibration throughout. ?? Reflexes: ?? UE DTRs: Triceps 2+, Biceps 2+, Brachioradialis 2+. ?? LE DTRs: Patellar 2+, Achilles: 1+. ?? Downgoing toes b/l. ?? Coordination: Finger to nose, Heel to romero intact. ?? Gait: Stable, steady. Ome minor unsteadiness with tandem gait initially, but able to perform well once tried again. Some minor swaying with Romberg testing. Diagnostic [...] the supratentorial white matter. Assessment & Plan 54 y.o. female with MS on Rebif: Stable over the past year. No MS relapses or disability progression. She had no complaints or concerns today to address. Physical exam was unchanged from last. #MS: Continue Rebif #High BP: Advised the patient to f/u with her PCP. Follow-up PRN new symptoms or worsening old ones, otherwise, see me for routine follow-up in 1yr. Alie Arshad PA-C Dept. Of Neurology [facility] [phone] documented in this encounter Plan of Treatment Upcoming Encounters Date Type Department Care Team (Late st Contact Info) Description 09/14/2024 8:00 AM EDT Office [place] [address] Alie Arshad PA [facility] [place] [address] documented as of this encounter Visit Diagnoses Diagnosis Multiple sclerosis documented in this encounter Care Teams Millwright Instructor Relationship Specialty Start Date End Date Kevan Angel DO [address] [place] [address] [address] [facility] [address] [place] [address] PCP - General 08/07/11 documented as of this encounter
--- OUTSIDE RECORDS SUMMARY | 2024-04-05 17:32 | XMS_ITS | Encounter Summary ---
[place] [address] Care Team Providers Care Wire Tinner Name Role Phone Kevan Angel DO Primary Care Provider Reason for Visit * Reason Onset Date Comments Prior Authorization 03/10/2012 Encounter Details Date Type Department Care Team (Late st Contact Info) Description 03/10/2012 Telephone [place] [address] Smooth Jang MD [facility] [place] [address] Prior Authorization Social History Tobacco Use Types [...] encounter Miscellaneous Notes * Telephone Encounter - Anushka Coffey RN - 03/11/2012 4:33 PM EST Rebif approved good 03/11/12 -03/11/13 Pt informed * Telephone Encounter - Anushka Coffey RN - 03/11/2012 2:06 PM EST PA for Rebif faxed to [facility] ( [place] [employer]) Pt has been on Rebif since 2002 * Telephone Encounter - Sia Latham - 03/10/2012 2:10 PM EST Patient called to make sure we got the info on a prior authorization requirement on Rebif medication. Please call to advise documented in this encounter Plan of Treatment Upcoming Encounters Date Type Department Care Team (Late st Contact Info) Description 09/14/2024 8:00 AM EDT Office [place] [address] Alie Arshad PA [facility] [place] [address] documented as of this encounter Visit Diagnoses Not on filedocumented in this encounter Care Teams Wire Tinner Relationship Specialty Start Date End Date Kevan Angel DO [address] [place] [address] PCP - General 08/07/11 documented as of this encounter
--- OUTSIDE RECORDS SUMMARY | 2024-04-05 17:32 | XMS_ITS | Encounter Summary ---
Author Organization [facility] [place] [address] Care Team Providers Care Patient Support Partner Name Role Phone Kevan Angel DO Primary Care Provider Reason for Visit * Reason Onset Date Comments Other 09/03/2012 Encounter Details Date Type Department Care Team (Late st Contact Info) Description 09/03/2012 [place] [address] Raimnudo Cancino MD [facility] [place] [address] Other Social History Tobacco Use Types Packs/Day [...] Telephone Encounter - June Osborne RN - 09/08/2012 12:55 PM EDT Verbal order for trazodone from Dr. Cancino. * Telephone Encounter - Zohreh Stevens RN - 09/03/2012 11:48 AM EDT Gave results of most recent lab work Continue rebif as Antibodies are neg Pt req RX for trazedone * Telephone Encounter - Марина Voss - 09/03/2012 8:43 AM EDT Patient called today to get the results of recent bloodwork. documented in this encounter Plan of Treatment Upcoming Encounters Date Type Department Care Team (Late st Contact Info) Description 09/14/2024 8:00 AM EDT Office [place] [address] Alie Arshad PA [facility] [place] [address] documented as of this encounter Visit Diagnoses Not on filedocumented in this encounter Care Teams Patient Support Partner Relationship Specialty Start Date End Date Kevan Angel DO [address] [facility] [address] [place] [address] PCP - General 08/07/11 documented as of this encounter
--- OUTSIDE RECORDS SUMMARY | 2024-04-05 17:32 | XMS_ITS | Encounter Summary ---
Author Organization [facility] Address [facility] [place] [address] Care Team Providers Care Biomedical Analytical Scientist Name Role Phone Kevan Angel Primary Care Provider [phone] Reason for Visit * Reason Onset Date Comments Other 02/22/2013 Question regardi ng upcoming procedure Encounter Details Date Type Department Care Team (Late st Contact Info) Description 02/22/2013 [place] [address] Raimundo Cancino MD [facility] [place] [address] Other (Question regarding upcoming procedure) Social History Tobacco Use Types Packs/Day Years [...] encounter Miscellaneous Notes * Telephone Encounter - Charu Morales RN - 02/25/2013 12:30 PM EST Patient returned call. She is concerned the pain medication she will be given for her dental procedure will interact with her Rebif. I encouraged her the two medications taken together is fine. She had no further questions or concerns. * Telephone Encounter - Charu Morales RN - 02/23/2013 8:25 AM EST Call placed to patient. Voicemail reached. Left message instructing patient to return call to discuss the medications in question. * Telephone Encounter - Zohreh Ramos - 02/22/2013 4:54 PM EST Patient called, she has a dental procedure scheduled and there will be pain medication prescribed. She wants to be sure she will be able to take pain medication with her current medication she has been taking. Please call the patient to discuss. documented in this encounter Plan of Treatment Upcoming Encounters Date Type Department Care Team (Late st Contact Info) Description 09/14/2024 8:00 AM EDT [place] [address] Alie Arshad PA [facility] [place] [address] documented as of this encounter Visit Diagnoses Not on filedocumented in this encounter Care Teams Biomedical Analytical Scientist Relationship Specialty Start Date End Date Kevan Angel DO [address] [place] [address] PCP - General 08/07/11 documented as of this encounter
--- OUTSIDE RECORDS SUMMARY | 2024-04-05 17:32 | XMS_ITS | Encounter Summary ---
Author Organization [facility] Address [facility] [place] [address] Care Team Providers Care Junior Architect Name Role Phone StanleyKevan bowen Primary Care Provider Encounter Details Date Type Department Care Team (Late st Contact Info) Description 09/09/2013 9:30 AM EDT [place] [address] Alie Arshad PA [facility] [place] [address] Multiple sclerosis (Primary Dx) Discharge Disposition: Home [...] Sign Reading Time Taken Comments Blood Pressure 140/94 09/09/2013 9:55 AM EDT Pulse 76 09/09/2013 9:55 AM EDT Temperature - - Respiratory Rate - - Oxygen Saturation - - Inhaled Oxygen Concentration - - Weight 53.6 kg (118 lb 3.2 oz) 09/09/2013 9:55 A M EDT Height 157.5 cm (5' 2) 09/09/2013 9:55 AM EDT Body Mass Index 21.62 09/09/2013 9:55 AM EDT documented in this encounter Progress Notes * Alie Arshad PA - 09/09/2013 8:56 AM EDT MULTIPLE [facility]CLEROSIS CLINIC [facility] [address] Patient name: Maritza Contreras Date of : 1960 Address: [place] [address], [facility] [place] ?? Time since first symptom of MS: 1996 (officially diagnosis) ?? EDSS: left vision loss ?? MSSS: ?? LP: no OCBs ?? DMD: Rebif ?? Last MRI: 2010 Brain - stable ?? Other Diagnostics: [...] Swallowing, Speech: Denies speech or swallowing difficulties. HPI: 53 y.o. female with PMHx MS presents to clinic for yearly follow-up. Last seen here by Dr. Cancino on 08/27/12; no major changes made. Since last visit, she has been in her usual state of health. States she had a great winter without any major colds/infections. She denies recent onset of new or acutely worsening neurological symptoms. We carefully reviewed MS history and ongoing symptoms. She has had some sensory symptoms in the past but no complaints presently. She had left optic neuritis in 1997 and this left her with very poor vision in that eye, notably with central vision. This is her only MS related complaint and it has remained stable over the years since the attack. She has no limitations as a result and leads a veryactive life. She is on Rebif as her DMD [...] 2 grandchildren. ?? Job status: Works in [employer]'s office and, on the weekends, helps out at the [employer]. ?? Alcohol: No ?? Tobacco: Former, quit at age 32yo ?? Drug use: No ?? Diet: Good, healthy diet ?? Exercise: Enjoys walking when she can. History Social History Narrative ??? No narrative on file Past Medical History Diagnosis Date ??? Multiple sclerosis No family history on file. Outpatient Encounter Prescriptions as of 09/09/2013 Medication Sig Dispense Refill ??? traZODone (DESYREL) 50 mg tablet Take 1 tablet by mouth nightly as needed for Sleep. 90 tablet 3 ??? interferon beta-1a (REBIF) 44 mcg/0.5 mL injection Inject 0.5 mLs subcutaneously three times a week. 6 mL 5 ??? [DISCONTINUED] traZODone (DESYREL) 50 mg tablet Take 1 tablet by mouth nightly as needed. 90 tablet 3 ??? ferrous sulfate 325 mg (65 mg iron) EC tablet Take 1 tablet by mouth daily. 30 tablet 11 No Known Allergies Review of systems: Constitutional: (-)fevers, (-)chills/sweats (-)recent infections, (-) weight loss/gain. Eyes: refer to HPI ENT: (-)hearing loss, (-) sore throat, (-)runny nose/congestion CV: (-)chest pain, (-)palpitations Resp: (-)cough, (-)shortness of breath GI: (-)nausea/vomiting, (-)abdominal pain : Refer to HPI Psych: (-)depression, (-)anxiety Extremities: (-)tick bites, (-)rashes Neuro ROS: Refer to HPI Objective: Vitals: BP 140/94 Pulse 76 Ht 157.5 cm (5' 2) Wt 53.615 kg (118 lb 3.2 oz) BMI 21.61 kg/m2 Constitutional: 53 y.o. female appears stated age, well nourished, well developed, in no acute distress HEENT: Head atraumatic, normocephalic. Sclera non-icteric. Oropharynx normal. Neck supple, no meningismus, no carotid bruit CV: RRR, S1, S2, no murmurs, rubs or gallops Resp: CTAB Ext: No edema. No rashes. Neuro: ?? MS: Alert and oriented. Language is clear and fluent. No dysarthria. ?? CN: ?? Eyes: ?? PERRL ?? Left ADP ?? Visual lopez full. ?? Vision w/o glasses: 20/30 in R , unable to discern any line on 14inch pocket card. ?? Fundoscopic exam: Left optic disc pallor. ?? Facial sensation intact throughout. ?? No facial asymmetry, movement intact ?? Hearing intact to finger rub ?? Palate elevates symmetrically, tongue protrudes midline ?? SCM and trap strength intact. ?? Motor: Normal bulk and tone. No clonus. No pronator drift. ?? Upper extremity strength 5/5. ?? Lower extremity strength 5/5. ?? Sensation: Intact to light touch, pain, temperature and vibration throughout. ?? Reflexes: ?? UE DTRs: Triceps 2+, Biceps 2+, Brachioradialis 2+. ?? LE DTRs: Patellar 2+, Achilles: 1+. ?? Downgoing toes b/l. ?? Coordination: Finger to nose intact, rapid alternating movements intact & symmetric. Position sense intact. ?? Gait: Stable, steady. No difficulty with tandem gait, heel and toe walking. Negative Romberg Diagnostic Tests and Images: BRAIN MRI 09/06/10 [...] the supratentorial white matter. Assessment & Plan 53 y.o. female with MS. Over the past yr, the patient has remained stable; no evidence of MS relapse or disease progression. Physical exam today was essentially unchanged from previous. She had no particular complaints or concerns today and is overall doing very well. She has no disability aside from left vision loss. No major MS treatment changes needed to be made. I encouraged herto remain active, continue taking Rebif and to add a Vit.D/Calcium supplement to her routine. We discussed Plegridy approval since she did express some needle fatigue and she will look into this. Yearly labs will be done today for Rebif monitoring. Follow-up PRN new symptoms or worsening old ones, otherwise, see me for routine follow-up in 1yr. Alie Arshad PA-C Dept. Of Neurology [facility] [phone] documented in this encounter Plan of Treatment Upcoming Encounters Date Type Department Care Team (Late st Contact Info) Description 09/14/2024 8:00 AM EDT [place] [address] Alie Arshad PA [facility] [place] [address] documented as of this encounter Procedures Procedure Name Priority Date/Time Associated Diagnosis Comments HEMOGRAM Routine 09/09/2013 10:58 AM EDT Multiple sclerosis DIFFERENTIAL, AUTOMATED Routine 09/09/2013 10:58 AM EDT Multiple sclerosis CBC (WITH DIFF) Routine 09/09/2013 10:58 AM EDT Multiple sclerosis COMPREHENSIVE METABOLIC PANEL Routine 09/09/2013 10:58 AM EDT Multiple sclerosis documented in this encounter Results * Differential, Automated (09/09/2013 10:58 AM EDT) Neutrophil % 62.0 34.0 - 71.0 % CERNER MILLENNIUM Neutrophil Absolute 3.30 1.50 - 6.30 x10(3)/mcL CERNER MILLENNIUM Lymph % 27.6 19.0 - 53.0 % CERNER MILLENNIUM Lymphocytes Abs 1.5 1.0 - 3.6 x10(3)/mcL CERNER MILLENNIUM Monocyte % 8.5 4.0 - 13.0 % CERNER MILLENNIUM Monocyte Abs 0.4 0.2 - 1.0 x10(3)/mcL CERNER MILLENNIUM Eos % 1.3 0.0 - 7.0 % CERNER MILLENNIUM Eosinophils Abs 0.1 0.0 - 0.5 x10(3)/mcL CERNER MILLENNIUM Basophil % 0.4 0.0 - 2.0 % CERNER MILLENNIUM Baso Absolute 0.0 0.0 - 0.2 x10(3)/mcL CERNER MILLENNIUM Immature Gran % 0.20 0.00 - 0.66 % CERNER MILLENNIUM Comment: Immature granulocytes(IG's)percentage and absolute count will include metamyelocytes, myelocytes, and promyelocytes. Blood smears from CBCs yielding IG's will be scanned manually for concordance. If this scan disagrees with the automated IG or if promyelocytes are noted, a manual differential will be performed. Immature Gran Absolute 0.01 0.00 - 0.05 x10(3)/mcL CERNER MILLENNIUM Blood specimen (specimen) 09/09/2013 10:58 AM EDT 09/09/2013 11:05 AM EDT Narrative Resulting Agency Comment Spec In Lab Raimundo Cancino MD HEMATOLOGY ORDERABLE S ALEX ROTHIUM * Hemogram (09/09/2013 10:58 AM EDT) White Blood Cell 5.3 4.0 - 10.0 x10(3)/mcL CERNER MILLENNIUM Red Blood Cell 4.24 3.93 - 5.22 x10(6)/mcL CERNER MILLENNIUM Hemoglobin 12.3 11.2 - 15.7 gm/dL CERNER MILLENNIUM Hematocrit 37.8 34.0 - 45.0 % CERNER MILLENNIUM Mean Cell Volume 89.2 79.0 - 94.0 fL CERNER MILLENNIUM Mean Cell Hemoglobin 29.0 26.6 - 32.2 pg CERNER MILLENNIUM Mean Cell Hemoglobin Concentration 32.5 32.0 - 36.5 gm/dL CERNER MILLENNIUM Platelet 263 145 - 370 x10(3)/mcL CERNER MILLENNIUM RDW Standard Deviation 44.7 35.0 - 46.0 fL CERNER MILLENNIUM RDW coefficient of variation 13.7 10.9 - 14.4 % CERNER MILLENNIUM Mean Platelet Volume 10.2 9.0 - 12.0 fL CERNER MILLENNIUM Blood specimen (specimen) 09/09/2013 10:58 AM EDT 09/09/2013 11:05 AM EDT Narrative Resulting Agency Comment Spec In Lab Raimundo Cancino MD HEMATOLOGY ORDERABLE S Performing Organization Address [facility] Co de Phone Number ALEX ROTHIUM * (ABNORMAL) Comprehensive metabolic panel (non-fasting) (09/09/2013 10:58 AM EDT) Glucose 91 60 - 199 mg/dL CERNER MILLENNIUM Comment:Diabetes: >=200 mg/d L plus symptoms Blood Urea Nitrogen 14 8 - 18 mg/dL CERNER MILLENNIUM Creatinine 0.67(L) 0.70 - 1.20 mg/dL CERNER MILLENNIUM Comment: Please note that the pediatric reference intervals supplied above were not validated at [facility]. Results from pediatric patients should be interpreted in conjunction to the patient's age, height and muscle mass. Sodium 140 135 - 145 mmol/L CERNER MILLENNIUM Potassium 4.1 3.5 - 5.0 mmol/L CERNER MILLENNIUM Comment: Please note: ??Patients with WBC >100,000 may have falsely elevated Potassium levels. ??For accurate Potassium quantification in these patients send serum separator tube (gold top) for subsequent determinations. ??Contact the Clinical Chemistry Laboratory if there are any questions. Chloride 104 98 - 107 mmol/L CERNER MILLENNIUM Carbon Dioxide 26 22 - 31 mmol/L CERNER MILLENNIUM Anion Gap 10 5 - 15 mmol/L CERNER MILLENNIUM Calcium 10.0 8.5 - 10.5 mg/dL CERNER MILLENNIUM Protein, Total 7.7 6.4 - 8.3 gm/dL CERNER MILLENNIUM Albumin 4.4 3.2 - 5.2 gm/dL CERNER MILLENNIUM Aspartate Aminotransferase 19 0 - 30 unit/L CERNER MILLENNIUM Alanine Aminotransferase 16 0 - 30 unit/L CERNER MILLENNIUM Alkaline Phosphatase 94 40 - 104 unit/L CERNER MILLENNIUM Bilirubin, Total 0.7 0.2 - 1.3 mg/dL CERNER MILLENNIUM Bilirubin, Direct 0.1 0.0 - 0.3 mg/dL CERNER MILLENNIUM Est Glomerular Filtration Rate >60 >=60 CERNER MILLENNIUM Comment: This estimated GFR (eGFR) value was calculated using the MDRD equation which has been validated on patients between the ages of 18 and 70. The MDRD should not be used to assess kidney function in patients < 18 years of age or in patients with extremes of body mass, or in patients with acute kidney failure. This value should be multiplied by 1.2 for patients. For further information please copy and paste the following links into your internet browser. http://www.nkdep.nih.gov/lab-evaluation.shtml http://www.kidney.org/professionals/ Blood specimen (specimen) 09/09/2013 10:58 AM EDT 09/09/2013 11:05 AM EDT Narrative Resulting Agency Comment Spec In Lab Raimundo Cancino MD CHEMISTRY ORDERABLES CERNER MILLENNIUM documented in this encounter Visit Diagnoses Diagnosis Multiple sclerosis- Primary documented in this encounter Care Teams Junior Architect Relationship Specialty Start Date End Date Stanley, Kevan, DO [address] [place] [address] PCP - General 08/07/11 documented as of this encounter
--- OUTSIDE RECORDS SUMMARY | 2024-04-05 17:32 | XMS_ITS | Encounter Summary ---
[place] [address] Care Team Providers Care Business Liaison Officer Name Role Phone Fabrizio Rey MD Primary Care Provider [phone] Reason for Visit * Reason Onset Date Comments Other 04/19/2011 PA approval for Rebif Encounter Details Date Type Department Care Team (Late st Contact Info) Description 04/19/2011 [place] [address] Smooth Jang MD [facility] [place] [address] Other (PA approval for Rebif) Social History Tobacco Use Types Packs/Day Years [...] encounter Miscellaneous Notes * Telephone Encounter - Zohreh Stevens RN - 04/19/2011 9:23 AM EST Fax received from [facility] scripts for Rebif PA approval 04/18/11-03/15/12 DIV -[id number] documented in this encounter Plan of Treatment Upcoming Encounters Date Type Department Care Team (Late st Contact Info) Description 09/14/2024 8:00 AM EDT [place] [address] Alie Arshad PA [facility] [place] [address] documented as of this encounter Visit Diagnoses Not on filedocumented in this encounter Care Teams Business Liaison Officer Relationship Specialty Start Date End Date Fabrizio Rey MD [address] [place] [address] PCP - General 03/06/10 08/06/11 documented as of this encounter
--- OUTSIDE RECORDS SUMMARY | 2024-04-05 17:32 | XMS_ITS | Encounter Summary ---
Author Organization [facility] Address [facility] [place] [address] Care Team Providers Care Instructional Technology Facilitator Name Role Phone StanleyKevan bowen Primary Care Provider Encounter Details Date Type Department Care Team (Late st Contact Info) Description 09/19/2016 8:30 AM EDT [place] [address] Alie Arshad PA [facility] [place] [address] Multiple sclerosis Social History Tobacco Use Types [...] Sign Reading Time Taken Comments Blood Pressure 148/90 09/19/2016 8:26 AM EDT Pulse 74 09/19/2016 8:26 AM EDT Temperature - - Respiratory Rate - - Oxygen Saturation - - Inhaled Oxygen Concentration - - Weight 54.9 kg (121 lb) 09/19/2016 8:26 AM EDT Height 157.5 cm (5' 2) 09/19/2016 8:26 AM EDT r eported Body Mass Index 22.13 09/19/2016 8:26 AM EDT documented in this encounter Progress Notes * Alie Arshad PA - 09/19/2016 8:30 AM EDT MULTIPLE SCLEROSIS CLINIC [facility] [place] [address] [address] Patient name: Maritza Leiva Date of : 1960 Address: [place] [address], [facility] ?? Time since first symptom of MS: [...] takes Trazodone PRN (about once monthly) HPI: 56 y.o. female with PMHx MS presents to clinic for yearly follow-up. Maritza was last seen here by me 1yr ago (August 2014). Had been stable at this visit with [...] neurologic symptoms over the past year. She is on Rebif as her DMD and has been since 2002; she has not tried any other DMDs. She is overall very happy with the drug and her lack of MS activity. She does endorse side effects of bruising atinjection sites and occasional flu like symptoms; but for now these are tolerable. No social hx changes - continues to remain busy between work and family life. Feels her MS minimally impacts her ADLs and feels very fortunate about this. ScHx ?? Home & Family: , 2 sons (one with CF). 2 grandchildren. ?? Job status: Works in [employer]. ?? Alcohol: No ?? Tobacco: Former, quit at age 32yo ?? Drug use: No ?? Diet: Good, healthy diet ?? Exercise: Enjoys walking when she can. Social History Social History Narrative Past Medical History: Diagnosis Date ??? Multiple sclerosis No family history on file. Outpatient Encounter Prescriptions as of 09/19/2016 Medication Sig Dispense Refill ??? interferon beta-1a, albumin, (REBIF, WITH ALBUMIN,) 44 mcg/0.5 mL Syringe INJECT 0.5MLS SUBCUTANEOUSLY 3 TIMES A WEEK. 6 mL 11 ??? traZODone (DESYREL) 50 mg tablet Take 1 tablet by mouth nightly as needed for Sleep. 90 tablet 3 No facility-administered encounter medications on file as of 09/19/2016. No Known Allergies Review of systems: Refer to HPI Objective: Vitals: BP 148/90 (BP Location (NBP): Right arm, Patient Position: Sitting, BP Cuff Sizes: Adult (25-34 cm)) Pulse 74 Ht 157.5 cm (5' 2) Comment: reported Wt 54.9 kg (121 lb) BMI 22.13 kg/m2 Constitutional: 56 y.o. female appears stated age, well nourished, well developed, in no acute distress HEENT: Head atraumatic, normocephalic. Sclera non-icteric. Oropharynx normal. Neuro: ?? MS: Alert and oriented. Language is clear and fluent. No dysarthria. ?? CN: ?? PERRL, EOMI, visual lopez full. ?? Facial sensation intact throughout. ?? No facial asymmetry, movement intact ?? Hearing intact to finger rub ?? Palate elevates symmetrically, tongue protrudes midline ?? SCM and trap strength intact. ?? Motor: Normal bulk and tone. No clonus. No pronator drift. ?? Upper extremity strength 5/5. ?? Lower extremity strength 5/5. ?? Sensation: Intact to light touch throughout. ?? Reflexes: ?? UE DTRs: Triceps 2+, Biceps 2+, Brachioradialis 2+. ?? LE DTRs: Patellar 2+, Achilles: 1+. ?? Coordination: Finger to nose, SP, Heel to romero intact. ?? Gait: Stable, steady. No difficulty withtandem gait, heel or toe walking. Some minor swaying with Romberg testing. Diagnostic [...] the supratentorial white matter. Assessment & Plan 56 y.o. female with MS on Rebif: Stable over the past year. No MS relapses or disability progression. She had no complaints or concerns today to address. Physical exam was unchanged from last. #MS: Continue Rebif. #Labs: done locally after our last visit - reviewed labs, no major abnormalities: slightly low WBC but on review of her chart this appears to be her normal; LFTs were WNL. Follow-up PRN new symptoms or worsening old ones, otherwise, see me for routine follow-up in 1yr. Alie Arshad PA-C Dept. Of Neurology [facility] [phone] documented in this encounter Plan of Treatment Upcoming Encounters Date Type Department Care Team (Late st Contact Info) Description 09/14/2024 8:00 AM EDT [place] [address] Alie Arshad PA [facility] DR [place] [address] documented as of this encounter Visit Diagnoses Diagnosis Multiple sclerosis documented in this encounter Care Teams Instructional Technology Facilitator Relationship Specialty Start Date End Date Kevan Angel DO [address] [place] [address] PCP - General 08/07/11 documented as of this encounter
--- OUTSIDE RECORDS SUMMARY | 2024-04-05 17:32 | XMS_ITS | Encounter Summary ---
[place] [address] Care Team Providers Care Batter Depositor Name Role Phone Fabrizio Rey MD Primary Care Provider Encounter Details Date Type Department Care Team (Late st Contact Info) Description 07/31/2011 Abstract [place] [address] Smooth Jang MD [facility] [place] [address] Social History Tobacco Use Types Packs/Day Years [...] AM EDT Office [place] [phone] Alie Arshad PA [facility] [place] [address] documented as of this encounter Visit Diagnoses Not on filedocumented in this encounter Care Teams Batter Depositor Relationship Specialty Start Date End Date Fabrizio Rey MD [address] [place] [address] PCP - General 03/06/10 08/06/11 documented as of this encounter
--- OUTSIDE RECORDS SUMMARY | 2024-04-05 17:32 | XMS_ITS | Encounter Summary ---
Author Organization [place] [address] Care Team Providers Care Business Programmer Name Role Phone StanleyKevan bowen Primary Care Provider Reason for Referral * Consultation (Routine) - Closed Specialty Diagnoses / Procedures Referred By David nieves Referred To Contact Vascular Surgery Diagnoses Varicose veins of right lower extremity with edema Smooth Jang MD [facility] [place] [address] [facility] [address] [place] [address] Referral ID Status Reason Start Date Expiration Date V isits Requested Visits Authorized [id number] Closed Consult, Test & Treat 10/09/2017 10/09/2018 1 1 Encounter Details Date Type Department Care Team (Late st Contact Info) Description 10/09/2017 2:30 PM EDT [place] [address] Smooth Jang MD [facility] [place] [address] Varicose veins of right lower extremity with edema; MS (multiple sclerosis) Social History Tobacco Use Types Packs/Day Years [...] Sign Reading Time Taken Comments Blood Pressure 144/67 10/09/2017 2:09 PM EDT Pulse 102 10/09/2017 2:09 PM EDT Temperature - - Respiratory Rate - - Oxygen Saturation - - Inhaled Oxygen Concentration - - Weight 54.4 kg (120 lb) 10/09/2017 2:09 PM EDT Height 157.5 cm (5' 2) 10/09/2017 2:09 PM EDT r eported Body Mass Index 21.95 10/09/2017 2:09 PM EDT documented in this encounter Patient Instructions * Patient Instructions* Smooth Jang MD - 10/09/2017 2:30 PM EDT I think you are doing quite well. Multiple sclerosis appears to be stable. Please continue the Rebif injections. Please start to take aspirin 81 mg daily I am putting in a referral to vascular surgery for varicose veins. We will see you back in a year or sooner if any problems arise Smooth Jang MD Department of Neurology [address] [address], [place] [address] Pager: [phone], #[phone] Email: [email or web address] . documented in this encounter Progress Notes * Smooth Jang MD - 10/09/2017 2:30 PM EDT Neurology clinic note CC: Relapsing remitting multiple sclerosis History: She [...] Started Rebif in 2002 and has been stable. She has not had any new medical problems and only reports having a bout of sinusitis in January 2010. She has chronic varicose veins Interval history: The patient reports that she has been doing well over the past year since she was last seen. I saw her several years ago when we were short handed, and was running the multiple sclerosis program, but her care had subsequently been transferred to regular providers in multiple sclerosis. Owingto an error she got scheduled with me again. She denies any new symptoms. She has stable loss of vision in the left eye from optic neuritis in 2001 and often sees a bright spot there. She has not had any lateralized hemisensory/any motor symptoms. Her balance is good. 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 Bowel and bladder function are normal. She does not think she has had relapses or gradual decline She has been injecting regularly with Rebif and has no significant side effects from the medication. She has developed some induration at various injection sites particularly of the right side. She has a new problem of what appears to be thrombosed varicose veins in the right leg. She says she has had an ultrasound study that ruled out DVT Past medical history: Patient Active Problem List Diagnosis ??? Varicose veins of leg with swelling ??? MS (multiple sclerosis) MEDICATIONS: Current Outpatient Prescriptions Medication Sig Dispense Refill ??? interferon beta-1a, albumin, (REBIF, WITH ALBUMIN,) 44 mcg/0.5 mL Syringe INJECT 0.5MLS SUBCUTANEOUSLY 3 TIMES A WEEK. 6 mL 11 ??? traZODone (DESYREL) 50 mg tablet Take 1 tablet by mouth nightly as needed for Sleep. 90 tablet 3 No current facility-administered medications for this visit. 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 Review of systems: She eats and sleeps all right. Bowel and bladder function are stable. PHYSICAL EXAM: BP 144/67 (BP Location (NBP): Left arm, Patient Position: Sitting, BP Cuff Sizes: Adult (25-34 cm)) Pulse (!) 102 Ht 157.5 cm (5' 2) Comment: reported Wt 54.4 kg (120 lb) BMI 21.95 kg/m2 General: The patient appears well, not in distress. Skin: Warm and moist to touch HEENT: Normal no cervical adenopathy. Cardiovascular: Heart rate is regular. No murmur, rub or gallops appreciated. Respiratory: Clear to auscultation. Abdomen: Soft, nontender. Extremities: Bilateral varicose veins worse on the right, with what appears to be superficial thrombosis on the right. Muscluskeletal/Spine: No abnormality noted. Mental Status: The patient is alert and [...] is 5/5 throughoutproximal and distal muscle groups. Reflexes: Deep tendon reflexes are 2+ and symmetrical. There is no Babinski sign Sensation: Normal touch and vibratory sensation. Coordination: Finger to nose and heel to romero testing is normal. Gait: The patient has normal gait and able to tandem walk. Laboratory studies: I have requested that the patient get a CBC chemistry and liver profile and B12 level and thyroid function tests done locally ASSESSMENT AND PLAN: The patient is doing quite well. She is a 50 y.o. year old female who has relapsing remitting multiple sclerosis. She has been clinically stable and there has been no evidence of progression on MRI or clinical relapse. She has lost vision on the left from optic neuritis which appears to be stable. Vision in her right eye is good. Her exam is otherwise essentially nonfocal. she reports good compliance with the Rebif injections and has no problems tolerating this. I would make no change at this time. Screening lab studies including CBC chemistry and liver profile have been unremarkable. She is borderline anemic with a hematocrit of 35. This is likely due to Rebif. Vitamin B 12 level and folate level has been normal in the past. I have asked for screening lab studies to be done locally. I am concerned about her lower extremity veins. The varicose veins are quite bad, and there is evidence of superficial thrombophlebitis. I advised that she start taking aspirin 81 mg daily, and I have put in a referral to vascular surgery here. The patient will be seen in follow-up in a year in the multiple sclerosis program, or sooner if anyproblems arise Thank you for this consultation. Smooth Jang MD [place] [address] Pager: [phone], #[phone] Email: [email or web address] CC: Dr. Angel documented in this encounter Plan of Treatment Upcoming Encounters Date Type Department Care Team (Late st Contact Info) Description 09/14/2024 8:00 AM EDT [place] [address] Alie Arshad PA [facility] [place] [address] Scheduled Referrals Name Type Priority Associated Diagnoses Orde r Schedule Referral to Vascular Surgery Outpatient Referral Routine Varicose Veins Of Right Lower Extremity With Edema Ordered: 10/09/2017 documented as of this encounter Visit Diagnoses Diagnosis Varicose veins of right lower extremity with edema MS (multiple sclerosis) Multiple sclerosis documented in this encounter Care Teams Business Programmer Relationship Specialty Start Date End Date Kevan Angel DO [address] [place] [address] PCP - General 08/07/11 documented as of this encounter
--- OUTSIDE RECORDS SUMMARY | 2024-04-05 17:32 | XMS_ITS | Encounter Summary ---
[place] [address] Care Team Providers Care Web Applications Administrator Name Role Phone Fabrizio Rey MD Primary Care Provider Encounter Details Date Type Department Care Team (Late st Contact Info) Description 09/06/2010 10:26 AM EDT - 09/06/2010 11:59 PM EDT Hospital [place] [address] Social History Tobacco Use Types Packs/Day Years [...] Sign Reading Time Taken Comments Blood Pressure - - Pulse - - Temperature - - Respiratory Rate - - Oxygen Saturation - - Inhaled Oxygen Concentration - - Weight 55.3 kg (122 lb) 09/06/2010 6:19 AM EDT Height - - Body Mass Index 22.31 09/06/2010 6:19 AM EDT documented in this encounter Medications at Time of Discharge Medication Sig Dispensed Refills Start Date End Date interferon beta-1a (REBIF) 44 mcg/0.5 mL injection 44 mcg sc SQ three times per week. 12/21/2009 10/05/2010 documented as of this encounter Plan of Treatment Upcoming Encounters Date Type Department Care Team (Late st Contact Info) Description 09/14/2024 8:00 AM EDT Office [place] [address] Alie Arshad PA [facility] [place] [address] documented as of this encounter Procedures Procedure Name Priority Date/Time Associated Diagnosis Comments MRI BRAIN WWO CONTRAST (GENERIC) Routine 09/06/2010 11:33 AM EDT documented in this encounter Results * MRI BRAIN WITH/WO CONTRAST (09/06/2010 11:33 AM EDT) Anatomical Region Laterality Modality Head Magnetic Resonan ce 09/06/2010 11:3 3 AM EDT Impressions 09/11/2010 1:39 PM EDT IMPRESSION: 1. ??Stable examination with nonspecific foci of signal abnormality in the supratentorial white matter. Narrative 09/11/2010 1:39 PM EDT MRI OF THE BRAIN: CLINICAL HISTORY: ??MS followup. ??Question progression or change. PROCEDURE: ??MRI of the brain was performed prior to and following intravenous administration of 12 cc Magnevist. COMPARISON: ??07/27/09. FINDINGS: ??There are a few scattered foci of T2 prolongation in the supratentorial white matter in the same distribution as previously. ??No change in size, appearance or number of lesions. ??Postgadolinium, there is no pathologic enhancement of any of these foci. There is mild brain atrophy without definite interval change. ??No acute intracranial hemorrhage or extraaxial fluid collection is present and there is no mass effect. ??There is fluid opacification of several mastoid air cells in similar distribution to the previous study. ??Normal intracranial flow voids are identified. ??Craniocervical junction is unremarkable. Procedure Note Tiera Ríos MD - 09/11/2010 MRI OF THE BRAIN: CLINICAL HISTORY: MS followup. Question progression or change. PROCEDURE: MRI of the brain was performed prior to and followingintravenous administration of 12 cc Magnevist. COMPARISON: 07/27/09. FINDINGS: There are a few scattered foci of T2 prolongation in the supratentorial white matter in the same distribution as previously. Nochange in size, appearance or number of lesions. Postgadolinium, there is no pathologic enhancement of any of these foci. There is mild brain atrophy without definite interval change. No acute intracranial hemorrhage or extraaxial fluid collection is present andthere is no mass effect. There is fluid opacification of several mastoid air cellsin similar distribution to the previous study. Normal intracranial flowvoids are identified. Craniocervical junction is unremarkable. IMPRESSION IMPRESSION: 1. Stable examination with nonspecific foci of signal abnormality in the supratentorial white matter. Hang Mejia MD IMG MRI ORDERABLES documented in this encounter Visit Diagnoses Not on filedocumented in this encounter Administered Medications Inactive Administered Medications - up to 3 most recent administrations Medication Order MAR Action Action Date Dose Rate Site gadopentetate dimeglumine (MAGNEVIST) injection 11 mL 11 mL (0.2 mL/kg/dose ? 55.3 kg), Intravenous, ONCE PRN, Per Protocol, Starting on Mildred 09/06/10 at 0620, 1 dose, Until Mildred 09/06/10 at 1124 Given 09/06/2010 11:24 AM EDT 12 mLs documented in this encounter Care Teams Web Applications Administrator Relationship Specialty Start Date End Date Fabrizio Rey MD [address] [place] [address] PCP - General 03/06/10 08/06/11 documented as of this encounter
--- OUTSIDE RECORDS SUMMARY | 2024-04-05 17:32 | XMS_ITS | Encounter Summary ---
Author Organization [facility] [place] [address] Care Team Providers Care Nremt Name Role Phone Fabrizio Rey MD Primary Care Provider [phone] Reason for Visit * Reason Onset Date Comments Other 04/16/2011 Rebif ?s Encounter Details Date Type Department Care Team (Late st Contact Info) Description 04/16/2011 [place] [address] [facility] [place] [place] [address] Other (Rebif ?s) Social History Tobacco Use Types Packs/Day Years [...] Telephone Encounter - June Osborne RN - 04/16/2011 1:46 PM EST Pt calls stating that [facility] needed a prior authorization for her Rebif. Call placed to [employer] at [phone]. Left a message for the pharmacist that we have an approved PA on file until October 2011. Asked her to return my call if she needs anything further from me. documented in this encounter Plan of Treatment Upcoming Encounters Date Type Department Care Team (Late st Contact Info) Description 09/14/2024 8:00 AM EDT [place] [address] [facility] [place] [place] [address] documented as of this encounter Visit Diagnoses Not on filedocumented in this encounter Care Teams Nremt Relationship Specialty Start Date End Date Fabrizio Rey MD [address] [place] [address] PCP - General 03/06/10 08/06/11 documented as of this encounter
--- OUTSIDE RECORDS SUMMARY | 2024-04-05 17:32 | XMS_ITS | Encounter Summary ---
[place] [address] Care Team Providers Care Copping Machine Operator Name Role Phone Fabrizio Rey MD Primary Care Provider [phone] Reason for Visit * Reason Onset Date Comments Other 10/12/2010 prior auth appro zoila Encounter Details Date Type Department Care Team (Late st Contact Info) Description 10/12/2010 [place] [phone] Hang Mejia MD Other (prior auth approval) Social History Tobacco Use Types Packs/Day Years [...] Telephone Encounter - June Osborne RN - 10/12/2010 1:34 PM EDT Medication: Rebif 44 mcg/.5 ml Prior Authorization: Start Date: 10/12/2010 End Date: 11/12/2011 Health Plan: [facility] Authorizing Rep: Authorization Number (if applicable): [id number] Notified: Patient ( x ) Pharmacy ( ) documented in this encounter Plan of Treatment Upcoming Encounters Date Type Department Care Team (Late st Contact Info) Description 09/14/2024 8:00 AM EDT [place] [address] Alie Arshad PA [facility] [place] [address] documented as of this encounter Visit Diagnoses Not on filedocumented in this encounter Care Teams Copping Machine Operator Relationship Specialty Start Date End Date Fabrizio Rey MD [address] [place] [address] PCP - General 03/06/10 08/06/11 documented as of this encounter
--- OUTSIDE RECORDS SUMMARY | 2024-04-05 17:32 | XMS_ITS | Encounter Summary ---
[place] [address] Care Team Providers Care Package Wrapper Name Role Phone StanleyKevan bowen Primary Care Provider [phone] Reason for Visit * Reason Onset Date Comments Medication Refill 07/05/2016 Encounter Details Date Type Department Care Team (Late st Contact Info) Description 07/05/2016 [place] [address] Alie Arshad PA [facility] [place] [address] Social History Tobacco Use Types Packs/Day Years [...] 8:00 AM EDT Office [place] [phone] Alie Arshad PA [facility] [address] documented as of this encounter Visit Diagnoses Not on filedocumented in this encounter Care Teams Package Wrapper Relationship Specialty Start Date End Date Kevan Angel DO [address] [facility] [address] [place] [address] PCP - General 08/07/11 documented as of this encounter
--- OUTSIDE RECORDS SUMMARY | 2024-04-05 17:32 | XMS_ITS | Encounter Summary ---
Author Organization [facility] Address [facility] [place] [address] Care Team Providers Care Hydraulic Barker Operator Name Role Phone StanleyKevan bowen Primary Care Provider Encounter Details Date Type Department Care Team (Late st Contact Info) Description 09/19/2015 11:00 AM EDT [place] [address] Alie Arshad PA [facility] [place] [address] Multiple sclerosis; White coat hypertension Social History Tobacco Use Types Packs/Day Years [...] Sign Reading Time Taken Comments Blood Pressure 148/100 09/19/2015 10:27 AM EDT Pulse 80 09/19/2015 10:27 AM EDT Temperature - - Respiratory Rate - - Oxygen Saturation - - Inhaled Oxygen Concentration - - Weight 53.5 kg (118 lb) 09/19/2015 10:27 AM EDT Height 157.5 cm (5' 2) 09/19/2015 10:27 AM EDT Body Mass Index 21.58 09/19/2015 10:27 AM EDT documented in this encounter Progress Notes * Alie Arshad PA - 09/19/2015 11:11 AM EDT [facility] [place] [address] Patient name: Maritza Leiva Date of : 1960 Address: [address] [address], [facility] ?? Time since first symptom of [...] takes Trazodone PRN (about once monthly) HPI: 55 y.o. female with PMHx MS presents to [...] but for now these are tolerable. She has nothad labs done since 2013. ScHx ?? Home & Family: , 2 sons (one with CF). 2 grandchildren. ?? Job status: Works in [employer]'s office and, on the weekends, helps out at the [employer]. ?? Alcohol: No ?? Tobacco: Former, quit at age 32yo ?? Drug use: No ?? Diet: Good, healthy diet ?? Exercise: Enjoys walking when she can. History Social History Narrative Past Medical History Diagnosis Date ??? Multiple sclerosis History reviewed. No pertinent family history. Outpatient Encounter Prescriptions as of 09/19/2015 Medication Sig Dispense Refill ??? REBIF, WITH ALBUMIN, 44 mcg/0.5 mL Syringe INJECT 0.5MLS SUBCUTANEOUSLY 3 TIMES A WEEK 6 mL 11 ??? traZODone (DESYREL) 50 mg tablet Take 1 tablet by mouth nightly as needed for Sleep. 90 tablet 3 No facility-administered encounter medications on file as of 09/19/2015. No Known Allergies Review of systems: Refer to HPI Objective: Vitals: BP (!) 148/100 Pulse 80 Ht 157.5 cm (5' 2) Wt 53.5 kg (118 lb) BMI 21.58 kg/m2 Constitutional: 55 y.o. female appears stated age, well nourished, [...] ?? Sensation: Intact to light touch, temperature throughout. ?? Reflexes: ?? UE DTRs: Triceps [...] the supratentorial white matter. Assessment & Plan 55 y.o. female with MS on Rebif: Stable over the past year. No MS relapses or disability progression. She had no complaints or concerns today to address. Physical exam was unchanged from last. #MS: Continue Rebif #High BP: has had this in the past with visits here. had a f/u with her PCP after our last visit for BP and it was normal in the office; PCP did not feel the need to start her on anything. She will again f/u with her PCP. Follow-up PRN new symptoms or worsening old ones, otherwise, see me for routine follow-up in 1yr. Alie Arshad PA-C Dept. Of Neurology [facility] [phone] documented in this encounter Plan of Treatment Upcoming Encounters Date Type Department Care Team (Late st Contact Info) Description 09/14/2024 8:00 AM EDT [place] [address] Alie Arshad PA [facility] [place] [address] documented as of this encounter Visit Diagnoses Diagnosis Multiple sclerosis White coat hypertension Unspecified essential hypertension documented in this encounter Care Teams Hydraulic Barker Operator Relationship Specialty Start Date End Date Kevan Angel DO [address] [place] [address] PCP - General 08/07/11 documented as of this encounter
--- OUTSIDE RECORDS SUMMARY | 2024-04-05 17:32 | XMS_ITS | Encounter Summary ---
Author Organization [facility] [place] [address] Care Team Providers Care Formation Testing Operator Name Role Phone Stanley, Kevan PHELPS Primary Care Provider [phone] Reason for Visit * Consultation (Routine) - Closed Specialty Diagnoses / Procedures Referred By David nieves Referred To Contact Vascular Surgery Diagnoses Varicose veins of right lower extremity with edema Smooth Jang MD [facility] [place] [address] [facility] [address] [place] [address] Referral ID Status Reason Start Date Expiration Date V isits Requested Visits Authorized [id number] Closed Consult, Test & Treat 10/09/2017 10/09/2018 1 1 Encounter Details Date Type Department Care Team (Late st Contact Info) Description 12/10/2017 9:00 AM EDT Office Visit [place] [address] Klaudia Brenner APRN Varicose veins with inflammation; Phlebitis of superficial vein of [...] Sign Reading Time Taken Comments Blood Pressure 169/90 12/10/2017 8:52 AM EDT Pulse 83 12/10/2017 8:52 AM EDT Temperature - - Respiratory Rate - - Oxygen Saturation 100% 12/10/2017 8:52 AM EDT Inhaled Oxygen Concentration - - Weight 54 kg (119 lb) 12/10/2017 8:52 AM EDT Height 157.5 cm (5' 2) 12/10/2017 8:52 AM EDT Body Mass Index 21.77 12/10/2017 8:52 AM EDT documented in this encounter Progress Notes * Tariq Brennercarmen Wynne, SHRIMP TRAWLER CAPTAIN - 12/10/2017 9:00 AM EDT Consult requested by Kevan Angel DO for evaluation of painful varicose veins. History: This is a 57 y.o. female with MS who has noted painful varicose veins right medial calf since June. She states small focal varicose vein for about 5 years in calf area on right. The patient has noted the following symptoms below for 6 months, The patient has not used 20-30mmHg compression stockings. States venous duplex at outside facilty in June with positive for clot. Due to the symptoms below, the patient difficulty with work and it is affecting the quality of life. Y N SYMPTOM X Leg aching X Leg swelling X Leg elevation greater than 20 minutes/3x per day x Daily use of compression stockings 20-30mmHg (6-8 weeks) X Family history of varicose veins X History of more than two episodes of phlebitis X Refractory edema X Stasis dermatitis X History of DVT X Prior venous surgery X Prior ulceration X Current ulceration X History of two more episodes of bleeding varicosities X Chronic cellulitis Review of Systems: Prior cardiac history: no Prior pulmonary history: no Prior issues with general anesthesia: no Family history of malignant hyperthermia: no Issues with snoring or sleep apnea: no PE: Most Recent Vitals: 12/10/17 0852 BP: 169/90 Pulse: 83 SpO2: 100% PainSc: 0 - No pain Body mass index is 21.77 kg/(m^2). Heart: RRR, no murmurs, no S3 or S4 Chest: CTA, no wheeze Location of the varicosities: right Size of the varicosities (greater than 3mm): Right medial calf and ankle with 5- 8 mm VV with discoloration and tenderness Carotid pulses equal and bilateral No palpable pulsatile abdominal masses, no abdominal bruits Palpable bilateral femoral, popliteal and tibial pulses Y N PHYSICAL FINDINGS X Radial pulses bilaterally X DP and PT pulses bilaterally X Palp cords X Evidence of healed ulceration X Stasis dermatitis X Cellulitis X Palpable Thrills Venous duplex Right- There is acute appearing non-occlusive superficial [...] evidence of lower extremity deep venous thrombosis. Assessment/Plan: 57 yo female with symptomatic right calf varicose veins with phlebitis in June. She has not worn compression Knee high 20-30 mmHg compression written to be warm daily, elevation andwarm moist compression to phlebitis. Area antiinflammatories for discomfort. Duplex Right- There isacute appearing non-occlusive superficial thrombus in varicose veins at the site of pain and redness. No evidence of lower extremity deep venous thrombosis. She is to have reevaluated if SOB, increase pain or swelling. RTC PRN documented in this encounter Plan of Treatment Upcoming Encounters Date Type Department Care Team (Late st Contact Info) Description 09/14/2024 8:00 AM EDT Office [place] [address] [facility] [place] [address] documented as of this encounter Results * Duplex for DVT, Leg, Unilat (12/10/2017 9:45 AM EDT) VB Text Report Department: Vascular Surgery Lab Patient: [id number] (YAMILA REYNOLDS) CPT: 25015 ICD10: I83.10 Referring Physician: KLAUDIA BRENNER APRN ?? Indications: Painful R medial distal calf, [...] comparison. Patient being seen in clinic by Klaudia Brenner. Electronically Signed by: XOCHILT SANTOS on 2017-12-10 10:53:04 PM VASCUBASE VB Text Report End of Report VASCUBASE 12/10/2017 9:45 AM EDT Klaudia Brenner APRN VASCULAR ORDERABLE S VASCUBASE documented in this encounter Visit Diagnoses Diagnosis Varicose veins with inflammation Varicose veins of lower extremities with inflammation Phlebitis of superficial vein of right lower extremity documented in this encounter Care Teams Formation Testing Operator Relationship Specialty Start Date End Date Kevan Angel DO NPKillian: [phone] [address] [place] [address] PCP - General 08/07/11 documented as of this encounter
--- OUTSIDE RECORDS SUMMARY | 2024-04-05 17:32 | XMS_ITS | Encounter Summary ---
[place] [address] Care Team Providers Care Delivery Driver/Customer Service Name Role Phone StanleyKevan bowen Primary Care Provider [phone] Reason for Visit * Reason Comments Medication Refill Encounter Details Date Type Department Care Team (Late st Contact Info) Description 08/04/2015 [place] [address] Alie Arshad PA [facility] [place] [address] Social History Tobacco Use Types Packs/Day Years [...] 8:00 AM EDT [place] [address] Alie Arshad PA [facility] [place] [address] documented as of this encounter Visit Diagnoses Not on filedocumented in this encounter Care Teams Delivery Driver/Customer Service Relationship Specialty Start Date End Date Kevan Angel DO [address] [place] [address] PCP - General 08/07/11 documented as of this encounter
--- OUTSIDE RECORDS SUMMARY | 2024-04-05 17:32 | XMS_ITS | Encounter Summary ---
Author Organization [facility] [place] [address] Care Team Providers Care Portfolio Strategist Name Role Phone StanleyKevan bowen Primary Care Provider Reason for Visit * Reason Comments Medication Refill Encounter Details Date Type Department Care Team (Late st Contact Info) Description 09/13/2012 [place] [address] Smooth Jang MD [facility] [place] [address] Social History Tobacco Use Types Packs/Day Years [...] Encounter - June Osborne RN - 09/14/2012 9:41 AM EDT Pt emails for refill of Rebif through [facility] in [place], [place]. Last clinic visit: 08/27/2012 Next clinic visit: None scheduled documented in this encounter Plan of Treatment Upcoming Encounters Date Type Department Care Team (Late st Contact Info) Description 09/14/2024 8:00 AM EDT Office [place] [address] Alie Arshad PA [facility] [place] [address] documented as of this encounter Visit Diagnoses Not on filedocumented in this encounter Care Teams Portfolio Strategist Relationship Specialty Start Date End Date Kevan Angel DO [address] [place] [address] PCP - General 08/07/11 documented as of this encounter
--- OUTSIDE RECORDS SUMMARY | 2024-04-05 17:32 | XMS_ITS | Encounter Summary ---
Author Organization [facility] Address [facility] [place] [address] Care Team Providers Care Proof Inspector Name Role Phone StanleyKevan bowen Primary Care Provider Encounter Details Date Type Department Care Team (Late st Contact Info) Description 08/27/2012 12:30 PM EDT [place] [address] Raimundo Cancino MD [facility] [place] [address] Multiple sclerosis (Primary Dx) Discharge Disposition: Home [...] Sign Reading Time Taken Comments Blood Pressure 143/90 08/27/2012 12:45 PM EDT Pulse 103 08/27/2012 12:45 PM EDT Temperature - - Respiratory Rate - - Oxygen Saturation - - Inhaled Oxygen Concentration - - Weight 54.8 kg (120 lb 12.8 oz) 013 12:45 PM EDT Height 157.5 cm (5' 2) 08/27/2012 12:4 5 PM EDT Body Mass Index 22.09 08/27/2012 12:45 PM EDT documented in this encounter Progress Notes * Elizabeth Giang MA - 08/27/2012 12:47 PM EDT 25 Foot Walk Test Timed Walk One: 5.7 Timed Walk Two: 5.4 9 Hole Peg Test Dominant Hand: RIGHT Timed One Test: 19.0 Timed Two Test: 18.0 Non Dominant Hand: LEFT Timed One Test: 18.5 Timed Two Test: 19.2 * Raimundo Cancino MD - 08/27/2012 12:00 PM EDT 2715-3193 32 minutes Accompanied by: no one Time since first symptom of MS: 1996 EDSS: only symptom now is decreased vision left eye MSSS: OCBs: DMD: Rebit MSIS-29: 31 BMI:22.1 Last MRI: two years ago CC: Multiple sclerosis f/u First visit to me. Last seen by 07-18-11: CC: Relapsing remitting multiple sclerosis History: She [...] a bout of sinusitis in January 2010. ................. Maritza Contreras is a 50 y.o. year [...] back in a year or sooner if necessary Review of CIS notes and images reveals a number of attacks, positive cord involvement, and new enhancing lesions, consistent with the diagnosis of MS. Today she is doing very well. 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 She is currently on Rebif and has been for many years. She has not had CBC, CMP, or anti-IFNbeta antibody assays recently so I ordered those. She will return for routine f/u in one year. At least 25 minutes of this 32 minute face to face visit were spent in discussion of the topics outlined in the note above including diagnosis, therapy, and management issues. documented in this encounter Plan of Treatment Upcoming Encounters Date Type Department Care Team (Late st Contact Info) Description 09/14/2024 8:00 AM EDT Office [place] [address] Alie Arshad PA [facility] [place] [address] documented as of this encounter Procedures Procedure Name Priority Date/Time Associated Diagnosis Comments MISCELLANEOUS LAB REQUEST Routine 08/27/2012 1:52 PM EDT [facility] Routine 08/27/2012 1:52 PM EDT DIFFERENTIAL, AUTOMATED Routine 08/27/2012 1:52 PM EDT CBC (WITH DIFF) Routine 08/27/2012 1:52 PM EDT Multiple sclerosis COMPREHENSIVE METABOLIC PANEL Routine 08/27/2012 1:52 PM EDT Multiple sclerosis documented in this encounter Results * [facility] [place] (08/27/2012 1:52 PM EDT) [facility] Send[facility] See Note CERNER MILLENNIUM Comment: The ordered test is: Interferon-Beta IgG, Maid Performed by: Test performed by: [employer]. [address] [place] [address] The test result is: <1.6 units Rebif Reference Range:<4.0 units Interpretive Criteria: <4.0 units IgG not detected > or = 4.0 units IgG detected Specimen of unknown material (specimen) 08/27/2012 1:52 PM EDT 08/27/2012 2:58 PM EDT Raimundo Cancino MD LAB SEND OUT ORDERAB LES CERNER MILLENNIUM * (ABNORMAL) Differential, Automated (08/27/2012 1:52 PM EDT) Neutrophil % 73.3(H) 34.0 - 71.0 % CERNER MILLENNIUM Neutrophil Absolute 3.90 1.50 - 6.30 x10(3)/mc L CERNER MILLENNIUM Lymph % 18.8(L) 19.0 - 53.0 % CERNER MILLENNIUM Lymphocytes Abs 1.0 1.0 - 3.6 x10(3)/mc L CERNER MILLENNIUM Monocyte % 6.8 4.0 - 13.0 % CERNER MILLENNIUM Monocyte Abs 0.4 0.2 - 1.0 x10(3)/mc L CERNER MILLENNIUM Eos % 0.9 0.0 - 7.0 % CERNER MILLENNIUM Eosinophils Abs 0.0 0.0 - 0.5 x10(3)/mc L CERNER MILLENNIUM Basophil % 0.2 0.0 - 2.0 % CERNER MILLENNIUM Baso Absolute 0.0 0.0 - 0.2 x10(3)/mc L CERNER MILLENNIUM Immature Gran % 0.00 0.00 - 0.66 % [facility] MILLENNIUM Comment: Immature granulocytes(IG's)percentage and absolute count will include metamyelocytes, myelocytes, and promyelocytes. Blood smears from CBCs yielding IG's will be scanned manually for concordance. If this scan disagrees with the automated IG or if promyelocytes are noted, a manual differential will be performed. Immature Gran Absolute 0.00 0.00 - 0.05 x10(3)/mc L [facility] Blood specimen (specimen) 08/27/2012 1:52 PM EDT 08/27/2012 1:57 PM EDT Raimundo Cancino MD HEMATOLOGY ORDERABLE S Performing Organization Address [facility] de Phone Number [facility] * Miscellaneous Lab request (08/27/2012 1:52 PM EDT) Label Request received in lab. [facility] Specimen of unknown material (specimen) 08/27/2012 1:52 PM EDT 08/27/2012 1:57 PM EDT Raimundo Cancino MD LAB SEND OUT ORDERAB LES Performing Organization Address [facility] de Phone Number [facility] * Comprehensive metabolic panel (non-fasting) (08/27/2012 1:52 PM EDT) Glucose 101 60 - 199 mg/dL [facility] Comment:Diabetes: >=200 mg/d L plus symptoms Blood Urea Nitrogen 14 8 - 18 mg/dL [facility] Creatinine 0.70 0.70 - 1.20 mg/dL [facility] Comment: Please note that the pediatric reference intervals supplied above were not validated at [facility]. Results from pediatric patients should be interpreted in conjunction to the patient's age, height and muscle mass. Sodium 141 135 - 145 mmol/L CERNER MILLENNIUM Potassium 3.8 3.5 - 5.0 mmol/L CERNER MILLENNIUM Comment: Please note: ??Patients with WBC >100,000 may have falsely elevated Potassium levels. ??For accurate Potassium quantification in these patients send serum separator tube (gold top) for subsequent determinations. ??Contact the Clinical Chemistry Laboratory if there are any questions. Chloride 107 98 - 107 mmol/L CERNER MILLENNIUM Carbon Dioxide 24 22 - 31 mmol/L [facility]ERNER MILLENNIUM Anion Gap 10 5 - 15 mmol/L [facility] MILLENNIUM Calcium 9.2 8.5 - 10.5 mg/dL [facility] MILLENNIUM Protein, Total 7.2 6.4 - 8.3 gm/dL [facility]ERN[facility] MILLENNIUM Albumin 4.4 3.2 - 5.2 gm/dL [facility]ERN[facility] MILLENNIUM Aspartate Aminotransferase 17 0 - 30 unit/L [facility] MILLENNIUM Alanine Aminotransferase 16 0 - 30 unit/L [facility] MILLENNIUM Alkaline Phosphatase 89 40 - 104 unit/L [facility]ERN[facility] MILLENNIUM Bilirubin, Total 0.5 0.2 - 1.3 mg/dL [facility]ERN[facility] MILLENNIUM Bilirubin, [...] internet browser. http://www.nkdep.nih.gov/lab-evaluation.shtml http://www.kidney.org/professionals/ Blood specimen (specimen) 08/27/2012 1:52 PM EDT 08/27/2012 1:57 PM EDT Narrative Resulting Agency Comment Spec In Lab Raimundo Cancino MD CHEMISTRY ORDERABLES CERNER MILLENNIUM * CBC (with Diff) (08/27/2012 1:52 PM EDT) White Blood Cell 5.3 4.0 - 10.0 x10(3)/mcL [facility]ERNER MILLENNIUM Red Blood Cell 4.09 3.93 - 5.22 x10(6)/mcL [facility] MILLENNIUM Hemoglobin 11.8 11.2 - 15.7 gm/dL [facility] MILLENNIUM Hematocrit 36.3 34.0 - 45.0 % CERNER MILLENNIUM Mean Cell Volume 88.8 79.0 - 94.0 fL [facility] MILLENNIUM Mean Cell Hemoglobin 28.9 26.6 - 32.2 pg CERNER MILLENNIUM Mean Cell Hemoglobin Concentration 32.5 32.0 - 36.5 gm/dL CERNER MILLENNIUM Platelet 273 145 - 370 x10(3)/mcL [facility]ERNER MILLENNIUM RDW Standard Deviation 44.9 35.0 - 46.0 fL CERNER MILLENNIUM RDW coefficient of variation 13.9 10.9 - 14.4 % CERNER MILLENNIUM Mean Platelet Volume 10.1 9.0 - 12.0 fL CERNER MILLENNIUM Blood specimen (specimen) 08/27/2012 1:52 PM EDT 08/27/2012 1:57 PM EDT Narrative Resulting Agency Comment Spec In Lab Raimundo Cancino MD HEMATOLOGY ORDERABLE S ALEX VERDUZCO documented in this encounter Visit Diagnoses Diagnosis Multiple sclerosis- Primary documented in this encounter Care Teams Proof Inspector Relationship Specialty Start Date End Date Kevan Angel DO [address] [place] [address] PCP - General 08/07/11 documented as of this encounter
--- OUTSIDE RECORDS SUMMARY | 2024-04-05 17:32 | XMS_ITS | Encounter Summary ---
[place] [address] Care Team Providers Care Body Press Operator Name Role Phone StanleyKevan bowen Primary Care Provider Reason for Visit * Reason Onset Date Comments Prior Authorization 04/21/2013 REBIF APPROV ED 02/20/13-03/22/14 Encounter Details Date Type Department Care Team (Late st Contact Info) Description 04/21/2013 [place] [address] Raimundo Cancino MD [facility] [place] [address] Prior Authorization (REBIF APPROVED 02/20/13-03/22/14 ) Social History Tobacco Use Types Packs/Day Years [...] * Telephone Encounter - Haylie Ruiz - 11/19/2013 8:58 AM EDT Haylie Ruiz 03/22/2013 9:15 AM Signed OBTAINED VIA [facility]/PHONE Haylie Ruiz 03/22/2013 9:14 AM Signed REBIF APPROVED 02/20/13-03/22/14 * Telephone Encounter - Haylie Ruiz - 05/11/2013 2:30 PM EST CHECKING STATUS...... * Telephone Encounter - Haylie Ruiz - 04/22/2013 9:21 AM EST PA FOR REBIF FAXED TO [facility]. * Telephone Encounter - Elda Fabian - 04/21/2013 2:01 PM EST Prior authorization needed AGAIN for the REBIF Pharmacy is requesting another PA. Patient states that she has only enough to get through Friday. Next dose on Friday. Insurance: [employer] and [employer] [facility]. Group # [id number] ID# [id number] RX group # [id number] Subscriber Name: Maritza Leiva Phone number [phone]. Name of Med: Rebif Strength of Pills:44mcg/.05ml injection Dosing Directions: inject .5 ml three times a week 30 or 90 Day: 30 Pharmacy: [facility] [place], [place] Last Appointment:08/27/2012 Next Appointment: pending documented in this encounter Plan of Treatment Upcoming Encounters Date Type Department Care Team (Late st Contact Info) Description 09/14/2024 8:00 AM EDT Office [place] [address] Alie Arshad PA [facility] [place] [address] documented as of this encounter Visit Diagnoses Not on filedocumented in this encounter Care Teams Body Press Operator Relationship Specialty Start Date End Date Kevan Angel DO [address] [place] [address] PCP - General 08/07/11 documented as of this encounter
--- OUTSIDE RECORDS SUMMARY | 2024-04-05 17:32 | XMS_ITS | Encounter Summary ---
[place] [address] Care Team Providers Care Astronomy Department Chair Name Role Phone Fabrizio Rey MD Primary Care Provider [phone] Reason for Visit * Reason Onset Date Comments Other 10/04/2010 lab results to s Encounter Details Date Type Department Care Team (Late st Contact Info) Description 10/04/2010 [place] [address] Hang Mejia MD Other (lab results to us) Social History Tobacco Use Types Packs/Day Years [...] Telephone Encounter - June Osborne RN - 10/04/2010 4:07 PM EDT Left message on patient's voicemail asking for her to have her outside labwork faxed to us. documented in this encounter Plan of Treatment Upcoming Encounters Date Type Department Care Team (Late st Contact Info) Description 09/14/2024 8:00 AM EDT Office [place] [address] [facility] [place] [address] documented as of this encounter Visit Diagnoses Not on filedocumented in this encounter Care Teams Astronomy Department Chair Relationship Specialty Start Date End Date Fabrizio Rey MD [address] [place] [address] PCP - General 03/06/10 08/06/11 documented as of this encounter
--- OUTSIDE RECORDS SUMMARY | 2024-04-05 17:32 | XMS_ITS | Encounter Summary ---
Author Organization [place] [address] Care Team Providers Care Model Maker Name Role Phone Fabrizio Rey MD Primary Care Provider [phone] Reason for Visit * Reason Onset Date Comments Medication Refill 03/19/2011 Encounter Details Date Type Department Care Team (Late st Contact Info) Description 03/19/2011 [place] [address] Smooth Jang MD [facility] [place] [address] Social History Tobacco Use Types Packs/Day Years [...] Telephone Encounter - June Osborne RN - 03/19/2011 1:33 PM EST Pt calls for refill of Rebif through [facility] in [place], [place]. Last clinic visit: 09/06/2010 Next clinic visit: None scheduled documented in this encounter Plan of Treatment Upcoming Encounters Date Type Department Care Team (Late st Contact Info) Description 09/14/2024 8:00 AM EDT [place] [address] Alie Arshad PA [facility] [place] [address] documented as of this encounter Visit Diagnoses Not on filedocumented in this encounter Care Teams Model Maker Relationship Specialty Start Date End Date Fabrizio Rey MD [address] [place] [address] PCP - General 03/06/10 08/06/11 documented as of this encounter
--- OUTSIDE RECORDS SUMMARY | 2024-04-05 17:32 | XMS_ITS | Encounter Summary ---
[place] [address] Care Team Providers Care Subassemblies Wirer Name Role Phone Fabrizio Rey MD Primary Care Provider Reason for Visit * Reason Onset Date Comments Medication Refill 10/18/2010 Encounter Details Date Type Department Care Team (Late st Contact Info) Description 10/18/2010 [place] [address] Hang Mejia MD Social History Tobacco Use [...] Telephone Encounter - June Osborne RN - 10/18/2010 2:58 PM EDT Refill script for Rebif received from [facility]. Faxed back to [phone]. documented in this encounter Plan of Treatment Upcoming Encounters Date Type Department Care Team (Late st Contact Info) Description 09/14/2024 8:00 AM EDT Office [place] [address] Alie Arshad PA [facility] [place] [address] documented as of this encounter Visit Diagnoses Not on filedocumented in this encounter Care Teams Subassemblies Wirer Relationship Specialty Start Date End Date Fabrizio Rey MD [address] [place] [address] PCP - General 03/06/10 08/06/11 documented as of this encounter
--- OUTSIDE RECORDS SUMMARY | 2024-04-05 17:32 | XMS_ITS | Encounter Summary ---
Author Organization [facility] Address [facility] [place] [place] [address] Care Team Providers Care Patternmaker Pressure Cast Name Role Phone StanleyKevan bowen Primary Care Provider Reason for Visit * Reason Onset Date Comments Other 07/11/2011 Encounter Details Date Type Department Care Team (Late st Contact Info) Description 07/11/2011 [place] [address] Smooth Jang MD [facility] [place] [address] Other Social History Tobacco Use Types Packs/Day [...] Telephone Encounter - Zohreh Stevens RN - 07/17/2011 10:11 AM EDT S/O:Spoke to patient re injection site, deandre. Pt stated that approx 4 weeks ago she have her an injection of rebif and it has been soreand slightly red 2'' in diameter. I am not sure if has been because I have been exercising more? Pt reported it is resolving. She went to her PCP, called theRebif nurses and they said to her that they have 't heard of this. Pt has been trying heat on the area/IBU A/P: Afebrile. Advised not to inject near that area now and the importance of rotating sites. Askedpatient to call if symptoms reoccur at other site and if she is not improving. Will fwd to Laine Galo to inform. * Telephone Encounter - Zohreh Stevens RN - 07/12/2011 3:11 PM EDT Called. Left message on machine for her to call us back. * Telephone Encounter - Марина Voss - 07/11/2011 4:33 PM EDT Patient called today to report sore/stiff muscle in right leg at injection site (3 weeks ago). Patient is concerned and has questions. Please call to advise. Patient indicated that a call can be madeto home number today at [phone]. documented in this encounter Plan of Treatment Upcoming Encounters Date Type Department Care Team (Late st Contact Info) Description 09/14/2024 8:00 AM EDT [place] [address] Alie Arshad PA [facility] [place] [address] documented as of this encounter Visit Diagnoses Not on filedocumented in this encounter Care Teams Patternmaker Pressure Cast Relationship Specialty Start Date End Date Kevan Angel DO [address] [place] [address] PCP - General 08/07/11 documented as of this encounter
--- NOTE | 2024-04-05 17:38 | DI.RAD_ITS ---
Exam(s) XR CHEST 2V PA LATERAL EXAM: XR CHEST 2V PA LATERAL CLINICAL HISTORY: eval pna R05.9 Cough, Unspecified TECHNIQUE: 2D digital imaging was performed of the chest. Two images were obtained. PA and lateral views were obtained. COMPARISON: CR CHEST 2 VIEWS PA,LAT from 07/18/2009 FINDINGS: MEDIASTINUM: Normal. HEART: Normal. PULMONARY VASCULATURE: Normal. LUNGS: Clear. PLEURAL SPACE: No pleural effusion or pneumothorax. BONE:Within normal limits for the patient's age. OTHER FINDINGS:Normal. IMPRESSION: No acute pulmonary findings. DATA REPOSITORY: RADIATION DOSE DELIVERED:
--- NOTE | 2024-04-05 17:59 | DI.VRAD_ITS ---
PROCEDURE INFORMATION: Exam: XR Chest Exam date and time: 04/05/2024 5:27 PM Age: 64 years old Clinical indication: Patient HX: Cough, eval pna TECHNIQUE: Imaging protocol: Radiologic exam of the chest. Views: 2 views. COMPARISON: No relevant prior studies available. FINDINGS: Lungs: There is no evidence an infiltrate. Pleural spaces: There are no pleural effusions. Heart/Mediastinum: Unremarkable. No cardiomegaly. Vasculature: There are arteriosclerotic changes of the aorta. Bones/joints: There are degenerative changes of the thoracic spine. IMPRESSION: 1. No evidence of an infiltrate or a pleural effusion. 2. Arteriosclerotic changes of the aorta. Dictated and Authenticated by: Baudilio Lockhart MD. Ordering:PEGGY Leigh MD
== END 2024-04-05 17:44 ==
PROVIDERS: PCP Nurse Practitioner Family; Visit Provider Nurse Practitioner Family
DX: R05.9 Cough, unspecified (principal)
CPT/HCPCS: 71046

== ENCOUNTER 2024-09-02 03:37 | Outpatient (CLI) | payer BC, SELFPAY ==
[2024-09-02 09:39] LABS: ALT 23 U/L (14-59); AST 22 U/L (15-37); Albumin 3.6 g/dL (3.4-5.0); Alkaline Phosphatase 92 U/L (46-116); Anion Gap 2.8 mmol/L (3-11); BUN 22 mg/dL (7-18); Bilirubin, Total 0.8 mg/dL (0.2-1.0); CO2 31.2 mmol/L (21.0-32.0); CREATININE 0.7 mg/dL (0.55-1.02); Calcium 9.6 mg/dL (8.5-10.1); Calculated LDL 129 mg/dL (<100); Chloride 104 mmol/L (98-107); Cholesterol 213 mg/dL (<200); Estimated GFR 97.72 (mL/min/1.73m2); Glucose 93 mg/dL (74-106); HDL Cholesterol 63 mg/dL (>or=50); Potassium 4.1 mmol/L (3.5-5.1); Sodium 138 mmol/L (136-145); Total Protein 7.3 g/dL (6.4-8.2); Triglyceride 105 mg/dL (<150)
[2024-09-02 09:52] LABS: Hemoglobin A1C 5.9 % (<5.7)
== END 2024-09-02 03:38 | disposition home or self-care (01) ==
LOC: LBO 03:37
PROVIDERS: PCP Nurse Practitioner Family; Visit Provider Nurse Practitioner Family
DX: Z00.00 Encounter for general adult medical examination without abnormal findings (principal); I10 Essential (primary) hypertension; R73.03 Prediabetes; G35 Multiple sclerosis
CPT/HCPCS: 36415; 80053; 80061; 83036

== ENCOUNTER 2024-10-08 00:18 | Outpatient (CLI) | payer BC, SELFPAY ==
--- NOTE | 2024-10-08 06:30 | DI.MAMMO_ITS ---
Exam(s) MAMMO SCREENING EXAM: MAMMO SCREENING CLINICAL HISTORY: screening, Z12.39 TECHNIQUE: Bilateral full field digital CC and MLO mammographic images were obtained with 3D tomosynthesis and utilizing computer aided detection (CAD). COMPARISON: Comparison is made with prior examinations. FINDINGS: Masses/Architectural Distortion: No suspicious masses or areas of architectural distortion are present. Microcalcifications: No suspicious pleomorphic-type are seen. Skin Thickening/Nipple Retraction: None. IMPRESSION: 1. No significant interval change with no specific features of malignancy noted. 2. Unless there is more urgent need, screening mammography is recommended, as per [employer] guidelines. BI-RADS Category 1 - Negative Breast Density - Category C - The breast are heterogeneously dense, which may obscure small masses. Breast density Category C or D implies that the patient has dense breast tissue. Dense breast tissue can make it harder to find cancer on a mammogram. Dense breast tissue is also associated with an increased risk of breast cancer. This information about the result of the mammogram report was provided to the patient to raise their awareness. Use this report when you speak with the patient about their risks for breast cancer, which includes their family history. At that time, you may recommend additional screening tests (Ultrasound or MRI) as these tests may add significant information. A negative radiographic report should not delay biopsy if a dominant or clinically suspicious mass is present. Up to ten percent of cancers are not identified on mammography. A negative report may reinforce clinical impression. Adenosis and dense breasts may obscure an underlying neoplasm. False positive reports average 6 to 10%. Patient will receive a letter notifying them of these results.
== END 2024-10-08 00:38 ==
LOC: DI 00:19
PROVIDERS: PCP Nurse Practitioner Family; Visit Provider Nurse Practitioner Family
DX: Z12.31 Encounter for screening mammogram for malignant neoplasm of breast (principal); R92.333 Mammographic heterogeneous density, bilateral breasts
CPT/HCPCS: 77063; 77067

== ENCOUNTER 2025-04-08 00:23 | Outpatient (CLI) | payer BC, SELFPAY ==
[2025-04-08 14:11] LABS: Vitamin B12 534 pg/mL (211-911)
[2025-04-08 14:12] LABS: Folate 16.8 ng/mL (>5.38)
== END 2025-04-08 00:24 | disposition home or self-care (01) ==
LOC: LBO 00:23
PROVIDERS: PCP Nurse Practitioner Family; Visit Provider Nurse Practitioner Family
DX: H47.20 Unspecified optic atrophy (principal)
CPT/HCPCS: 36415; 82607; 82746